=== PATIENT | female | born 1985 | race Caucasian/White ===

== ENCOUNTER 2016-10-06 00:16 | Emergency (ER) | payer MEDICAID, OTHER, SELFPAY ==
[~2016-10-06] VITALS: Ht 167.6 cm; Wt 65.8 kg
[~2016-10-06 00:16] MED LIST: ACET50TA PO; AMOX875T; BUTR5DIS2 TD; CEPH2CAP PO; CIPR250S PO; CIPR500T89 PO; CYCL5TAB PO; DOCU10ELUD PO; FERR325T PO; GABA300C2 PO; GABA600T PO; KEFL500C7 PO; LYRI75CA PO; No Historical Meds; PERC5TAB6 PO; PERC5TAB8; PERCOCET PO; PRENTAB9 PO; PROA1AER INH; SENN8.6T5; TYLE500T78 PO; VENL37TA PO; VICO5TAB PO; VITMTA PO; XANA1TAB2 PO; macrobid PO
[2016-10-06] MEDS ORDERED: dexameTHASONE 20 MG/5 ML VIAL (J1100) IV ONE (00:45)
[2016-10-06] MEDS ORDERED: MORPHINE 4 MG/ML 1ML SYRINGE IV ONE (00:45)
[2016-10-06 01:39] VITALS: BP 133/62
== END 2016-10-06 01:40 | disposition home or self-care (01) ==
LOC: EDBD 00:16 → M ED 01:27
DX: T23.212A Burn of second degree of left thumb (nail), initial encounter (principal); X10.2XXA Contact with fats and cooking oils, initial encounter; Y92.090 Kitchen in other non-institutional residence as the place of occurrence of the external cause; Y93.G3 Activity, cooking and baking; Y99.9 Unspecified external cause status
CPT/HCPCS: 96374; 96375; 99282; J1100

== ENCOUNTER → 2017-10-17 | Outpatient (CLI) | payer OTHER ==
[2017-10-17 13:37] LABS: BASO # 0.1 10^3/uL (0.0-0.2); BASO % 0.7 % (0.0-1.0); EOS # 0.2 10^3/uL (0.0-0.50); EOS % 2.1 % (0.0-3.0); HEMOGLOBIN 14.2 g/dl (12.0-15.5); IMMATURE GRANULOCYTE % 0.3 % (0-3.0); LYMPH # 2.3 10^3/uL (1.5-4.5); LYMPH % 26.1 % (24.0-44.0); MEAN CORPUSCULAR HEMOGLOBIN 29.2 pg (27.0-33.0); MEAN CORPUSCULAR HGB CONC 33.8 g/dl (32.0-36.5); MEAN CORPUSCULAR VOLUME 86.4 fl (80.0-96.0); MONO # 0.6 10^3/uL (0.0-0.8); MONO % 6.6 % (0.0-5.0); NEUTROPHILS # 5.6 10^3/uL (1.8-7.7); NEUTROPHILS % 64.2 % (36.0-66.0); PLATELET COUNT, AUTOMATED 211 10^3/uL (150-450); RED BLOOD COUNT 4.86 10^6/uL (4.00-5.40); WHITE BLOOD COUNT 8.8 10^3/uL (4.0-10.0)
[2017-10-17 13:53] LABS: CONTROL LINE HCG INT CTR LINE PRESENT; HCG, SERUM QUALITATIVE NEGATIVE (NEGATIVE)
[2017-10-17 14:02] LABS: ALBUMIN 4.1 GM/DL (3.2-5.2); ALBUMIN/GLOBULIN RATIO 1.21 (1.00-1.93); ALKALINE PHOSPHATASE 71 U/L (45-117); ALT/SGPT 25 U/L (12-78); ANION GAP 4 MEQ/L (8-16); AST/SGOT 24 U/L (7-37); BILIRUBIN,TOTAL 0.4 MG/DL (0.2-1.0); BLOOD UREA NITROGEN 11 MG/DL (7-18); CALCIUM LEVEL 9.2 MG/DL (8.5-10.1); CARBON DIOXIDE LEVEL 28 MEQ/L (21-32); CHLORIDE LEVEL 108 MEQ/L (98-107); CREATININE FOR GFR 0.84 MG/DL (0.55-1.30); GLOMERULAR FILTRATION RATE > 60.0 (>60); GLUCOSE, FASTING 90 MG/DL (70-100); HCG, SERUM QUANTITATIVE < 1.0 MIU/ML; POTASSIUM SERUM 4.2 MEQ/L (3.5-5.1); SODIUM LEVEL 140 MEQ/L (136-145); TOTAL PROTEIN 7.5 GM/DL (6.4-8.2)
== END ==
LOC: M LAB 13:18
DX: R10.32 Left lower quadrant pain (principal); N91.0 Primary amenorrhea
CPT/HCPCS: 80053

== ENCOUNTER → 2017-10-29 | Outpatient (REF) | payer OTHER ==
[2017-11-05 08:06] LABS: AMPHETAMINE SCREEN, URINE Negative ng/mL (Cutoff=1000); BARBITURATES SCREEN, URINE Negative ng/mL (Cutoff=200); BENZODIAZEPINES, URINE SCREEN Negative ng/mL (Cutoff=200); CANNABINOID SCREEN, URINE Negative ng/mL (Cutoff=20); COCAINE SCREEN, URINE Negative ng/mL (Cutoff=300); CREATININE, URINE 200.4 mg/dL (20.0-300.0); FENTANYL URINE SCREEN Negative pg/mL (Cutoff=2000); METHADONE, URINE SCREEN Negative ng/mL (Cutoff=300); NALOXONE RESULT Positive (.); OPIATE SCREEN, URINE Negative ng/mL (Cutoff=300); OXYCODONE, SCREEN, URINE Negative ng/mL (Cutoff=100); PCP SCREEN, URINE Negative ng/mL (Cutoff=25); SPECIFIC GRAVITY, URINE 1.019 (.); URINE BUPRENORPHINE Positive (.); URINE BUPRENORPHINE Positive (Cutoff=10); URINE BUPRENORPHINE See Final Results ng/mL (Cutoff=10); URINE BUPRENORPHINE CONFIRM >1000 ng/mL (Cutoff=10); URINE NORBUPRENORPHINE Positive (.); URINE NORBUPRENORPHINE CONFIRM 28 ng/mL (Cutoff=10); pH, URINE 5.5 (4.5-8.9)
== END ==
LOC: M LAB REF 10:00
DX: F11.11 Opioid abuse, in remission (principal)
CPT/HCPCS: 80362

== ENCOUNTER → 2017-11-12 | Outpatient (REF) | payer OTHER, MEDICAID ==
[2017-11-20 10:16] LABS: AMPHETAMINE SCREEN, URINE Negative ng/mL (Cutoff=1000); BARBITURATES SCREEN, URINE Negative ng/mL (Cutoff=200); BENZODIAZEPINES, URINE SCREEN Negative ng/mL (Cutoff=200); CANNABINOID SCREEN, URINE Negative ng/mL (Cutoff=20); COCAINE SCREEN, URINE Negative ng/mL (Cutoff=300); CREATININE, URINE 221.8 mg/dL (20.0-300.0); FENTANYL URINE SCREEN Negative pg/mL (Cutoff=2000); METHADONE, URINE SCREEN Negative ng/mL (Cutoff=300); NALOXONE RESULT Positive (.); OPIATE SCREEN, URINE Negative ng/mL (Cutoff=300); OXYCODONE, SCREEN, URINE Negative ng/mL (Cutoff=100); PCP SCREEN, URINE Negative ng/mL (Cutoff=25); SPECIFIC GRAVITY, URINE 1.026 (.); URINE BUPRENORPHINE Positive (.); URINE BUPRENORPHINE Positive (Cutoff=10); URINE BUPRENORPHINE See Final Results ng/mL (Cutoff=10); URINE BUPRENORPHINE CONFIRM 122 ng/mL (Cutoff=10); URINE NORBUPRENORPHINE Positive (.); URINE NORBUPRENORPHINE CONFIRM 414 ng/mL (Cutoff=10); pH, URINE 5.9 (4.5-8.9)
== END ==
LOC: M LAB REF 09:13
DX: F11.11 Opioid abuse, in remission (principal)

== ENCOUNTER 2018-02-14 12:04 | Emergency (ER) | payer OTHER, MEDICAID ==
[2018-02-14 13:21] LABS: KETONE, URINE AUTO RFX TRACE mg/dL (NEGATIVE); LEUKOCYTE ESTERASE UR AUTO RFX 2+ (NEGATIVE); MUCUS, URINE RFX SMALL (NEGATIVE); NITRITE, URINE AUTO RFX POSITIVE (NEGATIVE); RBC, URINE AUTO RFX 2 /HPF (0-3); SQUAM EPITHELIAL CELL UR AURFX 7 /HPF (0-6); WBC, URINE AUTO RFX 43 /HPF (0-3)
[2018-02-14] MEDS: ONDANSETRON 4 MG ORAL DISINTEGRATING TAB (Q0162 PER 1MG) PO (13:57)
[2018-02-14] MEDS: NITROFURANTOIN (MACROBID) 100 MG CAP PO (14:00)
[2018-02-14] MEDS: MORPHINE 4 MG/ML 1ML VIAL/SYRINGE (J2270) IM (14:05)
== END 2018-02-14 15:34 | disposition home or self-care (01) ==
LOC: M ED 12:04
DX: O23.40 Unspecified infection of urinary tract in pregnancy, unspecified trimester (principal); O99.519 Diseases of the respiratory system complicating pregnancy, unspecified trimester; Z87.442 Personal history of urinary calculi; Z79.899 Other long term (current) drug therapy; Z88.5 Allergy status to narcotic agent; Z88.6 Allergy status to analgesic agent; Z88.2 Allergy status to sulfonamides; Z88.8 Allergy status to other drugs, medicaments and biological substances; Z91.040 Latex allergy status
CPT/HCPCS: J2270

== ENCOUNTER 2018-02-19 12:17 | Emergency (ER) | payer OTHER ==
[2018-02-19] MEDS: NS 1,000 ML IV (13:44)
[2018-02-19] MEDS: ONDANSETRON 4MG/2ML VIAL (J2405) IV (13:44)
[2018-02-19] MEDS: ACETAMINOPHEN TAB 650MG DOSE (2X325MG) PO (14:39)
== END 2018-02-19 16:45 | disposition home or self-care (01) ==
LOC: M ED 12:17
DX: O21.9 Vomiting of pregnancy, unspecified (principal); Z3A.10 10 weeks gestation of pregnancy; Z87.442 Personal history of urinary calculi; Z88.2 Allergy status to sulfonamides; Z88.5 Allergy status to narcotic agent; Z88.8 Allergy status to other drugs, medicaments and biological substances; Z91.040 Latex allergy status; Z87.891 Personal history of nicotine dependence
CPT/HCPCS: J2405

== ENCOUNTER 2018-03-01 10:22 | Emergency (ER) | payer OTHER | END 2018-03-01 11:02 | disposition home or self-care (01) | LOC: M ED 10:22 | DX: O21.0 Mild hyperemesis gravidarum (principal); Z3A.13 13 weeks gestation of pregnancy; Z87.442 Personal history of urinary calculi; O99.511 Diseases of the respiratory system complicating pregnancy, first trimester; O99.341 Other mental disorders complicating pregnancy, first trimester; Z87.891 Personal history of nicotine dependence; Z79.899 Other long term (current) drug therapy; Z88.5 Allergy status to narcotic agent; Z88.8 Allergy status to other drugs, medicaments and biological substances; Z88.6 Allergy status to analgesic agent; Z88.2 Allergy status to sulfonamides; Z91.040 Latex allergy status | CPT/HCPCS: 99282 ==

== ENCOUNTER → 2018-03-11 | Outpatient (CLI) | payer OTHER ==
[2018-03-11 17:47] LABS: BASO % 0.4 % (0.0-1.0); EOS # 0.2 10^3/uL (0.0-0.50); EOS % 1.6 % (0.0-3.0); HEMATOCRIT 37.9 % (36.0-47.0); HEMOGLOBIN 12.9 g/dl (12.0-15.5); IMMATURE GRANULOCYTE % 0.5 % (0-3.0); LYMPH # 1.7 10^3/uL (1.5-4.5); LYMPH % 18.6 % (24.0-44.0); MEAN CORPUSCULAR HEMOGLOBIN 29.6 pg (27.0-33.0); MEAN CORPUSCULAR VOLUME 86.9 fl (80.0-96.0); MONO # 0.6 10^3/uL (0.0-0.8); MONO % 6.1 % (0.0-5.0); NEUTROPHILS # 6.8 10^3/uL (1.8-7.7); NEUTROPHILS % 72.8 % (36.0-66.0); PLATELET COUNT, AUTOMATED 238 10^3/uL (150-450); RED BLOOD COUNT 4.36 10^6/uL (4.00-5.40); RED CELL DISTRIBUTION WIDTH 13.2 % (11.5-14.5); WHITE BLOOD COUNT 9.4 10^3/uL (4.0-10.0)
[2018-03-11 19:18] LABS: TOTAL PROTEIN,RANDOM URINE < 5.0 MG/DL (0.0-12.0)
[2018-03-11 19:36] LABS: ALT/SGPT 18 U/L (12-78); AST/SGOT 13 U/L (7-37); BILIRUBIN,TOTAL 0.2 MG/DL (0.2-1.0); CREATININE FOR GFR 0.64 MG/DL (0.55-1.30); GLOMERULAR FILTRATION RATE > 60.0 (>60); LDH LACTATE DEHYDROGENASE 156 U/L (84-246); URIC ACID 3.5 MG/DL (2.6-6.0)
[2018-03-11 23:50] LABS: CHLAMYDIA DNA AMPLIFICATION NEGATIVE (NEGATIVE); GC DNA AMPLIFICATION NEGATIVE (NEGATIVE)
[2018-03-13 09:55] LABS: RUBELLA IgG QUALITATIVE IMMUNE (IMMUNE)
[2018-03-13 10:14] LABS: HEPATITIS C VIRUS ABY INDEX 0.1 INDEX (<0.8)
[2018-03-13 11:06] LABS: HBsAg Prenatal NEGATIVE (NEGATIVE)
[2018-03-13 12:42] LABS: HIV 1&2 SCREEN CENTAUR NEGATIVE (NEGATIVE)
== END ==
LOC: M SMT 15:43
DX: Z34.80 Encounter for supervision of other normal pregnancy, unspecified trimester (principal); Z36.89 Encounter for other specified antenatal screening
CPT/HCPCS: 84460

== ENCOUNTER 2018-04-30 21:06 | Emergency (ER) | payer OTHER ==
[2018-04-30 22:34] LABS: KETONE, URINE AUTO RFX NEGATIVE (NEGATIVE); LEUKOCYTE ESTERASE UR AUTO RFX TRACE (NEGATIVE); MUCUS, URINE RFX SMALL (NEGATIVE); NITRITE, URINE AUTO RFX POSITIVE (NEGATIVE); RBC, URINE AUTO RFX 2 /HPF (0-3); SPECIFIC GRAVITY UR AUTO RFX 1.009 (1.002-1.035); SQUAM EPITHELIAL CELL UR AURFX 2 /HPF (0-6); WBC, URINE AUTO RFX 11 /HPF (0-3)
[2018-04-30] MEDS: ONDANSETRON 4MG/2ML VIAL (J2405) IV (22:55)
[2018-04-30] MEDS: NS 1,000 ML IV (22:55)
[2018-04-30] MEDS: MORPHINE 4 MG/ML 1ML VIAL/SYRINGE (J2270) IV (22:56)
[2018-04-30 23:13] LABS: BASO % 0.5 % (0.0-1.0); EOS # 0.2 10^3/uL (0.0-0.50); EOS % 2.9 % (0.0-3.0); HEMATOCRIT 35.3 % (36.0-47.0); HEMOGLOBIN 12.1 g/dl (12.0-15.5); IMMATURE GRANULOCYTE % 1.1 % (0-3.0); LYMPH % 24.8 % (24.0-44.0); MEAN CORPUSCULAR HEMOGLOBIN 30.1 pg (27.0-33.0); MEAN CORPUSCULAR HGB CONC 34.3 g/dl (32.0-36.5); MEAN CORPUSCULAR VOLUME 87.8 fl (80.0-96.0); MONO # 0.8 10^3/uL (0.0-0.8); MONO % 9.2 % (0.0-5.0); NEUTROPHILS # 5.1 10^3/uL (1.8-7.7); NEUTROPHILS % 61.5 % (36.0-66.0); PLATELET COUNT, AUTOMATED 218 10^3/uL (150-450); RED BLOOD COUNT 4.02 10^6/uL (4.00-5.40); RED CELL DISTRIBUTION WIDTH 13.7 % (11.5-14.5); WHITE BLOOD COUNT 8.2 10^3/uL (4.0-10.0)
[2018-04-30 23:37] LABS: ALBUMIN 3.1 GM/DL (3.2-5.2); ALBUMIN/GLOBULIN RATIO 0.91 (1.00-1.93); ALKALINE PHOSPHATASE 57 U/L (45-117); ALT/SGPT 14 U/L (12-78); ANION GAP 11 MEQ/L (8-16); AST/SGOT 14 U/L (7-37); BILIRUBIN,DIRECT 0.1 MG/DL (0.0-0.2); BILIRUBIN,TOTAL 0.3 MG/DL (0.2-1.0); BLOOD UREA NITROGEN 10 MG/DL (7-18); CALCIUM LEVEL 8.6 MG/DL (8.5-10.1); CARBON DIOXIDE LEVEL 23 MEQ/L (21-32); CHLORIDE LEVEL 106 MEQ/L (98-107); CREATININE FOR GFR 0.63 MG/DL (0.55-1.30); GLOMERULAR FILTRATION RATE > 60.0 (>60); GLUCOSE, FASTING 73 MG/DL (70-100); POTASSIUM SERUM 3.8 MEQ/L (3.5-5.1); SODIUM LEVEL 140 MEQ/L (136-145); TOTAL PROTEIN 6.5 GM/DL (6.4-8.2)
[2018-05-01] MEDS: MORPHINE 4 MG/ML 1ML VIAL/SYRINGE (J2270) IV (00:07)
[2018-05-01] MEDS: PHENAZOPYRIDINE 100 MG TAB PO (00:19)
[2018-05-01] MEDS: AUGMENTIN 500 MG TAB PO (00:19)
== END 2018-05-01 00:50 | disposition home or self-care (01) ==
LOC: M ED 05-01 00:50
DX: O23.42 Unspecified infection of urinary tract in pregnancy, second trimester (principal); Z3A.22 22 weeks gestation of pregnancy; Z87.442 Personal history of urinary calculi; O99.342 Other mental disorders complicating pregnancy, second trimester; Z90.5 Acquired absence of kidney; Z79.899 Other long term (current) drug therapy; Z88.5 Allergy status to narcotic agent; Z88.2 Allergy status to sulfonamides; Z88.6 Allergy status to analgesic agent; Z88.8 Allergy status to other drugs, medicaments and biological substances; Z91.040 Latex allergy status
CPT/HCPCS: J2270

== ENCOUNTER → 2018-05-05 | Outpatient (CLI) | payer OTHER | LOC: M WHC 13:40 | DX: Z34.82 Encounter for supervision of other normal pregnancy, second trimester (principal); Z3A.22 22 weeks gestation of pregnancy | CPT/HCPCS: 76811 ==

== ENCOUNTER → 2018-06-25 | Outpatient (CLI) | payer OTHER ==
[~2018-06-25] MED LIST changes: +AUGM500T34 PO; +BUPR8SUB; +BUPRENORP; +FERR1TAB8 PO; -FERR325T PO; -GABA600T PO; +GABA600T4 PO; +KEFL500C17 PO; -KEFL500C7 PO; +MACR100C43 PO; +ONDA8TAB8 PO; +OXYC1TAB23 PO; +PERC5TAB12 PO; -PERC5TAB6 PO; -PROA1AER INH; +PROAAER10 INH; +PROM25SU PR; +PROM25TA12 PR; +PYRI1TAB5 PO; +SUBO8MIS SL; +ZOFR4TAB14 PO
--- NOTE | 2018-06-26 04:56 | REP ---
Clinical: Anatomical evaluation. Comparison: 05/05/2018 . Findings: Examination demonstrates a single live intrauterine in oblique (head to maternal left) presentation. motion is identified by technologist. Placenta is noted anterior and grade there are grade 1 without evidence for placenta previa or abruption. Amniotic fluid volume is normal. Cervix measures 5.4 cm in length and appears closed. No evidence for nuchal cord. Gestational age by LMP 29 weeks 3 days with ELEUTERIO 09/07/2018 . Gestational age by current measurements 28 weeks 3 days with ELEUTERIO 09/14/2018 . FHR equals 143 beats per minute. Estimated weight 1230 grams ( 21st percentile). Amniotic fluid index: 14.1 cm (9.1 - 23.2) Umbilical cord SD ratio: 2.86 (2.50 - 3.50). Anatomical assessment demonstrates normal cranium, cavum, posterior fossa, facial features, lungs, diaphragm, stomach, three-vessel cord, kidneys/bladder and lower extremities. Impression: Single live intrauterine in transverse lie demonstrating appropriate interval growth. While no gross abnormalities are identified. Continued limited evaluation of the spine again noted due to positioning. Electronically Signed by Jair Fletcher MD 06/26/2018 04:47 A
== END ==
LOC: M RAD 13:00
PROVIDERS: ATTEND Specialist
DX: Z36.89 Encounter for other specified antenatal screening (principal); Z3A.28 28 weeks gestation of pregnancy

== ENCOUNTER → 2018-07-23 | Outpatient (CLI) | payer OTHER ==
--- NOTE | 2018-07-24 02:28 | REP ---
Clinical: Growth evaluation. Comparison: 06/25/2018 . Findings: Examination demonstrates a single live intrauterine in cephalic presentation. motion is identified by technologist. Placenta is noted anterior and grade grade zero without evidence for placenta previa or abruption. Amniotic fluid volume is normal. Cervix measures 3.8 cm in length and appears closed. No evidence for nuchal cord. Gestational age by LMP 33 weeks 3 days with ELEUTERIO 09/07/2018 . Gestational age by current measurements 32 weeks 2 days with ELEUTERIO 09/15/2018 . FHR equals 132 beats per minute. BPD 7.8 cm 31 weeks 3 days HC 29.6 cm 32 weeks 5-day AC 28.9 cm 32 weeks 6 days FL 6.4 cm 30 weeks 6 days HL 5.5 cm 31 weeks 5-day HC/AC ratio 1.0 through Estimated weight the 2033 grams ( 32nd percentile). Amniotic fluid index: 11.2 cm (8.2 - 24.6) Umbilical cord SD ratio: 2.10 (2.00 - 3.00). Impression: Single live intrauterine in cephalic presentation demonstrating appropriate interval growth. No gross abnormalities are identified. Electronically Signed by Jair Fletcher MD 07/24/2018 02:20 A
== END ==
LOC: M RAD 10:12
PROVIDERS: ATTEND Advanced Practice Midwife
DX: O09.293 Supervision of pregnancy with other poor reproductive or obstetric history, third trimester (principal); Z3A.33 33 weeks gestation of pregnancy

== ENCOUNTER → 2018-07-23 | Outpatient (CLI) | payer OTHER ==
[2018-07-23 13:01] LABS: HEMATOCRIT 34.8 % (36.0-47.0); HEMOGLOBIN 12.1 g/dl (12.0-15.5); MEAN CORPUSCULAR HEMOGLOBIN 30.3 pg (27.0-33.0); MEAN CORPUSCULAR HGB CONC 34.8 g/dl (32.0-36.5); PLATELET COUNT, AUTOMATED 208 10^3/uL (150-450); WHITE BLOOD COUNT 11.5 10^3/uL (4.0-10.0)
[2018-07-23 13:24] LABS: ALT/SGPT 9 U/L (12-78); BILIRUBIN,TOTAL 0.5 MG/DL (0.2-1.0); BLOOD UREA NITROGEN 8 MG/DL (7-18); CALCIUM LEVEL 8.6 MG/DL (8.5-10.1); CARBON DIOXIDE LEVEL 23 MEQ/L (21-32); CHLORIDE LEVEL 105 MEQ/L (98-107); CREATININE FOR GFR 0.64 MG/DL (0.55-1.30); GLOMERULAR FILTRATION RATE > 60.0 (>60); GLUCOSE CHALLENGE TEST 1 HOUR 132 MG/DL (LESS THAN 140); GLUCOSE, FASTING 132 MG/DL (70-100); POTASSIUM SERUM 3.8 MEQ/L (3.5-5.1); SODIUM LEVEL 137 MEQ/L (136-145); TOTAL PROTEIN 6.2 GM/DL (6.4-8.2)
== END ==
LOC: M LAB 11:02
PROVIDERS: ATTEND Advanced Practice Midwife
DX: O09.293 Supervision of pregnancy with other poor reproductive or obstetric history, third trimester (principal)

== ENCOUNTER → 2018-08-02 | Outpatient (CLI) | payer OTHER ==
[~2018-08-02] VITALS: Ht 167.6 cm; Wt 82.3 kg
[2018-08-02] VITALS (8 sets, daily range): BP systolic 121–144; BP diastolic 61–78
[~2018-08-02] MED LIST changes: +FIORICET TAB PO ONE; +MAPA500T2 PO; +OMEPRAZOLE 20 MG CAP PO ONE
[2018-08-02 11:59] LABS: BLOOD UREA NITROGEN 5 MG/DL (7-18); CALCIUM LEVEL 8.6 MG/DL (8.5-10.1); CARBON DIOXIDE LEVEL 23 MEQ/L (21-32); CHLORIDE LEVEL 107 MEQ/L (98-107); GLOMERULAR FILTRATION RATE > 60.0 (>60); GLUCOSE, FASTING 92 MG/DL (70-100); POTASSIUM SERUM 3.9 MEQ/L (3.5-5.1); SODIUM LEVEL 139 MEQ/L (136-145)
--- NOTE | 2018-08-02 13:20 | IPNPDOC ---
Text Note Date of Service The patient was seen on 08/02/18. NOTE Subjective: Patient is a 33-year-old female who is a who is 33 weeks 5 days gestation with an ELEUTERIO of 09/15/18 based off of her 1st trimester ultrasound. Her has been complicated by a history of gestational hypertension, history of preeclampsia, a right nephrectomy, history of IUFD due to cystic hygroma, history of opiate abuse-currently using suboxone daily, and a prior section. She presents today with complaints of headache, visual changes, and edema. She reports her symptoms started yesterday. She has tried tylenol without any improvement. Patient reports she knows something is going on and she feels like she did when she had preeclampsia in 2013. She reports she has been taking her BPs at home and takes it when she feels a heat del castillo in her body. States some of her pressures are in the 140-150 systolic and diastolics are in the 70's. Patient reports she did not eat anything this morning but had some soda to drink. She is requesting Zofran 8 mg. She reports it is only working if she takes 8 mg, which she is taking it twice per day. She reported her headache upon arrival to be an 8/10 and after 2 tabs of fioricet it is a 4/10 and tolerable per patient. Objective: VS: see below. Labs: see below. FHR 125, moderate variability, posi tive accelerations, no decelerations. Contractions: occasional. A+Ox3; Respiratory: regular rate; Abdomen: gravid and nontender to touch; bilateral lower extremities: generalized edema, no pitting edema present. Assessment: IUP at 33.5 weeks gestation; headache: Category I FHR tracing Plan: Reviewed all normal labs with patient. Reviewed no GHTN, preeclampsia, kidney issues, or electrolyte changes. Orthostatic pressures done on patient by nurse and are normal. Patient encouraged to get her 3 hr glucola test done as she failed her 1 hour test. Script sent for Esgic and Zofran. She has a follow- up appointment with Janee Alvarado CNM tomorrow. Patient encouraged to maintain OB appointments. Reviewed access to care, kick counts, labor signs, and danger signs to report. VS,Gee, I+O VS, Renzobone, I+O Laboratory Tests 08/02/18 11:28 Calcium Level 8.6 Item Value Date Time Sodium Level 139 MEQ/L 08/02/18 1128 Chloride Level 107 MEQ/L 08/02/18 1128 Potassium Level 3.9 MEQ/L 08/02/18 1128 Carbon Dioxide Level 23 MEQ/L 08/02/18 1128 Anion Gap 9 MEQ/L 08/02/18 1128 Blood Urea Nitrogen 5 MG/DL L 08/02/18 1128 Creatinine 0.60 MG/DL 08/02/18 1128 Glomerular Filtration Rate > 60.0 08/02/18 1128 Fasting Glucose 92 MG/DL 08/02/18 1128 Calcium Level 8.6 MG/DL 08/02/18 1128 Item Value Date Time White Blood Count 14.4 10^3/uL H 08/02/18 1427 Red Blood Count 4.05 10^6/uL 08/02/18 1427 Hemoglobin 12.3 g/dl 08/02/18 1427 Hematocrit 35.7 % L 08/02/18 1427 Mean Corpuscular Volume 88.1 fl 08/02/18 1427 Mean Corpuscular Hemoglobin 30.4 pg 08/02/18 1427 Mean Corpuscular Hemoglobin Concent 34.5 g/dl 08/02/18 1427 Red Cell Distribution Width 12.4 % 08/02/18 1427 Platelet Count 207 10^3/uL 08/02/18 1427 Item Value Date Time Creatinine 0.62 MG/DL 08/02/18 1427 Glomerular Filtration Rate > 60.0 08/02/18 1427 Uric Acid 3.3 MG/DL 08/02/18 1427 Total Bilirubin 0.3 MG/DL 08/02/18 1427 Aspartate Amino Transf (AST/SGOT) 15 U/L 08/02/18 1427 Alanine Aminotransferase (ALT/SGPT) 15 U/L 08/02/18 1427 Lactate Dehydrogenase 140 U/L 08/02/18 1427 Item Value Date Time Urine Random Creatinine 97.5 MG/DL 08/02/18 1415 Urine Random Total Protein 9.7 MG/DL 08/02/18 1415 Vital Signs Date Time Temp Pulse Resp B/P (MAP) Pulse Ox O2 Delivery O2 Flow Rate FiO2 08/02/18 11:12 82 18 121/76 (91) 08/02/18 09:05 98.6 Vital Signs Label Value Date Time Pulse 86 08/02/18 0915 Respiratory Rate 18 bpm 08/02/18 0915 Blood Pressure Assessment 128/70 (89) 08/02/18 0915 Source Automatic Cuff (NIBP) Vital Signs Label Value Date Time Pulse 82 08/02/18 1112 Respiratory Rate 18 bpm 08/02/18 1112 Blood Pressure Assessment 121/76 (91) 08/02/18 1112 Source Automatic Cuff (NIBP) Vital Signs Label Value Date Time Patient Temperature 99.1 degrees F 08/02/18 1352 Temperature Source Temporal 08/02/18 1352 Pulse 88 08/02/18 1352 Respiratory Rate 18 bpm 08/02/18 1352 Blood Pressure Assessment 144/63 (90) 08/02/18 1352 Source Automatic Cuff (NIBP) Vital Signs Label Value Date Time Patient Temperature 99.1 degrees F 08/02/18 1515 Temperature Source Temporal 08/02/18 1515 Pulse 94 08/02/18 1515 Respiratory Rate 18 bpm 08/02/18 1515 Blood Pressure Assessment 128/69 (88) 08/02/18 1515 Source Automatic Cuff (NIBP) DEVIN BURGOS CNM Aug 02, 2018 13:20
[2018-08-02 14:42] LABS: HEMATOCRIT 35.7 % (36.0-47.0); HEMOGLOBIN 12.3 g/dl (12.0-15.5); MEAN CORPUSCULAR HEMOGLOBIN 30.4 pg (27.0-33.0); MEAN CORPUSCULAR HGB CONC 34.5 g/dl (32.0-36.5); MEAN CORPUSCULAR VOLUME 88.1 fl (80.0-96.0); PLATELET COUNT, AUTOMATED 207 10^3/uL (150-450); RED BLOOD COUNT 4.05 10^6/uL (4.00-5.40); WHITE BLOOD COUNT 14.4 10^3/uL (4.0-10.0)
[2018-08-02 14:49] LABS: CREATININE,RANDOM URINE 97.5 MG/DL; TOTAL PROTEIN,RANDOM URINE 9.7 MG/DL (0.0-12.0)
[2018-08-02 15:01] LABS: ALT/SGPT 15 U/L (12-78); BILIRUBIN,TOTAL 0.3 MG/DL (0.2-1.0); CREATININE FOR GFR 0.62 MG/DL (0.55-1.30); GLOMERULAR FILTRATION RATE > 60.0 (>60); LDH LACTATE DEHYDROGENASE 140 U/L (84-246); URIC ACID 3.3 MG/DL (2.6-6.0)
== END ==
LOC: M LDO 08:45
PROVIDERS: ATTEND Advanced Practice Midwife
DX: O99.89 Other specified diseases and conditions complicating pregnancy, childbirth and the puerperium (principal); R51 Headache; O26.893 Other specified pregnancy related conditions, third trimester; H53.8 Other visual disturbances; O12.03 Gestational edema, third trimester; Z3A.33 33 weeks gestation of pregnancy

== ENCOUNTER → 2018-08-13 | Outpatient (CLI) | payer OTHER ==
[~2018-08-13] MED LIST changes: -FIORICET TAB PO ONE; -OMEPRAZOLE 20 MG CAP PO ONE
== END ==
LOC: M LAB 08:10
PROVIDERS: ATTEND Advanced Practice Midwife
DX: O09.293 Supervision of pregnancy with other poor reproductive or obstetric history, third trimester (principal)

== ENCOUNTER → 2018-08-14 | Outpatient (REF) | payer OTHER | LOC: M LAB REF 14:09 | PROVIDERS: ATTEND Advanced Practice Midwife | DX: O09.293 Supervision of pregnancy with other poor reproductive or obstetric history, third trimester (principal); Z3A.00 Weeks of gestation of pregnancy not specified ==

== ENCOUNTER → 2018-08-14 | Outpatient (REF) | payer OTHER | LOC: M LAB REF 14:00 | PROVIDERS: ATTEND Advanced Practice Midwife | DX: Z86.14 Personal history of Methicillin resistant Staphylococcus aureus infection (principal) ==

== ENCOUNTER → 2018-08-21 | Outpatient (REF) | payer OTHER, MEDICAID | LOC: M LAB REF 17:11 → EEVIPCON 17:11 | PROVIDERS: ATTEND Advanced Practice Midwife | DX: O09.293 Supervision of pregnancy with other poor reproductive or obstetric history, third trimester (principal); Z3A.00 Weeks of gestation of pregnancy not specified ==

== ENCOUNTER 2018-09-08 16:21 | Inpatient (IN) | payer OTHER, MEDICAID ==
[~2018-09-08] VITALS: Ht 167.6 cm; Wt 78.1 kg
[~2018-09-08 16:21] MED LIST changes: -ACET50TA PO; -DOCU10ELUD PO; +DOCU5LIQ PO; +MAPA500T17 PO; -PERCOCET PO
[2018-09-08] MEDS ORDERED: LACTATED RINGER'S 1000 ML IV STA (16:36)
[2018-09-08 16:39] VITALS: BP 122/81
[2018-09-08] MEDS ORDERED: ONDANSETRON 4MG/2ML VIAL (J2405) IV ONE (17:30)
[2018-09-08 17:56] VITALS: BP 132/79
[2018-09-08 18:09] LABS: HEMATOCRIT 35.1 % (36.0-47.0); MEAN CORPUSCULAR HEMOGLOBIN 28.4 pg (27.0-33.0); MEAN CORPUSCULAR HGB CONC 34.2 g/dl (32.0-36.5); MEAN CORPUSCULAR VOLUME 83.2 fl (80.0-96.0); PLATELET COUNT, AUTOMATED 224 10^3/uL (150-450); RED BLOOD COUNT 4.22 10^6/uL (4.00-5.40); WHITE BLOOD COUNT 10.4 10^3/uL (4.0-10.0)
[2018-09-08 18:24] LABS: ALT/SGPT 10 U/L (12-78); BILIRUBIN,TOTAL 0.6 MG/DL (0.2-1.0); GLOMERULAR FILTRATION RATE > 60.0 (>60); LDH LACTATE DEHYDROGENASE 147 U/L (84-246); URIC ACID 5.5 MG/DL (2.6-6.0)
[2018-09-08 18:28] LABS: AMPHETAMINES URINE REFLEX NEGATIVE (NEGATIVE); BARBITURATES URINE REFLEX NEGATIVE (NEGATIVE); BENZODIAZEPINES URINE REFLEX NEGATIVE (NEGATIVE); CANNABINOIDS URINE REFLEX NEGATIVE (NEGATIVE); COCAINE METABOLITE URINE REFLE NEGATIVE (NEGATIVE); METHADONE URINE REFLEX NEGATIVE (NEGATIVE); OPIATES URINE REFLEX NEGATIVE (NEGATIVE); PHENCYCLIDINE URINE REFLEX NEGATIVE (NEGATIVE)
[2018-09-08 18:59] LABS: TOTAL PROTEIN,RANDOM URINE 19.2 MG/DL (0.0-12.0)
--- NOTE | 2018-09-08 21:33 | NUR ---
L&D H&P HPI: 33 year old at 39+0 weeks estimated gestation. Expected date of confinement: 09/15/18. dated by a first TM US. Presents today for IOL. Denies vaginal bleeding, loss of fluid, or uterine contractions. Reports regular movement. Had a headache/visual disturbances and mildly elevated BP earlier today; now resolved. course c/b: 1. h/o LTCS x 1 (last delivery); h/o x 4 prior to LTCS. TOLAC. 2. h/o stillborn (cystic hygroma) 3. h/o opiate abuse. treated with Subutex 8mg daily labs: Blood type O+, antibody screen negative, rubella immune, VDRL nonreactive , hepatitis B surface antigen negative, HIV negative, hepatitis C antibody negative, GC/CT negative, aneuploidy/maternal serum screening: not done, 1 hour glucose challenge test: 132, 3 hour glucose tolerance test: 77,96,72,83. GBS negative Radiology/OB US: no anomalies or placental abnormalities detected. 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 LTCS x 1 (07/2013) for NRFHR. Social history: smoker, former drug abuse. No current illicit drug use. Family history: DM, HTN, heart disease. Objective Vitals: Normotensive - mild HTN, normal heart rate, afebrile Heart: Regular rate and rhythm. No murmurs, rubs or gallops. Lungs: Clear to auscultation bilaterally. No wheezes, crackles, rales or rhonchi. Abdomen: Uterine fundal height consistent with dates. No guarding or rebound tenderness. Extremities: No clubbing, cyanosis or edema. Normal deep tendon reflexes. Sterile vaginal exam: 1 cm, 50 %effacement, -3 station, cephalic, intact External monitoring: heart rate category 1 Tocodynamometer: contractions occurring intermittently Assessment/Plan 33 year old at 39+0 weeks gestation. Diagnosis: CHTN, h/o IUFD, TOLAC, 39+0 weeks EGA. Reassuring and maternal status. -Admit to labor and delivery with routine labs and orders -External monitoring and tocodynamometer -Pediatrics and anesthesia consultations as needed. -GBS prophylaxis with IV penicillin -IOL w/ Pitocin; will consider Cook balloon Dr. Gareth Snyder, DO, FACOG
[2018-09-08] MEDS: LR 1,000 ML IV SCH (21:44)
[2018-09-08] MEDS ORDERED: OXYTOCIN DRIP 30 UNITS in APPROPRIATE DILUENT 1 EA IV SCH (21:45)
[2018-09-09] VITALS (35 sets, daily range): BP systolic 102–149; BP diastolic 53–82
[2018-09-09] MEDS: LR 1,000 ML IV SCH (08:57)
[2018-09-09] MEDS ORDERED: FAMOTIDINE 20 MG TAB PO SCH (09:00)
[2018-09-09] MEDS ORDERED: BUPRENORPHINE/NALOXONE 8-2MG SUBLINGUAL TABLET(SUBOXONE) SL SCH (09:00)
[2018-09-09] MEDS ORDERED: ONDANSETRON 4 MG ORAL DISINTEGRATING TAB (Q0162 PER 1MG) PO PRN (09:15)
[2018-09-09] MEDS ORDERED: FENTANYL 2MCG/ML ROPIVACAINE 0.2% IN 0.9% NACL 100ML IVBAG As Ordered ONE (10:39)
[2018-09-09] MEDS ORDERED: ONDANSETRON 4MG/2ML VIAL (J2405) IV PRN ×3 (11:30→18:00)
[2018-09-09] MEDS ORDERED: LACTATED RINGER'S 1000 ML IV PRN (11:30)
[2018-09-09] MEDS ORDERED: ePHEDrine SULFATE 25 MG/5 ML(5MG/ML) SYRINGE IV PRN (11:30)
[2018-09-09] MEDS ORDERED: EPIDURAL COMMENT XX SCH (11:30)
[2018-09-09] MEDS ORDERED: diphenhydrAMINE INJ 50MG/ML VIAL (J1200) IV PRN (11:30)
[2018-09-09] MEDS ORDERED: REFRIGERATOR IV KEYS XX PRN (11:30)
[2018-09-09] MEDS ORDERED: FENTANYL/ROPIVACAINE/NACL BAG 100 ML EPIDURAL SCH (11:30)
[2018-09-09] MEDS ORDERED: EPIDURAL/PCA KEYS XX PRN (11:30)
[2018-09-09] MEDS ORDERED: NALOXONE INJ 0.4 MG/1 ML VIAL (J2310) IV PRN (11:30)
[2018-09-09] MEDS ORDERED: LACTATED RINGER'S 1000 ML IV STA (15:57)
[2018-09-09] MEDS ORDERED: BICITRA 30ML SOLN UDC PO ONE (16:00)
[2018-09-09] MEDS ORDERED: MORPHINE PRES-FREE INJ 10 MG/10 ML VIAL (J2274) As Ordered ONE (16:22)
[2018-09-09] MEDS ORDERED: OXYTOCIN INJ 10 UNITS/ML VIAL (J2590) As Ordered ONE ×2 (16:22→17:13)
[2018-09-09] MEDS ORDERED: BUPIVACAINE/DEXTROSE 0.75% 2 ML AMP As Ordered ONE (16:22)
[2018-09-09] MEDS ORDERED: LIDOCAINE 2% INJ 100 MG/5 ML SYRINGE As Ordered ONE (16:44)
[2018-09-09] MEDS ORDERED: FLUMAZENIL 0.5 MG/5 ML VIAL As Ordered ONE (16:59)
[2018-09-09] MEDS ORDERED: fentaNYL 100 MCG/2 ML INJECTION (J3010) As Ordered ONE ×4 (17:01→18:22)
[2018-09-09] MEDS ORDERED: MIDAZOLAM INJ 2 MG/2 ML VIAL (J2250) As Ordered ONE (17:03)
[2018-09-09] MEDS ORDERED: KETAMINE HCL 200 MG/20 ML VIAL As Ordered ONE (17:07)
[2018-09-09] MEDS ORDERED: OXYTOCIN DRIP 30 UNITS in APPROPRIATE DILUENT 1 EA IV SCH (17:35)
[2018-09-09] MEDS ORDERED: LR 1,000 ML IV SCH ×2 (17:35→18:00)
[2018-09-09] MEDS ORDERED: PERCOCET 5MG/325MG TAB PO PRN ×2 (17:45→18:00)
[2018-09-09] MEDS ORDERED: MEASLES,MUMPS,RUBELLA VACCINE INJ (MMR-II) (90707) SC SCH (17:45)
[2018-09-09] MEDS ORDERED: DOCUSATE SODIUM 100 MG CAP PO PRN (17:45)
[2018-09-09] MEDS ORDERED: RHOGAM 300 MCG (1500 IU) INJ (J2790) IM SCH (17:45)
[2018-09-09] MEDS ORDERED: fentaNYL 100 MCG/2 ML INJECTION (J3010) IV PRN (18:00)
[2018-09-09] MEDS ORDERED: MEPERIDINE INJ 25 MG/ML VIAL (J2175) IV PRN (18:00)
[2018-09-09] MEDS ORDERED: PERCOCET 5MG/325MG TAB As Ordered ONE (18:28)
[2018-09-09] MEDS ORDERED: OXYTOCIN 30 UNITS IN 0.9% NaCl 500ML IV BAG (J2590) As Ordered ONE (18:51)
[2018-09-09] MEDS ORDERED: MORPHINE 4 MG/ML 1ML VIAL/SYRINGE (J2270) As Ordered ONE (19:01)
[2018-09-09] MEDS: MORPHINE 4 MG/ML 1ML VIAL/SYRINGE (J2270) IV PRN (19:03)
[2018-09-09] MEDS: PERCOCET 5MG/325MG TAB PO PRN (23:02)
[2018-09-10 02:00] VITALS: BP 134/64
[2018-09-10] MEDS: MORPHINE 4 MG/ML 1ML VIAL/SYRINGE (J2270) IV PRN ×3 (02:37→18:45)
[2018-09-10] MEDS: PERCOCET 5MG/325MG TAB PO PRN ×4 (05:45→21:19)
[2018-09-10 06:00] VITALS: BP 142/61
[2018-09-10 08:06] LABS: HEMATOCRIT 30.7 % (36.0-47.0); HEMOGLOBIN 10.3 g/dl (12.0-15.5); MEAN CORPUSCULAR HEMOGLOBIN 28.4 pg (27.0-33.0); MEAN CORPUSCULAR HGB CONC 33.6 g/dl (32.0-36.5); MEAN CORPUSCULAR VOLUME 84.6 fl (80.0-96.0); PLATELET COUNT, AUTOMATED 177 10^3/uL (150-450); RED BLOOD COUNT 3.63 10^6/uL (4.00-5.40); WHITE BLOOD COUNT 16.6 10^3/uL (4.0-10.0)
[2018-09-10] MEDS: PRENATAL VITAMINS CHEWABLE TABLET PO SCH (08:23)
[2018-09-10] MEDS: IBUPROFEN 600 MG TAB PO PRN (08:24)
[2018-09-10 10:17] VITALS: BP 119/59
--- NOTE | 2018-09-10 12:54 | RO ---
DATE OF OPERATION: 09/09/2018 PREOPERATIVE DIAGNOSES: Term , failed induction, arrest of dilation. POSTOPERATIVE DIAGNOSES: Term , failed induction, arrest of dilation. PROCEDURE: Repeat low transverse section, bilateral tubal ligation. SURGEON: Travis Romano MD ANNEALING OPERATOR: Hilaria Alvarado CNM ANESTHESIA: Epidural. ESTIMATED BLOOD LOSS: 800 mL. URINE OUTPUT: 100 mL. FINDINGS: 3120 gram or 6-pound 14-ounce female , scores 8 and 9. Normal uterus, fallopian tubes, and ovaries. DESCRIPTION OF PROCEDURE: Operative summary: The patient taken to the operating room, where epidural anesthesia was found to be adequate. She was prepped and draped in sterile fashion in the supine position. A Gill catheter was already in place. A Pfannenstiel skin incision was made with the scalpel and carried through to the fascia. The fascia was nicked and extended. The fascia was dissected off the rectus muscles. The rectus muscles were divided. The peritoneal cavity was entered. A curvilinear incision was made in the lower uterine segment until clear fluid was noted. This was extended manually. The infant was delivered in the vertex position without difficulty. The cord was doubly clamped and cut. The was handed off to the awaiting nurses. The placenta was expressed. The uterus was exteriorized and cleared of clots and debris. The uterine incision was closed with 0 Vicryl in a running locked fashion. A second imbricating layer of 0 Vicryl was placed. The uterus was placed back in the abdominal cavity. Attention was turned to the fallopian tubes. The fallopian tubes were grasped with Rebeca clamps at their midportion. A window was created in the broad ligament. A free tie of 3-0 chromic was placed around a segment of tube on either side of the Rebeca clamp. Tube was then excised with Metzenbaum scissors. Sent to pathology bilaterally. Good hemostasis was noted. The peritoneum was closed with 2-0 Vicryl in a running fashion. The fascia was closed with 0 Vicryl in a running fashion. The deep layer was irrigated and closed with 4-0 Monocryl. Sponge, instrument, and needle counts were correct. Hilaria Alvarado CNM, assisted with all aspects of the procedure from beginning to end. She helped create all incisions of the abdominal wall and uterus. She helped with expulsion of the fetus and closure of all subsequent layers.
[2018-09-10 14:00] VITALS: BP 112/57
[2018-09-10 18:18] VITALS: BP 112/56
[2018-09-10 22:00] VITALS: BP 118/65
[2018-09-11 02:00] VITALS: BP 117/60
[2018-09-11] MEDS ORDERED: PERCOCET 5MG/325MG TAB PO ONE (03:00)
[2018-09-11] MEDS: IBUPROFEN 600 MG TAB PO PRN ×2 (04:02→10:47)
[2018-09-11 06:00] VITALS: BP 123/58
[2018-09-11] MEDS ORDERED: PERCOCET PO (07:34)
[2018-09-11] MEDS ORDERED: IBUP80TA PO (07:35)
[2018-09-11] MEDS: PERCOCET 5MG/325MG TAB PO PRN (08:28)
[2018-09-11] MEDS: PRENATAL VITAMINS CHEWABLE TABLET PO SCH (08:28)
[2018-09-11 10:00] VITALS: BP 111/53
== END 2018-09-11 12:50 | disposition home or self-care (01) | DRG 540 ==
LOC: M LDI 16:21 → M OBS 09-09 19:34
PROVIDERS: ADMIT Obstetrics & Gynecology; ATTEND Specialist
PROC: 3E033VJ Introduction of Other Hormone into Peripheral Vein, Percutaneous Approach (ICD-10-PCS; 2018-09-08)
PROC: 0UB70ZZ Excision of Bilateral Fallopian Tubes, Open Approach (ICD-10-PCS; 2018-09-09)
PROC: 10D00Z1 Extraction of Products of Conception, Low, Open Approach (ICD-10-PCS; principal; 2018-09-09 16:37)
DX: O10.02 Pre-existing essential hypertension complicating childbirth (principal); Z3A.39 39 weeks gestation of pregnancy; O34.211 Maternal care for low transverse scar from previous cesarean delivery; O62.0 Primary inadequate contractions; O66.41 Failed attempted vaginal birth after previous cesarean delivery; Z30.2 Encounter for sterilization; Z37.0 Single live birth

== ENCOUNTER 2018-11-24 15:31 | Emergency (ER) | payer MEDICAID, OTHER ==
[~2018-11-24] VITALS: Ht 167.6 cm; Wt 73.6 kg
[~2018-11-24 15:31] MED LIST changes: +IBUP80TA PO; +PERCOCET PO
[2018-11-24] MEDS ORDERED: BUPR8SUB (15:38)
[2018-11-24] MEDS ORDERED: AMPICILLIN SOD/SULBACTAM SOD 3 GM in D5W MINI-BAG PLUS 100 ML IV ONE (16:00)
[2018-11-24 16:46] LABS: BASO # 0.1 10^3/uL (0.0-0.2); BASO % 0.7 % (0.0-1.0); EOS # 0.5 10^3/uL (0.0-0.50); EOS % 6.2 % (0.0-3.0); HEMATOCRIT 33.6 % (36.0-47.0); LYMPH % 25.2 % (24.0-44.0); MEAN CORPUSCULAR HEMOGLOBIN 28.9 pg (27.0-33.0); MEAN CORPUSCULAR HGB CONC 32.7 g/dl (32.0-36.5); MEAN CORPUSCULAR VOLUME 88.4 fl (80.0-96.0); MONO # 0.9 10^3/uL (0.0-0.8); MONO % 11.7 % (0.0-5.0); NEUTROPHILS # 4.5 10^3/uL (1.8-7.7); PLATELET COUNT, AUTOMATED 211 10^3/uL (150-450)
[2018-11-24 17:06] LABS: BLOOD UREA NITROGEN 19 MG/DL (7-18); CALCIUM LEVEL 8.8 MG/DL (8.5-10.1); CARBON DIOXIDE LEVEL 27 MEQ/L (21-32); CHLORIDE LEVEL 110 MEQ/L (98-107); CREATININE FOR GFR 0.87 MG/DL (0.55-1.30); GLOMERULAR FILTRATION RATE > 60.0 (>60); GLUCOSE, FASTING 72 MG/DL (70-100); POTASSIUM SERUM 4.6 MEQ/L (3.5-5.1); SODIUM LEVEL 142 MEQ/L (136-145)
[2018-11-24 17:18] LABS: HCG, SERUM QUALITATIVE NEGATIVE (NEGATIVE)
[2018-11-24] MEDS ORDERED: AUGM875T28 PO (17:35)
[2018-11-24 17:50] VITALS: BP 107/50
[2018-11-24] MEDS ORDERED: FLUC150T PO (17:57)
== END 2018-11-24 18:00 | disposition home or self-care (01) ==
LOC: M ED 15:31
DX: K04.7 Periapical abscess without sinus (principal); R22.0 Localized swelling, mass and lump, head; R50.9 Fever, unspecified; M54.9 Dorsalgia, unspecified; J45.990 Exercise induced bronchospasm; Z88.2 Allergy status to sulfonamides; Z88.5 Allergy status to narcotic agent; Z88.8 Allergy status to other drugs, medicaments and biological substances; Z91.040 Latex allergy status; Z90.5 Acquired absence of kidney; Z79.891 Long term (current) use of opiate analgesic

== ENCOUNTER → 2021-01-16 | Outpatient (CLI) | payer OTHER ==
[~2021-01-16] MED LIST changes: +AUGM875T28 PO; +FLUC150T PO
[2021-01-16 13:48] LABS: BASO # 0.1 10^3/uL (0.0-0.2); BASO % 1.3 % (0.0-1.0); EOS # 0.2 10^3/uL (0.0-0.5); EOS % 2.8 % (0.0-3.0); HEMATOCRIT 38.9 % (36.0-47.0); HEMOGLOBIN 12.6 g/dl (12.0-15.5); LYMPH # 2.4 10^3/uL (1.5-5.0); LYMPH % 45.5 % (24.0-44.0); MEAN CORPUSCULAR HEMOGLOBIN 28.4 pg (27.0-33.0); MEAN CORPUSCULAR HGB CONC 32.4 g/dl (32.0-36.5); MEAN CORPUSCULAR VOLUME 87.8 fl (80.0-96.0); MONO # 0.5 10^3/uL (0.0-0.8); MONO % 9.8 % (2.0-8.0); NEUTROPHILS # 2.1 10^3/uL (1.5-8.5); NEUTROPHILS % 40.4 % (36.0-66.0); PLATELET COUNT, AUTOMATED 306 10^3/uL (150-450); RED BLOOD COUNT 4.43 10^6/uL (4.00-5.40); WHITE BLOOD COUNT 5.3 10^3/uL (4.0-10.0)
[2021-01-16 14:16] LABS: ALBUMIN 4.2 GM/DL (3.2-5.2); ALT/SGPT 21 U/L (12-78); BILIRUBIN,DIRECT < 0.1 MG/DL (0.0-0.2); BILIRUBIN,TOTAL 0.3 MG/DL (0.2-1.0); BLOOD UREA NITROGEN 13 MG/DL (7-18); CALCIUM LEVEL 9.2 MG/DL (8.5-10.1); CARBON DIOXIDE LEVEL 30 MEQ/L (21-32); CHLORIDE LEVEL 106 MEQ/L (98-107); CHOLESTEROL LEVEL 175 MG/DL (<200); CHOLESTEROL RISK RATIO 2.573 (<5); CREATININE FOR GFR 0.72 MG/DL (0.55-1.30); GLOMERULAR FILTRATION RATE > 60.0 (>60); GLUCOSE, FASTING 78 MG/DL (70-100); HDL CHOLESTEROL 68 MG/DL (>40); LDL CHOLESTEROL 93 MG/DL (<100); NON-HDL-C 107 MG/DL; PHOSPHORUS LEVEL 4.2 MG/DL (2.5-4.9); POTASSIUM SERUM 4.2 MEQ/L (3.5-5.1); SODIUM LEVEL 140 MEQ/L (136-145); TOTAL PROTEIN 7.6 GM/DL (6.4-8.2); TRIGLYCERIDES LEVEL 69 MG/DL (<150)
[2021-01-16 14:17] LABS: TOTAL 25(OH) VITAMIN D 16.8 NG/ML (30.0-100.0)
--- NOTE | 2021-01-16 14:31 | ECGEPIP ---
[facility] Test Date: 2021-01-16 Pat Name: AMY GARCIA Department: Room: - Gender: Female Circular Clerk: ANN : 1985 Requested By: Sultana MICHEL Order Number: [id number] Reading MD: Asia Ashley Measurements Intervals [place] Rate: 85 P: 71 DC: 160 QRS: 69 QRSD: 78 T: 41 QT: 372 QTc: 442 Interpretive Statements Normal sinus rhythm Anteroseptal infarct , age undetermined NON SPECIFIC INFERIOR STT CHANGES SIMILAR TO 04/23/17 Electronically Signed on 01-16-2021 14:31:01 EDT by Asia Ashley
[2021-01-16 17:23] LABS: HEMOGLOBIN A1c 5.2 %
== END ==
LOC: M LAB 12:02
PROVIDERS: ATTEND Registered Nurse
DX: F31.81 Bipolar II disorder (principal)

== ENCOUNTER 2021-04-28 16:05 | Emergency (ER) | payer OTHER ==
[~2021-04-28] VITALS: Ht 170.2 cm; Wt 64.5 kg
[2021-04-28 16:05] VITALS: BP 119/61
[2021-04-28] MEDS ORDERED: GABA800T4 (16:14)
[2021-04-28] MEDS ORDERED: LEVO50TA5 (16:14)
[2021-04-28] MEDS ORDERED: ACET-683 PO (16:14)
--- OUTSIDE RECORDS SUMMARY | 2021-04-28 16:19 | CCD ---
Author Author Leah Washington Organization [facility] Address Unknown Phone Unavailable Care Team Providers Care Fish Technologist Name Role Phone Nico Washington PCP Unavailable Allergies, Adverse Reactions, Alerts Allergy Substance Code C odeSystem Reaction Severity Critic ality Status Start Date tramadol [id number] RxNorm rash: hives Moderate Active latex r jassi: hives Moderate Active Sulfa (Sulfonamide Antibiotics) Group urticaria (hives) Moderate Active Medications Medication Medication Code Medication CodeSystem Start Date Stop Date Route Dose Status Fill Instructions Cymbalta 633188 RxNorm 2019-03-16 2019-04-15 oral 20 mg capsule,delayed release(DR/EC) completed for 30 day(s) Trileptal 649312 RxNorm 2017-06-03 2017-10-03 oral 300 mg tablet completed for 30 day(s) Trileptal 917615 RxNorm 2017-04-24 2017-05-24 oral 300 mg tablet completed for 30 day(s) Seroquel 813679 RxNorm 2017-06-11 2019-03-16 oral 25 mg tablet completed gabapentin 837739 RxNorm 2017-08-04 2020-03-20 oral 800 mg tablet completed gabapentin 078454 RxNorm 2017-06-03 2017-08-04 oral 600 mg tablet completed gabapentin 679321 RxNorm 2017-08-04 2017-08-04 oral 600 mg tablet completed Cymbalta 699066 RxNorm 2020-01-24 2020-02-23 oral 20 mg capsule,delayed release(DR/EC) completed for 30 day(s) Klonopin 746203 RxNorm 2017-04-24 2017-05-01 oral 0.5 mg tablet completed for 7 day(s) Cymbalta 642077 RxNorm 2019-12-23 2020-01-22 oral 20 mg capsule,delayed release(/EC) completed for 30 day(s) Klonopin 405443 RxNorm 2017-05-05 2017-05-12 oral 0.5 mg tablet completed for 7 day(s) Problems Problem Name Code CodeSy stem Alternate Code Alternate CodeSystem Start Date End Date Status Narrative Bipolar II disorder [id number] SNOMED-CT 2017-04-21 Active Obsessive-compulsive disorder, unspecified [id number] SNOMED-CT 2020-12-19 Active Attention-deficit hyperactivity disorde r, predominantly hyperactive type 9387210 SNOMED-CT 2015-10-11 Active Bipolar II disorder 53931728 SNOMED-CT 2017-04-21 Active Unspecified anxiety disorder SNOMED-CT 2015-10-11 Active Attention-deficit hyperactivity disorde r, predominantly hyperactive type 9978656 SNOMED-CT 2015-10-11 Active Obsessive-compulsive disorder 817174124 SNOMED-CT 2015-10-11 Active Depressive episode, unspecified SNOMED-CT 2015-10-06 Active Unspecified anxiety disorder SNOMED-CT 2015-10-11 Active Bipolar II disorder 69013194 SNOMED-CT 2017-04-21 Active Depressive episode, unspecified 04215806 SNOMED-CT 2015-10-06 Active Anxiety (finding) 87122048 SNOMED-CT 2015-10-11 Active Depressive episode, unspecified SNOMED-CT 2015-10-06 Active Anxiety (finding) 16887413 SNOMED-CT 2015-10-11 Active Unspecified anxiety disorder SNOMED-CT 2015-10-11 Active Obsessive-compulsive disorder 065371884 SNOMED-CT 2015-10-11 Active Unspecified anxiety disorder SNOMED-CT 2015-10-11 Active Depressive episode, unspecified 22486459 SNOMED-CT 2015-10-06 Active Depressive episode, unspecified 24860315 SNOMED-CT 2015-10-06 Active Attention-deficit hyperactivity disorde r, predominantly hyperactive type 3996992 SNOMED-CT 2015-10-11 Active Anxiety (finding) 79003721 SNOMED-CT 2015-10-11 Active Unspecified anxiety disorder SNOMED-CT 2015-10-11 Active Obsessive-compulsive disorder 706553578 SNOMED-CT 2015-10-11 Active Attention-deficit hyperactivity disorde r, predominantly hyperactive type 0618034 SNOMED-CT 2015-10-11 Active Obsessive-compulsive disorder 925268662 SNOMED-CT 2015-10-11 Active Anxiety (finding) 16141291 SNOMED-CT 2015-10-11 Active Anxiety (finding) 27581342 SNOMED-CT 2015-10-11 Active Obsessive-compulsive disorder 265089174 SNOMED-CT 2015-10-11 Active Attention-deficit hyperactivity disorde r, predominantly hyperactive type 8490398 SNOMED-CT 2015-10-11 Active Relevant diagnostic tests/laboratory data Narrative No Information Procedures Procedure Name Code Code System Target Site Date of Procedure Status Service Delivery Location Device Cod e Device Name Device UID Psychotherapy, 45 minutes with patient [id number] SNOMED-CT () 2015-11-[address], [id number] Psychotherapy, 45 minutes with patient [id number] SNOMED-CT () 2016-02-[address], [id number] Psychotherapy, 45 minutes with patient [id number] SNOMED-CT () 2016-02-[address], [id number] Psychotherapy, 45 minutes with patient [id number] SNOMED-CT () 2017-05-[address], [id number] Psychotherapy, 45 minutes with patient [id number] SNOMED-CT () 2017-08-[address], [id number] [id number] Psychotherapy, 45 minutes with patient [id number] SNOMED-CT () 2017-10-[address], [id number] Psychotherapy, 45 minutes with patient [id number] SNOMED-CT () 2021-02-[address], [id number] Psychotherapy, 45 minutes with patient [id number] SNOMED-CT () 2020-09-[address], [id number] [phone] Psychotherapy, 45 minutes with patient [id number] SNOMED-CT () 2020-09-[address], [id number] Psychotherapy, 45 minutes with patient [id number] SNOMED-CT () 2020-10-[address], [id number] [id number] Psychotherapy, 45 minutes with patient [id number] SNOMED-CT () 2020-10-[address], [id number] Psychotherapy, 45 minutes with patient [id number] SNOMED-CT () 2020-11-[address], [id number] Psychotherapy, 45 minutes with patient [id number] SNOMED-CT () 2020-12-[address], [id number] [id number] Psychotherapy, 45 minutes with patient [id number] SNOMED-CT () 2019-11-[address], [id number] Psychotherapy, 45 minutes with patient [id number] SNOMED-CT () 2019-11-[address], [id number] Psychotherapy, 45 minutes with patient [id number] SNOMED-CT () 2020-01-[address], [id number] Psychotherapy, 45 minutes with patient [id number] SNOMED-CT () 2020-02-[address], [id number] [id number] Psychotherapy, 45 minutes with patient [id number] SNOMED-CT () 2020-04-[address], [id number] [id number] Psychotherapy, 45 minutes with patient [id number] SNOMED-CT () 2020-09-[address], [id number] Psychotherapy, 45 minutes with patient [id number] SNOMED-CT () 2018-01-[address], [id number] Psychotherapy, 45 minutes with patient [id number] SNOMED-CT () 2018-06-[address], [id number] Psychotherapy, 45 minutes with patient [id number] SNOMED-CT () 2019-03-[address], [id number] [id number] Psychotherapy, 45 minutes with patient [id number] SNOMED-CT () 2019-07-[address], [id number] Psychotherapy, 45 minutes with patient [id number] SNOMED-CT () 2019-07-[address], [id number] [phone] Psychotherapy, 45 minutes with patient [id number] SNOMED-CT () 2019-10-[address], [id number] Initial Psychiatric Evaluation [id number] SNOMED-CT () 2015-10-[address], [id number] Initial Psychiatric Evaluation [id number] SNOMED-CT () 2017-04-[address], [id number] Initial Psychiatric Evaluation [id number] SNOMED-CT () 2020-12-[address], [id number] [id number] Health Monitoring / Risk Reduction Counseling - [facility] [id number] SNOMED-CT () 2017-04-[address], [id number] Health Monitoring / Risk Reduction Counseling - [facility] [id number] SNOMED-CT () 2020-12-[address], [id number] Est. Patient - E&M Intermediate [id number] SNOMED-CT () 2017-05-[address], [id number] [id number] Est. Patient - E&M Intermediate [id number] SNOMED-CT () 2017-06-[address], [id number] Est. Patient - E&M Intermediate [id number] SNOMED-CT () 2017-06-[address], [id number] [id number] Est. Patient - E&M Intermediate [id number] SNOMED-CT () 2019-03-[address], [id number] [id number] Est. Patient - E&M Brief [id number] SNOMED-CT () 2019-12-[address], [id number] [id number] Est. Patient - E&M Expanded [id number] SNOMED-CT () 2017-04-[address], [id number] [id number] Est. Patient - E&M Expanded [id number] SNOMED-CT () 2017-04-[address], [id number] [id number] Est. Patient - E&M Expanded [id number] SNOMED-CT () 2017-04-[address], [id number] [id number] Est. Patient - E&M Expanded [id number] SNOMED-CT () 2017-07-[address], [id number] [id number] Est. Patient - E&M Expanded [id number] SNOMED-CT () 2017-08-[address], [id number] [id number] Est. Patient - E&M Expanded [id number] SNOMED-CT () 2021-01-[address], [id number] [id number] Est. Patient - E&M Expanded [id number] SNOMED-CT () 2021-01-[address], [id number] [id number] Individual Psychotherapy [id number] SNOMED-CT () 2015-10-[address], [id number] [id number] Individual Psychotherapy [id number] SNOMED-CT () 2015-12-[address], [id number] [phone] Individual Psychotherapy [id number] SNOMED-CT () 2016-01-[address], [id number] [phone] Individual Psychotherapy [id number] SNOMED-CT () 2016-01-[address], [id number] [id number] Individual Psychotherapy [id number] SNOMED-CT () 2018-08-[address], [id number] [phone] Individual Psychotherapy [id number] SNOMED-CT () 2019-02-[address], 431930581 [id number] Individual Psychotherapy [id number] SNOMED-CT () 2020-03-[address], [id number] Individual Psychotherapy [id number] SNOMED-CT () 2020-10-[address], [id number] [id number] Individual Psychotherapy [id number] SNOMED-CT () 2021-01-[address], 388155626 [id number] Individual Psychotherapy [id number] SNOMED-CT () 2019-10-[address], [id number] [id number] Individual Psychotherapy [id number] SNOMED-CT () 2019-10-[address], [id number] [id number] Individual Psychotherapy [id number] SNOMED-CT () 2019-11-[address], [id number] [phone] Individual Psychotherapy [id number] SNOMED-CT () 2019-12-[address], [id number] [id number] Individual Psychotherapy [id number] SNOMED-CT () 2020-02-[address], [id number] [id number] Individual Psychotherapy [id number] SNOMED-CT () 2020-02-[address], 135255696 [id number] Individual Psychotherapy [id number] SNOMED-CT () 2015-11-[address], [id number] [phone] Individual Psychotherapy [id number] SNOMED-CT () 2016-02-[address], [id number] [id number] Individual Psychotherapy [id number] SNOMED-CT () 2016-02-[address], [id number] [id number] Individual Psychotherapy [id number] SNOMED-CT () 2017-05-[address], [id number] [id number] Individual Psychotherapy [id number] SNOMED-CT () 2017-08-[address], [id number] [id number] Individual Psychotherapy [id number] SNOMED-CT () 2017-10-[address], [id number] [id number] Individual Psychotherapy [id number] SNOMED-CT () 2021-02-[address], [id number] [id number] Individual Psychotherapy [id number] SNOMED-CT () 2020-09-[address], [id number] [id number] Individual Psychotherapy [id number] SNOMED-CT () 2020-09-[address], [id number] [phone] Individual Psychotherapy [id number] SNOMED-CT () 2020-10-[address], 836993565 [phone] Individual Psychotherapy [id number] SNOMED-CT () 2020-10-[address], [id number] Individual Psychotherapy [id number] SNOMED-CT () 2020-11-[address], 132402284 [phone] Individual Psychotherapy [id number] SNOMED-CT () 2020-12-[address], [id number] [phone] Individual Psychotherapy [id number] SNOMED-CT () 2019-11-[address], [id number] Individual Psychotherapy [id number] SNOMED-CT () 2019-11-[address], [id number] [id number] Individual Psychotherapy [id number] SNOMED-CT () 2020-01-[address], [id number] Individual Psychotherapy [id number] SNOMED-CT () 2020-02-[address], [id number] [id number] Individual Psychotherapy [id number] SNOMED-CT () 2020-04-[address], 914572038 [id number] Individual Psychotherapy [id number] SNOMED-CT () 2020-09-[address], 060174599 [id number] Individual Psychotherapy [id number] SNOMED-CT () 2018-01-[address], 091174279 [phone] Individual Psychotherapy [id number] SNOMED-CT () 2018-06-[address], 985893055 [id number] Individual Psychotherapy [id number] SNOMED-CT () 2019-03-[address], 322142816 [id number] Individual Psychotherapy [id number] SNOMED-CT () 2019-07-[address], [id number] [phone] Individual Psychotherapy [id number] SNOMED-CT () 2019-07-[address], [id number] [phone] Individual Psychotherapy [id number] SNOMED-CT () 2019-10-[address], [id number] [phone] Psychiatric Diagnostic Evaluation without medical serv ices [id number] SNOMED-CT () 2015-10-[address], [id number] [phone] Psychiatric Diagnostic Evaluation without medical serv ices [id number] SNOMED-CT () 2017-04-[address], [id number] [id number] Psychiatric Diagnostic Evaluation without medical serv ices [id number] SNOMED-CT () 2020-08-[address], [id number] SNOMED-CT () 2018-10-[address], [id number] [phone] SNOMED-CT () 2018-11-[address], [id number] SNOMED-CT () 2017-05-05 completed [facility] [address], [id number] [id number] SNOMED-CT () 2017-06-03 completed [facility] [address], [id number] [id number] SNOMED-CT () 2017-03-13 completed [facility] [address], [id number] SNOMED-CT () 2017-05-06 completed [facility] C [address], 397856559 [id number] SNOMED-CT () 2017-04-24 completed [facility] [address], [id number] SNOMED-CT () 2017-04-21 completed [facility] [address], [id number] [id number] SNOMED-CT () 2017-06-[address], 115673420 [id number] SNOMED-CT () 2017-04-[address], [id number] [id number] SNOMED-CT () 2017-04-23 completed [facility] [address], [id number] [id number] SNOMED-CT () 2017-05-06 completed [facility] [address], 977323094 [id number] SNOMED-CT () 2017-04-29 completed [facility] [address], [id number] SNOMED-CT () 2017-04-[address], [id number] [id number] SNOMED-CT () 2017-03-13 completed [facility] [address], 722152474 [id number] SNOMED-CT () 2017-10-31 completed [facility] [address], [id number] SNOMED-CT () 2015-10-03 completed [facility] [address], [id number] [id number] SNOMED-CT () 2017-04-24 completed [facility] [address], [id number] [id number] SNOMED-CT () 2017-05-06 completed [facility] [address], [id number] [phone] Encounters/Encounter Diagnoses Encounter Name Encounter Code Diagnosis Code Diagnosis Name Diagnosis CodeSystem Date of Diagnosis Service Delivery L ocation Telehealth Physchotherapy 30 Minutes with Patient 74033 [id number] Obsessive-compulsive disor sunil, unspecified SNOMED-CT 2021-02-06 [facility] [address] [place] [address], [id number] Vital Signs Code CodeSystem Vitals Date Value 8302-2 LO[facility] Height 2017-08-04 66 [in_i] 97807-6 [facility] BMI 2017-08-04 25.5 (lb/in2) 8462-4 [facility] Blood Press ure-Diastolic 2017-08-04 130 mm[HG] 8480-6 [facility] Blood Press ure-Systolic 2017-08-04 76 mm[HG] 79043-3 [facility] Weight 2017-08-04 158 [lb_av] Social History Element Description Description Start Date End Date Code CodeSystem AdditionalInfo SexAssignedAtBirth Female 1985 F AdministrativeGender Hospital Discharge Instructions * Reason For Referral Medical Equipment * FDA Assessments * Goals Section Goals Planned DateTime Learn to manage maladaptive behaviors an d negative feeling more effectively while reduce the intensity and duration of depression, anger, and anxiety symptoms. 2020-09-19
--- OUTSIDE RECORDS SUMMARY | 2021-04-28 16:19 | CCD ---
Author Organization Unknown Address [address] [place] [id number] Phone [phone] Care Team Providers Care Field Supervisor Name Role Phone Jenny Krzysztof Unavailable Unavailable Allergies Code Code System Name Reaction Severity Status Onset [id number] RxNorm Latex Active 08/19/2017 Nsaids (Non-steroidal Anti-inflammatory Drug) Active 08/19/2017 Tramadol Active 08/19/2017 Metoclopramide Hcl Active 0 09/02/2018 Notes: NSAIDS | TYLENOL WITH CODIENE | T ORIDAL - Reaction: only one kidney Medications Name Status Start Date Stop Date buprenorphine 8 mg-naloxone 2 mg subling ual film PLACE THREE FILMS UNDER THE TONGUE EVERY DAY MAXIMUM DAILY DOSE 3 FILMS Active Not available buprenorphine HCl [address] THREE TABLETS UNDER THE TONGUE EVERY DAY MAXIMUM DAILY DOSE THREE TABLETS Completed 11/07/2020 buspirone 5 mg tablet Active Not availa ble cephalexin 500 mg capsule Completed 2020 clindamycin HCl 150 mg capsule TAKE ONE CAPSULE BY MOUTH FOUR TIMES A DAY Active Not available Daily Vitamin Formula Active Not availa ble duloxetine 20 mg capsule,delayed release Completed 08/15/2020 fluconazole 150 mg tablet Completed 2020 gabapentin 800 mg tablet TAKE ONE TABLET BY MOUTH FOUR TIMES A DAY NEXT FILL 04/10/21 Active Not available guanfacine 1 mg tablet TAKE ONE TABLET BY MOUTH EVERY DAY Active Not available levothyroxine 50 mcg tablet TAKE ONE TABLET BY MOUTH EVERY DAY Active Not available Motrin Active Not available penicillin V potassium 250 mg tablet Completed 06/19/2020 penicillin V potassium 500 mg tablet Completed 08/15/2020 Tylenol Active Not available Notes: Pt reports taking Buspar Problems Name Status Onset Date Source 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 8 History Left Lower Quadrant Pain Active 10/17/2017 History Primary Amenorrhea Active 10/17/2017 History Dysuria Active 10/22/2017 History Headache Active 12/02/2017 History Low Back Pain Active 11/04/2018 History Joint Finding Active 11/04/2018 History Dental Caries on Smooth Surface Penetrating into Pulp Active 11/23/2018 History Injury of Wrist And/or Hand Active 11/16/2019 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 [facility] (Lab): [address], [place] 01/16/2021 CBC W/ Auto Diff Normal White Blood Count 5.3 10 4.0-10.0 10 [facility]: 0 [facility] Normal Red Blood Count 4.43 10 4.00-5.40 10 [facility]: 0 [facility] Normal Hemoglobin 12.6 g/dL 12.0-15.5 g/dL [facility]: 0 [facility] Normal Hematocrit 38.9 % 36.0-47.0 % [facility]: 0 [facility] Normal Mean Corpuscular Volume 87.8 fL 80.0 -96.0 fL [facility]: 0 [facility] Normal Mean Corpuscular Hemoglobin 28.4 pg 27.0-33.0 pg [facility]: 0 [facility] Normal Mean Corpuscular HGB Conc 32.4 g/dL 32.0-36.5 g/dL [facility]: 830 [facility] Normal Red Cell Distribution Width 12.9 % 1 1.5-14.5 % [facility]: 830 [facility] Normal Platelet Count, Automated 306 10 150 -450 10 [facility]: 0 [facility] Normal Neutrophils % 40.4 % 36.0-66.0 % [facility]: 830 [facility] High Lymph % 45.5 % 24.0-44.0 % [facility]: 830 [facility] High [place] % 9.8 % 2.0-8.0 % [facility]: 830 [facility] Normal Eos % 2.8 % 0.0-3.0 % [facility]: 830 [facility] High Baso % 1.3 % 0.0-1.0 % [facility]: 830 [facility] Normal Immature Granulocyte % 0.2 % 0-3.0 % [facility]: 830 [facility] Normal Nucleated Red Blood Cell % 0.0 % 0- 0 % [facility]: 830 [facility] Normal Neutrophils # 2.1 10 1.5-8.5 10 [facility]: 0 [facility] Normal Lymph # 2.4 10 1.5-5.0 10 [facility]: 830 [facility] Normal [place] # 0.5 10 0.0-0.8 10 [facility]: 830 [facility] Normal Eos # 0.2 10 0.0-0.5 10 [facility]: 830 [facility] Normal Baso # 0.1 10 0.0-0.2 10 [facility]: 0 [facility] 01/16/2021 CMP, Serum or Plasma Normal Glucose, Fastin g 78 mg/dL 70-100 mg/dL [facility]: 83 0 [facility] Normal Blood Urea Nitrogen 13 mg/dL 7-18 mg /dL [facility]: 0 [facility] Normal Creatinine for GFR 0.72 mg/dL 0.55-1 .30 mg/dL [facility]: 0 [facility] Normal Glomerular Filtration Rate > 60.0 >6 0 [facility]: 0 [facility] Normal Sodium Level 140 mEq/L 136-145 mEq/L [facility]: 0 [facility] Normal Potassium Serum 4.2 mEq/L 3.5-5.1 mE q/L [facility]: 0 [facility] Normal Chloride Level 106 mEq/L 98-107 mEq/ L [facility]: 830 [facility] Normal Carbon Dioxide Level 30 mEq/L 21-32 mEq/L [facility]: 830 [facility] Low Anion Gap 4 mEq/L 8-16 mEq/L [facility]: 830 [facility] Normal Calcium Level 9.2 mg/dL 8.5-10.1 mg/ dL Final [facility]: 830 [facility] Normal AST/SGOT 18 U/L 7-37 U/L [facility]: 830 [facility] Normal ALT/SGPT 21 U/L 12-78 U/L Final [facility]: 830 [facility] Normal Alkaline Phosphatase 62 U/L 45-117 U /L [facility]: 830 [facility] Normal Bilirubin,total 0.3 mg/dL 0.2-1.0 mg /dL [facility]: 830 [facility] Normal Total Protein 7.6 gm/dL 6.4-8.2 gm/d L [facility]: 830 [facility] Normal Albumin 4.2 gm/dL 3.2-5.2 gm/dL Jo l [facility]: 8[address] [facility] Normal Albumin/globulin Ratio 1.2 1.2-2. 2 [facility]: 830 [facility] 01/16/2021 Lipid Panel, Blood Normal Triglycerides Lev el 69 mg/dL <150 mg/dL [facility]: 83 0 [facility] Normal Cholesterol Level 175 mg/dL <200 mg/ dL [facility]: 830 [facility] Normal HDL Cholesterol 68 mg/dL >40 mg/dL F franklinl [facility]: 830 [facility] Normal LDL Cholesterol 93 mg/dL <100 mg/dL [facility]: 830 [facility] Normal Non-hdl-c 107 mg/dL [facility]: 830 [facility] Normal Cholesterol Risk Ratio 2.573 <5 Final [facility]: 0 [facility] 01/16/2021 Hepatic Function Panel, Serum Normal Bilirubin,direct < 0.1 mg/dL 0.0-0.2 mg/dL [facility] nter: 0 [facility] 01/16/2021 Renal Function Panel, Serum Normal Phosphor us Level 4.2 mg/dL 2.5-4.9 mg/dL Final [facility]: 83 0 [facility] 01/16/2021 TSH, Serum or Plasma High Thyroid Stimulating Hormone 4.420 uIU/mL 0.358-3.740 uIU/mL Final [facility] nter: 0 [facility] 01/16/2021 Vitamin D, 25-Hydroxy, Total, Serum Low Total 25(Oh) Vitamin D 16.8 NG/mL 30.0-100.0 NG/mL [facility] nter: [address] [place] [address] 01/16/2021 HbA1C (Hemoglobin a1C), Blood Normal Hemogl obin a1C 5.2 % [facility]: 0 [facility] Normal Estimated Average Glucose 103 mg/dL 60-110 mg/dL [facility]: 0 [facility] 01/02/2021 Drug of Abuse Panel, Urine No observation recorded. [facility] (Lab): [address], [place] 11/06/2020 Drug of Abuse Panel, Urine Urine No observation recorded. [facility] (Lab): [address], [place] 10/10/2020 Drug of Abuse Panel, Urine Urine No observation recorded. [facility] (Lab): [address], [place] 08/15/2020 Drug of Abuse Panel, Urine Urine No observation recorded. [facility] (Lab): [address], [place] 04/25/2020 Drug Screen, Urine Urine No observation recorde [facility]: [address] [place] [address] Past Encounters 03/27/2021 Nondependent Opioid Abuse in Remission; Low Back Pain Krzysztof Alvarado MD: [address] [place] [phone], Ph. 02/27/2021 Nondependent Opioid Abuse in Remission; Dental Caries on Smooth Surface Penetrating into Pulp Krzysztof Alvarado MD: [address] [place] [address], Ph. 01/30/2021 Goiter; Nondependent Opioid Abuse in Remission; Dental Caries on Smooth Surface Penetrating into Pulp Krzysztof Alvarado MD: [address] [place] [address], Ph. 01/02/2021 Nondependent Opioid Abuse in Remission; Acne Krzysztof Alvarado MD: [address] [place] [address], Ph. 12/04/2020 Nondependent Opioid Abuse in Remission Krzysztof Alvarado MD: [address] [place] [phone], Ph. 11/06/2020 Nondependent Opioid Abuse in Remission; Low Back Pain Krzysztof Alvarado MD: [address] [place] [phone], Ph. 10/10/2020 Nondependent Opioid Abuse in Remission; Low Back Pain Krzysztof Alvarado MD: [address] [place] [phone], Ph. 09/12/2020 Nondependent Opioid Abuse in Remission; Low Back Pain Krzysztof Alvarado MD: [address] [place] [phone], Ph. 08/15/2020 Nondependent Opioid Abuse in Remission Krzysztof Alvarado MD: [address] [place] [address], Ph. 07/18/2020 Nondependent Opioid Abuse in Remission Krzysztof Alvarado MD: [address] [place] [address], Ph. 06/19/2020 Low Back Pain; Nondependent Opioid Abuse in Remission; Goiter; Venereal Disease Screening; Dental Caries on Smooth Surface Penetrating into Pulp; Opioid Dependence in Remission Krzysztof Alvarado MD: [address] [place] [address], Ph. 2020 Opioid Dependence in Remission; Low Back Pain Krzysztof Alvarado MD: [address] [place] [address], Ph. 05/08/2020 Krzysztof Alvarado MD: [address] [place] [address], Ph. Social History Tobacco Smoking Status Former Smoker Vaccine List Notes: Pt declined covid vaccine. Plan of Care Reminders Provider Appointments None recorded. Lab None recorded. Referral None recorded. Procedures None recorded. Surgeries None recorded. Imaging None recorded. Vitals 03/27/2021 08:40AM MAT Height Weight BMI Blood Pressure 66 in 146 lbs 6 oz 23.6 kg/m2 145/83 mm[Hg] 02/27/2021 08:40AM TELEHEALTH 20 Height 66 in 01/30/2021 09:20AM MAT Height Weight BMI Blood Pressure 66 in 142 lbs 2 oz 22.9 kg/m2 134/82 mm[Hg] 01/02/2021 09:00AM MAT Height Weight BMI Blood Pressure 66 in 152 lbs 7 oz 24.6 kg/m2 125/77 mm[Hg] 12/04/2020 08:20AM TELEHEALTH 20 Height 66 in 11/06/2020 02:20PM MAT Height Weight BMI Blood Pressure 66 in 153 lbs 6 oz 24.8 kg/m2 141/84 mm[Hg] 10/10/2020 08:40AM MAT Height Weight BMI Blood Pressure 66 in 141 lbs 8 oz 22.8 kg/m2 149/80 mm[Hg] 09/12/2020 10:20AM TELEHEALTH 20 Height 66 in 08/15/2020 09:20AM MAT Height Weight BMI Blood Pressure 66 in 144 lbs 9.6 oz 23.3 kg/m2 (1) 155/81 m m[Hg] (2) 154/78 mm[Hg] 07/18/2020 09:40AM TELEHEALTH 20 Height 66 in 06/19/2020 09:00AM MAT Height Weight BMI Blood Pressure 66 in 138 lbs 22.3 kg/m2 152/92 mm[Hg] 2020 09:20AM MAT Height Weight BMI Blood Pressure 66 in 134 lbs 4 oz 21.7 kg/m2 133/83 mm[Hg] 03/08/2020 Height 66 in 02/08/2020 Height Weight BMI Blood Pressure 66 in 152 lbs 24.62 kg/m2 138/73 mm[Hg] 12/14/2019 Height Weight BMI Blood Pressure 66 in 152 lbs 3.2 oz 24.65 kg/m2 122/83 mm[Hg ] 11/23/2019 Height Weight BMI Blood Pressure 66 in 153 lbs 2.08 oz 24.81 kg/m2 124/74 mm[H g] 11/16/2019 Height Weight BMI 66 in 153 lbs 24.78 kg/m2 10/20/2019 Height Weight BMI Blood Pressure 66 in 150 lbs 4 oz 24.34 kg/m2 132/83 mm[Hg] 08/25/2019 Height Weight BMI Blood Pressure 66 in 168 lbs 12.8 oz 27.34 kg/m2 125/74 mm[H g] 07/28/2019 Height Weight BMI Blood Pressure 66 in 172 lbs 4 oz 27.90 kg/m2 145/78 mm[Hg] 06/30/2019 Height Weight BMI Blood Pressure 66 in 178 lbs 28.83 kg/m2 123/73 mm[Hg] 06/02/2019 Height Weight BMI Blood Pressure 66 in 178 lbs 28.83 kg/m2 130/82 mm[Hg] 05/05/2019 Height Weight BMI Blood Pressure 66 in 176 lbs 8 oz 28.59 kg/m2 140/87 mm[Hg] 04/07/2019 Height Weight BMI Blood Pressure 66 in 180 lbs 29.16 kg/m2 124/80 mm[Hg] 03/10/2019 Height Weight BMI Blood Pressure 66 in 189 lbs 30.62 kg/m2 129/85 mm[Hg] 02/10/2019 Height Blood Pressure 66 in 129/74 mm[Hg] 01/13/2019 Height Weight BMI Blood Pressure 66 in 168 lbs 27.21 kg/m2 117/33 mm[Hg] 12/16/2018 Height Weight BMI Blood Pressure 66 in 172 lbs 27.86 kg/m2 122/75 mm[Hg] 11/25/2018 Height Weight BMI Blood Pressure 66 in 168 lbs 6.08 oz 27.28 kg/m2 128/54 mm[H g] 11/04/2018 Height Weight BMI Blood Pressure 66 in 169 lbs 2.08 oz 27.40 kg/m2 133/65 mm[H g] 10/21/2018 Height Weight BMI Blood Pressure 66 in 172 lbs 27.86 kg/m2 123/46 mm[Hg] 09/23/2018 Height Weight BMI Blood Pressure 66 in 172 lbs 4 oz 27.90 kg/m2 137/77 mm[Hg] 09/02/2018 Height Weight BMI Blood Pressure 66 in 178 lbs 28.83 kg/m2 124/60 mm[Hg] 08/12/2018 Height Weight BMI Blood Pressure 66 in 179 lbs 6.08 oz 29.06 kg/m2 123/75 mm[H g] 07/22/2018 Height Weight BMI Blood Pressure 66 in 175 lbs 8 oz 28.43 kg/m2 114/67 mm[Hg] 07/01/2018 Height Weight BMI Blood Pressure 66 in 179 lbs 12.8 oz 29.13 kg/m2 119/71 mm[H g] 06/17/2018 Height Weight BMI Blood Pressure 66 in 184 lbs 4 oz 29.85 kg/m2 120/68 mm[Hg]"
--- OUTSIDE RECORDS SUMMARY | 2021-04-28 16:19 | CCD ---
Author Author Leah Washington Organization [facility] Address Unknown Phone Unavailable Care Team Providers Care Travel Occupational Therapist Name Role Phone Nico Washington PCP Unavailable Allergies, Adverse Reactions, Alerts Allergy Substance Code C odeSystem Reaction Severity Critic ality Status Start Date tramadol [id number] RxNorm rash: hives Moderate Active Sulfa (Sulfonamide Antibiotics) Group urticaria (hives) Moderate Active latex r jassi: hives Moderate Active Medications Medication Medication Code Medication CodeSystem Start Date Stop Date Route Dose Status Fill Instructions Seroquel 284576 RxNorm 2017-06-11 2019-03-16 oral 25 mg tablet completed gabapentin 983598 RxNorm 2017-08-04 2017-08-04 oral 600 mg tablet completed Klonopin 479995 RxNorm 2017-04-24 2017-05-01 oral 0.5 mg tablet completed for 7 day(s) Cymbalta 543594 RxNorm 2019-03-16 2019-04-15 oral 20 mg capsule,delayed release(DR/EC) completed for 30 day(s) Trileptal 476456 RxNorm 2017-06-03 2017-10-03 oral 300 mg tablet completed for 30 day(s) Cymbalta 316031 RxNorm 2020-01-24 2020-02-23 oral 20 mg capsule,delayed release(DR/EC) completed for 30 day(s) Trileptal 532975 RxNorm 2017-04-24 2017-05-24 oral 300 mg tablet completed for 30 day(s) gabapentin 113689 RxNorm 2017-08-04 2020-03-20 oral 800 mg tablet completed Klonopin 544074 RxNorm 2017-05-05 2017-05-12 oral 0.5 mg tablet completed for 7 day(s) Cymbalta 950061 RxNorm 2019-12-23 2020-01-22 oral 20 mg capsule,delayed release(DR/EC) completed for 30 day(s) gabapentin 145215 RxNorm 2017-06-03 2017-08-04 oral 600 mg tablet completed Problems Problem Name Code CodeSy stem Alternate Code Alternate CodeSystem Start Date End Date Status Narrative Anxiety (finding) 68928078 SNOMED-CT 2015-10-11 Active Anxiety (finding) 23409553 SNOMED-CT 2015-10-11 Active Bipolar II disorder 84474060 SNOMED-CT 2017-04-21 Active Depressive episode, unspecified 18674151 SNOMED-CT 2015-10-06 Active Obsessive-compulsive disorder 985972640 SNOMED-CT 2015-10-11 Active Bipolar II disorder 42507745 SNOMED-CT 2017-04-21 Active Unspecified anxiety disorder 468580396 SNOMED-CT 2015-10-11 Active Anxiety (finding) 54768030 SNOMED-CT 2015-10-11 Active Unspecified anxiety disorder SNOMED-CT 2015-10-11 Active Depressive episode, unspecified 02143069 SNOMED-CT 2015-10-06 Active Bipolar II disorder 17866838 SNOMED-CT 2017-04-21 Active Obsessive-compulsive disorder 303915007 SNOMED-CT 2015-10-11 Active Attention-deficit hyperactivity disorde r, predominantly hyperactive type 1425300 SNOMED-CT 2015-10-11 Active Obsessive-compulsive disorder 816829735 SNOMED-CT 2015-10-11 Active Attention-deficit hyperactivity disorde r, predominantly hyperactive type 0786665 SNOMED-CT 2015-10-11 Active Depressive episode, unspecified 67190473 SNOMED-CT 2015-10-06 Active Attention-deficit hyperactivity disorde r, predominantly hyperactive type 9378943 SNOMED-CT 2015-10-11 Active Depressive episode, unspecified 80068720 SNOMED-CT 2015-10-06 Active Unspecified anxiety disorder SNOMED-CT 2015-10-11 Active Obsessive-compulsive disorder, unspecified 871970500 SNOMED-CT 2020-12-19 Active Anxiety (finding) 36678259 SNOMED-CT 2015-10-11 Active Obsessive-compulsive disorder 871097225 SNOMED-CT 2015-10-11 Active Depressive episode, unspecified 93030949 SNOMED-CT 2015-10-06 Active Unspecified anxiety disorder 679650240 SNOMED-CT 2015-10-11 Active Anxiety (finding) 33198952 SNOMED-CT 2015-10-11 Active Obsessive-compulsive disorder 802373541 SNOMED-CT 2015-10-11 Active Attention-deficit hyperactivity disorde r, predominantly hyperactive type 3669816 SNOMED-CT 2015-10-11 Active Attention-deficit hyperactivity disorde r, predominantly hyperactive type 6757625 SNOMED-CT 2015-10-11 Active Unspecified anxiety disorder 527449456 SNOMED-CT 2015-10-11 Active Relevant diagnostic tests/laboratory data Narrative No Information Procedures Procedure Name Code Code System Target Site Date of Procedure Status Service Delivery Location Device Cod e Device Name Device UID Psychotherapy, 45 minutes with patient [id number] SNOMED-CT () 2015-11-[address], [id number] Psychotherapy, 45 minutes with patient [id number] SNOMED-CT () 2016-02-[address], [id number] Psychotherapy, 45 minutes with patient [id number] SNOMED-CT () 2016-02-[address], [id number] Psychotherapy, 45 minutes with patient [id number] SNOMED-CT () 2017-05-[address], [id number] [phone] Psychotherapy, 45 minutes with patient [id number] SNOMED-CT () 2017-08-[address], [id number] Psychotherapy, 45 minutes with patient [id number] SNOMED-CT () 2017-10-[address], [id number] [id number] Psychotherapy, 45 minutes with patient [id number] SNOMED-CT () 2021-02-[address], [id number] [id number] Psychotherapy, 45 minutes with patient [id number] SNOMED-CT () 2021-03-[address], [id number] [id number] Psychotherapy, 45 minutes with patient [id number] SNOMED-CT () 2021-04-[address], [id number] Psychotherapy, 45 minutes with patient [id number] SNOMED-CT () 2020-09-[address], [id number] Psychotherapy, 45 minutes with patient [id number] SNOMED-CT () 2020-09-[address], [id number] Psychotherapy, 45 minutes with patient [id number] SNOMED-CT () 2020-10-[address], [id number] Psychotherapy, 45 minutes with patient [id number] SNOMED-CT () 2020-10-[address], [id number] Psychotherapy, 45 minutes with patient [id number] SNOMED-CT () 2020-11-[address], [id number] Psychotherapy, 45 minutes with patient [id number] SNOMED-CT () 2020-12-[address], [id number] Psychotherapy, 45 minutes with patient [id number] SNOMED-CT () 2019-11-[address], [id number] Psychotherapy, 45 minutes with patient [id number] SNOMED-CT () 2019-11-[address], [id number] Psychotherapy, 45 minutes with patient [id number] SNOMED-CT () 2020-01-[address], [id number] Psychotherapy, 45 minutes with patient [id number] SNOMED-CT () 2020-02-[address], [id number] Psychotherapy, 45 minutes with patient [id number] SNOMED-CT () 2020-04-[address], [id number] Psychotherapy, 45 minutes with patient [id number] SNOMED-CT () 2020-09-[address], [id number] Psychotherapy, 45 minutes with patient [id number] SNOMED-CT () 2018-01-[address], [id number] Psychotherapy, 45 minutes with patient [id number] SNOMED-CT () 2018-06-[address], [id number] Psychotherapy, 45 minutes with patient [id number] SNOMED-CT () 2019-03-[address], [id number] Psychotherapy, 45 minutes with patient [id number] SNOMED-CT () 2019-07-[address], [id number] [id number] Psychotherapy, 45 minutes with patient [id number] SNOMED-CT () 2019-07-[address], [id number] Psychotherapy, 45 minutes with patient [id number] SNOMED-CT () 2019-10-[address], [id number] Initial Psychiatric Evaluation [id number] SNOMED-CT () 2015-10-[address], [id number] Initial Psychiatric Evaluation [id number] SNOMED-CT () 2017-04-[address], [id number] Initial Psychiatric Evaluation [id number] SNOMED-CT () 2020-12-[address], [id number] Health Monitoring / Risk Reduction Counseling - Interm ediate [id number] SNOMED-CT () 2017-04-[address], [id number] Health Monitoring / Risk Reduction Counseling - Interm ediate [id number] SNOMED-CT () 2020-12-[address], [id number] Est. Patient - E&M Intermediate [id number] SNOMED-CT () 2017-05-[address], [id number] [id number] Est. Patient - E&M Intermediate [id number] SNOMED-CT () 2017-06-[address], [id number] Est. Patient - E&M Intermediate [id number] SNOMED-CT () 2017-06-[address], [id number] [id number] Est. Patient - E&M Intermediate [id number] SNOMED-CT () 2019-03-[address], [id number] [id number] Est. Patient - E&M Brief [id number] SNOMED-CT () 2019-12-[address], [id number] [id number] Est. Patient - E&M Expanded [id number] SNOMED-CT () 2017-04-[address], [id number] Est. Patient - E&M Expanded [id number] SNOMED-CT () 2017-04-[address], [id number] [id number] Est. Patient - E&M Expanded [id number] SNOMED-CT () 2017-04-[address], [id number] Est. Patient - E&M Expanded [id number] SNOMED-CT () 2017-07-[address], [id number] Est. Patient - E&M Expanded [id number] SNOMED-CT () 2017-08-[address], [id number] Est. Patient - E&M Expanded [id number] SNOMED-CT () 2021-01-[address], [id number] Est. Patient - E&M Expanded [id number] SNOMED-CT () 2021-01-[address], [id number] [id number] Individual Psychotherapy [id number] SNOMED-CT () 2015-10-[address], [id number] [id number] Individual Psychotherapy [id number] SNOMED-CT () 2015-12-[address], [place], [id number] [id number] Individual Psychotherapy [id number] SNOMED-CT () 2016-01-[address], [id number] Individual Psychotherapy [id number] SNOMED-CT () 2016-01-[address], [id number] [id number] Individual Psychotherapy [id number] SNOMED-CT () 2018-08-[address], [id number] [id number] Individual Psychotherapy [id number] SNOMED-CT () 2019-02-[address], [id number] [phone] Individual Psychotherapy [id number] SNOMED-CT () 2020-03-[address], [id number] [id number] Individual Psychotherapy [id number] SNOMED-CT () 2020-10-[address], [id number] Individual Psychotherapy [id number] SNOMED-CT () 2021-01-[address], [id number] [id number] Individual Psychotherapy [id number] SNOMED-CT () 2021-03-[address], [id number] [phone] Individual Psychotherapy [id number] SNOMED-CT () 2019-10-[address], [id number] [id number] Individual Psychotherapy [id number] SNOMED-CT () 2019-10-[address], [id number] [phone] Individual Psychotherapy [id number] SNOMED-CT () 2019-11-[address], [id number] [phone] Individual Psychotherapy [id number] SNOMED-CT () 2019-12-[address], [id number] [id number] Individual Psychotherapy [id number] SNOMED-CT () 2020-02-[address], [id number] [id number] Individual Psychotherapy [id number] SNOMED-CT () 2020-02-[address], [id number] [id number] Individual Psychotherapy [id number] SNOMED-CT () 2015-11-[address], [id number] [id number] Individual Psychotherapy 69483228 SNOMED-CT () 2016-02-[address], 338872730 [id number] Individual Psychotherapy 57481465 SNOMED-CT () 2016-02-[address], 533450920 [id number] Individual Psychotherapy [id number] SNOMED-CT () 2017-05-[address], [id number] [id number] Individual Psychotherapy [id number] SNOMED-CT () 2017-08-[address], [id number] [id number] Individual Psychotherapy [id number] SNOMED-CT () 2017-10-[address], [id number] Individual Psychotherapy [id number] SNOMED-CT () 2021-02-[address], [id number] [phone] Individual Psychotherapy [id number] SNOMED-CT () 2021-03-[address], [id number] Individual Psychotherapy [id number] SNOMED-CT () 2021-04-[address], [id number] [id number] Individual Psychotherapy [id number] SNOMED-CT () 2020-09-[address], [id number] [id number] Individual Psychotherapy [id number] SNOMED-CT () 2020-09-[address], 556255090 [id number] Individual Psychotherapy [id number] SNOMED-CT () 2020-10-[address], [id number] [phone] Individual Psychotherapy [id number] SNOMED-CT () 2020-10-[address], [id number] [phone] Individual Psychotherapy [id number] SNOMED-CT () 2020-11-[address], [id number] [phone] Individual Psychotherapy [id number] SNOMED-CT () 2020-12-[address], [id number] [id number] Individual Psychotherapy [id number] SNOMED-CT () 2019-11-[address], [id number] Individual Psychotherapy [id number] SNOMED-CT () 2019-11-[address], [place], [address] [id number] Individual Psychotherapy [id number] SNOMED-CT () 2020-01-[address], [id number] [id number] Individual Psychotherapy [id number] SNOMED-CT () 2020-02-[address], [id number] [id number] Individual Psychotherapy [id number] SNOMED-CT () 2020-04-[address], 574812429 [id number] Individual Psychotherapy [id number] SNOMED-CT () 2020-09-[address], [id number] [id number] Individual Psychotherapy [id number] SNOMED-CT () 2018-01-[address], 265986042 [id number] Individual Psychotherapy [id number] SNOMED-CT () 2018-06-[address], 467446074 [id number] Individual Psychotherapy [id number] SNOMED-CT () 2019-03-[address], [id number] Individual Psychotherapy [id number] SNOMED-CT () 2019-07-[address], [id number] Individual Psychotherapy [id number] SNOMED-CT () 2019-07-[address], [id number] Individual Psychotherapy [id number] SNOMED-CT () 2019-10-[address], [id number] [id number] Psychiatric Diagnostic Evaluation without medical serv ices [id number] SNOMED-CT () 2015-10-[address], [id number] [phone] Psychiatric Diagnostic Evaluation without medical serv ices [id number] SNOMED-CT () 2017-04-[address], [id number] [phone] Psychiatric Diagnostic Evaluation without medical serv ices [id number] SNOMED-CT () 2020-08-[address], 866557039 [id number] SNOMED-CT () 2018-10-[address], [id number] SNOMED-CT () 2018-11-[address], [id number] [id number] SNOMED-CT () 2017-05-[address], [id number] SNOMED-CT () 2017-06-[address], 216476956 [id number] SNOMED-CT () 2017-03-[address], [id number] SNOMED-CT () 2017-05-[address], 976754037 [id number] SNOMED-CT () 2017-04-[address], 467686716 [id number] SNOMED-CT () 2017-04-[address], [id number] [id number] SNOMED-CT () 2017-06-[address], [id number] [id number] SNOMED-CT () 2017-04-[address], 559365930 [id number] SNOMED-CT () 2017-04-[address], 824379562 [id number] SNOMED-CT () 2017-05-[address], [id number] SNOMED-CT () 2017-04-[address], [id number] [id number] SNOMED-CT () 2017-04-[address], 514454157 [id number] SNOMED-CT () 2017-03-[address], [id number] [id number] SNOMED-CT () 2017-10-[address], 312305805 [id number] SNOMED-CT () 2015-10-[address], 817142543 [id number] SNOMED-CT () 2017-04-[address], 553038701 [id number] SNOMED-CT () 2017-05-[address], [id number] [id number] Encounters/Encounter Diagnoses Encounter Name Encounter Code Diagnosis Code Diagnosis Name Diagnosis CodeSystem Date of Diagnosis Service Delivery L ocation Telehealth Physchotherapy 30 Minutes with Patient 05962 [id number] Obsessive-compulsive disor sunil, unspecified SNOMED-CT 2021-04-11 [facility] [address] [place], [place] [address], [place], [id number] Vital Signs Code CodeSystem Vitals Date Value 8302-2 LOINC Height 2017-08-04 66 [in_i] 10718-0 LOINC BMI 2017-08-04 25.5 (lb/in2) 04197-6 LOINC Weight 2017-08-04 158 [lb_av] 8462-4 [facility] Blood Press ure-Diastolic 2017-08-04 130 mm[HG] 8480-6 [facility] Blood Press ure-Systolic 2017-08-04 76 mm[HG] Social History Element Description Description Start Date [...]
--- OUTSIDE RECORDS SUMMARY | 2021-04-28 16:19 | CCD ---
Author Organization Unknown Address [address] [place] [address] Phone [phone] Care Team Providers Care Press Assistant And Feeder Name Role Phone Jenny Krzysztof Unavailable Unavailable Allergies Code Code System Name Reaction Severity Status Onset 8763425 RxNorm Latex Active 08/19/2017 Nsaids (Non-steroidal Anti-inflammatory [...] mg tablet TAKE ONE TABLET BY MOUTH THREE TIMES A DAY Active Not available guanfacine 1 mg tablet [...] into Pulp Active 11/23/2018 History Injury of Upper Extremity Active 11/16/2019 Histor y Inflammatory Disorder of Breast Active 11/23/2019 History Goiter Active 06/19/2020 Procedures Notes: No known surgical history Results Lab Results Date Name Specimen Result Interpretation Description Value Range Status Address 01/30/2021 Drug of Abuse Panel, Urine Urine No observation recorded. [facility] (Lab): [address], [place] 01/16/2021 CBC W/ Auto Diff Normal White Blood Count 5.3 10 4.0-10.0 10 [facility]: [address] [place] [address] Normal Red Blood Count 4.43 10 4.00-5.40 10 [facility]: [address] [place] [address] Normal Hemoglobin 12.6 g/dL 12.0-15.5 g/dL [facility]: [address] [place] [address] Normal Hematocrit 38.9 % 36.0-47.0 % [facility]: [address] [place] [address] Normal Mean Corpuscular Volume 87.8 fL 80.0 -96.0 fL [facility]: [address] [place] [address] Normal Mean Corpuscular Hemoglobin 28.4 pg 27.0-33.0 pg [facility]: [address] [place] [address] Normal Mean Corpuscular HGB Conc 32.4 g/dL 32.0-36.5 g/dL [facility]: 0 [facility] Normal Red Cell Distribution Width 12.9 % 1 1.5-14.5 % [facility]: 0 [facility] Normal Platelet Count, Automated 306 10 150 -450 10 [facility]: 0 [facility] Normal Neutrophils % 40.4 % 36.0-66.0 % [facility]: 0 [facility] High Lymph % 45.5 % 24.0-44.0 % [facility]: [address] [facility] High [place] % 9.8 % 2.0-8.0 % [facility]: [address] [facility] Normal Eos % 2.8 % 0.0-3.0 % [facility]: [address] [facility] High Baso % 1.3 % 0.0-1.0 % [facility]: 0 [facility] Normal Immature Granulocyte % 0.2 % 0-3.0 % [facility]: [address] [facility] Normal Nucleated Red Blood Cell % 0.0 % 0- 0 % [facility]: [address] [facility] Normal Neutrophils # 2.1 10 1.5-8.5 10 [facility]: [address] [facility] Normal Lymph # 2.4 10 1.5-5.0 10 [facility]: [address] [facility] Normal [place] # 0.5 10 0.0-0.8 10 [facility]: 0 [facility] Normal Eos # 0.2 10 0.0-0.5 10 [facility]: [address] [facility] Normal Baso # 0.1 10 0.0-0.2 10 [facility]: 0 [facility] 01/16/2021 CMP, Serum or Plasma Normal Glucose, Fastin g 78 mg/dL 70-100 mg/dL [facility]: [address] [facility] Normal Blood Urea Nitrogen 13 mg/dL 7-18 mg /dL [facility]: 0 [facility] Normal Creatinine for GFR 0.72 mg/dL 0.55-1 .30 mg/dL [facility]: [address] [facility] Normal Glomerular Filtration Rate > 60.0 >6 0 [facility]: [address] [facility] Normal Sodium Level 140 mEq/L 136-145 mEq/L [facility]: 0 [facility] Normal Potassium Serum 4.2 mEq/L 3.5-5.1 mE q/L [facility]: 0 [facility] Normal Chloride Level 106 mEq/L 98-107 mEq/ L [facility]: [address] [facility] Normal Carbon Dioxide Level 30 mEq/L 21-32 mEq/L [facility]: [address] [facility] Low Anion Gap 4 mEq/L 8-16 mEq/L [facility]: [address] [facility] Normal Calcium Level 9.2 mg/dL 8.5-10.1 mg/ dL [facility]: [address] [facility] Normal AST/SGOT 18 U/L 7-37 U/L [facility]: [address] [facility] Normal ALT/SGPT 21 U/L 12-78 U/L [facility]: [address] [facility] Normal Alkaline Phosphatase 62 U/L 45-117 U /L [facility]: [address] [facility] Normal Bilirubin,total 0.3 mg/dL 0.2-1.0 mg /dL [facility]: [address] [facility] Normal Total Protein 7.6 gm/dL 6.4-8.2 gm/d L [facility]: [address] [facility] Normal Albumin 4.2 gm/dL 3.2-5.2 gm/dL Jo l [facility]: [address] [facility] Normal Albumin/globulin Ratio 1.2 1.2-2. 2 [facility]: [address] [facility] 01/16/2021 Lipid Panel, Blood Normal Triglycerides Lev el 69 mg/dL <150 mg/dL [facility]: [address] [facility] Normal Cholesterol Level 175 mg/dL <200 mg/ dL [facility]: [address] [facility] Normal HDL Cholesterol 68 mg/dL >40 mg/dL F inal [facility]: [address] [facility] Normal LDL Cholesterol 93 mg/dL <100 mg/dL [facility]: [address] [facility] Normal Non-hdl-c 107 mg/dL [facility]: [address] [facility] Normal Cholesterol Risk Ratio 2.573 <5 Final [facility]: 0 [facility] 01/16/2021 Hepatic Function Panel, Serum Normal Bilirubin,direct < 0.1 mg/dL 0.0-0.2 mg/dL [facility] nter: 0 [facility] 01/16/2021 Renal Function Panel, Serum Normal Phosphor us Level 4.2 mg/dL 2.5-4.9 mg/dL Final [facility]: [address] [facility] 01/16/2021 TSH, Serum or Plasma High Thyroid Stimulating Hormone 4.420 uIU/mL 0.358-3.740 uIU/mL Final [facility] nter: 0 [facility] 01/16/2021 Vitamin D, 25-Hydroxy, Total, Serum Low Total 25(Oh) Vitamin D 16.8 NG/mL 30.0-100.0 NG/mL [facility] nter: [address] [place] [address] 01/16/2021 HbA1C (Hemoglobin a1C), Blood Normal Hemogl obin a1C 5.2 % [facility]: [address] [facility] Normal Estimated Average Glucose 103 mg/dL 60-110 mg/dL [facility]: 0 [facility] 01/02/2021 Drug of Abuse Panel, Urine No observation recorded. [facility] (Lab): [address], [place] 11/06/2020 Drug of Abuse Panel, Urine Urine No observation recorded. [facility] (Lab): [address], [place] 10/10/2020 Drug of Abuse Panel, Urine Urine No observation recorded. [facility] (Lab): [address], [place] 08/15/2020 Drug of Abuse Panel, Urine Urine No observation recorded. [facility] (Lab): [address], [place] 04/25/2020 Drug Screen, Urine Urine No observation recorde [facility] Medical: [address] [place] [address] Past Encounters 02/27/2021 Nondependent Opioid Abuse in Remission; Dental Caries on Smooth Surface Penetrating into Pulp Krzysztof Alvarado MD: [address] [place] [phone], Ph. 01/30/2021 Goiter; Nondependent Opioid Abuse in Remission; Dental Caries on Smooth Surface Penetrating into Pulp Krzysztof Alvarado MD: [address] [place] [address], Ph. 01/02/2021 Nondependent Opioid Abuse in Remission; Acne Krzysztof Alvarado MD: [address] [place] [address], Ph. 12/04/2020 Nondependent Opioid Abuse in Remission Krzysztof Alvarado MD: [address] [place] [address], Ph. 11/06/2020 Nondependent Opioid Abuse in Remission; Low Back Pain Krzysztof Alvarado MD: [address] [place] [phone], Ph. 10/10/2020 Nondependent Opioid Abuse in Remission; Low Back Pain Krzysztof Alvarado MD: [address] [place] [phone], Ph. 09/12/2020 Nondependent Opioid Abuse in Remission; Low Back Pain Krzysztof Alvarado MD: [address] [place] [phone], Ph. 08/15/2020 Nondependent Opioid Abuse in Remission Krzysztof Alvarado MD: [address] [place] [phone], Ph. 07/18/2020 Nondependent Opioid Abuse in Remission Krzysztof Alvarado MD: [address] [place] [phone], Ph. 06/19/2020 Low Back Pain; Nondependent Opioid Abuse in Remission; Goiter; Venereal Disease Screening; Dental Caries on Smooth Surface Penetrating into Pulp; Opioid Dependence in Remission Krzysztof Alvarado MD: [address] [place] [phone], Ph. 2020 Opioid Dependence in Remission; Low Back Pain Krzysztof Alvarado MD: [address] [place] [phone], Ph. 05/08/2020 Krzysztof Alvarado MD: [address] [place] [address], Ph. Social History Tobacco Smoking Status Former Smoker Vaccine List Notes: Pt declined covid vaccine. Plan of Care Reminders Provider Appointments None recorded. Lab None recorded. Referral None recorded. Procedures None recorded. Surgeries None recorded. Imaging None recorded. Vitals 02/27/2021 08:40AM [facility] 20 Height 66 in [...]
--- OUTSIDE RECORDS SUMMARY | 2021-04-28 16:20 | CCD ---
Author Organization Unknown Address [address] [place] [address] Phone [phone] Care Team Providers Care Access Registrar Name Role Phone Jenny Krzysztof Unavailable Unavailable Allergies Code Code System Name Reaction Severity Status Onset [id number] RxNorm Latex Active 08/19/2017 Nsaids (Non- steroidal Anti-inflammatory Drug) Active 08/20/19 18 Tramadol Active 08/19/2017 Metoclopramide Hcl Active 09/02/2018 Notes: NSAIDS | TYLENOL WITH CODIENE [...] TABLETS Completed 11/07/2020 buspirone 5 mg tablet TAKE ONE TABLET BY MOUTH THREE TIMES A DAY MAXIMUM DAILY DOSE 3 Active Not available cephalexin 500 mg capsule Completed 2020 clindamycin HCl 150 mg capsule TAKE ONE CAPSULE BY MOUTH FOUR TIMES A DAY Active Not available Daily Vitamin Formula Active Not availa ble duloxetine 20 mg capsule,delayed release Completed 08/15/2020 fluconazole 150 mg tablet Completed 2020 gabapentin 800 mg tablet TAKE ONE TABLET BY MOUTH THREE TIMES A DAY Active Not available levothyroxine 50 mcg tablet Take 1 tablet every day by oral route. Active Not available Motrin Active Not available [...] Result Interpretation Description Value Range Status Address 01/16/2021 CBC W/ Auto Diff Normal White Blood Count 5.3 10 4.0-10.0 10 [facility]: [address] [place] [address] Normal Red Blood Count 4.43 10 4.00-5.40 10 [facility]: [address] [place] [address] Normal Hemoglobin 12.6 g/dL 12.0-15.5 g/dL [facility]: [address] [place] [address] Normal Hematocrit 38.9 % 36.0-47.0 % [facility]: [address] [place] [address] Normal Mean Corpuscular Volume 87.8 fL 80.0 -96.0 fL [facility]: [address] [place] [address] Normal Mean Corpuscular Hemoglobin 28.4 pg 27.0-33.0 pg [facility]: [address] [place] [address] Normal Mean Corpuscular HGB Conc 32.4 g/dL 32.0-36.5 g/dL [facility]: [address] [place] [address] Normal Red Cell Distribution Width 12.9 % 1 1.5-14.5 % [facility]: [address] [place] [address] Normal Platelet Count, Automated 306 10 150 -450 10 [facility]: 0 [facility] Normal Neutrophils % 40.4 % 36.0-66.0 % [facility]: 0 [facility] High Lymph % 45.5 % 24.0-44.0 % [facility]: [address] [facility] High [place] % 9.8 % 2.0-8.0 % [facility]: 0 [facility] Normal Eos % 2.8 % 0.0-3.0 % [facility]: [address] [place] [address] High Baso % 1.3 % 0.0-1.0 % [facility]: [address] [facility] Normal Immature Granulocyte % 0.2 % 0-3.0 % [facility]: [address] [facility] Normal Nucleated Red Blood Cell % 0.0 % 0- 0 % [facility]: [address] [facility] Normal Neutrophils # 2.1 10 1.5-8.5 10 [facility] [address] [facility] Normal Lymph # 2.4 10 1.5-5.0 10 [facility]: [address] [facility] Normal [place] # 0.5 10 0.0-0.8 10 [facility]: [address] [facility] Normal Eos # 0.2 10 0.0-0.5 10 [facility]: [address] [facility] Normal Baso # 0.1 10 0.0-0.2 10 [facility]: [address] [facility] 01/16/2021 CMP, Serum or Plasma Normal Glucose, Fastin g 78 mg/dL 70-100 mg/dL [facility]: [address] [facility] Normal Blood Urea Nitrogen 13 mg/dL 7-18 mg /dL [facility]: 0 [facility] Normal Creatinine for GFR 0.72 mg/dL 0.55-1 .30 mg/dL [facility]: [address] [facility] Normal Glomerular Filtration Rate > 60.0 >6 0 [facility]: [address] [facility] Normal Sodium Level 140 mEq/L 136-145 mEq/L [facility]: 0 [facility] Normal Potassium Serum 4.2 mEq/L 3.5-5.1 mE q/L [facility]: [address] [facility] Normal Chloride Level 106 mEq/L 98-107 mEq/ L [facility]: 0 [facility] Normal Carbon Dioxide Level 30 mEq/L 21-32 mEq/L [facility]: [address] [facility] Low Anion Gap 4 mEq/L 8-16 mEq/L [facility]: [address] [facility] Normal Calcium Level 9.2 mg/dL 8.5-10.1 mg/ dL [facility]: [address] [facility] Normal AST/SGOT 18 U/L 7-37 U/L [facility]: [address] [facility] Normal ALT/SGPT 21 U/L 12-78 U/L [facility]: [address] [facility] Normal Alkaline Phosphatase 62 U/L 45-117 U /L [facility]: [address] [facility] Normal Bilirubin,total 0.3 mg/dL 0.2-1.0 mg /dL [facility]: [address] [facility] Normal Total Protein 7.6 gm/dL 6.4-8.2 gm/d L [facility]: [address] [facility] Normal Albumin 4.2 gm/dL 3.2-5.2 gm/dL [facility]: [address] [facility] Normal Albumin/globulin Ratio 1.2 1.2-2. 2 [facility]: [address] [facility] 01/16/2021 Lipid Panel, Blood Normal Triglycerides Lev el 69 mg/dL <150 mg/dL [facility]: [address] [facility] Normal Cholesterol Level 175 mg/dL <200 mg/ dL [facility]: [address] [facility] Normal HDL Cholesterol 68 mg/dL >40 mg/dL [facility] [place] [facility]: [address] [facility] Normal LDL Cholesterol 93 mg/dL <100 mg/dL [facility]: [address] [facility] Normal Non-hdl-c 107 mg/dL [facility]: [address] [facility] Normal Cholesterol Risk Ratio 2.573 <5 [facility]: [address] [facility] 01/16/2021 Hepatic Function Panel, Serum Normal Bilirubin,direct < 0.1 mg/dL 0.0-0.2 mg/dL [facility] nter: [address] [facility] 01/16/2021 Renal Function Panel, Serum Normal Phosphor us Level 4.2 mg/dL 2.5-4.9 mg/dL [facility]: [address] [facility] 01/16/2021 TSH, Serum or Plasma High Thyroid Stimulating Hormone 4.420 uIU/mL 0.358-3.740 uIU/mL [facility] nter: [address] [facility] 01/16/2021 Vitamin D, 25-Hydroxy, Total, Serum Low Total 25(Oh) Vitamin D 16.8 NG/mL 30.0-100.0 NG/mL [facility] nter: [address] [facility] 01/16/2021 HbA1C (Hemoglobin a1C), Blood Normal Hemogl obin a1C 5.2 % [facility]: [address] [facility] Normal Estimated Average Glucose 103 mg/dL 60-110 mg/dL [facility]: [address] [facility] 01/02/2021 Drug of Abuse Panel, Urine No observation recorded. [facility] (Lab): [address], [place] 11/06/2020 Drug of Abuse Panel, Urine Urine No observation recorded. [facility] (Lab): [address], [place] 10/10/2020 Drug of Abuse Panel, Urine Urine No observation recorded. [facility] (Lab): [address], [place] 08/15/2020 Drug of Abuse Panel, Urine Urine No observation recorded. [facility] (Lab): [address], [place] 04/25/2020 Drug Screen, Urine Urine No observation recorde [facility] Medical: [address] [place] [address] Past Encounters 01/30/2021 Goiter; Nondependent Opioid Abuse in Remission; Dental Caries on Smooth Surface Penetrating into Pulp Krzysztof Alvarado MD: [address] [place] [phone], Ph. 01/02/2021 Nondependent Opioid Abuse in Remission; Acne Krzysztof Alvarado MD: [address] [place] [phone], Ph. 12/04/2020 Nondependent Opioid Abuse in Remission Krzysztof Alvarado MD: [address] [place] [phone], Ph. 11/06/2020 Nondependent Opioid Abuse in Remission; Low Back Pain Krzysztof Alvarado MD: [address] [place] [phone], Ph. 10/10/2020 Nondependent Opioid Abuse in Remission; Low Back Pain Krzysztof Alvarado MD: [address] [place] [phone], Ph. 09/12/2020 Nondependent Opioid Abuse in Remission; Low Back Pain Krzysztof Alvarado MD: [address] [place] [phone], Ph. 08/15/2020 Nondependent Opioid Abuse in Remission Krzysztof Alvarado MD: [address] [place] [phone], Ph. 07/18/2020 Nondependent Opioid Abuse in Remission Krzysztof Alvarado MD: [address] [place] [phone], Ph. 06/19/2020 Low Back Pain; Nondependent Opioid Abuse in Remission; Goiter; Venereal Disease Screening; Dental Caries on Smooth Surface Penetrating into Pulp; Opioid Dependence in Remission Krzysztof Alvarado MD: [address] [place] [phone], Ph. 2020 Opioid Dependence in Remission; Low Back Pain Krzysztof Alvarado MD: [address] [place] [phone], Ph. 05/08/2020 Krzysztof Alvarado MD: [address] [place] [phone], Ph. Social History Tobacco Smoking Status Former Smoker Vaccine List Notes: Pt declined covid vaccine. Plan of Care Reminders Provider Appointments None recorded. Lab None recorded. Referral None recorded. Procedures None recorded. Surgeries None recorded. Imaging None recorded. Vitals 01/30/2021 09:20AM MAT Height Weight BMI Blood [...]
--- OUTSIDE RECORDS SUMMARY | 2021-04-28 16:20 | CCD ---
Author Organization Unknown Address [address] [place] [id number] Phone [phone] Care Team Providers Care Project Management Advisor Name Role Phone Jenny Krzysztof Unavailable Unavailable Allergies Code Code System Name Reaction Severity Status Onset 9869323 RxNorm Latex Active 08/19/2017 Nsaids (Non- steroidal [...] White Blood Count 5.3 10 4.0-10.0 10 [facility]: [address] [place] [address] Normal Red Blood Count 4.43 10 4.00-5.40 10 [facility]: [address] [place] [address] Normal Hemoglobin 12.6 g/dL 12.0-15.5 g/dL [facility]: [address] [place] [address] Normal Hematocrit 38.9 % 36.0-47.0 % [facility]: [address] [place] [address] Normal Mean Corpuscular Volume 87.8 fL 80.0 -96.0 fL [facility]: [address] [place] [address] Normal Mean Corpuscular Hemoglobin 28.4 pg 27.0-33.0 pg [facility]: [address] [place] [address] Normal Mean Corpuscular HGB Conc 32.4 g/dL 32.0-36.5 g/dL [facility]: [address] [place] [address] Normal Red Cell Distribution Width 12.9 % 1 1.5-14.5 % [facility]: [address] [place] [address] Normal Platelet Count, Automated 306 10 150 -450 10 [facility]: 0 [facility] Normal Neutrophils % 40.4 % 36.0-66.0 % [facility]: 0 [facility] High Lymph % 45.5 % 24.0-44.0 % [facility]: 830 [facility] High [place] % 9.8 % 2.0-8.0 % [facility]: 0 [facility] Normal Eos % 2.8 % 0.0-3.0 % [facility]: [address] [place] [address] High Baso % 1.3 % 0.0-1.0 % [facility]: 830 [facility] Normal Immature Granulocyte % 0.2 % 0-3.0 % [facility]: 830 [facility] Normal Nucleated Red Blood Cell % 0.0 % 0- 0 % [facility]: 830 [facility] Normal Neutrophils # 2.1 10 1.5-8.5 10 [facility]: 830 [facility] Normal Lymph # 2.4 10 1.5-5.0 10 [facility]: 830 [facility] Normal [place] # 0.5 10 0.0-0.8 10 [facility]: 830 [facility] Normal Eos # 0.2 10 0.0-0.5 10 [facility]: 830 [facility] Normal Baso # 0.1 10 0.0-0.2 10 [facility]: 830 [facility] 01/16/2021 CMP, Serum or Plasma Normal Glucose, Fastin g 78 mg/dL 70-100 mg/dL [facility]: 83 0 [facility] Normal Blood Urea Nitrogen 13 mg/dL 7-18 mg /dL [facility]: 0 [facility] Normal Creatinine for GFR 0.72 mg/dL 0.55-1 .30 mg/dL [facility]: 8[address] [facility] Normal Glomerular Filtration Rate > 60.0 >6 0 [facility]: 8[address] [facility] Normal Sodium Level 140 mEq/L 136-145 mEq/L [facility]: 0 [facility] Normal Potassium Serum 4.2 mEq/L 3.5-5.1 mE q/L [facility]: 8[address] [facility] Normal Chloride Level 106 mEq/L 98-107 mEq/ L [facility]: 0 [facility] Normal Carbon Dioxide Level 30 mEq/L 21-32 mEq/L [facility]: [address] [facility] Low Anion Gap 4 mEq/L 8-16 mEq/L [facility]: 8[address] [facility] Normal Calcium Level 9.2 mg/dL 8.5-10.1 mg/ dL [facility]: 8[address] [facility] Normal AST/SGOT 18 U/L 7-37 U/L [facility]: 8[address] [facility] Normal ALT/SGPT 21 U/L 12-78 U/L [facility]: 8[address] [facility] Normal Alkaline Phosphatase 62 U/L 45-117 U /L [facility]: 8[address] [facility] Normal Bilirubin,total 0.3 mg/dL 0.2-1.0 mg /dL [facility]: 830 [facility] Normal Total Protein 7.6 gm/dL 6.4-8.2 gm/d L [facility]: 830 [facility] Normal Albumin 4.2 gm/dL 3.2-5.2 gm/dL [facility]: 830 [facility] Normal Albumin/globulin Ratio 1.2 1.2-2. 2 [facility]: 830 [facility] 01/16/2021 Lipid Panel, Blood Normal Triglycerides Lev el 69 mg/dL <150 mg/dL [facility]: 83 0 [facility] Normal Cholesterol Level 175 mg/dL <200 mg/ dL [facility]: 8[address] [facility] Normal HDL Cholesterol 68 mg/dL >40 mg/dL [facility]: 8[address] [facility] Normal LDL Cholesterol 93 mg/dL <100 mg/dL [facility]: 8[address] [facility] Normal Non-hdl-c 107 mg/dL [facility]: [address] [facility] Normal Cholesterol Risk Ratio 2.573 <5 [facility]: [address] [facility] 01/16/2021 Hepatic Function Panel, Serum Normal Bilirubin,direct < 0.1 mg/dL 0.0-0.2 mg/dL [facility] nter: 8[address] [facility] 01/16/2021 Renal Function Panel, Serum Normal Phosphor us Level 4.2 mg/dL 2.5-4.9 mg/dL [facility]: 83 0 [facility] 01/16/2021 TSH, Serum or Plasma High Thyroid Stimulating Hormone 4.420 uIU/mL 0.358-3.740 uIU/mL [facility] nter: 8[address] [facility] 01/16/2021 Vitamin D, 25-Hydroxy, Total, Serum Low Total 25(Oh) Vitamin D 16.8 NG/mL 30.0-100.0 NG/mL [facility] nter: 8[address] [facility] 01/16/2021 HbA1C (Hemoglobin a1C), Blood Normal Hemogl obin a1C 5.2 % [facility]: [address] [facility] Normal Estimated Average Glucose 103 mg/dL 60-110 mg/dL [facility]: 8[address] [facility] 01/02/2021 Drug of Abuse Panel, Urine No observation recorded. [facility] (Lab): [address], [place] 11/06/2020 Drug of Abuse Panel, Urine Urine No observation recorded. [facility] (Lab): [address], [place] 10/10/2020 Drug of Abuse Panel, Urine Urine No observation recorded. [facility] (Lab): [address], [place] 08/15/2020 Drug of Abuse Panel, Urine Urine No observation recorded. [facility] (Lab): [address], [place] 04/25/2020 Drug Screen, Urine Urine No observation recorde [facility]: [address] [place] [address] Past Encounters 01/30/2021 Goiter; Nondependent Opioid Abuse in Remission; Dental Caries on Smooth Surface Penetrating into Pulp Krzysztof Alvarado MD: [address] [place] [phone], Ph. 01/02/2021 Nondependent Opioid Abuse in Remission; Acne Krzysztof Alvarado MD: [address] [place] [phone], Ph. 12/04/2020 Nondependent Opioid Abuse in Remission Krzysztof Alvarado MD: [address] [place] [phone], Ph. 11/06/2020 Nondependent Opioid Abuse in Remission; Low Back Pain Krzysztof Alvarado MD: [address] [place] [phone], Ph. 10/10/2020 Nondependent Opioid Abuse in Remission; Low Back Pain Krzysztof Alvarado MD: [address] [place] [phone], Ph. 09/12/2020 Nondependent Opioid Abuse in Remission; Low Back Pain Krzysztof Alvarado MD: [address] [place] [phone], Ph. 08/15/2020 Nondependent Opioid Abuse in Remission Krzysztof Alvarado MD: [address] [place] [phone], Ph. 07/18/2020 Nondependent Opioid Abuse in Remission Krzysztof Alvarado MD: [address] [place] [phone], Ph. 06/19/2020 Low Back Pain; Nondependent Opioid Abuse in Remission; Goiter; Venereal Disease Screening; Dental Caries on Smooth Surface Penetrating into Pulp; Opioid Dependence in Remission Krzysztof Alvarado MD: [address] [place] [phone], Ph. 2020 Opioid Dependence in Remission; Low Back Pain Krzysztof Alvaraod MD: [address] [place] [phone], Ph. 05/08/2020 Krzysztof Alvarado MD: [address] [place] [phone], Ph. Social History Tobacco Smoking Status Former [...]
--- OUTSIDE RECORDS SUMMARY | 2021-04-28 16:21 | CCD ---
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 Name Role Phone Zion Alvarado MD Unavailable Unavailable Zion Alvarado MD Unavailable Unavailable Zion Alvarado MD Unavailable Unavailable Zion Alvarado MD Unavailable Unavailable Zion Alvarado MD Unavailable Unavailable Zion Alvarado MD Unavailable Unavailable Zion Alvarado MD Unavailable Unavailable Zion Alvarado MD Unavailable Unavailable Zion Alvarado MD Unavailable Unavailable Zion Alvarado MD Unavailable Unavailable Zion Alvarado MD Unavailable Unavailable Zion Alvarado MD Unavailable Unavailable Zion Alvarado MD Unavailable Unavailable Zion Alvarado MD Unavailable Unavailable Zion Alvarado MD Unavailable Unavailable Zion Alvarado MD Unavailable Unavailable Zion Alvarado MD Unavailable Unavailable Zion Alvarado MD Unavailable Unavailable Zion Alvarado MD Unavailable Unavailable Zion Alvarado MD Unavailable Unavailable Zion Alvarado MD Unavailable Unavailable Zion Alvarado MD Unavailable Unavailable Zion Alvarado MD Unavailable Unavailable Zion Alvarado MD Unavailable Unavailable Zion Alvarado MD Unavailable Unavailable Zion Alvarado MD Unavailable Unavailable Zion Alvarado MD Unavailable Unavailable Zion Alvarado MD Unavailable Unavailable Zion Alvarado MD Unavailable Unavailable Zion Alvarado MD Unavailable Unavailable Zion Alvarado MD Unavailable Unavailable Zion Alvarado MD Unavailable Unavailable Zion Alvarado MD Unavailable Unavailable Zion Alvarado MD Unavailable Unavailable Zion Alvarado MD Unavailable Unavailable Zion Alvarado MD Unavailable Unavailable Zion Alvarado MD Unavailable Unavailable Zion Alvarado MD Unavailable Unavailable Zion Alvarado MD Unavailable Unavailable Zion Alvarado MD Unavailable Unavailable Zion Alvarado MD Unavailable Unavailable Zion Alvarado MD Unavailable Unavailable Zion Alvarado MD Unavailable Unavailable Zion Alvarado MD Unavailable Unavailable Zion Alvarado MD Unavailable Unavailable Zion Alvarado MD Unavailable Unavailable Zion Alvarado MD Unavailable Unavailable Zion Alvarado MD Unavailable Unavailable Zion Alvarado MD Unavailable Unavailable Zion Alvarado MD Unavailable Unavailable Zion Alvarado MD Unavailable Unavailable Zion Alvarado MD Unavailable Unavailable Zion Alvarado MD Unavailable Unavailable Zion Alvarado MD Unavailable Unavailable Zion Alvarado MD Unavailable Unavailable Zion Alvarado MD Unavailable Unavailable Zion Alvarado MD Unavailable Unavailable Zoin Alvarado MD Unavailable Unavailable Zion Alvarado MD Unavailable Unavailable Zion Alvarado MD Unavailable Unavailable Zion Alvarado MD Unavailable Unavailable Zion Alvarado MD Unavailable Unavailable Zion Alvarado MD Unavailable Unavailable Zion Alvarado MD Unavailable Unavailable Zion Alvarado MD Unavailable Unavailable Zion Alvarado MD Unavailable Unavailable Zion Alvarado MD Unavailable Unavailable Zion Alvarado MD Unavailable Unavailable Zion Alvarado MD Unavailable Unavailable Zion Alvarado MD Unavailable Unavailable Zion Alvarado MD Unavailable Unavailable Zion Alvarado MD Unavailable Unavailable Zion Alvarado MD Unavailable Unavailable Zion Alvarado MD Unavailable Unavailable Zion Alvarado MD Unavailable Unavailable Zion Alvarado MD Unavailable Unavailable Zion Alvarado MD Unavailable Unavailable Zion Alvarado MD Unavailable Unavailable Zion Alvarado MD Unavailable Unavailable Zion Alvarado MD Unavailable Unavailable Zion Alvarado MD Unavailable Unavailable Zion Alvarado MD Unavailable Unavailable Zion Alvarado MD Unavailable Unavailable Zion Alvarado MD Unavailable Unavailable Zion Alvarado MD Unavailable Unavailable Zion Alvarado MD Unavailable Unavailable Zion Alvarado MD Unavailable Unavailable Zion Alvarado MD Unavailable Unavailable Zion Alvarado MD Unavailable Unavailable Zion Alvarado MD Unavailable Unavailable Zion Alvarado MD Unavailable Unavailable Zion Alvarado MD Unavailable Unavailable Zion Alvarado MD Unavailable Unavailable Zion Alvarado MD Unavailable Unavailable Zion Alvarado MD Unavailable Unavailable Zion Alvarado MD Unavailable Unavailable Zion Alvarado MD Unavailable Unavailable Zion Alvarado MD Unavailable Unavailable Zion Alvarado MD Unavailable Unavailable Zion Alvarado MD Unavailable Unavailable Zion Alvarado MD Unavailable Unavailable Zion Alvarado MD Unavailable Unavailable Zion Alvarado MD Unavailable Unavailable Zion Alvarado MD Unavailable Unavailable Zion Alvarado MD Unavailable Unavailable Zion Alvarado MD Unavailable Unavailable Zion Alvarado MD Unavailable Unavailable Zion Alvarado MD Unavailable Unavailable Zion Alvarado MD Unavailable Unavailable Zion Alvarado MD Unavailable Unavailable Zion Alvarado MD Unavailable Unavailable Zion Alvarado MD Unavailable Unavailable Zion Alvarado MD Unavailable Unavailable Zion Alvarado MD Unavailable Unavailable Zion Alvarado MD Unavailable Unavailable Zion Alvarado MD Unavailable Unavailable Zion Alvarado MD Unavailable Unavailable Zion Alvarado MD Unavailable Unavailable Zion Alvarado MD Unavailable Unavailable Zion Alvarado MD Unavailable Unavailable Zion Alvarado MD Unavailable Unavailable Zion Alvarado MD Unavailable Unavailable Zion Alvarado MD Unavailable Unavailable Zion Alvarado MD Unavailable Unavailable Zion Alvarado MD Unavailable Unavailable Zion Alvarado MD Unavailable Unavailable Zion Alvarado MD Unavailable Unavailable Zion Alvarado MD Unavailable Unavailable Zion Alvarado MD Unavailable Unavailable Zion Alvarado MD Unavailable Unavailable Zion Alvarado MD Unavailable Unavailable Zion Alvarado MD Unavailable Unavailable Zion Alvarado MD Unavailable Unavailable Zion Alvarado MD Unavailable Unavailable Zion Alvarado MD Unavailable Unavailable Zion Alvarado MD Unavailable Unavailable Zion Alvarado MD Unavailable Unavailable Zion Alvarado MD Unavailable Unavailable Alvarado, Zion Blankenship MD Unavailable Unavailable Alvarado, Zion Blankenship MD Unavailable Unavailable Alvarado, Zion Blankenship MD Unavailable Unavailable Alvarado, Zion Blankenship MD Unavailable Unavailable Alvarado, Zion Blankenship MD Unavailable Unavailable Alvarado, Zoin Blankenship MD Unavailable Unavailable Alvarado, D Krzysztof MD Unavailable Unavailable Alvarado, D Krzysztof MD Unavailable Unavailable Alvarado, Zion Blankenship MD Unavailable Unavailable Alvarado, Zion Blankenship MD Unavailable Unavailable Alvarado, Zion Blankenship MD Unavailable Unavailable Alvarado, Zion Blankenship MD Unavailable Unavailable Alvarado, Zion Blankenship MD Unavailable Unavailable Alvarado, Zion Blankenship MD Unavailable Unavailable Alvarado, Zion Blankenship MD Unavailable Unavailable Alvarado, Zion Blankenship MD Unavailable Unavailable Alvarado, Zion Blankenship MD Unavailable Unavailable Alvarado, Zion Blankenship MD Unavailable Unavailable Alvarado, Zion Blankenship MD Unavailable Unavailable Alvarado, Zion Blankenship MD Unavailable Unavailable Alvarado, Zion Blankenship MD Unavailable Unavailable Alvarado, Zion Blankenship MD Unavailable Unavailable Alvarado, Zion Blankenship MD Unavailable Unavailable Alvarado, Zion Blankenship MD Unavailable Unavailable Alvarado, Zion Blankenship MD Unavailable Unavailable Alvarado, Zion Blankenship MD Unavailable Unavailable Alvarado, Zion Blankenship MD Unavailable Unavailable Alvarado, Zion Blankenship MD Unavailable Unavailable Alvarado, Zion Blankenship MD Unavailable Unavailable Alvarado, Zion Blankenship MD Unavailable Unavailable Alvarado, Zion Blankenship MD Unavailable Unavailable Alvarado, Zion Blankenship MD Unavailable Unavailable Alvarado, Zion Blankenship MD Unavailable Unavailable Alvarado, Zion Blankenship MD Unavailable Unavailable Alvarado, Zion Blankenship MD Unavailable Unavailable Alvarado, Zion Blankenship MD Unavailable Unavailable Alvarado, Zion Blankenship MD Unavailable Unavailable Alvarado, Zion Blankenship MD Unavailable Unavailable Alvarado, Zion Blankenship MD Unavailable Unavailable Alvarado, Zion Blankenship MD Unavailable Unavailable Alvarado, Zion Blankenship MD Unavailable Unavailable Alvarado, Zion Blankenship MD Unavailable Unavailable Alvarado, Zion Blankenship MD Unavailable Unavailable Alvarado, Zion Blankenship MD Unavailable Unavailable Alvarado, Zion Blankenship MD Unavailable Unavailable Alvarado, Zion Blankenship MD Unavailable Unavailable Alvarado, Zion Blankenship MD Unavailable Unavailable Alvarado, Zion Blankenship MD Unavailable Unavailable Re-disclosure Warning The records that you are about to access may contain information from federally-assisted alcohol or drug abuse programs. If such information is present, then the following federally mandated warning applies: This information has been disclosed to you from records protected by federal confidentiality rules (42 CFR part 2). The federal rules prohibit you from making any further disclosure of this information unless further disclosure is expressly permitted by the written consent of the person to whom it pertains or as otherwise permitted by 42 CFR part 2. A general authorization for the release of medical or other information is NOT sufficient for this purpose. The Federal rules restrict any use of the information to criminally investigate or prosecute any alcohol or drug abuse patient.The records that you are about to access may contain highly sensitive health information, the redisclosure of which is protected by Article 27-F of the [facility] Public Health law. If you continue you may have access to information: Regarding HIV / AIDS; Provided by facilities licensed or operated by the [facility] Office of Mental Health; or Provided by the [facility] Office for People With Developmental Disabilities. If such information is present, then the following [facility] mandated warning applies: This information has been disclosed to you from confidential records which are protected by state law. State law prohibits you from making any further disclosure of this information without the specific written consent of the person to whom it pertains, or as otherwise permitted by law. Any unauthorized further disclosure in violation of state law may result in a fine or assisted sentence or both. A general authorization for the release of medical or other information is NOT sufficient authorization for further disc losure. Encounters Encounter Providers Location Date Indications Data Source(s ) Telehealth Physchotherapy 30 [facility] with [facility] 04/11/2021 12:00:00 AM EDT [facility] ([facility]) Krzysztof Alvarado MD: [address] [place] [address], Ph. Attender: Krzysztof Alvarado MD [facility] Medical 03/27/2021 12:00:00 AM EDT [facility] ([facility]) Krzysztof Alvarado MD: [address] [place] [address], Ph. Attender: Krzysztof Alvarado MD [facility] Medical 02/27/2021 12:00:00 AM EDT [facility] ([facility]) Krzysztof Alvarado MD: [address] [place] [address], Ph. Attender: Krzysztof Alvarado MD [facility] Medical 02/27/2021 12:00:00 AM EDT [facility] ([facility]) Telehealth Physchotherapy 30 Minutes with Patient [facility] 02/06/2021 12:00:00 AM EDT [facility] ([facility]) Krzysztof Alvarado MD: [address] [place] [address], Ph. Attender: Krzysztof Alvarado MD [facility] Medical 01/30/2021 12:00:00 AM EDT [facility] ([facility]) Krzysztof Alvarado MD: [address] [place] [address], Ph. Attender: Krzysztof Alvarado MD [facility] Medical 01/30/2021 12:00:00 AM EDT [facility] ([facility]) Krzysztof Alvarado MD: [address] [place] [address], Ph. Attender: Krzysztof Alvarado MD [facility] Medical 01/30/2021 12:00:00 AM EDT [facility] ([facility]) Krzysztof Alvarado MD: [address] [place] [address], Ph. Attender: Krzysztof Alvarado MD [facility] Medical 01/30/2021 12:00:00 AM EDT [facility] ([facility]) Telehealth Physchotherapy 30 Minutes with Patient [facility] 01/16/2021 12:00:00 AM EDT [facility] ([facility]) Krzysztof Alvarado MD: [address] [place] [address], Ph. Attender: Krzysztof Alvarado MD [facility] Medical 01/02/2021 12:00:00 AM EDT [facility] ([facility]) Krzysztof Alvarado MD: [address] [place] [address], Ph. Attender: Krzysztof Alvarado MD [facility] Medical 01/02/2021 12:00:00 AM EDT [facility] ([facility]) Krzysztof Alvarado MD: [address] [place] [address], Ph. Attender: Krzysztof Alvarado MD [facility] Medical 01/02/2021 12:00:00 AM EDT [facility] ([facility]) Krzysztof Alvarado MD: [address] [place] [address], Ph. Attender: Krzysztof Alvarado MD [facility] 01/02/2021 12:00:00 AM EDT [facility] ([facility]) Krzysztof Alvarado MD: [address] [place] [address], Ph. Attender: Krzysztof Alvarado MD [facility] 01/02/2021 12:00:00 AM EDT [facility] ([facility]) [facility]billable [facility] 12/20/2020 12:00:00 AM EDT [facility]) Telehealth Physchotherapy 30 Minutes with Patient [facility] 12/06/2020 12:00:00 AM EDT [facility] ([facility]) Krzysztof Alvarado MD: [address] [place] [address], Ph. Attender: Krzysztof Alvarado MD [facility] Medical 12/04/2020 12:00:00 AM EDT [facility] ([facility]) Krzysztof Alvarado MD: [address] [place] [address], Ph. Attender: Krzysztof Alvarado MD [facility] Medical 12/04/2020 12:00:00 AM EDT [facility] ([facility]) Krzysztof Alvarado MD: [address] [place] [address], Ph. Attender: Krzysztof Alvarado MD [facility] Medical 12/04/2020 12:00:00 AM EDT [facility] ([facility]) Krzysztof Alvarado MD: [address] [place] [address], Ph. Attender: Krzysztof Alvarado MD [facility] 12/04/2020 12:00:00 AM EDT [facility] ([facility]) Krzysztof Alvarado MD: [address] [place] [address], Ph. Attender: Krzysztof Alvarado MD [facility] Medical 12/04/2020 12:00:00 AM EDT [facility] ([facility]) Krzysztof Alvarado MD: [address] [place] [address], Ph. Attender: Krzysztof Alvarado MD [facility] Medical 12/04/2020 12:00:00 AM EDT [facility] ([facility]) Krzysztof Alvarado MD: [address] [place] [address], Ph. Attender: Krzysztof Alvarado MD [facility] 11/06/2020 12:00:00 AM EDT [facility] ([facility]) Krzysztof Alvarado MD: [address] [place] [address], Ph. Attender: Krzysztof Alvarado MD [facility] 11/06/2020 12:00:00 AM EDT [facility] ([facility]) Krzysztof Alvarado MD: [address] [place] [address], Ph. Attender: Krzysztof Alvarado MD [facility] 11/06/2020 12:00:00 AM EDT [facility] ([facility]) Krzysztof Alvarado MD: [address] [place] [address], Ph. Attender: Krzysztof Alvarado MD [facility] 11/06/2020 12:00:00 AM EDT [facility] ([facility]) Krzysztof Alvarado MD: [address] [place] [address], Ph. Attender: Krzysztof Alvarado MD [facility] 11/06/2020 12:00:00 AM EDT [facility] ([facility]) Krzysztof Alvarado MD: [address] [place] [address], Ph. Attender: Krzysztof Alvarado MD [facility] 11/06/2020 12:00:00 AM EDT [facility] ([facility]) Krzysztof Alvarado MD: [address] [place] [address], Ph. Attender: Krzysztof Alvarado MD [facility] 11/06/2020 12:00:00 AM EDT [facility] ([facility]) Telehealth Physchotherapy 30 Minutes with Patient [facility] 10/31/2020 12:00:00 AM EDT [facility] ([facility]) Krzysztof Alvarado MD: [address] [place] [address], Ph. Attender: Krzysztof Alvarado MD [facility] 10/10/2020 12:00:00 AM EDT [facility] ([facility]) Krzysztof Alvarado MD: [address] [place] [address], Ph. Attender: Krzysztof Alvarado MD [facility] 10/10/2020 12:00:00 AM EDT [facility] ([facility]) Krzysztof Alvarado MD: [address] [place] [address], Ph. Attender: Krzysztof Alvarado MD [facility] 10/10/2020 12:00:00 AM EDT [facility] ([facility]) Krzysztof Alvarado MD: [address] [place] [address], Ph. Attender: Krzysztof Alvarado MD [facility] 10/10/2020 12:00:00 AM EDT [facility] ([facility]) Krzysztof Alvarado MD: [address] [place] [address], Ph. Attender: Krzysztof Alvarado MD [facility] 10/10/2020 12:00:00 AM EDT [facility] ([facility]) Krzysztof Alvarado MD: [address] [place] [address], Ph. Attender: Krzysztof Alvarado MD [facility] 10/10/2020 12:00:00 AM EDT [facility] ([facility]) Krzysztof Alvarado MD: [address] [place] [address], Ph. Attender: Krzysztof Alvarado MD [facility] 10/10/2020 12:00:00 AM EDT [facility] ([facility]) Krzysztof Alvarado MD: [address] [place] [address], Ph. Attender: Krzysztof Alvarado MD [facility] 10/10/2020 12:00:00 AM EDT [facility] ([facility]) Krzysztof Alvarado MD: [address] [place] [address], Ph. Attender: Krzysztof Alvarado MD [facility] 09/12/2020 12:00:00 AM EDT [facility] ([facility]) Krzysztof Alvarado MD: [address] [place] [address], Ph. Attender: Krzysztof Alvarado MD [facility] 09/12/2020 12:00:00 AM EDT [facility] ([facility]) Krzysztof Alvarado MD: [address] [place] [address], Ph. Attender: Krzysztof Alvarado MD [facility] 09/12/2020 12:00:00 AM EDT [facility] ([facility]) Krzysztof Alvarado MD: [address] [place] [address], Ph. Attender: Krzysztof Alvarado MD [facility] 09/12/2020 12:00:00 AM EDT [facility] ([facility]) Krzysztof Alvarado MD: [address] [place] [address], Ph. Attender: Krzysztof Alvarado MD [facility] 09/12/2020 12:00:00 AM EDT [facility] ([facility]) Krzysztof Alvarado MD: [address] [place] [address], Ph. Attender: Krzysztof Alvarado MD [facility] 09/12/2020 12:00:00 AM EDT [facility] ([facility]) Krzysztof Alvarado MD: [address] [place] [address], Ph. Attender: Krzysztof Alvarado MD [facility] 09/12/2020 12:00:00 AM EDT [facility] ([facility]) Krzysztof Alvarado MD: [address] [place] [address], Ph. Attender: Krzysztof Alvarado MD [facility] 09/12/2020 12:00:00 AM EDT [facility] ([facility]) Krzysztof Alvarado MD: [address] [place] [address], Ph. Attender: Krzysztof Alvarado MD [facility] 09/12/2020 12:00:00 AM EDT [facility] ([facility]) Krzysztof Alvarado MD: [address] [place] [address], Ph. Attender: Krzysztof Alvarado MD [facility] 08/15/2020 12:00:00 AM EST [facility] ([facility]) Krzysztof Alvarado MD: [address] [place] [address], Ph. Attender: Krzysztof Alvarado MD [facility] 08/15/2020 12:00:00 AM EST [facility] ([facility]) Krzysztof Alvarado MD: [address] [place] [address], Ph. Attender: Krzysztof Alvarado MD [facility] 08/15/2020 12:00:00 AM EST [facility] ([facility]) Krzysztof Alvarado MD: [address] [place] [address], Ph. Attender: Krzysztof Alvarado MD [facility] 08/15/2020 12:00:00 AM EST [facility] ([facility]) Krzysztof Alvarado MD: [address] [place] [address], Ph. Attender: Krzysztof Alvarado MD [facility] 08/15/2020 12:00:00 AM EST [facility] ([facility]) Krzysztof Alvarado MD: [address] [place] [address], Ph. Attender: Krzysztof Alvarado MD [facility] 08/15/2020 12:00:00 AM EST [facility] ([facility]) Krzysztof Alvarado MD: [address] [place] [address], Ph. Attender: Krzysztof Alvarado MD [facility] 08/15/2020 12:00:00 AM EST [facility] ([facility]) Krzysztof Alvarado MD: [address] [place] [address], Ph. Attender: Krzysztof Alvarado MD [facility] 08/15/2020 12:00:00 AM EST [facility] ([facility]) Krzysztof Alvarado MD: [address] [place] [address], Ph. Attender: Krzysztof Alvarado MD [facility] 08/15/2020 12:00:00 AM EST [facility] ([facility]) Krzysztof Alvarado MD: [address] [place] [address], Ph. Attender: Krzysztof Alvarado MD [facility] 08/15/2020 12:00:00 AM EST [facility] ([facility]) Krzysztof Alvarado MD: [address] [place] [address], Ph. Attender: Krzysztof Alvarado MD [facility] 07/18/2020 12:00:00 AM EST [facility] ([facility]) Krzysztof Alvarado MD: [address] [place] [address], Ph. Attender: Krzysztof Alvarado MD [facility] 07/18/2020 12:00:00 AM EST [facility] ([facility]) Krzysztof Alvarado MD: [address] [place] [address], Ph. Attender: Krzysztof Alvarado MD [facility] 07/18/2020 12:00:00 AM EST [facility] ([facility]) Krzysztof Alvarado MD: [address] [place] [address], Ph. Attender: Krzysztof Alvarado MD [facility] 07/18/2020 12:00:00 AM EST [facility] ([facility]) Krzysztof Alvarado MD: [address] [place] [address], Ph. Attender: Krzysztof Alvarado MD [facility] 07/18/2020 12:00:00 AM EST [facility] ([facility]) Krzysztof Alvarado MD: [address] [place] [address], Ph. Attender: Krzysztof Alvarado MD [facility] 07/18/2020 12:00:00 AM EST [facility] ([facility]) Krzysztof Alvarado MD: [address] [place] [address], Ph. Attender: Krzysztof Alvarado MD [facility] 07/18/2020 12:00:00 AM EST [facility] ([facility]) Krzysztof Alvarado MD: [address] [place] [address], Ph. Attender: Krzysztof Alvarado MD [facility] 07/18/2020 12:00:00 AM EST [facility] ([facility]) Krzysztof Alvarado MD: [address] [place] [address], Ph. Attender: Krzysztof Alvarado MD [facility] 07/18/2020 12:00:00 AM EST [facility] ([facility]) Krzysztof Alvarado MD: [address] [place] [address], Ph. Attender: Krzysztof Alvarado MD [facility] Medical 07/18/2020 12:00:00 AM EST [facility] ([facility]) Krzysztof Alvarado MD: [address] [place] [address], Ph. Attender: Krzysztof Alvarado MD [facility] Medical 07/18/2020 12:00:00 AM EST [facility] ([facility]) Krzysztof Alvarado, MD: [address] [place] [address], Ph. Attender: Krzysztof Alvarado MD [facility] Medical 06/19/2020 12:00:00 AM EST [facility] ([facility]) Krzysztof Alvarado MD: [address] [place] [address], Ph. Attender: Krzysztof Alvaraod MD [facility] Medical 06/19/2020 12:00:00 AM EST [facility] ([facility]) Krzysztof Alvarado MD: [address] [place] [address], Ph. Attender: Krzysztof Alvarado MD [facility] Medical 06/19/2020 12:00:00 AM EST [facility] ([facility]) Krzysztof Alvarado MD: [address] [place] [address], Ph. Attender: Krzysztof Alvarado MD [facility] Medical 06/19/2020 12:00:00 AM EST [facility] ([facility]) Krzysztof Alvarado MD: [address] [place] [address], Ph. Attender: Krzysztof Alvarado MD [facility] Medical 06/19/2020 12:00:00 AM EST [facility] ([facility]) Krzysztof Alvarado MD: [address] [place] [address], Ph. Attender: Krzysztof Alvarado MD [facility] Medical 06/19/2020 12:00:00 AM EST [facility] ([facility]) Krzysztof Alvarado MD: [address] [place] [address], Ph. Attender: Krzysztof Alvarado MD [facility] Medical 06/19/2020 12:00:00 AM EST [facility] ([facility]) Krzysztof Alvarado MD: [address] [place] [address], Ph. Attender: Krzysztof Alvarado MD [facility] Medical 06/19/2020 12:00:00 AM EST [facility] ([facility]) Krzysztof Alvarado MD: [address] [place] [address], Ph. Attender: Krzysztof Alvarado MD [facility] Medical 06/19/2020 12:00:00 AM EST [facility] ([facility]) Krzysztof Alvarado MD: [address] [place] [address], Ph. Attender: Krzysztof Alvarado MD [facility] Medical 06/19/2020 12:00:00 AM EST [facility] ([facility]) Krzysztof Alvarado MD: [address] [place] [address], Ph. Attender: Krzysztof Alvarado MD [facility] Medical 06/19/2020 12:00:00 AM EST [facility] ([facility]) Krzysztof Alvarado MD: [address] [place] [address], Ph. Attender: Krzysztof Alvarado MD [facility] Medical 06/19/2020 12:00:00 AM EST [facility] ([facility]) Krzysztof Alvarado MD: [address] [place] [address], Ph. Attender: Krzysztof Alvarado MD [facility] Medical 2020 12:00:00 AM EST [facility] ([facility]) Krzysztof Alvarado MD: [address] [place] [address], Ph. Attender: Krzysztof Alvarado MD [facility] Medical 2020 12:00:00 AM EST [facility] ([facility]) Krzysztof Alvarado MD: [address] [place] [address], Ph. Attender: Krzysztof Alvarado MD [facility] Medical 2020 12:00:00 AM EST [facility] ([facility]) Krzysztof Alvarado MD: [address] [place] [address], Ph. Attender: Krzysztof Alvarado MD [facility] Medical 2020 12:00:00 AM EST [facility] ([facility]) Krzysztof Alvarado MD: [address] [place] [address], Ph. Attender: Krzysztof Alvarado MD [facility] Medical 2020 12:00:00 AM EST [facility] ([facility]) Krzysztof Alvarado MD: [address] [place] [address], Ph. Attender: Krzysztof Alvarado MD [facility] Medical 2020 12:00:00 AM EST [facility] ([facility]) Krzysztof Alvarado MD: [address] [place] [address], Ph. Attender: Krzysztof Alvarado MD [facility] Medical 2020 12:00:00 AM EST [facility] ([facility]) Krzysztof Alvarado MD: [address] [place] [address], Ph. Attender: Krzysztof Alvarado MD [facility] Medical 2020 12:00:00 AM EST [facility] ([facility]) Krzysztof Alvarado MD: [address] [place] [address], Ph. Attender: Krzysztof Alvarado MD [facility] Medical 2020 12:00:00 AM EST [facility] ([facility]) Krzysztof Alvarado MD: [address] [place] [address], Ph. Attender: Krzysztof Alvarado MD [facility] Medical 2020 12:00:00 AM EST [facility] ([facility]) Krzysztof Alvarado MD: [address] [place] [address], Ph. Attender: Krzysztof Alvarado MD [facility] Medical 2020 12:00:00 AM EST [facility] ([facility]) Krzysztof Alvarado MD: [address] [place] [address], Ph. Attender: Krzysztof Alvarado MD [facility] Medical 2020 12:00:00 AM EST [facility] ([facility]) Krzysztof Alvarado MD: [address] [place] [address], Ph. Attender: Krzysztof Alvarado MD [facility] Medical 2020 12:00:00 AM EST [facility] ([facility]) Krzysztof Alvarado MD: [address] [place] [address], Ph. Attender: Krzysztof Alvarado MD [facility] Medical 05/08/2020 12:00:00 AM EST [facility] ([facility]) Krzysztof Alvarado MD: [address] [place] [address], Ph. Attender: Krzysztof Alvarado MD [facility] Medical 05/08/2020 12:00:00 AM EST [facility] ([facility]) Krzysztof Alvarado MD: [address] [place] [address], Ph. Attender: Krzysztof Alvarado MD [facility] Medical 05/08/2020 12:00:00 AM EST [facility] ([facility]) Krzysztof Alvarado MD: [address] [place] [address], Ph. Attender: Krzysztof Alvarado MD [facility] Medical 05/08/2020 12:00:00 AM EST [facility] ([facility]) Krzysztof Alvarado MD: [address] [place] [address], Ph. Attender: Krzysztof Alvarado MD [facility] Medical 05/08/2020 12:00:00 AM EST [facility] ([facility]) Krzysztof Alvarado MD: [address] [place] [address], Ph. Attender: Krzysztof Alvarado MD [facility] Medical 05/08/2020 12:00:00 AM EST [facility] ([facility]) Krzysztof Alvarado MD: [address] [place] [address], Ph. Attender: Krzysztof Alvarado MD [facility] Medical 05/08/2020 12:00:00 AM EST [facility] ([facility]) Krzysztof Alvarado MD: [address] [place] [address], Ph. Attender: Krzysztof Alvarado MD [facility] Medical 05/08/2020 12:00:00 AM EST [facility] ([facility]) Krzysztof Alvarado MD: [address] [place] [address], Ph. Attender: Krzysztof Alvarado MD [facility] Medical 05/08/2020 12:00:00 AM EST [facility] ([facility]) Krzysztof Alvarado MD: [address] [place] [address], Ph. Attender: Krzysztof Alvarado MD [facility] Medical 05/08/2020 12:00:00 AM EST [facility] ([facility]) Krzysztof Alvarado MD: [address] [place] [address], Ph. Attender: Krzysztof Alvarado MD [facility] Medical 05/08/2020 12:00:00 AM EST [facility] ([facility]) Krzysztof Alvarado MD: [address] [place] [address], Ph. Attender: Krzysztof Alvarado MD [facility] Medical 05/08/2020 12:00:00 AM EST [facility] ([facility]) Krzysztof Alvarado MD: [address] [place] [address], Ph. Attender: Krzysztof Alvarado MD [facility] Medical 05/08/2020 12:00:00 AM EST [facility] ([facility]) Krzysztof Alvarado MD: [address] [place] [address], Ph. Attender: Krzysztof Alvarado MD [facility] Medical 05/08/2020 12:00:00 AM EST [facility] ([facility]) Outpatient Attender: Krzysztof Alvarado MD 04/10/2020 04:25:01 PM EDT [facility] Outpatient Attender: Krzysztof Alvarado MD 04/03/2020 12:15:02 PM EDT [facility] Outpatient Attender: Krzysztof Alvarado MD 04/03/2020 11:23:01 AM EDT [facility] Outpatient Attender: Krzysztof Alvarado MD 03/07/2020 07:53:00 AM EDT [facility] Medications Medication Brand Name Start Date Product Form Dose Route Admi nistrative Instructions Pharmacy Instructions Status Indications Reaction Description Data Source(s) gabapentin 800 MG Oral Tablet GABAPENTIN 04/07/2021 12:00:00 AM EDT ta blet 90 TAKE ONE TABLET BY MOUTH THREE TIMES A DAY TAKE ONE TABLET BY MOUTH THREE TIMES A DAY SOLD: 04/09/2021 [facility] 150 mg 04/03/2021 12:00:00 AM EDT capsule 28 TAKE ONE CAPSULE BY MOUTH FOUR TIMES A DAY TAKE ONE CAPSULE BY MOUTH FOUR TIMES A DAY SOLD: 04/09/2021 [facility] 8-2 mg 03/27/2021 12:00:00 AM EDT film [address] THREE FILMS UNDER THE TONGUE EVERY DAY MAXIMUM DAILY DOSE = [address] THREE FILMS UNDER THE TONGUE EVERY DAY MAXIMUM DAILY DOSE = 3 FILMS SOLD: 03/27/2021 [facility] gabapentin 800 MG Oral Tablet GABAPENTIN 03/13/2021 12:00:00 AM EDT t ablet 120 TAKE ONE TABLET BY MOUTH FOUR TIMES A DAY NEXT FILL TAKE ONE TABLET BY MOUTH FOUR TIMES A DAY NEXT FILL 04/10/21 SOLD: 03/13/2021 [facility] gabapentin 800 MG Oral Tablet GABAPENTIN 03/03/2021 12:00:00 AM EDT ta blet 45 TAKE ONE TABLET BY MOUTH THREE TIMES A DAY TAKE ONE TABLET BY MOUTH THREE TIMES A DAY SOLD: 03/04/2021 [facility] 8-2 mg 02/27/2021 12:00:00 AM EDT film [address] THREE FILMS UNDER THE TONGUE EVERY DAY MAXIMUM DAILY DOSE = [address] THREE FILMS UNDER THE TONGUE EVERY DAY MAXIMUM DAILY DOSE = 3 FILMS SOLD: 02/27/2021 [facility] buspirone hydrochloride 5 MG Oral Tablet BUSPIRONE HCL 02/08/2021 12:00:00 AM EDT tablet 90 TAKE ONE TABLET BY MOUTH THR EE TIMES A DAY TAKE ONE TABLET BY MOUTH THREE TIMES A DAY SOLD: 02/21/2021 [facility] 1 mg 01/31/2021 12:00:00 AM EDT tablet 30 TAKE ONE TABLET BY MOUTH EVERY DAY TAKE ONE TABLET BY MOUTH EVERY DAY SOLD: 02/04/2021 [facility] Clindamycin 150 MG Oral Capsule CLINDAMYCIN HCL 01/30/2021 12:00 :00 AM EDT capsule 28 TAKE ONE CAPSULE BY MOUTH FOUR T IMES A DAY TAKE ONE CAPSULE BY MOUTH FOUR TIMES A DAY SOLD: 01/30/2021 [facility] 50 mcg 01/30/2021 12:00:00 AM EDT tablet 30 TAKE ONE TABLET BY MOUTH EVERY DAY TAKE ONE TABLET BY MOUTH EVERY DAY SOLD: 01/30/2021 [facility] 8-2 mg 01/30/2021 12:00:00 AM EDT film [address] THREE FILMS UNDER THE TONGUE EVERY DAY MAXIMUM DAILY DOSE = THREE FIL[address] THREE FILMS UNDER THE TONGUE EVERY DAY MAXIMUM DAILY DOSE = THREE FILMS SOLD: 01/30/2021 [facility] buspirone hydrochloride 5 MG Oral Tablet BUSPIRONE HCL 01/17/2021 12:00:00 AM EDT tablet 90 TAKE ONE TABLET BY MOUTH THREE TIMES A DAY MAXIMUM DAILY DOSE = 3 TAKE ONE TABLET BY MOUTH THREE TIMES A DAY MAXIMUM JAGJIT LY DOSE = 3 SOLD: 01/24/2021 [facility] Clindamycin 150 MG Oral Capsule CLINDAMYCIN HCL 01/08/2021 12:00 :00 AM EDT capsule 28 TAKE ONE CAPSULE BY MOUTH FOUR T IMES A DAY TAKE ONE CAPSULE BY MOUTH FOUR TIMES A DAY SOLD: 01/08/2021 [facility] 8-2 mg 01/02/2021 12:00:00 AM EDT film [address] THREE FILMS UNDER THE TONGUE EVERY DAY MAXIMUM DAILY DOSE = [address] THREE FILMS UNDER THE TONGUE EVERY DAY MAXIMUM DAILY DOSE = 3 FILMS SOLD: 01/02/2021 [facility] 8-2 mg 12/04/2020 12:00:00 AM EDT film [address] THREE FILMS UNDER THE TONGUE EVERY DAY MAXIMUM DAILY DOSE = 3 PLACE THREE FILMS UNDER THE TONGUE EVERY DAY MAXIMUM DAILY DOSE = 3 SOLD: 12/04/2020 [facility] gabapentin 800 MG Oral Tablet GABAPENTIN 12/04/2020 12:00:00 AM EDT ta blet 90 TAKE ONE TABLET BY MOUTH THREE TIMES A DAY TAKE ONE TABLET BY MOUTH THREE TIMES A DAY SOLD: 12/04/2020 [facility] 8-2 mg 11/14/2020 12:00:00 AM EDT film [address] THREE FILMS UNDER THE TONGUE EVERY DAY MAXIMUM DAILY DOSE = [address] THREE FILMS UNDER THE TONGUE EVERY DAY MAXIMUM DAILY DOSE = 3 FILMS SOLD: 11/14/2020 [facility] gabapentin 800 MG Oral Tablet GABAPENTIN 11/06/2020 12:00:00 AM EDT ta blet 90 TAKE ONE TABLET BY MOUTH THREE TIMES A DAY TAKE ONE TABLET BY MOUTH THREE TIMES A DAY SOLD: 01/07/2021 [facility] 8-2 mg 11/06/2020 12:00:00 AM EDT film [address]ACE ONE FILM UNDER THE TONGUE EVERY DAY MAXIMUM DAILY DOSE = [address] ONE FILM UNDER THE TONGUE EVERY DA Y MAXIMUM DAILY DOSE = 1 FILM SOLD: 11/07/2020 [facility] gabapentin 800 MG Oral Tablet GABAPENTIN 11/06/2020 12:00:00 AM EDT ta blet 90 TAKE ONE TABLET BY MOUTH THREE TIMES A DAY TAKE ONE TABLET BY MOUTH THREE TIMES A DAY SOLD: 11/06/2020 [facility] gabapentin 800 MG Oral Tablet GABAPENTIN 10/10/2020 12:00:00 AM EDT ta blet 90 TAKE ONE TABLET BY MOUTH THREE TIMES A DAY TAKE ONE TABLET BY MOUTH THREE TIMES A DAY SOLD: 02/04/2021 [facility] Clindamycin 150 MG Oral Capsule CLINDAMYCIN HCL 09/20/2020 12:00 :00 AM EDT capsule 56 TAKE ONE CAPSULE BY MOUTH FOUR T IMES A DAY TAKE ONE CAPSULE BY MOUTH FOUR TIMES A DAY SOLD: 09/20/2020 [facility] 8 mg 09/12/2020 12:00:00 AM EDT tablet, sublingual 90 [address] THREE TABLETS UNDER THE TONGUE EVERY DAY MAXIMUM DAILY DOSE = [address] THREE TABLETS UNDER THE TONGUE EVERY DAY MAXIMUM DAILY DOSE = 3 TABLETS SOLD: 09/12/2020 [facility] gabapentin 800 MG Oral Tablet GABAPENTIN 09/12/2020 12:00:00 AM EDT ta blet 90 TAKE ONE TABLET BY MOUTH THREE TIMES A DAY TAKE ONE TABLET BY MOUTH THREE TIMES A DAY SOLD: 09/12/2020 [facility] 8 mg 08/15/2020 12:00:00 AM EST tablet, sublingual 90 PLACE 3 TABLETS UNDER THE TONGUE ONCE DAILY MAXIMUM DAILY DOSE = [address] 3 TABLETS UNDER THE TONGUE ONCE DAILY MAXIMUM DAILY DOSE = 3 TABLETS SOLD: 08/15/2020 [facility] 8 mg 07/18/2020 12:00:00 AM EST tablet, sublingual [address] THREE TABLETS UNDER THE TONGUE EVERY DAY MAXIMUM DAILY DOSE = [address] THREE TABLETS UNDER THE TONGUE EVERY DAY MAXIMUM DAILY DOSE = 3 TABLETS SOLD: 07/18/2020 [facility] gabapentin 800 MG Oral Tablet GABAPENTIN 06/27/2020 12:00:00 AM EST ta blet 90 TAKE ONE TABLET BY MOUTH THREE TIMES A DAY TAKE ONE TABLET BY MOUTH THREE TIMES A DAY SOLD: 08/21/2020 [facility] gabapentin 800 MG Oral Tablet GABAPENTIN 06/27/2020 12:00:00 AM EST ta blet 90 TAKE ONE TABLET BY MOUTH THREE TIMES A DAY TAKE ONE TABLET BY MOUTH THREE TIMES A DAY SOLD: 07/24/2020 [facility] gabapentin 800 MG Oral Tablet GABAPENTIN 06/27/2020 12:00:00 AM EST ta blet 90 TAKE ONE TABLET BY MOUTH THREE TIMES A DAY TAKE ONE TABLET BY MOUTH THREE TIMES A DAY SOLD: 06/27/2020 [facility] Clindamycin 150 MG Oral Capsule CLINDAMYCIN HCL 06/19/2020 12:00 :00 AM EST capsule 28 TAKE ONE CAPSULE BY MOUTH FOUR T IMES A DAY TAKE ONE CAPSULE BY MOUTH FOUR TIMES A DAY SOLD: 08/15/2020 [facility] Clindamycin 150 MG Oral Capsule CLINDAMYCIN HCL 06/19/2020 12:00 :00 AM EST capsule 28 TAKE ONE CAPSULE BY MOUTH FOUR T IMES A DAY TAKE ONE CAPSULE BY MOUTH FOUR TIMES A DAY SOLD: 06/19/2020 [facility] 8 mg 06/19/2020 12:00:00 AM EST tablet, sublingual [address] THREE TABLETS UNDER THE TONGUE EVERY DAY MAXIMUM DAILY DOSE = [address] THREE TABLETS UNDER THE TONGUE EVERY DAY MAXIMUM DAILY DOSE = 3 TABLETS SOLD: 06/19/2020 [facility] 8 mg 06/12/2020 12:00:00 AM EST tablet, sublingual 21 PLACE THREE TABLETS UNDER THE TONGUE EVERY DAY MAXIMUM DAILY DOSE = THREE TABLE[address] PL[address] THREE TABLETS UNDER THE TONGUE EVERY DAY MAXIMUM DAILY DOSE = THREE TABLETS SOLD: 06/12/2020 [facility] 500 mg 05/30/2020 12:00:00 AM EST tablet 42 TAKE ONE TABLET BY MOUTH EVERY 8 HOURS TAKE ONE TABLET BY MOUTH EVERY 8 HOURS SOLD: 06/04/2020 [facility] 8 mg 2020 12:00:00 AM EST tablet, sublingual [address] THREE TABLETS UNDER THE TONGUE EVERY DAY MAXIMUM DAILY DOSE = [address] THREE TABLETS UNDER THE TONGUE EVERY DAY MAXIMUM DAILY DOSE = 3 TABLETS SOLD: 2020 [facility] 8 mg 05/08/2020 12:00:00 AM EST tablet, sublingual [address] THREE TABLETS UNDER THE TONGUE EVERY DAY MAXIMUM DAILY DOSE = [address] THREE TABLETS UNDER THE TONGUE EVERY DAY MAXIMUM DAILY DOSE = 3 TABLETS SOLD: 05/09/2020 [facility] 8 mg 05/03/2020 12:00:00 AM EST tablet, sublingual [address] THREE TABLETS UNDER THE TONGUE EVERY DAY MAXIMUM DAILY DOSE = 3 PLACE THREE TABLETS UNDER THE TONGUE EVERY DAY MAXIMUM DAILY DOSE = 3 SOLD: 05/03/2020 [facility] 8 mg 04/04/2020 12:00:00 AM EDT tablet, sublingual [address] THREE TABLETS UNDER THE TONGUE EVERY DAY MAXIMUM DAILY DOSE = [address] THREE TABLETS UNDER THE TONGUE EVERY DAY MAXIMUM DAILY DOSE = 3 TABLETS SOLD: 04/04/2020 [facility] gabapentin 800 MG Oral Tablet GABAPENTIN 03/08/2020 12:00:00 AM EDT ta blet 90 TAKE ONE TABLET BY MOUTH THREE TIMES A DAY TAKE ONE TABLET BY MOUTH THREE TIMES A DAY SOLD: 04/04/2020 [facility] gabapentin 800 MG Oral Tablet GABAPENTIN 03/08/2020 12:00:00 AM EDT ta blet 90 TAKE ONE TABLET BY MOUTH THREE TIMES A DAY TAKE ONE TABLET BY MOUTH THREE TIMES A DAY SOLD: 03/08/2020 [facility] 8 mg 03/08/2020 12:00:00 AM EDT tablet, sublingual [address] PLACE ONE TABLET UNDER THE TONGUE THREE TIMES A DAY MAXIMUM DAILY DOSE = THREE TABLETS PL[address] ONE TABLET UNDER THE TONGUE THREE TIMES A DAY MAXIMUM DAILY DOSE = THREE TABLETS SOLD: 03/08/2020 [facility] gabapentin 800 MG Oral Tablet GABAPENTIN 02/08/2020 12:00:00 AM EDT ta blet 90 TAKE ONE TABLET BY MOUTH THREE TIMES A DAY TAKE ONE TABLET BY MOUTH THREE TIMES A DAY SOLD: 05/03/2020 [facility] gabapentin 800 MG Oral Tablet GABAPENTIN 12/14/2019 12:00:00 AM EDT ta blet 90 TAKE ONE TABLET BY MOUTH THREE TIMES A DAY TAKE ONE TABLET BY MOUTH THREE TIMES A DAY SOLD: 06/04/2020 [facility] gabapentin 800 MG Oral Tablet gabapentin 08/04/2017 12:00:00 AM EST 800 mg oral completed gabapentin [facility]) gabapentin 800 MG Oral Tablet gabapentin 08/04/2017 12:00:00 AM EST 800 mg oral [facility] gabapentin 800 MG Oral Tablet gabapentin 08/04/2017 12:00:00 AM EST 800 mg oral completed gabapentin [employer] ([facility]) gabapentin 800 MG Oral Tablet gabapentin 08/04/2017 12:00:00 AM EST 800 mg oral completed gabapentin [employer] ([facility]) gabapentin 800 MG Oral Tablet gabapentin 08/04/2017 12:00:00 AM EST 800 mg oral completed [facility] gabapentin 800 MG Oral Tablet gabapentin 08/04/2017 12:00:00 AM EST 800 mg oral completed [facility] Penicillin V Potassium 500 MG Oral Tablet penicillin V potassium 500 mg tablet penicillin V potassium 500 mg tablet c ompleted penicillin V potassium 500 MG Oral Tablet [facility] ([facility]) Fluconazole 150 MG Oral Tablet fluconazole 150 mg tabl et fluconazole 150 mg tablet completed fluconazole 150 MG Oral Tablet [facility] ([facility]) Cephalexin 500 MG Oral Capsule cephalexin 500 mg capsu le cephalexin 500 mg capsule completed cephalexin 500 MG Oral Capsule [facility] ([facility]) Buprenorphine 8 MG Sublingual Tablet bup renorphine HCl [address] THREE TABLETS UNDER THE TONGUE EVERY DAY MAXIMUM DAILY DOSE THREE TABLETS buprenorphine HCl [address] THREE TABLETS UNDER THE TONGUE EVERY DAY MAXIMUM DAILY DOSE THREE TABLETS completed buprenorphine 8 MG Sublingual Tablet [facility] ([facility]) Penicillin V Potassium 250 MG Oral Tablet penicillin V potassium 250 mg tablet penicillin V potassium 250 mg tablet c ompleted penicillin V potassium 250 MG Oral Tablet [facility] ([facility]) duloxetine 20 MG Delayed Release Oral Ca psule duloxetine 20 mg capsule,delayed release duloxetine 20 mg capsule,delayed release completed duloxetine 20 MG Delayed Release Oral Capsule [facility]) Fluconazole 150 MG Oral Tablet fluconazole 150 mg tabl et fluconazole 150 mg tablet completed fluconazole 150 MG Oral Tablet [facility] ([facility]) Buprenorphine 8 MG Sublingual Tablet bup renorphine HCl [address] THREE TABLETS UNDER THE TONGUE EVERY DAY MAXIMUM DAILY DOSE THREE TABLETS buprenorphine HCl [address] THREE TABLETS UNDER THE TONGUE EVERY DAY MAXIMUM DAILY DOSE THREE TABLETS completed buprenorphine 8 MG Sublingual Tablet [facility] ([facility]) Penicillin V Potassium 250 MG Oral Tablet penicillin V potassium 250 mg tablet penicillin V potassium 250 mg tablet c ompleted penicillin V potassium 250 MG Oral Tablet [facility] ([facility]) duloxetine 20 MG Delayed Release Oral Ca psule duloxetine 20 mg capsule,delayed release duloxetine 20 mg capsule,delayed release completed duloxetine 20 MG Delayed Release Oral Capsule [facility]) Clindamycin 150 MG Oral Capsule clindamy terry HCl 150 mg capsule TAKE ONE CAPSULE BY MOUTH FOUR TIMES A DAY clindamycin HCl 150 mg capsule TAKE ONE CAPSULE BY MOUTH FOUR TIMES A DAY completed clindamycin 150 MG Oral Capsule [facility] ([facility]) Buprenorphine 8 MG Sublingual Tablet bup renorphine HCl [address] THREE TABLETS UNDER THE TONGUE EVERY DAY MAXIMUM DAILY DOSE THREE TABLETS buprenorphine HCl [address] THREE TABLETS UNDER THE TONGUE EVERY DAY MAXIMUM DAILY DOSE THREE TABLETS completed buprenorphine 8 MG Sublingual Tablet [facility] ([facility]) Penicillin V Potassium 500 MG Oral Tablet penicillin V potassium 500 mg tablet penicillin V potassium 500 mg tablet c ompleted penicillin V potassium 500 MG Oral Tablet [facility] ([facility]) duloxetine 20 MG Delayed Release Oral Ca psule duloxetine 20 mg capsule,delayed release duloxetine 20 mg capsule,delayed release completed duloxetine 20 MG Delayed Release Oral Capsule [facility] ([facility]) Cephalexin 500 MG Oral Capsule cephalexin 500 mg capsu le cephalexin 500 mg capsule completed cephalexin 500 MG Oral Capsule [facility] ([facility]) Penicillin V Potassium 500 MG Oral Tablet penicillin V potassium 500 mg tablet penicillin V potassium 500 mg tablet c ompleted penicillin V potassium 500 MG Oral Tablet [facility] ([facility]) Cephalexin 500 MG Oral Capsule cephalexin 500 mg capsu le cephalexin 500 mg capsule completed cephalexin 500 MG Oral Capsule [facility] ([facility]) Fluconazole 150 MG Oral Tablet fluconazole 150 mg tabl et fluconazole 150 mg tablet completed fluconazole 150 MG Oral Tablet [facility] ([facility]) duloxetine 20 MG Delayed Release Oral Ca psule duloxetine 20 mg capsule,delayed release duloxetine 20 mg capsule,delayed release completed duloxetine 20 MG Delayed Release Oral Capsule [facility] ([facility]) Penicillin V Potassium 500 MG Oral Tablet penicillin V potassium 500 mg tablet penicillin V potassium 500 mg tablet c ompleted penicillin V potassium 500 MG Oral Tablet [facility] [facility] duloxetine 20 MG Delayed Release Oral Ca psule duloxetine 20 mg capsule,delayed release duloxetine 20 mg capsule,delayed release completed duloxetine 20 MG Delayed Release Oral Capsule LAGUNA WOODS ([facility]) Penicillin V Potassium 250 MG Oral Tablet penicillin V potassium 250 mg tablet penicillin V potassium 250 mg tablet c ompleted penicillin V potassium 250 MG Oral Tablet MIGUEL ([facility]) Penicillin V Potassium 500 MG Oral Tablet penicillin V potassium 500 mg tablet penicillin V potassium 500 mg tablet c ompleted penicillin V potassium 500 MG Oral Tablet MIGUEL ([facility]) duloxetine 20 MG Delayed Release Oral Ca psule duloxetine 20 mg capsule,delayed release duloxetine 20 mg capsule,delayed release completed duloxetine 20 MG Delayed Release Oral Capsule [place] WOODS ([facility]) Cephalexin 500 MG Oral Capsule cephalexin 500 mg capsu le cephalexin 500 mg capsule completed cephalexin 500 MG Oral Capsule [place] WOODS ([facility]) duloxetine 20 MG Delayed Release Oral Ca psule duloxetine 20 mg capsule,delayed release duloxetine 20 mg capsule,delayed release completed duloxetine 20 MG Delayed Release Oral Capsule [place] WOODS ([facility]) Cephalexin 500 MG Oral Capsule cephalexin 500 mg capsu le cephalexin 500 mg capsule completed cephalexin 500 MG Oral Capsule [place] WOODS ([facility]) Penicillin V Potassium 500 MG Oral Tablet penicillin V potassium 500 mg tablet penicillin V potassium 500 mg tablet c ompleted penicillin V potassium 500 MG Oral Tablet [facility]NA WOODS ([facility]) Buprenorphine 8 MG Sublingual Tablet bup renorphine HCl [address] THREE TABLETS UNDER THE TONGUE EVERY DAY MAXIMUM DAILY DOSE THREE TABLETS buprenorphine HCl [address] THREE TABLETS UNDER THE TONGUE EVERY DAY MAXIMUM DAILY DOSE THREE TABLETS completed buprenorphine 8 MG Sublingual Tablet [facility]S ([facility]) Penicillin V Potassium 250 MG Oral Tablet penicillin V potassium 250 mg tablet penicillin V potassium 250 mg tablet c ompleted penicillin V potassium 250 MG Oral Tablet [place] [facility]ODS ([facility]) Penicillin V Potassium 250 MG Oral Tablet penicillin V potassium 250 mg tablet penicillin V potassium 250 mg tablet c ompleted penicillin V potassium 250 MG Oral Tablet [place] WOODS ([facility]) Fluconazole 150 MG Oral Tablet fluconazole 150 mg tabl et fluconazole 150 mg tablet completed fluconazole 150 MG Oral Tablet [facility]) Fluconazole 150 MG Oral Tablet fluconazole 150 mg tabl et fluconazole 150 mg tablet completed fluconazole 150 MG Oral Tablet [place] WOODS ([facility]) Penicillin V Potassium 250 MG Oral Tablet penicillin V potassium 250 mg tablet penicillin V potassium 250 mg tablet c ompleted penicillin V potassium 250 MG Oral Tablet [place]ODS ([facility]) Penicillin V Potassium 500 MG Oral Tablet penicillin V potassium 500 mg tablet penicillin V potassium 500 mg tablet c ompleted penicillin V potassium 500 MG Oral Tablet [place] WOODS ([facility]) Fluconazole 150 MG Oral Tablet fluconazole 150 mg tabl et fluconazole 150 mg tablet completed fluconazole 150 MG Oral Tablet [place]ODS ([facility]) Buprenorphine 8 MG Sublingual Tablet bup renorphine HCl [address] THREE TABLETS UNDER THE TONGUE EVERY DAY MAXIMUM DAILY DOSE THREE TABLETS buprenorphine HCl [address] THREE TABLETS UNDER THE TONGUE EVERY DAY MAXIMUM DAILY DOSE THREE TABLETS completed buprenorphine 8 MG Sublingual Tablet MIGUEL ([facility]) Penicillin V Potassium 250 MG Oral Tablet penicillin V potassium 250 mg tablet penicillin V potassium 250 mg tablet c ompleted penicillin V potassium 250 MG Oral Tablet MIGUEL ([facility]) duloxetine 20 MG Delayed Release Oral Ca psule duloxetine 20 mg capsule,delayed release duloxetine 20 mg capsule,delayed release completed duloxetine 20 MG Delayed Release Oral Capsule [place]NA WOODS ([facility]) Cephalexin 500 MG Oral Capsule cephalexin 500 mg capsu le cephalexin 500 mg capsule completed cephalexin 500 MG Oral Capsule [place] WOODS ([facility]) Cephalexin 500 MG Oral Capsule cephalexin 500 mg capsu le cephalexin 500 mg capsule completed cephalexin 500 MG Oral Capsule [place] WOODS ([facility]) Penicillin V Potassium 500 MG Oral Tablet penicillin V potassium 500 mg tablet penicillin V potassium 500 mg tablet c ompleted penicillin V potassium 500 MG Oral Tablet [place] WOODS ([facility]) Clindamycin 150 MG Oral Capsule clindamy terry HCl 150 mg capsule TAKE ONE CAPSULE BY MOUTH FOUR TIMES A DAY clindamycin HCl 150 mg capsule TAKE ONE CAPSULE BY MOUTH FOUR TIMES A DAY completed clindamycin 150 MG Oral Capsule [place] WOODS ([facility]) Penicillin V Potassium 250 MG Oral Tablet penicillin V potassium 250 mg tablet penicillin V potassium 250 mg tablet c ompleted penicillin V potassium 250 MG Oral Tablet [place] ([facility]) Buprenorphine 8 MG Sublingual Tablet bup renorphine HCl [address] THREE TABLETS UNDER THE TONGUE EVERY DAY MAXIMUM DAILY DOSE THREE TABLETS buprenorphine HCl [address] THREE TABLETS UNDER THE TONGUE EVERY DAY MAXIMUM DAILY DOSE THREE TABLETS completed buprenorphine 8 MG Sublingual Tablet [place]NA WOODS ([facility]) Fluconazole 150 MG Oral Tablet fluconazole 150 mg tabl et fluconazole 150 mg tablet completed fluconazole 150 MG Oral Tablet [place]S ([facility]) Penicillin V Potassium 250 MG Oral Tablet penicillin V potassium 250 mg tablet penicillin V potassium 250 mg tablet c ompleted penicillin V potassium 250 MG Oral Tablet MIGUEL ([facility]) Penicillin V Potassium 250 MG Oral Tablet penicillin V potassium 250 mg tablet penicillin V potassium 250 mg tablet c ompleted penicillin V potassium 250 MG Oral Tablet MIGUEL ([facility]) Cephalexin 500 MG Oral Capsule cephalexin 500 mg capsu le cephalexin 500 mg capsule completed cephalexin 500 MG Oral Capsule MIGUEL ([facility]) duloxetine 20 MG Delayed Release Oral Ca psule duloxetine 20 mg capsule,delayed release duloxetine 20 mg capsule,delayed release completed duloxetine 20 MG Delayed Release Oral Capsule MIGUEL ([facility]) Cephalexin 500 MG Oral Capsule cephalexin 500 mg capsu le cephalexin 500 mg capsule completed cephalexin 500 MG Oral Capsule [place] WOODS ([facility]) Penicillin V Potassium 500 MG Oral Tablet penicillin V potassium 500 mg tablet penicillin V potassium 500 mg tablet c ompleted penicillin V potassium 500 MG Oral Tablet MIGUEL ([facility]) Fluconazole 150 MG Oral Tablet fluconazole 150 mg tabl et fluconazole 150 mg tablet completed fluconazole 150 MG Oral Tablet [place] WOODS ([facility]) Clindamycin 150 MG Oral Capsule clindamycin HCl 150 mg capsule clindamycin HCl 150 mg capsule completed clindam ycin 150 MG Oral Capsule [place]NA WOODS ([facility]) Fluconazole 150 MG Oral Tablet fluconazole 150 mg tabl et fluconazole 150 mg tablet completed fluconazole 150 MG Oral Tablet [place]ODS ([facility]) Penicillin V Potassium 500 MG Oral Tablet penicillin V potassium 500 mg tablet penicillin V potassium 500 mg tablet c ompleted penicillin V potassium 500 MG Oral Tablet [place] WOODS ([facility]) duloxetine 20 MG Delayed Release Oral Ca psule duloxetine 20 mg capsule,delayed release duloxetine 20 mg capsule,delayed release completed duloxetine 20 MG Delayed Release Oral Capsule [place] WOODS ([facility]) Cephalexin 500 MG Oral Capsule cephalexin 500 mg capsu le cephalexin 500 mg capsule completed cephalexin 500 MG Oral Capsule [place] WOODS ([facility]) Penicillin V Potassium 250 MG Oral Tablet penicillin V potassium 250 mg tablet penicillin V potassium 250 mg tablet c ompleted penicillin V potassium 250 MG Oral Tablet MIGUEL ([facility]) Fluconazole 150 MG Oral Tablet fluconazole 150 mg tabl et fluconazole 150 mg tablet completed fluconazole 150 MG Oral Tablet MIGUEL ([facility]) Penicillin V Potassium 250 MG Oral Tablet penicillin V potassium 250 mg tablet penicillin V potassium 250 mg tablet c ompleted penicillin V potassium 250 MG Oral Tablet MIGUEL ([facility]) Insurance Providers Payer name Policy type / Coverage type Policy ID Covered republican ID Covered republican's relationship to wright Policy Wright Plan Information [facility] [id number] Spouse [id number] Medicaid S [id number] S [id number] Managed Care Artemio P [id number] S [id number] ARTEMIO [id number] SP [id number] Medicaid S [id number] S [id number] ARTEMIO [id number] SP [id number] Medicaid S [id number] Medicaid S [id number] S [id number] Self Pay P UNAVAILABLE S UNAVAILA BLE SELF PAY ONLY [id number] SP [id number] MEDICAID [id number] SP [id number] SELF PAY ONLY [id number] SP [id number] [facility] [id number] P [id number] [facility] [id number] SP [id number] [facility] [id number] [facility] CLAIM[facility] ALEJANDRO-O/P [id number] MEDICAID [id number] SP [id number] SELF PAY UNAVAILABLE SP [place] [id number] S [id number] ARTEMIO [id number] SP [id number] [place] [id number] S [id number] Managed Care Artemio P [id number] S [id number] Medicaid S [id number] S [id number] Problems, Conditions, and Diagnoses Code Display Name Description Problem Type Effective Dates Data Source(s) 959762590 Obsessive-compulsive disorder, unspecifi ed Obsessive-compulsive disorder, unspecified Condition 12/19/2020 12:00:00 AM EDT [facility] ( [facility]) [id number] Obsessive-compulsive disorder, unspecifi ed Obsessive-compulsive disorder, unspecified Condition 12/19/2020 12:00:00 AM EDT [facility] ( [facility]) [id number] Obsessive-compulsive disorder, unspecifi ed Obsessive-compulsive disorder, unspecified Condition 12/19/2020 12:00:00 AM EDT [place] ( [facility]) [id number] Obsessive-compulsive disorder, unspecifi ed Obsessive-compulsive disorder, unspecified Condition 12/19/2020 12:00:00 AM EDT [place] ( [facility]) [id number] Goiter Goiter Problem 06/19/2020 12:00:00 AM ES T MIGUEL ([facility]) [id number] Goiter Goiter Problem 06/19/2020 12:00:00 AM ES T MIGUEL ([facility]) [id number] Goiter Goiter Problem 06/19/2020 12:00:00 AM ES T MIGUEL ([facility]) [id number] Goiter Goiter Problem 06/19/2020 12:00:00 AM ES T MIGUEL ([facility]) [id number] Goiter Goiter Problem 06/19/2020 12:00:00 AM ES T MIGUEL ([facility]) [id number] Goiter Goiter Problem 06/19/2020 12:00:00 AM ES T MIGUEL ([facility]) [id number] Goiter Goiter Problem 06/19/2020 12:00:00 AM ES T MIGUEL ([facility]) [id number] Goiter Goiter Problem 06/19/2020 12:00:00 AM ES T MIGUEL ([facility]) [id number] Goiter Goiter Problem 06/19/2020 12:00:00 AM ES T MIGUEL ([facility]) [id number] Goiter Goiter Problem 06/19/2020 12:00:00 AM ES T MIGUEL ([facility]) [id number] Goiter Goiter Problem 06/19/2020 12:00:00 AM ES T MIGUEL ([facility]) [id number] Goiter Goiter Problem 06/19/2020 12:00:00 AM ES T MIGUEL ([facility]) Surgeries/Procedures Procedure Description Date Indications Data Source(s) Individual psychotherapy (regime/therapy) 04/11/2021 1 2:00:00 AM EDT [facility] ([facility]) Individual psychotherapy (regime/therapy) 04/11/2021 1 2:00:00 AM EDT [facility] ([facility]) Individual psychotherapy (regime/therapy) 03/28/2021 1 2:00:00 AM EDT [facility] ([facility]) Individual psychotherapy (regime/therapy) 03/28/2021 1 2:00:00 AM EDT [facility] ([facility]) Individual psychotherapy (regime/therapy) 03/21/2021 1 2:00:00 AM EDT [facility] ([facility]) Individual psychotherapy (regime/therapy) 02/06/2021 1 2:00:00 AM EDT [facility] ([facility]) Individual psychotherapy (regime/therapy) 02/06/2021 1 2:00:00 AM EDT [facility] ([facility]) Individual psychotherapy (regime/therapy) 02/06/2021 1 2:00:00 AM EDT [facility] ([facility]) Individual psychotherapy (regime/therapy) 02/06/2021 1 2:00:00 AM EDT [facility] ([facility]) Evaluation AND/OR management - established patient (procedur e) 01/31/2021 12:00:00 AM EDT [facility] ([facility]) Evaluation AND/OR management - established patient (procedur e) 01/31/2021 12:00:00 AM EDT [facility] ([facility]) Individual psychotherapy (regime/therapy) 01/16/2021 1 2:00:00 AM EDT [facility] ([facility]) Evaluation AND/OR management - established patient (procedur e) 01/16/2021 12:00:00 AM EDT [facility] ([facility]) Individual psychotherapy (regime/therapy) 01/16/2021 1 2:00:00 AM EDT [facility] ([facility]) Evaluation AND/OR management - established patient (procedur e) 01/16/2021 12:00:00 AM EDT [facility] ([facility]) Individual psychotherapy (regime/therapy) 01/16/2021 1 2:00:00 AM EDT [facility] ([facility]) Evaluation AND/OR management - established patient (procedur e) 01/16/2021 12:00:00 AM EDT [facility]) Education about risk reduction technique (procedure) 12/20/2020 12:00:00 AM EDT [facility] [facility] Education about risk reduction technique (procedure) 12/20/2020 12:00:00 AM EDT [employer] [facility] Education about risk reduction technique (procedure) 12/20/2020 12:00:00 AM EDT [employer] ([facility]) Education about risk reduction technique (procedure) 12/20/2020 12:00:[facility] Individual psychotherapy (regime/therapy) 12/06/2020 1 2:00:00 AM EDT [facility] ([facility]) Individual psychotherapy (regime/therapy) 12/06/2020 1 2:00:00 AM EDT [facility] ([facility]) Individual psychotherapy (regime/therapy) 12/06/2020 1 2:00:00 AM EDT [facility] ([facility]) Individual psychotherapy (regime/therapy) 12/06/2020 1 2:00:00 AM EDT [facility] ([facility]) Individual psychotherapy (regime/therapy) 12/06/2020 1 2:00:00 AM EDT [facility] ([facility]) Individual psychotherapy (regime/therapy) 12/06/2020 1 2:00:00 AM EDT [facility] ([facility]) Individual psychotherapy (regime/therapy) 12/06/2020 1 2:00:00 AM [facility]) Individual psychotherapy (regime/therapy) 12/06/2020 1 2:00:00 AM EDT [facility] ([facility]) Individual psychotherapy (regime/therapy) 12/06/2020 1 2:00:00 AM EDT [facility] ([facility]) Individual psychotherapy (regime/therapy) 12/06/2020 1 2:00:00 AM EDT [facility] ([facility]) Initial psychiatric evaluation (procedure) 12/04/2020 12:00:00 AM EDT [facility] ([facility]) Initial psychiatric evaluation (procedure) 12/04/2020 12:00:00 AM EDT [facility] ([facility]) Initial psychiatric evaluation (procedure) 12/04/2020 12:00:00 AM EDT [facility] ([facility]) Initial psychiatric evaluation (procedure) 12/04/2020 12:00:00 AM EDT [facility] ([facility]) Initial psychiatric evaluation (procedure) 12/04/2020 12:00:00 AM EDT [facility] ([facility]) Individual psychotherapy (regime/therapy) 11/07/2020 1 2:00:00 AM EDT [facility] ([facility]) Individual psychotherapy (regime/therapy) 11/07/2020 1 2:00:00 AM EDT [facility] ([facility]) Individual psychotherapy (regime/therapy) 11/07/2020 1 2:00:00 AM EDT [facility] ([facility]) Individual psychotherapy (regime/therapy) 11/07/2020 1 2:00:00 AM EDT [facility] ([facility]) Individual psychotherapy (regime/therapy) 11/07/2020 1 2:00:00 AM EDT [facility] ([facility]) Individual psychotherapy (regime/therapy) 11/07/2020 1 2:00:00 AM EDT [facility] ([facility]) Individual psychotherapy (regime/therapy) 11/07/2020 1 2:00:00 AM EDT [facility] ([facility]) Individual psychotherapy (regime/therapy) 11/07/2020 1 2:00:00 AM EDT [facility] ([facility]) Individual psychotherapy (regime/therapy) 11/07/2020 1 2:00:00 AM EDT [facility] ([facility]) Individual psychotherapy (regime/therapy) 11/07/2020 1 2:00:00 AM EDT [facility] ([facility]) Individual psychotherapy (regime/therapy) 10/31/2020 1 2:00:00 AM EDT [facility] ([facility]) Individual psychotherapy (regime/therapy) 10/31/2020 1 2:00:00 AM EDT [employer] ([facility]) Individual psychotherapy (regime/therapy) 10/31/2020 1 2:00:00 AM EDT [employer] ([facility]) Individual psychotherapy (regime/therapy) 10/31/2020 1 2:00:00 AM EDT [employer] ([facility]) Individual psychotherapy (regime/therapy) 10/31/2020 1 2:00:00 AM EDT [employer] ([facility]) Individual psychotherapy (regime/therapy) 10/31/2020 1 2:00:00 AM EDT [employer] ([facility]) Individual psychotherapy (regime/therapy) 10/31/2020 1 2:00:00 AM EDT [employer] ([facility]) Individual psychotherapy (regime/therapy) 10/31/2020 1 2:00:00 AM EDT [employer] ([facility]) Individual psychotherapy (regime/therapy) 10/31/2020 1 2:00:00 AM EDT [employer] ([facility]) Individual psychotherapy (regime/therapy) 10/31/2020 1 2:00:00 AM EDT [employer] ([facility]) Individual psychotherapy (regime/therapy) 10/31/2020 1 2:00:00 AM EDT [employer] ([facility]) Individual psychotherapy (regime/therapy) 10/31/2020 1 2:00:00 AM EDT [employer] ([facility]) Individual psychotherapy (regime/therapy) 10/10/2020 1 2:00:00 AM EDT [employer] ([facility]) Individual psychotherapy (regime/therapy) 10/10/2020 1 2:00:00 AM EDT [employer] ([facility]) Individual psychotherapy (regime/therapy) 10/10/2020 1 2:00:00 AM EDT [employer] ([facility]) Individual psychotherapy (regime/therapy) 10/10/2020 1 2:00:00 AM EDT [employer] ([facility]) Individual psychotherapy (regime/therapy) 10/10/2020 1 2:00:00 AM EDT [employer] ([facility]) Individual psychotherapy (regime/therapy) 10/10/2020 1 2:00:00 AM EDT [employer] ([facility]) Individual psychotherapy (regime/therapy) 10/10/2020 1 2:00:00 AM EDT [employer] ([facility]) Individual psychotherapy (regime/therapy) 10/10/2020 1 2:00:00 AM EDT [employer] ([facility]) Individual psychotherapy (regime/therapy) 10/10/2020 1 2:00:00 AM EDT [employer] ([facility]) Individual psychotherapy (regime/therapy) 10/10/2020 1 2:00:00 AM EDT [employer] ([facility]) Individual psychotherapy (regime/therapy) 10/10/2020 1 2:00:00 AM EDT [employer] ([facility]) Individual psychotherapy (regime/therapy) 10/10/2020 1 2:00:00 AM EDT [employer] ([facility]) Individual psychotherapy (regime/therapy) 10/03/2020 1 2:00:00 AM EDT [employer] ([facility]) Individual psychotherapy (regime/therapy) 10/03/2020 1 2:00:00 AM EDT [employer] ([facility]) Individual psychotherapy (regime/therapy) 10/03/2020 1 2:00:00 AM EDT [employer] ([facility]) Individual psychotherapy (regime/therapy) 10/03/2020 1 2:00:00 AM EDT [employer] ([facility]) Individual psychotherapy (regime/therapy) 10/03/2020 1 2:00:00 AM EDT [employer] ([facility]) Individual psychotherapy (regime/therapy) 10/03/2020 1 2:00:00 AM EDT [employer] ([facility]) Individual psychotherapy (regime/therapy) 09/19/2020 1 2:00:00 AM EDT [employer] ([facility]) Individual psychotherapy (regime/therapy) 09/19/2020 1 2:00:00 AM EDT [employer] ([facility]) Individual psychotherapy (regime/therapy) 09/19/2020 1 2:00:00 AM EDT [employer] ([facility]) Individual psychotherapy (regime/therapy) 09/19/2020 1 2:00:00 AM EDT [employer] ([facility]) Individual psychotherapy (regime/therapy) 09/19/2020 1 2:00:00 AM EDT [employer] ([facility]) Individual psychotherapy (regime/therapy) 09/19/2020 1 2:00:00 AM EDT [employer] ([facility]) Individual psychotherapy (regime/therapy) 09/19/2020 1 2:00:00 AM EDT [employer] ([facility]) Individual psychotherapy (regime/therapy) 09/19/2020 1 2:00:00 AM EDT [employer] ([facility]) Individual psychotherapy (regime/therapy) 09/19/2020 1 2:00:00 AM EDT [employer] ([facility]) Individual psychotherapy (regime/therapy) 09/19/2020 1 2:00:00 AM [facility]) Individual psychotherapy (regime/therapy) 09/19/2020 1 2:00:00 AM EDT [employer] ([facility]) Individual psychotherapy (regime/therapy) 09/19/2020 1 2:00:00 AM EDT [employer] ([facility]) Individual psychotherapy (regime/therapy) 09/12/2020 1 2:00:00 AM [facility] ([facility]) Individual psychotherapy (regime/therapy) 09/12/2020 1 2:00:00 AM EDT [employer] ([facility]) Individual psychotherapy (regime/therapy) 09/12/2020 1 2:00:00 AM EDT [employer] ([facility]) Individual psychotherapy (regime/therapy) 09/12/2020 1 2:00:00 AM EDT [employer] ([facility]) Individual psychotherapy (regime/therapy) 09/12/2020 1 2:00:00 AM EDT [employer] ([facility]) Individual psychotherapy (regime/therapy) 09/12/2020 1 2:00:00 AM EDT [employer] ([facility]) Individual psychotherapy (regime/therapy) 09/12/2020 1 2:00:00 AM EDT [employer] ([facility]) Individual psychotherapy (regime/therapy) 09/12/2020 1 2:00:00 AM EDT [employer] ([facility]) Individual psychotherapy (regime/therapy) 09/12/2020 1 2:00:00 AM EDT [employer] ([facility]) Individual psychotherapy (regime/therapy) 09/12/2020 1 2:00:00 AM EDT [employer] ([facility]) Individual psychotherapy (regime/therapy) 09/12/2020 1 2:00:00 AM EDT [employer] ([facility]) Individual psychotherapy (regime/therapy) 09/12/2020 1 2:00:00 AM EDT [employer] ([facility]) Individual psychotherapy (regime/therapy) 09/04/2020 1 2:00:00 AM EDT [employer] ([facility]) Individual psychotherapy (regime/therapy) 09/04/2020 1 2:00:00 AM EDT [employer] ([facility]) Individual psychotherapy (regime/therapy) 09/04/2020 1 2:00:00 AM EDT [employer] ([facility]) Individual psychotherapy (regime/therapy) 09/04/2020 1 2:00:00 AM EDT [employer] ([facility]) Individual psychotherapy (regime/therapy) 09/04/2020 1 2:00:00 AM EDT [employer] ([facility]) Individual psychotherapy (regime/therapy) 09/04/2020 1 2:00:00 AM EDT [employer] ([facility]) Individual psychotherapy (regime/therapy) 09/04/2020 1 2:00:00 AM EDT [employer] ([facility]) Individual psychotherapy (regime/therapy) 09/04/2020 1 2:00:00 AM EDT [employer] ([facility]) Individual psychotherapy (regime/therapy) 09/04/2020 1 2:00:00 AM EDT [employer] ([facility]) Individual psychotherapy (regime/therapy) 09/04/2020 1 2:00:00 AM EDT [employer] ([facility]) Individual psychotherapy (regime/therapy) 09/04/2020 1 2:00:00 AM EDT [employer] ([facility]) Individual psychotherapy (regime/therapy) 09/04/2020 1 2:00:00 AM EDT [employer] ([facility]) Diagnostic psychiatric interview (procedure) 1 12:00:00 AM EST [employer] ([facility]) Diagnostic psychiatric interview (procedure) 1 12:00:00 AM EST [employer] ([facility]) Diagnostic psychiatric interview (procedure) 1 12:00:00 AM EST [employer] ([facility]) Diagnostic psychiatric interview (procedure) 1 12:00:00 AM EST [employer] ([facility]) Diagnostic psychiatric interview (procedure) 1 12:00:00 AM EST [employer] ([facility]) Diagnostic psychiatric interview (procedure) 1 12:00:00 AM EST [employer] ([facility]) Individual psychotherapy (regime/therapy) 04/28/2020 1 2:00:00 AM EST [employer] ([facility]) Individual psychotherapy (regime/therapy) 04/28/2020 1 2:00:00 AM EST [employer] ([facility]) Individual psychotherapy (regime/therapy) 04/28/2020 1 2:00:00 AM EST [employer] ([facility]) Individual psychotherapy (regime/therapy) 04/28/2020 1 2:00:00 AM EST [employer] ([facility]) Individual psychotherapy (regime/therapy) 04/28/2020 1 2:00:00 AM EST [employer] ([facility]) Individual psychotherapy (regime/therapy) 04/28/2020 1 2:00:00 AM EST [employer] ([facility]) Individual psychotherapy (regime/therapy) 04/28/2020 1 2:00:00 AM EST [employer] ([facility]) Individual psychotherapy (regime/therapy) 04/28/2020 1 2:00:00 AM EST [employer] ([facility]) Individual psychotherapy (regime/therapy) 04/28/2020 1 2:00:00 AM EST [employer] ([facility]) Individual psychotherapy (regime/therapy) 04/28/2020 1 2[facility] Individual psychotherapy (regime/therapy) 04/28/2020 1 2:00:00 AM EST [facility] ([facility]) Individual psychotherapy (regime/therapy) 04/28/2020 1 2:00:00 AM EST [facility] ([facility]) Individual psychotherapy (regime/therapy) 03/20/2020 1 2:00:00 AM EDT [facility] ([facility]) Individual psychotherapy (regime/therapy) 03/20/2020 1 2:00:00 AM EDT [facility] ([facility]) Individual psychotherapy (regime/therapy) 03/20/2020 1 2:00:00 AM EDT [facility] ([facility]) Individual psychotherapy (regime/therapy) 03/20/2020 1 2:00:00 AM EDT [facility] ([facility]) Individual psychotherapy (regime/therapy) 03/20/2020 1 2:00:00 AM EDT [facility] ([facility]) Individual psychotherapy (regime/therapy) 03/20/2020 1 2:00:00 AM EDT [facility] ([facility]) Results ID Date Data Source [id number] 01/30/2021 12:00:00 AM EDT [facility]) Name Value Range Interpretation Code Description Data Jo rce(s) Supporting Document(s) ID Date Data Source [id number] 01/30/2021 12:00:00 AM EDT [facility]) Name Value Range Interpretation Code Description Data Jo rce(s) Supporting Document(s) ID Date Data Source [id number] 01/16/2021 12:21:00 PM EDT [facility]) Name Value Range Interpretation Code Description Data Jo rce(s) Supporting Document(s) Hemoglobin A1c/Hemoglobin.total in Blood 5.2 % Hemoglobin a1C [facility] ([facility]) estimated average glucose 103 mg/dL 60-110 Estimated Average Glucose [facility]) ID Date Data Source [id number] 01/16/2021 12:21:00 PM EDT [facility]) Name Value Range Interpretation Code Description Data Jo rce(s) Supporting Document(s) total 25(oh) vitamin D 16.8 NG/mL 30.0-100.0 Below low normal T otal 25(Oh) Vitamin D [facility]) ID Date Data Source [id number] 01/16/2021 12:21:00 PM EDT [facility]) Name Value Range Interpretation Code Description Data Jo rce(s) Supporting Document(s) thyroid stimulating hormone 4.420 uIU/mL 0.358-3.740 Above high no rmal Thyroid Stimulating Hormone [facility]) ID Date Data Source [id number] 01/16/2021 12:21:00 PM EDT [facility]) Name Value Range Interpretation Code Description Data Jo rce(s) Supporting Document(s) phosphorus level 4.2 mg/dL 2.5-4.9 Phosphorus Level AT [facility]) ID Date Data Source [id number] 01/16/2021 12:21:00 PM EDT [facility]) Name Value Range Interpretation Code Description Data Jo rce(s) Supporting Document(s) bilirubin,direct < 0.1 0.0-0.2 Bilirubin,direct AT [facility]) ID Date Data Source [id number] 01/16/2021 12:21:00 PM EDT [facility]) Name Value Range Interpretation Code Description Data Jo rce(s) Supporting Document(s) triglycerides level 69 mg/dL <150 Triglycerides [place] [facility] ([facility]) cholesterol level 175 mg/dL <200 Cholesterol Level [facility] ([facility]) non-HDL-C 107 mg/dL Non-hdl-c [facility] ([facility]) HDL cholesterol 68 mg/dL >40 HDL Cholesterol AT[facility] ([facility]) Cholesterol in LDL [Mass/volume] in Serum or Plasma 93 mg/dL <1 00 LDL Cholesterol [facility] ([facility]) cholesterol risk ratio <5 Cholesterol R isk Ratio [facility] ([facility]) ID Date Data Source [id number] 01/16/2021 12:21:00 PM EDT [place] ([facility]) Name Value Range Interpretation Code Description Data Jo rce(s) Supporting Document(s) blood urea nitrogen 13 mg/dL 7-18 Blood Urea Nitro gen [facility] ([facility]) glucose, fasting 78 mg/dL 70-100 Glucose, Fasting AT [facility] ([facility]) creatinine for GFR 0.72 mg/dL 0.55-1.30 Creatinine for GF R [facility] ([facility]) glomerular filtration rate > 60.0 >60 Glomerula r Filtration Rate [facility] ([facility]) sodium level 140 mEq/L 136-145 Sodium Level [facility] ([facility]) potassium serum 4.2 mEq/L 3.5-5.1 Potassium Serum [facility] ([facility]) chloride level 106 mEq/L 98-107 Chloride Level [facility] ([facility]) carbon dioxide level 30 mEq/L 21-32 Carbon Dioxide Level [facility] ([facility]) anion gap 4 mEq/L 8-16 Below low normal Anion Gap [facility] ( [facility]) calcium level 9.2 mg/dL 8.5-10.1 Calcium Level [facility] ( [facility]) ALT/SGPT 21 U/L 12-78 ALT/SGPT [facility] ([facility]) bilirubin,total 0.3 mg/dL 0.2-1.0 Bilirubin,total [facility] ([facility]) alkaline phosphatase 62 U/L 45-117 Alkaline Phosph atase [facility] ([facility]) AST/SGOT 18 U/L 7-37 AST/SGOT [facility] ([facility]) albumin 4.2 gm/dL 3.2-5.2 Albumin [facility] ([facility]) total protein 7.6 gm/dL 6.4-8.2 Total Protein [facility] ( [facility]) albumin/globulin ratio 1.2-2.2 Albumin/globu claudia Ratio [facility] ([facility]) ID Date Data Source [id number] 01/16/2021 12:21:00 PM EDT [facility] ([facility]) Name Value Range Interpretation Code Description Data Jo rce(s) Supporting Document(s) white blood count 5.3 10 4.0-10.0 White Blood Count [facility] ([facility]) red blood count 4.43 10 4.00-5.40 Red Blood Count [facility] ([facility]) hemoglobin 12.6 g/dL 12.0-15.5 Hemoglobin [facility] ([facility]) mean corpuscular hemoglobin 28.4 pg 27.0-33.0 Mean Cor puscular Hemoglobin [facility] ([facility]) hematocrit 38.9 % 36.0-47.0 Hematocrit [facility] ([facility]) mean corpuscular HGB conc 32.4 g/dL 32.0-36.5 Mean Corpu scular HGB Conc [facility] ([facility]) mean corpuscular volume 87.8 fL 80.0-96.0 Mean Corpusc ular Volume [facility] ([facility]) neutrophils % 40.4 % 36.0-66.0 Neutrophils % [facility] ( [facility]) platelet count, automated 306 10 150-450 Platelet C ount, Automated [facility] ([facility]) red cell distribution width 12.9 % 11.5-14.5 Red Cell Distribution Width [facility] ([facility]) lymph % 45.5 % 24.0-44.0 Above high normal Lymph % [facility] ([facility]) mono % 9.8 % 2.0-8.0 Above high normal [place] % [facility] ([facility]) eos % 2.8 % 0.0-3.0 Eos % [facility] ([facility]) baso % 1.3 % 0.0-1.0 Above high normal Baso % [facility] ([facility]) immature granulocyte % 0.2 % 0-3.0 Immature Gran ulocyte % [facility] ([facility]) mono # 0.5 10 0.0-0.8 [place] # [facility] ([facility]) lymph # 2.4 10 1.5-5.0 Lymph # [facility] ([facility]) neutrophils # 2.1 10 1.5-8.5 Neutrophils # [facility] ( [facility]) nucleated red blood cell % 0.0 % 0-0 Nucleated Red Blood Cell % [facility] ([facility]) baso # 0.1 10 0.0-0.2 Baso # [facility] ([facility]) eos # 0.2 10 0.0-0.5 Eos # [facility] ([facility]) ID Date Data Source [id number] 01/16/2021 12:21:00 PM EDT [place] ([facility]) Name Value Range Interpretation Code Description Data Jo rce(s) Supporting Document(s) Hemoglobin A1c/Hemoglobin.total in Blood 5.2 % Hemoglobin a1C [place] ([facility]) estimated average glucose 103 mg/dL 60-110 Estimated Average Glucose [place] ([facility]) ID Date Data Source [id number] 01/16/2021 12:21:00 PM EDT [place] ([facility]) Name Value Range Interpretation Code Description Data Jo rce(s) Supporting Document(s) total 25(oh) vitamin D 16.8 NG/mL 30.0-100.0 Below low normal T otal 25(Oh) Vitamin D [place] ([facility]) ID Date Data Source [id number] 01/16/2021 12:21:00 PM EDT [place] ([facility]) Name Value Range Interpretation Code Description Data Jo rce(s) Supporting Document(s) thyroid stimulating hormone 4.420 uIU/mL 0.358-3.740 Above high no rmal Thyroid Stimulating Hormone [facility]) ID Date Data Source [id number] 01/16/2021 12:21:00 PM EDT [facility] ([facility]) Name Value Range Interpretation Code Description Data Jo rce(s) Supporting Document(s) phosphorus level 4.2 mg/dL 2.5-4.9 Phosphorus Level AT [facility] ([facility]) ID Date Data Source [id number] 01/16/2021 12:21:00 PM EDT [facility]) Name Value Range Interpretation Code Description Data Jo rce(s) Supporting Document(s) bilirubin,direct < 0.1 0.0-0.2 Bilirubin,direct AT [facility]) ID Date Data Source [id number] 01/16/2021 12:21:00 PM EDT [facility]) Name Value Range Interpretation Code Description Data Jo rce(s) Supporting Document(s) triglycerides level 69 mg/dL <150 Triglycerides [place] [facility] ([facility]) cholesterol level 175 mg/dL <200 Cholesterol Level [facility] ([facility]) non-HDL-C 107 mg/dL Non-hdl-c [facility] ([facility]) Cholesterol in LDL [Mass/volume] in Serum or Plasma 93 mg/dL <1 00 LDL Cholesterol [facility] ([facility]) cholesterol risk ratio <5 Cholesterol R isk Ratio [facility] ([facility]) HDL cholesterol 68 mg/dL >40 [facility] ID Date Data Source [id number] 01/16/2021 12:21:00 PM EDT [facility]) Name Value Range Interpretation Code Description Data Jo rce(s) Supporting Document(s) blood urea nitrogen 13 mg/dL 7-18 Blood Urea Nitro gen [facility] ([facility]) creatinine for GFR 0.72 mg/dL 0.55-1.30 Creatinine for GF R [facility] ([facility]) glucose, fasting 78 mg/dL 70-100 Glucose, Fasting AT [facility]) chloride level 106 mEq/L 98-107 Chloride Level [facility] ([facility]) sodium level 140 mEq/L 136-145 Sodium Level [facility] ([facility]) potassium serum 4.2 mEq/L 3.5-5.1 Potassium Serum [facility] ([facility]) glomerular filtration rate > 60.0 >60 Glomerula r Filtration Rate [facility] ([facility]) anion gap 4 mEq/L 8-16 Below low normal Anion Gap [facility] ( [facility]) carbon dioxide level 30 mEq/L 21-32 Carbon Dioxide Level [facility] ([facility]) calcium level 9.2 mg/dL 8.5-10.1 Calcium Level [facility] ( [facility]) AST/SGOT 18 U/L 7-37 AST/SGOT [facility] ([facility]) bilirubin,total 0.3 mg/dL 0.2-1.0 Bilirubin,total ATHE NA ([facility]) ALT/SGPT 21 U/L 12-78 ALT/SGPT [facility] ([facility]) alkaline phosphatase 62 U/L 45-117 Alkaline Phosph atase [facility] ([facility]) albumin 4.2 gm/dL 3.2-5.2 Albumin [facility] ([facility]) total protein 7.6 gm/dL 6.4-8.2 Total Protein [facility] ( [facility]) albumin/globulin ratio 1.2-2.2 Albumin/globu claudia Ratio [facility] ([facility]) ID Date Data Source [id number] 01/16/2021 12:21:00 PM EDT [facility] ([facility]) Name Value Range Interpretation Code Description Data Jo rce(s) Supporting Document(s) red blood count 4.43 10 4.00-5.40 Red Blood Count ATHE NA ([facility]) white blood count 5.3 10 4.0-10.0 White Blood Count [facility] ([facility]) hematocrit 38.9 % 36.0-47.0 Hematocrit [facility] ([facility]) hemoglobin 12.6 g/dL 12.0-15.5 Hemoglobin [facility] ([facility]) mean corpuscular volume 87.8 fL 80.0-96.0 Mean Corpusc ular Volume [facility] ([facility]) mean corpuscular hemoglobin 28.4 pg 27.0-33.0 Mean Cor puscular Hemoglobin [facility] ([facility]) mean corpuscular HGB conc 32.4 g/dL 32.0-36.5 Mean Corpu scular HGB Conc [facility] ([facility]) red cell distribution width 12.9 % 11.5-14.5 Red Cell Distribution Width [facility] ([facility]) neutrophils % 40.4 % 36.0-66.0 Neutrophils % [facility] ( [facility]) platelet count, automated 306 10 150-450 Platelet C ount, Automated [facility] ([facility]) lymph % 45.5 % 24.0-44.0 Above high normal Lymph % [facility] ([facility]) mono % 9.8 % 2.0-8.0 Above high normal [place] % [facility] ([facility]) immature granulocyte % 0.2 % 0-3.0 Immature Gran ulocyte % [facility] ([facility]) baso % 1.3 % 0.0-1.0 Above high normal Baso % [facility] ([facility]) eos % 2.8 % 0.0-3.0 Eos % [facility] ([facility]) lymph # 2.4 10 1.5-5.0 Lymph # [facility] ([facility]) nucleated red blood cell % 0.0 % 0-0 Nucleated Red Blood Cell % [facility] ([facility]) neutrophils # 2.1 10 1.5-8.5 Neutrophils # [facility] ( [facility]) baso # 0.1 10 0.0-0.2 Baso # [facility] ([facility]) eos # 0.2 10 0.0-0.5 Eos # [facility] ([facility]) mono # 0.5 10 0.0-0.8 [place] # [facility] ([facility]) ID Date Data Source [id number] 01/16/2021 12:21:00 PM EDT [facility] ([facility]) Name Value Range Interpretation Code Description Data Jo rce(s) Supporting Document(s) estimated average glucose 103 mg/dL 60-110 Estimated Average Glucose [place] ([facility]) Hemoglobin A1c/Hemoglobin.total in Blood 5.2 % Hemoglobin a1C [place] ([facility]) ID Date Data Source [id number] 01/16/2021 12:21:00 PM EDT [place] ([facility]) Name Value Range Interpretation Code Description Data Jo rce(s) Supporting Document(s) total 25(oh) vitamin D 16.8 NG/mL 30.0-100.0 Below low normal T otal 25(Oh) Vitamin D [place] ([facility]) ID Date Data Source [id number] 01/16/2021 12:21:00 PM EDT [place] ([facility]) Name Value Range Interpretation Code Description Data Jo rce(s) Supporting Document(s) thyroid stimulating hormone 4.420 uIU/mL 0.358-3.740 Above high no rmal Thyroid Stimulating Hormone [place] ([facility]) ID Date Data Source [id number] 01/16/2021 12:21:00 PM EDT [place] ([facility]) Name Value Range Interpretation Code Description Data Jo rce(s) Supporting Document(s) phosphorus level 4.2 mg/dL 2.5-4.9 Phosphorus Level AT [facility]) ID Date Data Source [id number] 01/16/2021 12:21:00 PM EDT [place] ([facility]) Name Value Range Interpretation Code Description Data Jo rce(s) Supporting Document(s) bilirubin,direct < 0.1 0.0-0.2 Bilirubin,direct AT [facility]) ID Date Data Source [id number] 01/16/2021 12:21:00 PM EDT [place] ([facility]) Name Value Range Interpretation Code Description Data Jo rce(s) Supporting Document(s) cholesterol level 175 mg/dL <200 Cholesterol Level [place] ([facility]) triglycerides level 69 mg/dL <150 Triglycerides [place] ([facility]) HDL cholesterol 68 mg/dL >40 HDL Cholesterol AT[facility] ([facility]) non-HDL-C 107 mg/dL Non-hdl-c [place] ([facility]) Cholesterol in LDL [Mass/volume] in Serum or Plasma 93 mg/dL <1 00 LDL Cholesterol [place] ([facility]) cholesterol risk ratio <5 Cholesterol R isk Ratio [place] ([facility]) ID Date Data Source [id number] 01/16/2021 12:21:00 PM EDT [facility]) Name Value Range Interpretation Code Description Data Jo rce(s) Supporting Document(s) blood urea nitrogen 13 mg/dL 7-18 Blood Urea Nitro gen [place] ([facility]) glucose, fasting 78 mg/dL 70-100 Glucose, Fasting AT [facility] ([facility]) glomerular filtration rate > 60.0 >60 Glomerula r Filtration Rate [place] ([facility]) creatinine for GFR 0.72 mg/dL 0.55-1.30 Creatinine for GF R [place] ([facility]) chloride level 106 mEq/L 98-107 Chloride Level [place] ([facility]) sodium level 140 mEq/L 136-145 Sodium Level [facility] ([facility]) potassium serum 4.2 mEq/L 3.5-5.1 Potassium Serum [facility] ([facility]) anion gap 4 mEq/L 8-16 Below low normal Anion Gap [place] ( [facility]) carbon dioxide level 30 mEq/L 21-32 Carbon Dioxide Level [place] ([facility]) calcium level 9.2 mg/dL 8.5-10.1 Calcium Level [place] ( [facility]) AST/SGOT 18 U/L 7-37 AST/SGOT [place] ([facility]) alkaline phosphatase 62 U/L 45-117 Alkaline Phosph atase [place] ([facility]) ALT/SGPT 21 U/L 12-78 ALT/SGPT [place] ([facility]) bilirubin,total 0.3 mg/dL 0.2-1.0 Bilirubin,total [facility] ([facility]) albumin 4.2 gm/dL 3.2-5.2 Albumin [place] ([facility]) total protein 7.6 gm/dL 6.4-8.2 Total Protein [place] ( [facility]) albumin/globulin ratio 1.2-2.2 Albumin/globu claudia Ratio [place] ([facility]) ID Date Data Source [id number] 01/16/2021 12:21:00 PM EDT [place] ([facility]) Name Value Range Interpretation Code Description Data Jo rce(s) Supporting Document(s) red blood count 4.43 10 4.00-5.40 Red Blood Count [facility] ([facility]) white blood count 5.3 10 4.0-10.0 White Blood Count [place] ([facility]) hemoglobin 12.6 g/dL 12.0-15.5 Hemoglobin [place] ([facility]) hematocrit 38.9 % 36.0-47.0 Hematocrit [place] ([facility]) mean corpuscular hemoglobin 28.4 pg 27.0-33.0 Mean Cor puscular Hemoglobin [facility] ([facility]) mean corpuscular volume 87.8 fL 80.0-96.0 Mean Corpusc ular Volume [place] ([facility]) mean corpuscular HGB conc 32.4 g/dL 32.0-36.5 Mean Corpu scular HGB Conc [place] ([facility]) red cell distribution width 12.9 % 11.5-14.5 Red Cell Distribution Width [place] ([facility]) lymph % 45.5 % 24.0-44.0 Above high normal Lymph % [place] ([facility]) neutrophils % 40.4 % 36.0-66.0 Neutrophils % [place] ( [facility]) platelet count, automated 306 10 150-450 Platelet C ount, Automated [place] ([facility]) mono % 9.8 % 2.0-8.0 Above high normal [place] % [facility] ([facility]) baso % 1.3 % 0.0-1.0 Above high normal Baso % [facility] ([facility]) eos % 2.8 % 0.0-3.0 Eos % [facility] ([facility]) immature granulocyte % 0.2 % 0-3.0 Immature Gran ulocyte % [place] ([facility]) nucleated red blood cell % 0.0 % 0-0 Nucleated Red Blood Cell % [facility] ([facility]) neutrophils # 2.1 10 1.5-8.5 Neutrophils # [place] ( [facility]) mono # 0.5 10 0.0-0.8 [place] # [facility] ([facility]) eos # 0.2 10 0.0-0.5 Eos # [facility] ([facility]) lymph # 2.4 10 1.5-5.0 Lymph # [facility] ([facility]) baso # 0.1 10 0.0-0.2 Baso # [facility] ([facility]) ID Date Data Source [id number] 01/16/2021 12:21:00 PM EDT [place] ([facility]) Name Value Range Interpretation Code Description Data Jo rce(s) Supporting Document(s) Hemoglobin A1c/Hemoglobin.total in Blood 5.2 % Hemoglobin a1C [place] ([facility]) estimated average glucose 103 mg/dL 60-110 Estimated Average Glucose [place] ([facility]) ID Date Data Source [id number] 01/16/2021 12:21:00 PM EDT [facility]) Name Value Range Interpretation Code Description Data Jo rce(s) Supporting Document(s) total 25(oh) vitamin D 16.8 NG/mL 30.0-100.0 Below low normal T otal 25(Oh) Vitamin D [facility]) ID Date Data Source [id number] 01/16/2021 12:21:00 PM EDT [facility]) Name Value Range Interpretation Code Description Data Jo rce(s) Supporting Document(s) thyroid stimulating hormone 4.420 uIU/mL 0.358-3.740 Above high no rmal Thyroid Stimulating Hormone [facility]) ID Date Data Source [id number] 01/16/2021 12:21:00 PM EDT [facility]) Name Value Range Interpretation Code Description Data Jo rce(s) Supporting Document(s) phosphorus level 4.2 mg/dL 2.5-4.9 Phosphorus Level AT [facility]) ID Date Data Source [id number] 01/16/2021 12:21:00 PM EDT [facility]) Name Value Range Interpretation Code Description Data Jo rce(s) Supporting Document(s) bilirubin,direct < 0.1 0.0-0.2 Bilirubin,direct AT [facility]) ID Date Data Source [id number] 01/16/2021 12:21:00 PM EDT [facility]) Name Value Range Interpretation Code Description Data Jo rce(s) Supporting Document(s) triglycerides level 69 mg/dL <150 Triglycerides [place] ([facility]) HDL cholesterol 68 mg/dL >40 [facility] level 175 mg/dL <200 Cholesterol Level [place] ([facility]) Cholesterol in LDL [Mass/volume] in Serum or Plasma 93 mg/dL <1 00 LDL Cholesterol [place] ([facility]) non-HDL-C 107 mg/dL Non-hdl-c [place] ([facility]) cholesterol risk ratio <5 Cholesterol R isk Ratio [place] ([facility]) ID Date Data Source [id number] 01/16/2021 12:21:00 PM EDT [place] ([facility]) Name Value Range Interpretation Code Description Data Jo rce(s) Supporting Document(s) blood urea nitrogen 13 mg/dL 7-18 Blood Urea Nitro gen [place] ([facility]) glucose, fasting 78 mg/dL 70-100 Glucose, Fasting AT [facility] ([facility]) sodium level 140 mEq/L 136-145 Sodium Level [place] (No [facility]) glomerular filtration rate > 60.0 >60 Glomerula r Filtration Rate [place] ([facility]) creatinine for GFR 0.72 mg/dL 0.55-1.30 Creatinine for GF R [place] ([facility]) chloride level 106 mEq/L 98-107 Chloride Level [place] ([facility]) potassium serum 4.2 mEq/L 3.5-5.1 Potassium Serum [facility] ([facility]) anion gap 4 mEq/L 8-16 Below low normal Anion Gap [place] ( [facility]) carbon dioxide level 30 mEq/L 21-32 Carbon Dioxide Level [place] ([facility]) calcium level 9.2 mg/dL 8.5-10.1 Calcium Level [place] ( [facility]) alkaline phosphatase 62 U/L 45-117 Alkaline Phosph atase [place] ([facility]) AST/SGOT 18 U/L 7-37 AST/SGOT [place] ([facility]) ALT/SGPT 21 U/L 12-78 ALT/SGPT [place] ([facility]) albumin 4.2 gm/dL 3.2-5.2 Albumin [place] ([facility]) bilirubin,total 0.3 mg/dL 0.2-1.0 Bilirubin,total [facility]HE NA ([facility]) total protein 7.6 gm/dL 6.4-8.2 Total Protein [place] ( [facility]) albumin/globulin ratio 1.2-2.2 Albumin/globu claudia Ratio [place] ([facility]) ID Date Data Source [id number] 01/16/2021 12:21:00 PM EDT [place] ([facility]) Name Value Range Interpretation Code Description Data Jo rce(s) Supporting Document(s) white blood count 5.3 10 4.0-10.0 White Blood Count [place] ([facility]) red blood count 4.43 10 4.00-5.40 Red Blood Count [facility] ([facility]) hemoglobin 12.6 g/dL 12.0-15.5 Hemoglobin [place] ([facility]) mean corpuscular hemoglobin 28.4 pg 27.0-33.0 Mean Cor puscular Hemoglobin [place] ([facility]) hematocrit 38.9 % 36.0-47.0 Hematocrit [facility] ([facility]) mean corpuscular volume 87.8 fL 80.0-96.0 Mean Corpusc ular Volume [place] ([facility]) red cell distribution width 12.9 % 11.5-14.5 Red Cell Distribution Width [place] ([facility]) mean corpuscular HGB conc 32.4 g/dL 32.0-36.5 Mean Corpu scular HGB Conc [place] ([facility]) platelet count, automated 306 10 150-450 Platelet C ount, Automated [place] ([facility]) neutrophils % 40.4 % 36.0-66.0 Neutrophils % [place] ( [facility]) mono % 9.8 % 2.0-8.0 Above high normal [place] % [facility] ([facility]) lymph % 45.5 % 24.0-44.0 Above high normal Lymph % [facility] ([facility]) eos % 2.8 % 0.0-3.0 Eos % [facility] ([facility]) nucleated red blood cell % 0.0 % 0-0 Nucleated Red Blood Cell % [facility] ([facility]) immature granulocyte % 0.2 % 0-3.0 Immature Gran ulocyte % [facility] ([facility]) baso % 1.3 % 0.0-1.0 Above high normal Baso % [facility] ([facility]) lymph # 2.4 10 1.5-5.0 Lymph # [place] ([facility]) neutrophils # 2.1 10 1.5-8.5 Neutrophils # [place] ( [facility]) mono # 0.5 10 0.0-0.8 [place] # [facility] ([facility]) baso # 0.1 10 0.0-0.2 Baso # [facility] ([facility]) eos # 0.2 10 0.0-0.5 Eos # [place] ([facility]) ID Date Data Source [id number] 01/02/2021 12:00:00 AM EDT [facility]) Name Value Range Interpretation Code Description Data Jo rce(s) Supporting Document(s) ID Date Data Source [id number] 01/02/2021 12:00:00 AM EDT [facility]) Name Value Range Interpretation Code Description Data Jo rce(s) Supporting Document(s) ID Date Data Source [id number] 01/02/2021 12:00:00 AM EDT [facility]) Name Value Range Interpretation Code Description Data Jo rce(s) Supporting Document(s) ID Date Data Source [id number] 01/02/2021 12:00:00 AM EDT [facility]) Name Value Range Interpretation Code Description Data Jo rce(s) Supporting Document(s) ID Date Data Source [id number] 11/06/2020 12:00:00 AM EDT [facility]) Name Value Range Interpretation Code Description Data Jo rce(s) Supporting Document(s) ID Date Data Source [id number] 11/06/2020 12:00:00 AM EDT [facility]) Name Value Range Interpretation Code Description Data Jo rce(s) Supporting Document(s) ID Date Data Source [id number] 11/06/2020 12:00:00 AM EDT [facility]) Name Value Range Interpretation Code Description Data Jo rce(s) Supporting Document(s) ID Date Data Source [id number] 11/06/2020 12:00:00 AM EDT [facility]) Name Value Range Interpretation Code Description Data Jo rce(s) Supporting Document(s) ID Date Data Source [id number] 11/06/2020 12:00:00 AM EDT [facility]) Name Value Range Interpretation Code Description Data Jo rce(s) Supporting Document(s) ID Date Data Source [id number] 11/06/2020 12:00:00 AM EDT [facility]) Name Value Range Interpretation Code Description Data Jo rce(s) Supporting Document(s) ID Date Data Source [id number] 10/10/2020 12:00:00 AM EDT [facility]) Name Value Range Interpretation Code Description Data Jo rce(s) Supporting Document(s) ID Date Data Source [id number] 10/10/2020 12:00:00 AM EDT [facility]) Name Value Range Interpretation Code Description Data Jo rce(s) Supporting Document(s) ID Date Data Source [id number] 10/10/2020 [facility] Interpretation Code Description Data Jo rce(s) Supporting Document(s) ID Date Data Source [id number] 10/10/2020 12:00[facility]00 [facility] Name Value Range Interpretation Code Description Data Jo rce(s) Supporting Document(s) ID Date Data Source [id number] 10/10/2020 12:00[facility]00 [facility] Name Value Range Interpretation Code Description Data Jo rce(s) Supporting Document(s) ID Date Data Source [id number] 10/10/2020 12:00:00 [facility] Name Value Range Interpretation Code Description Data Jo rce(s) Supporting Document(s) ID Date Data Source [id number] 10/10/2020 12:00[facility]00 [facility] Name Value Range Interpretation Code Description Data Jo rce(s) Supporting Document(s) ID Date Data Source [id number] 08/15/2020 12:00:00 AM EST [facility]) Name Value Range Interpretation Code Description Data Jo rce(s) Supporting Document(s) ID Date Data Source [id number] 08/15/2020 12:00:00 AM EST [facility]) Name Value Range Interpretation Code Description Data Jo rce(s) Supporting Document(s) ID Date Data Source [id number] 08/15/2020 12:00:00 AM EST [place]) Name Value Range Interpretation Code Description Data Jo rce(s) Supporting Document(s) ID Date Data Source [id number] 08/15/2020 12:00:00 AM EST [place] ([facility]) Name Value Range Interpretation Code Description Data Jo rce(s) Supporting Document(s) ID Date Data Source [id number] 08/15/2020 12:00:00 AM EST [place] ([facility]) Name Value Range Interpretation Code Description Data Jo rce(s) Supporting Document(s) ID Date Data Source [id number] 08/15/2020 12:00:00 AM EST [place] ([facility]) Name Value Range Interpretation Code Description Data Jo rce(s) Supporting Document(s) ID Date Data Source [id number] 08/15/2020 12:00:00 AM EST [place] ([facility]) Name Value Range Interpretation Code Description Data Jo rce(s) Supporting Document(s) ID Date Data Source [id number] 08/15/2020 12:00:00 AM EST [place] [facility]) Name Value Range Interpretation Code Description Data Jo rce(s) Supporting Document(s) ID Date Data Source [id number] 08/15/2020 12:00:00 AM EST [place] ([facility]) Name Value Range Interpretation Code Description Data Jo rce(s) Supporting Document(s) ID Date Data Source [id number] 04/25/2020 02:17:00 PM EST [facility]) Name Value Range Interpretation Code Description Data Jo rce(s) Supporting Document(s) ID Date Data Source [id number] 04/25/2020 02:17:00 PM EST [place] ([facility]) Name Value Range Interpretation Code Description Data Jo rce(s) Supporting Document(s) ID Date Data Source [id number] 04/25/2020 02:17:00 PM EST [place] ([facility]) Name Value Range Interpretation Code Description Data Jo rce(s) Supporting Document(s) ID Date Data Source [id number] 04/25/2020 02:17:00 PM EST [facility]) Name Value Range Interpretation Code Description Data Jo rce(s) Supporting Document(s) ID Date Data Source [id number] 04/25/2020 02:17:00 PM EST [facility]) Name Value Range Interpretation Code Description Data Jo rce(s) Supporting Document(s) ID Date Data Source [id number] 04/25/2020 02:17:00 PM EST [facility]) Name Value Range Interpretation Code Description Data Jo rce(s) Supporting Document(s) ID Date Data Source [id number] 04/25/2020 02:17:00 PM EST [place] ([facility]) Name Value Range Interpretation Code Description Data Jo rce(s) Supporting Document(s) ID Date Data Source [id number] 04/25/2020 02:17:00 PM EST [facility]) Name Value Range Interpretation Code Description Data Jo rce(s) Supporting Document(s) ID Date Data Source [id number] 04/25/2020 02:17:00 PM EST [facility]) Name Value Range Interpretation Code Description Data Jo rce(s) Supporting Document(s) ID Date Data Source [id number] 04/25/2020 02:17:00 PM EST [place] ([facility]) Name Value Range Interpretation Code Description Data Jo rce(s) Supporting Document(s) ID Date Data Source [id number] 04/25/2020 02:17:00 PM EST [place] ([facility]) Name Value Range Interpretation Code Description Data Jo rce(s) Supporting Document(s) ID Date Data Source [id number] 04/25/2020 02:17:00 PM EST [facility] ([facility]) Name Value Range Interpretation Code Description Data Jo rce(s) Supporting Document(s) ID Date Data Source [id number] 04/25/2020 02:17:00 PM EST [place] ([facility]) Name Value Range Interpretation Code Description Data Jo rce(s) Supporting Document(s) ID Date Data Source [id number] 04/25/2020 02:17:00 PM EST [facility]) Name Value Range Interpretation Code Description Data Jo rce(s) Supporting Document(s) Procedure Social History No Information Vital Signs ID Date Data Source [id number] Name Value Range Interpretation Code Description Data Source(s) Body height 66 [in_i] 66 [in_i] [facility] ([facility]) Systolic blood pressure 145 mm[Hg] 145 mm[Hg] A [facility] ([facility]) Body mass index (BMI) [Ratio] 23.6 kg/m2 23.6 k g/m2 [facility] ([facility]) Diastolic blood pressure 83 mm[Hg] 83 mm[Hg] [facility] ([facility]) Body weight 2342 [oz_av] 2342 [oz_av] [facility] ([facility]) Body height 66 [in_i] 66 [in_i] [facility] ([facility]) Body height 66 [in_i] 66 [in_i] [facility] ([facility]) Diastolic blood pressure 82 mm[Hg] 82 mm[Hg] [facility] ([facility]) Body height 66 [in_i] 66 [in_i] [facility] ([facility]) Body mass index (BMI) [Ratio] 22.9 kg/m2 22.9 k g/m2 [facility] ([facility]) Systolic blood pressure 134 mm[Hg] 134 mm[facility]Hg] [facility] Body weight 2274 [oz_av] 2274 [oz_av] [facility] ([facility]) Diastolic blood pressure 82 mm[Hg] 82 mm[Hg] [facility] ([facility]) Body height 66 [in_i] 66 [in_i] [facility] ([facility]) Body mass index (BMI) [Ratio] 22.9 kg/m2 22.9 k g/m2 [facility] ([facility]) Systolic blood pressure 134 mm[Hg] 134 mm[Hg] [facility] Body weight 2274 [oz_av] 2274 [oz_av] [facility] ([facility]) Diastolic blood pressure 82 mm[Hg] 82 mm[Hg] [facility] ([facility]) Body height 66 [in_i] 66 [in_i] [facility] ([facility]) Body mass index (BMI) [Ratio] 22.9 kg/m2 22.9 k g/m2 [facility] ([facility]) Systolic blood pressure 134 mm[Hg] 134 mm[Hg] A [facility] ([facility]) Body weight 2274 [oz_av] 2274 [oz_av] [facility] ([facility]) Diastolic blood pressure 82 mm[Hg] 82 mm[Hg] [facility] ([facility]) Body height 66 [in_i] 66 [in_i] [facility] ([facility]) Body mass index (BMI) [Ratio] 22.9 kg/m2 22.9 k g/m2 [facility] ([facility]) Systolic blood pressure 134 mm[Hg] 134 mm[Hg] A [facility] ([facility]) Body weight 2274 [oz_av] 2274 [oz_av] [facility] ([facility]) Diastolic blood pressure 77 mm[Hg] 77 mm[Hg] [facility] ([facility]) Body mass index (BMI) [Ratio] 24.6 kg/m2 24.6 k g/m2 [facility] ([facility]) Systolic blood pressure 125 mm[Hg] 125 mm[Hg] [facility] Body weight 2439 [oz_av] 2439 [oz_av] [facility] ([facility]) Body height 66 [in_i] 66 [in_i] [facility] ([facility]) Diastolic blood pressure 77 mm[Hg] 77 mm[Hg] [facility] ([facility]) Body height 66 [in_i] 66 [in_i] [facility] ([facility]) Body mass index (BMI) [Ratio] 24.6 kg/m2 24.6 k g/m2 [facility] ([facility]) Systolic blood pressure 125 mm[Hg] 125 mm[Hg] A [facility] ([facility]) Body weight 2439 [oz_av] 2439 [oz_av] [facility] ([facility]) Diastolic blood pressure 77 mm[Hg] 77 mm[Hg] [facility] ([facility]) Body height 66 [in_i] 66 [in_i] [facility] ([facility]) Body mass index (BMI) [Ratio] 24.6 kg/m2 24.6 k g/m2 [facility] ([facility]) Systolic blood pressure 125 mm[Hg] 125 mm[Hg] A [facility] ([facility]) Body weight 2439 [oz_av] 2439 [oz_av] [facility] ([facility]) Diastolic blood pressure 77 mm[Hg] 77 mm[Hg] [facility] ([facility]) Body height 66 [in_i] 66 [in_i] [facility] ([facility]) Body mass index (BMI) [Ratio] 24.6 kg/m2 24.6 k g/m2 [facility] ([facility]) Systolic blood pressure 125 mm[Hg] 125 mm[Hg] A THENA ([facility]) Body weight 2439 [oz_av] 2439 [oz_av] [facility] ([facility]) Diastolic blood pressure 77 mm[Hg] 77 mm[Hg] [facility] ([facility]) Body height 66 [in_i] 66 [in_i] [facility] ([facility]) Body mass index (BMI) [Ratio] 24.6 kg/m2 24.6 k g/m2 MIGUEL ([facility]) Systolic blood pressure 125 mm[Hg] 125 mm[Hg] A THENA ([facility]) Body weight 2439 [oz_av] 2439 [oz_av] MIGUEL ([facility]) Body height 66 [in_i] 66 [in_i] MIGUEL ([facility]) Body height 66 [in_i] 66 [in_i] MIGUEL ([facility]) Body height 66 [in_i] 66 [in_i] MIGUEL ([facility]) Body height 66 [in_i] 66 [in_i] MIGUEL ([facility]) Body height 66 [in_i] 66 [in_i] MIGUEL ([facility]) Body height 66 [in_i] 66 [in_i] MIGUEL ([facility]) Diastolic blood pressure 84 mm[Hg] 84 mm[Hg] MIGUEL ([facility]) Body weight 2454 [oz_av] 2454 [oz_av] MIGUEL ([facility]) Body height 66 [in_i] 66 [in_i] MIGUEL ([facility]) Body mass index (BMI) [Ratio] 24.8 kg/m2 24.8 k g/m2 MIGUEL ([facility]) Systolic blood pressure 141 mm[Hg] 141 mm[Hg] A THENA ([facility]) Diastolic blood pressure 84 mm[Hg] 84 mm[Hg] MIGUEL ([facility]) Body height 66 [in_i] 66 [in_i] MIGUEL ([facility]) Body mass index (BMI) [Ratio] 24.8 kg/m2 24.8 k g/m2 MIGUEL ([facility]) Systolic blood pressure 141 mm[Hg] 141 mm[Hg] [facility] Body weight 2454 [oz_av] 2454 [oz_av] MIGUEL ([facility]) Diastolic blood pressure 84 mm[Hg] 84 mm[Hg] MIGUEL ([facility]) Body height 66 [in_i] 66 [in_i] MIGUEL ([facility]) Body mass index (BMI) [Ratio] 24.8 kg/m2 24.8 k g/m2 MIGUEL ([facility]) Systolic blood pressure 141 mm[Hg] 141 mm[Hg] [facility] Body weight 2454 [oz_av] 2454 [oz_av] MIGUEL ([facility]) Systolic blood pressure 141 mm[Hg] 141 mm[Hg] [facility] Body weight 2454 [oz_av] 2454 [oz_av] MIGUEL ([facility]) Body mass index (BMI) [Ratio] 24.8 kg/m2 24.8 k g/m2 MIGUEL ([facility]) Diastolic blood pressure 84 mm[Hg] 84 mm[Hg] MIGUEL ([facility]) Body height 66 [in_i] 66 [in_i] MIGUEL ([facility]) Diastolic blood pressure 84 mm[Hg] 84 mm[Hg] MIGUEL ([facility]) Body height 66 [in_i] 66 [in_i] MIGUEL ([facility]) Body mass index (BMI) [Ratio] 24.8 kg/m2 24.8 k g/m2 MIGUEL ([facility]) Systolic blood pressure 141 mm[Hg] 141 mm[Hg] A THENA ([facility]) Body weight 2454 [oz_av] 2454 [oz_av] IMGUEL ([facility]) Diastolic blood pressure 84 mm[Hg] 84 mm[Hg] MIGUEL ([facility]) Body height 66 [in_i] 66 [in_i] MIGUEL ([facility]) Body mass index (BMI) [Ratio] 24.8 kg/m2 24.8 k g/m2 MIGUEL ([facility]) Systolic blood pressure 141 mm[Hg] 141 mm[Hg] A THENA ([facility]) Body weight 2454 [oz_av] 2454 [oz_av] MIGUEL ([facility]) Diastolic blood pressure 84 mm[Hg] 84 mm[Hg] MIGUEL ([facility]) Body height 66 [in_i] 66 [in_i] MIGUEL ([facility]) Body mass index (BMI) [Ratio] 24.8 kg/m2 24.8 k g/m2 MIGUEL ([facility]) Systolic blood pressure 141 mm[Hg] 141 mm[Hg] A THENA ([facility]) Body weight 2454 [oz_av] 2454 [oz_av] MIGUEL ([facility]) Diastolic blood pressure 80 mm[Hg] 80 mm[Hg] MIGUEL ([facility]) Body height 66 [in_i] 66 [in_i] MIGUEL ([facility]) Body mass index (BMI) [Ratio] 22.8 kg/m2 22.8 k g/m2 MIGUEL ([facility]) Systolic blood pressure 149 mm[Hg] 149 mm[Hg] A THENA ([facility]) Body weight 2264 [oz_av] 2264 [oz_av] MIGUEL ([facility]) Body height 66 [in_i] 66 [in_i] MIGUEL ([facility]) Diastolic blood pressure 80 mm[Hg] 80 mm[Hg] MIGUEL ([facility]) Body mass index (BMI) [Ratio] 22.8 kg/m2 22.8 k g/m2 MIGUEL ([facility]) Systolic blood pressure 149 mm[Hg] 149 mm[Hg] A THENA ([facility]) Body weight 2264 [oz_av] 2264 [oz_av] MIGUEL ([facility]) Diastolic blood pressure 80 mm[Hg] 80 mm[Hg] MIGUEL ([facility]) Body height 66 [in_i] 66 [in_i] MIGUEL ([facility]) Body mass index (BMI) [Ratio] 22.8 kg/m2 22.8 k g/m2 MIGUEL ([facility]) Systolic blood pressure 149 mm[Hg] 149 mm[Hg] A THENA ([facility]) Body weight 2264 [oz_av] 2264 [oz_av] MIGUEL ([facility]) Diastolic blood pressure 80 mm[Hg] 80 mm[Hg] MIGUEL ([facility]) Body height 66 [in_i] 66 [in_i] MIGUEL ([facility]) Body mass index (BMI) [Ratio] 22.8 kg/m2 22.8 k g/m2 MIGUEL ([facility]) Systolic blood pressure 149 mm[Hg] 149 mm[Hg] [facility] Body weight 2264 [oz_av] 2264 [oz_av] MIGUEL ([facility]) Diastolic blood pressure 80 mm[Hg] 80 mm[Hg] MIGUEL ([facility]) Body height 66 [in_i] 66 [in_i] MIGUEL ([facility]) Body mass index (BMI) [Ratio] 22.8 kg/m2 22.8 k g/m2 MIGUEL ([facility]) Systolic blood pressure 149 mm[Hg] 149 mm[Hg] [facility] Body weight 2264 [oz_av] 2264 [oz_av] MIGUEL ([facility]) Body mass index (BMI) [Ratio] 22.8 kg/m2 22.8 k g/m2 MIGUEL ([facility]) Systolic blood pressure 149 mm[Hg] 149 mm[Hg] A THENA ([facility]) Body weight 2264 [oz_av] 2264 [oz_av] MIGUEL ([facility]) Diastolic blood pressure 80 mm[Hg] 80 mm[Hg] MIGUEL ([facility]) Body height 66 [in_i] 66 [in_i] MIGUEL ([facility]) Body weight 2264 [oz_av] 2264 [oz_av] MIGUEL ([facility]) Systolic blood pressure 149 mm[Hg] 149 mm[Hg] A THENA ([facility]) Diastolic blood pressure 80 mm[Hg] 80 mm[Hg] MIGUEL ([facility]) Body height 66 [in_i] 66 [in_i] MIGUEL ([facility]) Body mass index (BMI) [Ratio] 22.8 kg/m2 22.8 k g/m2 MIGUEL ([facility]) Diastolic blood pressure 80 mm[Hg] 80 mm[Hg] MIGUEL ([facility]) Body height 66 [in_i] 66 [in_i] MIGUEL ([facility]) Body mass index (BMI) [Ratio] 22.8 kg/m2 22.8 k g/m2 MIGUEL ([facility]) Systolic blood pressure 149 mm[Hg] 149 mm[Hg] A THENA ([facility]) Body weight 2264 [oz_av] 2264 [oz_av] MIGUEL ([facility]) Body height 66 [in_i] 66 [in_i] MIGUEL ([facility]) Body height 66 [in_i] 66 [in_i] MIGUEL ([facility]) Body height 66 [in_i] 66 [in_i] MIGUEL ([facility]) Body height 66 [in_i] 66 [in_i] MIGUEL ([facility]) Body height 66 [in_i] 66 [in_i] MIGUEL ([facility]) Body height 66 [in_i] 66 [in_i] MIGUEL ([facility]) Body height 66 [in_i] 66 [in_i] MIGUEL ([facility]) Body height 66 [in_i] 66 [in_i] MIGUEL ([facility]) Body height 66 [in_i] 66 [in_i] MIGUEL ([facility]) Diastolic blood pressure 78 mm[Hg] 78 mm[Hg] MIGUEL ([facility]) Diastolic blood pressure 81 mm[Hg] 81 mm[Hg] MIGUEL ([facility]) Body height 66 [in_i] 66 [in_i] MIGUEL ([facility]) Body mass index (BMI) [Ratio] 23.3 kg/m2 23.3 k g/m2 MIGUEL ([facility]) Systolic blood pressure 154 mm[Hg] 154 mm[Hg] A THENA ([facility]) Systolic blood pressure 155 mm[Hg] 155 mm[Hg] [facility] Body weight 2313.6 [oz_av] 2313.6 [oz_av] ATHEN A ([facility]) Diastolic blood pressure 78 mm[Hg] 78 mm[Hg] MIGUEL ([facility]) Diastolic blood pressure 81 mm[Hg] 81 mm[Hg] MIGUEL ([facility]) Body height 66 [in_i] 66 [in_i] MIGUEL ([facility]) Body mass index (BMI) [Ratio] 23.3 kg/m2 23.3 k g/m2 MIGUEL ([facility]) Systolic blood pressure 154 mm[Hg] 154 mm[Hg] [facility]) Systolic blood pressure 155 mm[Hg] 155 mm[Hg] [facility]) Body weight 2313.6 [oz_av] 2313.6 [oz_av] ATHEN A ([facility]) Diastolic blood pressure 78 mm[Hg] 78 mm[Hg] MIGUEL ([facility]) Diastolic blood pressure 81 mm[Hg] 81 mm[Hg] MIGUEL ([facility]) Body height 66 [in_i] 66 [in_i] MIGUEL ([facility]) Body mass index (BMI) [Ratio] 23.3 kg/m2 23.3 k g/m2 MIGUEL ([facility]) Systolic blood pressure 154 mm[Hg] 154 mm[Hg] A THENA ([facility]) Systolic blood pressure 155 mm[Hg] 155 mm[Hg] A THENA ([facility]) Body weight 2313.6 [oz_av] 2313.6 [oz_av] ATHEN A ([facility]) Diastolic blood pressure 78 mm[Hg] 78 mm[Hg] MIGUEL ([facility]) Diastolic blood pressure 81 mm[Hg] 81 mm[Hg] MIGUEL ([facility]) Body height 66 [in_i] 66 [in_i] MIGUEL ([facility]) Body mass index (BMI) [Ratio] 23.3 kg/m2 23.3 k g/m2 MIGUEL ([facility]) Systolic blood pressure 154 mm[Hg] 154 mm[Hg] A THENA ([facility]) Systolic blood pressure 155 mm[Hg] 155 mm[Hg] A THENA ([facility]) Body weight 2313.6 [oz_av] 2313.6 [oz_av] ATHEN A ([facility]) Diastolic blood pressure 78 mm[Hg] 78 mm[Hg] MIGUEL ([facility]) Diastolic blood pressure 81 mm[Hg] 81 mm[Hg] MIGUEL ([facility]) Body height 66 [in_i] 66 [in_i] MIGUEL ([facility]) Body mass index (BMI) [Ratio] 23.3 kg/m2 23.3 k g/m2 MIGUEL ([facility]) Systolic blood pressure 154 mm[Hg] 154 mm[Hg] [facility]) Systolic blood pressure 155 mm[Hg] 155 mm[Hg] A [facility] ([facility]) Body weight 2313.6 [oz_av] 2313.6 [oz_av] ATHEN A ([facility]) Diastolic blood pressure 78 mm[Hg] 78 mm[Hg] MIGUEL ([facility]) Diastolic blood pressure 81 mm[Hg] 81 mm[Hg] MIGUEL ([facility]) Body height 66 [in_i] 66 [in_i] MIGUEL ([facility]) Body mass index (BMI) [Ratio] 23.3 kg/m2 23.3 k g/m2 MIGUEL ([facility]) Systolic blood pressure 154 mm[Hg] 154 mm[Hg] A THENA ([facility]) Systolic blood pressure 155 mm[Hg] 155 mm[Hg] A THENA ([facility]) Body weight 2313.6 [oz_av] 2313.6 [oz_av] ATHEN A ([facility]) Diastolic blood pressure 78 mm[Hg] 78 mm[Hg] MIGUEL ([facility]) Systolic blood pressure 154 mm[Hg] 154 mm[Hg] A THENA ([facility]) Systolic blood pressure 155 mm[Hg] 155 mm[Hg] A THENA ([facility]) Body weight 2313.6 [oz_av] 2313.6 [oz_av] ATHEN A ([facility]) Diastolic blood pressure 81 mm[Hg] 81 mm[Hg] MIGUEL ([facility]) Body height 66 [in_i] 66 [in_i] MIGUEL ([facility]) Body mass index (BMI) [Ratio] 23.3 kg/m2 23.3 k g/m2 MIGUEL ([facility]) Diastolic blood pressure 78 mm[Hg] 78 mm[Hg] MIGUEL ([facility]) Diastolic blood pressure 81 mm[Hg] 81 mm[Hg] MIGUEL ([facility]) Body weight 2313.6 [oz_av] 2313.6 [oz_av] ATHEN A ([facility]) Body height 66 [in_i] 66 [in_i] MIGUEL ([facility]) Body mass index (BMI) [Ratio] 23.3 kg/m2 23.3 k g/m2 MIGUEL ([facility]) Systolic blood pressure 154 mm[Hg] 154 mm[Hg] [facility]) Systolic blood pressure 155 mm[Hg] 155 mm[Hg] A THENA ([facility]) Diastolic blood pressure 78 mm[Hg] 78 mm[Hg] MIGUEL ([facility]) Diastolic blood pressure 81 mm[Hg] 81 mm[Hg] MIGUEL ([facility]) Body height 66 [in_i] 66 [in_i] MIGUEL ([facility]) Body mass index (BMI) [Ratio] 23.3 kg/m2 23.3 k g/m2 MIGUEL ([facility]) Systolic blood pressure 154 mm[Hg] 154 mm[Hg] A THENA ([facility]) Systolic blood pressure 155 mm[Hg] 155 mm[Hg] A THENA ([facility]) Body weight 2313.6 [oz_av] 2313.6 [oz_av] ATHEN A ([facility]) Diastolic blood pressure 78 mm[Hg] 78 mm[Hg] MIGUEL ([facility]) Diastolic blood pressure 81 mm[Hg] 81 mm[Hg] MIGUEL ([facility]) Body height 66 [in_i] 66 [in_i] MIGUEL ([facility]) Body mass index (BMI) [Ratio] 23.3 kg/m2 23.3 k g/m2 MIGUEL ([facility]) Systolic blood pressure 154 mm[Hg] 154 mm[Hg] A THENA ([facility]) Systolic blood pressure 155 mm[Hg] 155 mm[Hg] A THENA ([facility]) Body weight 2313.6 [oz_av] 2313.6 [oz_av] ATHEN A ([facility]) Body height 66 [in_i] 66 [in_i] MIGUEL ([facility]) Body height 66 [in_i] 66 [in_i] MIGUEL ([facility]) Body height 66 [in_i] 66 [in_i] MIGUEL ([facility]) Body height 66 [in_i] 66 [in_i] MIGUEL ([facility]) Body height 66 [in_i] 66 [in_i] MIGUEL ([facility]) Body height 66 [in_i] 66 [in_i] MIGUEL ([facility]) Body height 66 [in_i] 66 [in_i] MIGUEL ([facility]) Body height 66 [in_i] 66 [in_i] MIGUEL ([facility]) Body height 66 [in_i] 66 [in_i] MIGUEL ([facility]) Body height 66 [in_i] 66 [in_i] MIGUEL ([facility]) Body height 66 [in_i] 66 [in_i] MIGUEL ([facility]) Diastolic blood pressure 92 mm[Hg] 92 mm[Hg] MIGUEL ([facility]) Body height 66 [in_i] 66 [in_i] MIGUEL ([facility]) Body mass index (BMI) [Ratio] 22.3 kg/m2 22.3 k g/m2 MIGUEL ([facility]) Systolic blood pressure 152 mm[Hg] 152 mm[Hg] A THENA ([facility]) Diastolic blood pressure 92 mm[Hg] 92 mm[Hg] MIGUEL ([facility]) Body height 66 [in_i] 66 [in_i] MIGUEL ([facility]) Body mass index (BMI) [Ratio] 22.3 kg/m2 22.3 k g/m2 MIGUEL ([facility]) Systolic blood pressure 152 mm[Hg] 152 mm[Hg] [facility] ([facility]) Body weight 2208 [oz_av] 2208 [oz_av] MIGUEL ([facility]) Diastolic blood pressure 92 mm[Hg] 92 mm[Hg] MIGUEL ([facility]) Body height 66 [in_i] 66 [in_i] MIGUEL ([facility]) Body weight 2208 [oz_av] 2208 [oz_av] MIGUEL ([facility]) Body mass index (BMI) [Ratio] 22.3 kg/m2 22.3 k g/m2 MIGUEL ([facility]) Systolic blood pressure 152 mm[Hg] 152 mm[Hg] [facility] Body weight 2208 [oz_av] 2208 [oz_av] MIGUEL ([facility]) Body height 66 [in_i] 66 [in_i] MIGUEL ([facility]) Diastolic blood pressure 92 mm[Hg] 92 mm[Hg] MIGUEL ([facility]) Body mass index (BMI) [Ratio] 22.3 kg/m2 22.3 k g/m2 MIGUEL ([facility]) Systolic blood pressure 152 mm[Hg] 152 mm[Hg] A THENA ([facility]) Body weight 2208 [oz_av] 2208 [oz_av] MIGUEL ([facility]) Diastolic blood pressure 92 mm[Hg] 92 mm[Hg] MIGUEL ([facility]) Body height 66 [in_i] 66 [in_i] MIGUEL ([facility]) Body mass index (BMI) [Ratio] 22.3 kg/m2 22.3 k g/m2 MIGUEL ([facility]) Systolic blood pressure 152 mm[Hg] 152 mm[Hg] [facility] ([facility]) Body weight 2208 [oz_av] 2208 [oz_av] MIGUEL ([facility]) Diastolic blood pressure 92 mm[Hg] 92 mm[Hg] MIGUEL ([facility]) Body height 66 [in_i] 66 [in_i] MIGUEL ([facility]) Body mass index (BMI) [Ratio] 22.3 kg/m2 22.3 k g/m2 MIGUEL ([facility]) Systolic blood pressure 152 mm[Hg] 152 mm[Hg] [facility] ([facility]) Body weight 2208 [oz_av] 2208 [oz_av] MIGUEL ([facility]) Body height 66 [in_i] 66 [in_i] MIGUEL ([facility]) Body mass index (BMI) [Ratio] 22.3 kg/m2 22.3 k g/m2 MIGUEL ([facility]) Systolic blood pressure 152 mm[Hg] 152 mm[Hg] [facility] ([facility]) Body weight 2208 [oz_av] 2208 [oz_av] MIGUEL ([facility]) Diastolic blood pressure 92 mm[Hg] 92 mm[Hg] MIGUEL ([facility]) Diastolic blood pressure 92 mm[Hg] 92 mm[Hg] MIGUEL ([facility]) Body height 66 [in_i] 66 [in_i] MIGUEL ([facility]) Body mass index (BMI) [Ratio] 22.3 kg/m2 22.3 k g/m2 MIGUEL ([facility]) Systolic blood pressure 152 mm[Hg] 152 mm[Hg] [facility] ([facility]) Body weight 2208 [oz_av] 2208 [oz_av] MIGUEL ([facility]) Diastolic blood pressure 92 mm[Hg] 92 mm[Hg] MIGUEL ([facility]) Body height 66 [in_i] 66 [in_i] MIGUEL ([facility]) Body mass index (BMI) [Ratio] 22.3 kg/m2 22.3 k g/m2 MIGUEL ([facility]) Systolic blood pressure 152 mm[Hg] 152 mm[Hg] [facility] ([facility]) Body weight 2208 [oz_av] 2208 [oz_av] MIGUEL ([facility]) Diastolic blood pressure 92 mm[Hg] 92 mm[Hg] MIGUEL ([facility]) Systolic blood pressure 152 mm[Hg] 152 mm[Hg] [facility] ([facility]) Body height 66 [in_i] 66 [in_i] MIGUEL ([facility]) Body mass index (BMI) [Ratio] 22.3 kg/m2 22.3 k g/m2 MIGUEL ([facility]) Body weight 2208 [oz_av] 2208 [oz_av] MIGUEL ([facility]) Diastolic blood pressure 92 mm[Hg] 92 mm[Hg] MIGUEL ([facility]) Body height 66 [in_i] 66 [in_i] MIGUEL ([facility]) Diastolic blood pressure 92 mm[Hg] 92 mm[Hg] MIGUEL ([facility]) Body height 66 [in_i] 66 [in_i] MIGUEL ([facility]) Body mass index (BMI) [Ratio] 22.3 kg/m2 22.3 k g/m2 MIGUEL ([facility]) Systolic blood pressure 152 mm[Hg] 152 mm[Hg] [facility] ([facility]) Body weight 2208 [oz_av] 2208 [oz_av] MIGUEL ([facility]) Body mass index (BMI) [Ratio] 22.3 kg/m2 22.3 k g/m2 MIGUEL ([facility]) Systolic blood pressure 152 mm[Hg] 152 mm[Hg] [facility] Body weight 2208 [oz_av] 2208 [oz_av] MIGUEL ([facility]) Diastolic blood pressure 83 mm[Hg] 83 mm[Hg] MIGUEL ([facility]) Body height 66 [in_i] 66 [in_i] MIGUEL ([facility]) Body mass index (BMI) [Ratio] 21.7 kg/m2 21.7 k g/m2 MIGUEL ([facility]) Systolic blood pressure 133 mm[Hg] 133 mm[Hg] [facility] ([facility]) Body weight 2148 [oz_av] 2148 [oz_av] MIGUEL ([facility]) Diastolic blood pressure 83 mm[Hg] 83 mm[Hg] MIGUEL ([facility]) Body height 66 [in_i] 66 [in_i] MIGUEL ([facility]) Body mass index (BMI) [Ratio] 21.7 kg/m2 21.7 k g/m2 MIGUEL ([facility]) Systolic blood pressure 133 mm[Hg] 133 mm[Hg] [facility] Diastolic blood pressure 83 mm[Hg] 83 mm[Hg] MIGUEL ([facility]) Body height 66 [in_i] 66 [in_i] MIGUEL ([facility]) Body mass index (BMI) [Ratio] 21.7 kg/m2 21.7 k g/m2 MIGUEL ([facility]) Systolic blood pressure 133 mm[Hg] 133 mm[Hg] [facility] ([facility]) Body weight 2148 [oz_av] 2148 [oz_av] MIGUEL ([facility]) Body weight 2148 [oz_av] 2148 [oz_av] MIGUEL ([facility]) Diastolic blood pressure 83 mm[Hg] 83 mm[Hg] MIGUEL ([facility]) Body height 66 [in_i] 66 [in_i] MIGUEL ([facility]) Body mass index (BMI) [Ratio] 21.7 kg/m2 21.7 k g/m2 MIGUEL ([facility]) Systolic blood pressure 133 mm[Hg] 133 mm[Hg] [facility] Body weight 2148 [oz_av] 2148 [oz_av] MIGUEL ([facility]) Diastolic blood pressure 83 mm[Hg] 83 mm[Hg] MIGUEL ([facility]) Body height 66 [in_i] 66 [in_i] MIGUEL ([facility]) Body mass index (BMI) [Ratio] 21.7 kg/m2 21.7 k g/m2 MIGUEL ([facility]) Systolic blood pressure 133 mm[Hg] 133 mm[Hg] [facility] ([facility]) Body weight 2148 [oz_av] 2148 [oz_av] MIGUEL ([facility]) Diastolic blood pressure 83 mm[Hg] 83 mm[Hg] MIGUEL ([facility]) Body height 66 [in_i] 66 [in_i] MIGUEL ([facility]) Body mass index (BMI) [Ratio] 21.7 kg/m2 21.7 k g/m2 MIGUEL ([facility]) Systolic blood pressure 133 mm[Hg] 133 mm[Hg] A [facility] ([facility]) Body weight 2148 [oz_av] 2148 [oz_av] MIGUEL ([facility]) Diastolic blood pressure 83 mm[Hg] 83 mm[Hg] MIGUEL ([facility]) Body height 66 [in_i] 66 [in_i] MIGUEL ([facility]) Body mass index (BMI) [Ratio] 21.7 kg/m2 21.7 k g/m2 MIGUEL ([facility]) Systolic blood pressure 133 mm[Hg] 133 mm[Hg] A [facility] ([facility]) Body weight 2148 [oz_av] 2148 [oz_av] MIGUEL ([facility]) Body weight 2148 [oz_av] 2148 [oz_av] MIGUEL ([facility]) Diastolic blood pressure 83 mm[Hg] 83 mm[Hg] MIGUEL ([facility]) Body height 66 [in_i] 66 [in_i] MIGUEL ([facility]) Body mass index (BMI) [Ratio] 21.7 kg/m2 21.7 k g/m2 MIGUEL ([facility]) Systolic blood pressure 133 mm[Hg] 133 mm[Hg] A THE[facility] ([facility]) Body mass index (BMI) [Ratio] 21.7 kg/m2 21.7 k g/m2 MIGUEL ([facility]) Systolic blood pressure 133 mm[Hg] 133 mm[Hg] A THE[facility] ([facility]) Body weight 2148 [oz_av] 2148 [oz_av] [facility] [facility]) Diastolic blood pressure 83 mm[Hg] 83 mm[Hg] [facility] ([facility]) Body height 66 [in_i] 66 [in_i] [facility] ([facility]) Diastolic blood pressure 83 mm[Hg] 83 mm[Hg] [facility] ([facility]) Body height 66 [in_i] 66 [in_i] [facility] ([facility]) Body mass index (BMI) [Ratio] 21.7 kg/m2 21.7 k g/m2 [facility] ([facility]) Systolic blood pressure 133 mm[Hg] 133 mm[Hg] A [facility] ([facility]) Body weight 2148 [oz_av] 2148 [oz_av] [facility] ([facility]) Body height 66 [in_i] 66 [in_i] [facility] ([facility]) Diastolic blood pressure 83 mm[Hg] 83 mm[Hg] [facility] ([facility]) Systolic blood pressure 133 mm[Hg] 133 mm[Hg] A [facility] ([facility]) Body mass index (BMI) [Ratio] 21.7 kg/m2 21.7 k g/m2 [facility] ([facility]) Body weight 2148 [oz_av] 2148 [oz_av] [facility] ([facility]) Diastolic blood pressure 83 mm[Hg] 83 mm[Hg] [facility] ([facility]) Body height 66 [in_i] 66 [in_i] [facility] ([facility]) Body mass index (BMI) [Ratio] 21.7 kg/m2 21.7 k g/m2 [facility] ([facility]) Systolic blood pressure 133 mm[Hg] 133 mm[Hg] A [facility] ([facility]) Body weight 2148 [oz_av] 2148 [oz_av] [facility] ([facility]) Diastolic blood pressure 83 mm[Hg] 83 mm[Hg] [facility] ([facility]) Body height 66 [in_i] 66 [in_i] [facility] ([facility]) Body mass index (BMI) [Ratio] 21.7 kg/m2 21.7 k g/m2 [facility] ([facility]) Systolic blood pressure 133 mm[Hg] 133 mm[Hg] A [facility] ([facility]) Body weight 2148 [oz_av] 2148 [oz_av] [facility] ([facility]) Body height 66 [in_i] 66 [in_i] [facility] ([facility]) Body height 66 [in_i] 66 [in_i] [facility] ([facility]) Body height 66 [in_i] 66 [in_i] [facility] ([facility]) Body height 66 [in_i] 66 [in_i] [facility] ([facility]) Body height 66 [in_i] 66 [in_i] [facility] ([facility]) Body height 66 [in_i] 66 [in_i] [facility] ([facility]) Body height 66 [in_i] 66 [in_i] [facility] ([facility]) Body height 66 [in_i] 66 [in_i] [facility] ([facility]) Body height 66 [in_i] 66 [in_i] [facility] ([facility]) Body height 66 [in_i] 66 [in_i] [facility] ([facility]) Body height 66 [in_i] 66 [in_i] [facility] ([facility]) Patient Treatment Plan of Care Planned Activity Planned Date Details Description Data Source (s) gabapentin 800 MG Oral Tablet 08/04/2017 12:00:00 AM EST [employer] ([facility]) gabapentin 800 MG Oral Tablet 08/04/2017 12:00:00 AM EST [employer] ([facility]) gabapentin 800 MG Oral Tablet 08/04/2017 12:00:00 AM EST [employer] ([facility]) gabapentin 800 MG Oral Tablet 08/04/2017 12:00:00 AM EST [employer] ([facility]) gabapentin 800 MG Oral Tablet 08/04/2017 12:00:00 AM EST [employer] ([facility]) gabapentin 800 MG Oral Tablet 08/04/2017 12:00:00 AM EST [employer] ([facility]) Penicillin V Potassium 500 MG Oral Tablet [facility] ([facility]) Penicillin V Potassium 250 MG Oral Tablet [facility] ([facility]) Fluconazole 150 MG Oral Tablet [facility] ([facility]) duloxetine 20 MG Delayed Release Oral Capsule [facility] ([facility]) Cephalexin 500 MG Oral Capsule [facility] ([facility]) Buprenorphine 8 MG Sublingual Tablet [facility] ([facility]) Penicillin V Potassium 500 MG Oral Tablet [facility] ([facility]) Penicillin V Potassium 250 MG Oral Tablet [facility] ([facility]) Fluconazole 150 MG Oral Tablet [facility] ([facility]) duloxetine 20 MG Delayed Release Oral Capsule [facility] ([facility]) Cephalexin 500 MG Oral Capsule [facility] ([facility]) Buprenorphine 8 MG Sublingual Tablet [facility] ([facility]) Penicillin V Potassium 500 MG Oral Tablet [facility] ([facility]) Penicillin V Potassium 250 MG Oral Tablet [facility] ([facility]) Fluconazole 150 MG Oral Tablet [facility] ([facility]) duloxetine 20 MG Delayed Release Oral Capsule [facility] ([facility]) Cephalexin 500 MG Oral Capsule [facility] ([facility]) Buprenorphine 8 MG Sublingual Tablet [facility] ([facility]) Penicillin V Potassium 500 MG Oral Tablet [facility] ([facility]) Penicillin V Potassium 250 MG Oral Tablet [facility] ([facility]) Fluconazole 150 MG Oral Tablet [facility] ([facility]) duloxetine 20 MG Delayed Release Oral Capsule [facility] ([facility]) Cephalexin 500 MG Oral Capsule [facility] ([facility]) Buprenorphine 8 MG Sublingual Tablet [facility] ([facility]) Penicillin V Potassium 500 MG Oral Tablet [facility] ([facility]) Penicillin V Potassium 250 MG Oral Tablet [facility] ([facility]) Fluconazole 150 MG Oral Tablet [facility] ([facility]) duloxetine 20 MG Delayed Release Oral Capsule [facility] ([facility]) Cephalexin 500 MG Oral Capsule [facility] ([facility]) Penicillin V Potassium 500 MG Oral Tablet [facility] ([facility]) Penicillin V Potassium 250 MG Oral Tablet [facility] ([facility]) Fluconazole 150 MG Oral Tablet [facility] ([facility]) duloxetine 20 MG Delayed Release Oral Capsule [facility] ([facility]) Cephalexin 500 MG Oral Capsule [facility] ([facility]) Penicillin V Potassium 250 MG Oral Tablet [facility] ([facility]) Penicillin V Potassium 250 MG Oral Tablet [facility] ([facility]) Penicillin V Potassium 500 MG Oral Tablet [facility] ([facility]) Penicillin V Potassium 250 MG Oral Tablet [facility] ([facility]) Fluconazole 150 MG Oral Tablet [facility] ([facility]) duloxetine 20 MG Delayed Release Oral Capsule [facility] ([facility]) Clindamycin 150 MG Oral Capsule [facility] ([facility]) Cephalexin 500 MG Oral Capsule [facility] ([facility]) Buprenorphine 8 MG Sublingual Tablet [facility] ([facility]) Penicillin V Potassium 500 MG Oral Tablet [facility] ([facility]) Penicillin V Potassium 250 MG Oral Tablet [facility] ([facility]) Fluconazole 150 MG Oral Tablet [facility] ([facility]) duloxetine 20 MG Delayed Release Oral Capsule [facility] ([facility]) Clindamycin 150 MG Oral Capsule [facility] ([facility]) Cephalexin 500 MG Oral Capsule [facility] ([facility]) Buprenorphine 8 MG Sublingual Tablet [facility] ([facility]) Penicillin V Potassium 500 MG Oral Tablet [facility] ([facility]) Penicillin V Potassium 250 MG Oral Tablet [facility] ([facility]) Fluconazole 150 MG Oral Tablet [facility] ([facility]) duloxetine 20 MG Delayed Release Oral Capsule [facility] ([facility]) Cephalexin 500 MG Oral Capsule [facility] ([facility]) Penicillin V Potassium 500 MG Oral Tablet [facility] ([facility]) Penicillin V Potassium 250 MG Oral Tablet [facility] ([facility]) Fluconazole 150 MG Oral Tablet [facility] ([facility]) duloxetine 20 MG Delayed Release Oral Capsule [facility] ([facility]) Clindamycin 150 MG Oral Capsule [facility] ([facility]) Cephalexin 500 MG Oral Capsule [facility] ([facility])
--- OUTSIDE RECORDS SUMMARY | 2021-04-28 17:19 | CCD ---
Author Author [facility] Organization [facility] Address Unknown Phone Unavailable Care Team Providers Care Fire Investigation Lieutenant Name Role Phone Zion Alvarado MD Unavailable [...] Unavailable Zion Alvarado MD Unavailable Unavailable Zion Alvaraod MD Unavailable Unavailable Zion Alvarado MD Unavailable [...] Zion Alvarado MD Unavailable Unavailable Alvarado, Zion Blankensihp MD Unavailable Unavailable Alvarado, Zion Blankenship MD Unavailable Unavailable Alvarado, Zion Blankenship MD Unavailable Unavailable Alvarado, Zion Blankenship MD Unavailable Unavailable Alvarado, Zion Blankenship MD Unavailable Unavailable Alvarado, Zion Blankenship MD Unavailable Unavailable Alvarado, D Krzysztof [...] is protected by Article 27-F of the [facility] Public Health law. If you continue you may have access to information: Regarding HIV / AIDS; Provided by facilities licensed or operated by the [facility] Office of Mental Health; or Provided by the [facility] Office for People With Developmental Disabilities. If such information is present, then the following [facility] mandated warning applies: This information has [...] law may result in a fine or longterm sentence or both. A general authorization for the release of medical or other information is NOT sufficient authorization for further disc losure. Encounters Encounter Providers Location Date Indications Data Source(s ) Telehealth Physchotherapy 30 Minutes with Patient [facility] 04/11/2021 12:00:00 AM EDT [facility]) Krzysztof Alvarado MD: [address] [place] [address], Ph. Attender: Krzysztof Alvarado MD [facility] 03/27/2021 12:00:00 AM EDT [facility] ([facility]) Krzysztof Alvarado MD: [address] [place] [address], Ph. Attender: Krzysztof Alvarado MD [facility] 02/27/2021 12:00:00 AM EDT [facility] ([facility]) Krzysztof Alvarado MD: [address] [place] [address], Ph. Attender: Krzysztof Alvarado MD [facility] 02/27/2021 12:00:00 AM EDT [facility] ([facility]) Telehealth Physchotherapy 30 Minutes with Patient [facility] 02/06/2021 12:00:00 AM EDT [facility] ([facility]) Krzysztof Alvarado MD: [address] [place] [address], Ph. Attender: Krzysztof Alvarado MD [facility] 01/30/2021 12:00:00 AM EDT [facility] ([facility]) Krzysztof Alvarado MD: [address] [place] [address], Ph. Attender: Krzysztof Alvarado MD [facility] 01/30/2021 12:00:00 AM EDT [facility] ([facility]) Krzysztof Alvarado MD: [address] [place] [address], Ph. Attender: Krzysztof Alvarado MD [facility] 01/30/2021 12:00:00 AM EDT [facility] ([facility]) Krzysztof Alvarado MD: [address] [place] [address], Ph. Attender: Krzysztof Alvarado MD [facility] 01/30/2021 12:00:00 AM EDT [facility] ([facility]) Telehealth Physchotherapy 30 Minutes with Patient [facility] 01/16/2021 12:00:00 AM EDT [facility] ([facility]) Krzysztof Alvarado MD: [address] [place] [address], Ph. Attender: Krzysztof Alvarado MD [facility] 01/02/2021 12:00:00 AM EDT [facility] ([facility]) Krzysztof Alvarado MD: [address] [place] [address], Ph. Attender: Krzysztof Alvarado MD [facility] 01/02/2021 12:00:00 AM EDT [facility] ([facility]) Krzysztof Alvarado MD: [address] [place] [address], Ph. Attender: Krzysztof Alvarado MD [facility] 01/02/2021 12:00:00 AM EDT [facility] ([facility]) Krzysztof Alvarado MD: [address] [place] [address], Ph. Attender: Krzysztof Alvarado MD [facility] 01/02/2021 12:00:00 AM EDT [facility] ([facility]) Krzysztof Alvarado MD: [address] [place] [address], Ph. Attender: Krzysztof Alvarado MD [facility] 01/02/2021 12:00:00 AM EDT [facility] ([facility]) non-billable [facility] 12/20/2020 12:00:00 AM EDT [facility] Telehealth Physchotherapy 30 Minutes with Patient [facility] 12/06/2020 12:00:00 AM EDT [facility] ([facility]) Krzysztof Alvarado MD: [address] [place] [address], Ph. Attender: Krzysztof Alvarado MD [facility] 12/04/2020 12:00:00 AM EDT [facility] ([facility]) Krzysztof Alvarado MD: [address] [place] [address], Ph. Attender: Krzysztof Alvarado MD [facility] 12/04/2020 12:00:00 AM EDT [facility] ([facility]) Krzysztof Alvarado MD: [address] [place] [address], Ph. Attender: Krzysztof Alvarado MD [facility] 12/04/2020 12:00:00 AM EDT [facility] ([facility]) Krzysztof Alvarado MD: [address] [place] [address], Ph. Attender: Krzysztof Alvarado MD [facility] 12/04/2020 12:00:00 AM EDT [facility] ([facility]) Krzysztof Alvarado MD: [address] [place] [address], Ph. Attender: Krzysztof Alvarado MD [facility] 12/04/2020 12:00:00 AM EDT [facility] ([facility]) Krzysztof Alvarado MD: [address] [place] [address], Ph. Attender: Krzysztof Alvarado MD [facility] 12/04/2020 12:00:00 AM EDT [facility] ([facility]) Krzysztof Alvarado MD: [address] [place] [address], Ph. Attender: Krzysztof Alvarado MD [facility] 11/06/2020 12:00:00 AM EDT [facility] ([facility]) Krzysztof Alvarado MD: [address] [place] [address], Ph. Attender: Krzysztof Alvarado MD [facility] 11/06/2020 12:00:00 AM EDT [facility] ([facility]) Krzysztof Alvarado MD: [address] [place] [address], Ph. Attender: Krzysztof Alvarado MD [facility] 11/06/2020 12:00:00 AM EDT [facility] ([facility]) Krzysztof Alvarado MD: [address] [place] [address], Ph. Attender: Krzysztof Alvarado MD [facility] 11/06/2020 12:00:00 AM EDT [facility] ([facility]) Krzysztof Alvarado MD: [address] [place] [address], Ph. Attender: Krzysztof Alvarado MD [facility] 11/06/2020 12:00:00 AM EDT [facility] ([facility]) Krzysztof Alvarado MD: [address] [place] [address], Ph. Attender: Krzysztof Alvarado MD [facility] 11/06/2020 12:00:00 AM EDT [facility] ([facility]) Krzysztof Alvarado MD: [address] [place] [address], Ph. Attender: Krzysztof Alvarado MD [facility] 11/06/2020 12:00:00 AM EDT [facility] ([facility]) Telehealth Physchotherapy 30 Minutes with Patient [facility] 10/31/2020 12:00:00 AM EDT [facility] ([facility]) Krzysztof Alvarado MD: [address] [place] [address], Ph. Attender: Krzysztof Alvarado MD [facility] 10/10/2020 12:00:00 AM EDT [facility] ([facility]) Krzysztof Alvarado MD: [address] [place] [address], Ph. Attender: Krzysztof Alvarado MD [facility] 10/10/2020 12:00:00 AM EDT [facility] ([facility]) Krzysztof Alvarado MD: [address] [place] [address], Ph. Attender: Krzysztof Alvarado MD [facility] 10/10/2020 12:00:00 AM EDT [facility] ([facility]) Krzysztof Alvarado MD: [address] [place] [address], Ph. Attender: Krzysztof Alvarado MD [facility] 10/10/2020 12:00:00 AM EDT [facility] ([facility]) Krzysztof Alvarado MD: [address] [place] [address], Ph. Attender: Krzysztof Alvarado MD [facility] 10/10/2020 12:00:00 AM EDT [facility] ([facility]) Krzysztof Alvarado MD: [address] [place] [address], Ph. Attender: Krzysztof Alvarado MD [facility] 10/10/2020 12:00:00 AM EDT [facility] ([facility]) Krzysztof Alvarado MD: [address] [place] [address], Ph. Attender: Krzysztof Alvarado MD [facility] 10/10/2020 12:00:00 AM EDT [facility] ([facility]) Krzysztof Alvarado MD: [address] [place] [address], Ph. Attender: Krzysztof Alvarado MD [facility] 10/10/2020 12:00:00 AM EDT [facility] ([facility]) Krzysztof Alvarado MD: [address] [place] [address], Ph. Attender: Krzysztof Alvarado MD [facility] 09/12/2020 12:00:00 AM EDT [facility] ([facility]) Krzysztof Alvarado MD: [address] [place] [address], Ph. Attender: Krzysztof Alvarado MD [facility] 09/12/2020 12:00:00 AM EDT [facility] ([facility]) Krzysztof Alvarado MD: [address] [place] [address], Ph. Attender: Krzysztof Alvarado MD [facility] 09/12/2020 12:00:00 AM EDT [facility] ([facility]) Krzysztof Alvarado MD: [address] [place] [address], Ph. Attender: Krzysztof Alvarado MD [facility] 09/12/2020 12:00:00 AM EDT [facility] ([facility]) Krzysztof Alvarado MD: [address] [place] [address], Ph. Attender: Krzysztof Alvarado MD [facility] 09/12/2020 12:00:00 AM EDT [facility] ([facility]) Krzysztof Alvarado MD: [address] [place] [address], Ph. Attender: Krzysztof Alvarado MD [facility] 09/12/2020 12:00:00 AM EDT [facility] ([facility]) Krzysztof Alvarado MD: [address] [place] [address], Ph. Attender: Krzysztof Alvarado MD [facility] 09/12/2020 12:00:00 AM EDT [facility] ([facility]) Krzysztof Alvarado MD: [address] [place] [address], Ph. Attender: Krzysztof Alvarado MD [facility] 09/12/2020 12:00:00 AM EDT [facility] ([facility]) Krzysztof Alvarado MD: [address] [place] [address], Ph. Attender: Krzysztof Alvarado MD [facility] 09/12/2020 12:00:00 AM EDT [facility] ([facility]) Krzysztof Alvarado MD: [address] [place] [address], Ph. Attender: Krzysztof Alvarado MD [facility] 08/15/2020 12:00:00 AM EST [facility] ([facility]) Krzysztof Alvarado MD: [address] [place] [address], Ph. Attender: Krzysztof Alvarado MD [facility] 08/15/2020 12:00:00 AM EST [facility] ([facility]) Krzysztof Alvarado MD: [address] [place] [address], Ph. Attender: Krzysztof Alvarado MD [facility] 08/15/2020 12:00:00 AM EST [facility] ([facility]) Krzysztof Alvarado MD: [address] [place] [address], Ph. Attender: Krzysztof Alvarado MD [facility] 08/15/2020 12:00:00 AM EST [facility] ([facility]) Krzysztof Alvarado MD: [address] [place] [address], Ph. Attender: Krzysztof Alvarado MD [facility] 08/15/2020 12:00:00 AM EST [facility] ([facility]) Krzysztof Alvarado MD: [address] [place] [address] 504, Ph. Attender: Krzysztof Alvarado MD [facility] 08/15/2020 12:00:00 AM EST [facility] ([facility]) Krzysztof Alvarado MD: [address] [place] [address], Ph. Attender: Krzysztof Alvarado MD [facility] 08/15/2020 12:00:00 AM EST [facility] ([facility]) Krzysztof Alvarado MD: [address] [place] [address], Ph. Attender: Krzysztof Alvarado MD [facility] 08/15/2020 12:00:00 AM EST [facility] ([facility]) Krzysztof Alvarado MD: [address] [place] [address], Ph. Attender: Krzysztof Alvarado MD [facility] 08/15/2020 12:00:00 AM EST [facility] ([facility]) Krzysztof Alvarado MD: [address] [place] [address], Ph. Attender: Krzysztof Alvarado MD [facility] 08/15/2020 12:00:00 AM EST [facility] ([facility]) Krzysztof Alvarado MD: [address] [place] [address], Ph. Attender: Krzysztof Alvarado MD [facility] 07/18/2020 12:00:00 AM EST [facility] ([facility]) Krzysztof Alvarado MD: [address] [place] [address], Ph. Attender: Krzysztof Alvarado MD [facility] 07/18/2020 12:00:00 AM EST [facility] ([facility]) Krzysztof Alvarado MD: [address] [place] [address] 504, Ph. Attender: Krzysztof Alvarado MD [facility] 07/18/2020 12:00:00 AM EST [facility] ([facility]) Krzysztof Alvarado MD: [address] [place] [address], Ph. Attender: Krzysztof Alvarado MD [facility] 07/18/2020 12:00:00 AM EST [facility] ([facility]) Krzysztof Alvarado MD: [address] [place] [address], Ph. Attender: Krzysztof Alvarado MD [facility] 07/18/2020 12:00:00 AM EST [facility] ([facility]) Krzysztof Alvarado MD: [address] [place] [address], Ph. Attender: Krzysztof Alvarado MD [facility] 07/18/2020 12:00:00 AM EST [facility] ([facility]) Krzysztof Alvarado MD: [address] [place] [address], Ph. Attender: Krzysztof Alvarado MD [facility] 07/18/2020 12:00:00 AM EST [facility] ([facility]) Krzysztof Alvarado MD: [address] [place] [address] 504, Ph. Attender: Krzysztof Alvarado MD [facility] 07/18/2020 12:00:00 AM EST [facility] ([facility]) Krzysztof Alvarado MD: [address] [place] [address], Ph. Attender: Krzysztof Alvarado MD [facility] 07/18/2020 12:00:00 AM EST [facility] ([facility]) Krzysztof Alvarado MD: [address] [place] [address] 504, Ph. Attender: Krzysztof Alvarado MD [facility] 07/18/2020 12:00:00 AM EST [facility] ([facility]) Krzysztof Alvarado MD: [address] [place] [address] 504, Ph. Attender: Krzysztof Alvarado MD [facility] 07/18/2020 12:00:00 AM EST [facility] ([facility]) Krzysztof Alvarado, MD: [address] [place] [address], Ph. Attender: Krzysztof Alvarado MD [facility] 06/19/2020 12:00:00 AM EST [facility] ([facility]) Krzysztof Alvarado MD: [address] [place] [address], Ph. Attender: Krzysztof Alvarado MD [facility] 06/19/2020 12:00:00 AM EST [facility] ([facility]) Krzysztof Alvarado MD: [address] [place] [address], Ph. Attender: Krzysztof Alvarado MD [facility] 06/19/2020 12:00:00 AM EST [facility] ([facility]) Krzysztof Alvarado MD: [address] [place] [address], Ph. Attender: Krzysztof Alvarado MD [facility] 06/19/2020 12:00:00 AM EST [facility] ([facility]) Krzysztof Alvarado MD: [address] [place] [address], Ph. Attender: Krzysztof Alvarado MD [facility] 06/19/2020 12:00:00 AM EST [facility] ([facility]) Krzysztof Alvarado MD: [address] [place] [address], Ph. Attender: Krzysztof Alvarado MD [facility] 06/19/2020 12:00:00 AM EST [facility] ([facility]) Krzysztof Alvarado MD: [address] [place] [address] 504, Ph. Attender: Krzysztof Alvarado MD [facility] 06/19/2020 12:00:00 AM EST [facility] ([facility]) Krzysztof Alvarado MD: [address] [place] [address] 504, Ph. Attender: Krzysztof Alvarado MD [facility] 06/19/2020 12:00:00 AM EST [facility] ([facility]) Krzysztof Alvarado MD: [address] [place] [address], Ph. Attender: Krzysztof Alvarado MD [facility] 06/19/2020 12:00:00 AM EST [facility] ([facility]) Krzysztof Alvarado MD: [address] [place] [address], Ph. Attender: Krzysztof Alvarado MD [facility] 06/19/2020 12:00:00 AM EST [facility] ([facility]) Krzysztof Alvarado MD: [address] [place] [address], Ph. Attender: Krzysztof Alvarado MD [facility] 06/19/2020 12:00:00 AM EST [facility] ([facility]) Krzysztof Alvarado MD: [address] [place] [address], Ph. Attender: Krzysztof Alvarado MD [facility] 06/19/2020 12:00:00 AM EST [facility] ([facility]) Krzysztof Alvarado MD: [address] [place] [address], Ph. Attender: Krzysztof Alvarado MD [facility] 2020 12:00:00 AM EST [facility] ([facility]) Krzysztof Alvarado MD: [address] [place] [address], Ph. Attender: Krzysztof Alvarado MD [facility] 2020 12:00:00 AM EST [facility] ([facility]) Krzysztof Alvarado MD: [address] [place] [address], Ph. Attender: Krzysztof Alvarado MD [facility] 2020 12:00:00 AM EST [facility] ([facility]) Krzysztof Alvarado MD: [address] [place] [address] 504, Ph. Attender: Krzysztof Alvarado MD [facility] 2020 12:00:00 AM EST [facility] ([facility]) Krzysztof Alvarado MD: [address] [place] [address], Ph. Attender: Krzysztof Alvarado MD [facility] 2020 12:00:00 AM EST [facility] ([facility]) Krzysztof Alvarado MD: [address] [place] [address], Ph. Attender: Krzysztof Alvarado MD [facility] 2020 12:00:00 AM EST [facility] ([facility]) Krzysztof Alvarado MD: [address] [place] [address] 504, Ph. Attender: Krzysztof Alvarado MD [facility] 2020 12:00:00 AM EST [facility] ([facility]) Krzysztof Alvarado MD: [address] [place] [address], Ph. Attender: Krzysztof Alvarado MD [facility] 2020 12:00:00 AM EST [facility] ([facility]) Krzysztof Alvarado MD: [address] [place] [address], Ph. Attender: Krzysztof Alvarado MD [facility] 2020 12:00:00 AM EST [facility] ([facility]) Krzysztof Alvarado MD: [address] [place] [address] 504, Ph. Attender: Krzysztof Alvarado MD [facility] 2020 12:00:00 AM EST [facility] ([facility]) Krzysztof Alvarado MD: [address] [place] [address], Ph. Attender: Krzysztof Alvarado MD [facility] 2020 12:00:00 AM EST [facility] ([facility]) Krzysztof Alvarado MD: [address] [place] [address] 504, Ph. Attender: Krzysztof Alvarado MD [facility] 2020 12:00:00 AM EST [facility] ([facility]) Krzysztof Alvaardo MD: [address] [place] [address]1 504, Ph. Attender: Krzysztof Alvarado MD [facility] 2020 12:00:00 AM EST [facility] ([facility]) Krzysztof Alvarado MD: [address] [place] [address] 504, Ph. Attender: Krzysztof Alvarado MD [facility] 05/08/2020 12:00:00 AM EST [facility] ([facility]) Krzysztof Alvarado MD: [address] [place] [address], Ph. Attender: Krzysztof Alvarado MD [facility] 05/08/2020 12:00:00 AM EST [facility] ([facility]) Krzysztof Alvarado MD: [address] [place] [address], Ph. Attender: Krzysztof Alvarado MD [facility] 05/08/2020 12:00:00 AM EST [facility] ([facility]) Krzysztof Alvarado MD: [address] [place] [address], Ph. Attender: Krzysztof Alvarado MD [facility] 05/08/2020 12:00:00 AM EST [facility] ([facility]) Krzysztof Alvarado MD: [address] [place] [address], Ph. Attender: Krzysztof Alvarado MD [facility] 05/08/2020 12:00:00 AM EST [facility] ([facility]) Krzysztof Alvarado MD: [address] [place] [address], Ph. Attender: Krzysztof Alvarado MD [facility] 05/08/2020 12:00:00 AM EST [facility] ([facility]) Krzysztof Alvarado MD: [address] [place] [address], Ph. Attender: Krzysztof Alvarado MD [facility] 05/08/2020 12:00:00 AM EST [facility] ([facility]) Krzysztof Alvarado MD: [address] [place] [address], Ph. Attender: Krzysztof Alvarado MD [facility] 05/08/2020 12:00:00 AM EST [facility] ([facility]) Krzysztof Alvarado MD: [address] [place] [address], Ph. Attender: Krzysztof Alvarado MD [facility] 05/08/2020 12:00:00 AM EST [facility] ([facility]) Krzysztof Alvarado MD: [address] [place] [address], Ph. Attender: Krzysztof Alvarado MD [facility] 05/08/2020 12:00:00 AM EST [facility] ([facility]) Krzysztof Alvarado MD: [address] [place] [address], Ph. Attender: Krzysztof Alvarado MD [facility] 05/08/2020 12:00:00 AM EST [facility] ([facility]) Krzysztof Alvarado MD: [address] [place] [address], Ph. Attender: Krzysztof Alvarado MD [facility] 05/08/2020 12:00:00 AM EST [facility] ([facility]) Krzysztof Alvarado MD: [address] [place] [phone], Ph. Attender: Krzysztof Alvarado MD [facility] Medical 05/08/2020 12:00:00 AM EST [facility] ([facility]) Krzysztof Alvarado MD: [address] [place] [id number], Ph. Attender: Krzysztof Alvarado MD [facility] Medical 05/08/2020 12:00:00 AM EST [facility] ([facility]) Outpatient Attender: Krzysztof Alvarado MD 04/10/2020 04:25:01 PM EDT [facility] Outpatient Attender: Krzysztof Alvarado MD 04/03/2020 12:15:02 PM EDT [facility] Outpatient Attender: Krzysztof Alvarado MD 04/03/2020 11:23:01 AM EDT [facility] Outpatient Attender: Krzysztof Alvarado MD 03/07/2020 07:53:00 AM EDT [facility] Medications Medication Brand Name [...] AM EST 800 mg oral completed gabapentin [facility]) gabapentin 800 MG Oral Tablet gabapentin 08/04/2017 12:00:00 AM EST 800 mg oral [facility] gabapentin 800 MG Oral Tablet gabapentin 08/04/2017 12:00:00 AM EST 800 mg oral completed gabapentin [facility] ([facility]) gabapentin 800 MG Oral Tablet gabapentin 08/04/2017 12:00:00 AM EST 800 mg oral completed gabapentin [facility] ([facility]) gabapentin 800 MG Oral Tablet gabapentin 08/04/2017 12:00:00 AM EST 800 mg oral completed [facility] gabapentin 800 MG Oral Tablet gabapentin 08/04/2017 12:00:00 AM EST 800 mg oral completed [facility] Penicillin V Potassium 500 MG Oral Tablet penicillin V potassium 500 mg tablet penicillin V potassium 500 mg tablet c ompleted penicillin V potassium 500 MG Oral Tablet [place] ([facility]) Fluconazole 150 MG Oral Tablet fluconazole 150 mg tabl et fluconazole 150 mg tablet completed fluconazole 150 MG Oral Tablet [place] ([facility]) Cephalexin 500 MG Oral Capsule cephalexin 500 mg capsu le cephalexin 500 mg capsule completed cephalexin 500 MG Oral Capsule [place] ([facility]) Buprenorphine 8 MG Sublingual Tablet bup renorphine HCl [address] THREE TABLETS UNDER THE TONGUE EVERY DAY MAXIMUM DAILY DOSE THREE TABLETS buprenorphine HCl [address] THREE TABLETS UNDER THE TONGUE EVERY DAY MAXIMUM DAILY DOSE THREE TABLETS completed buprenorphine 8 MG Sublingual Tablet [place] ([facility]) Penicillin V Potassium 250 MG Oral Tablet penicillin V potassium 250 mg tablet penicillin V potassium 250 mg tablet c ompleted penicillin V potassium 250 MG Oral Tablet [place] ([facility]) duloxetine 20 MG Delayed Release Oral Ca psule duloxetine 20 mg capsule,delayed release duloxetine 20 mg capsule,delayed release completed duloxetine 20 MG Delayed Release Oral Capsule [facility]) Fluconazole 150 MG Oral Tablet fluconazole 150 mg tabl et fluconazole 150 mg tablet completed fluconazole 150 MG Oral Tablet [place] ([facility]) Buprenorphine 8 MG Sublingual Tablet bup renorphine HCl [address] THREE TABLETS UNDER THE TONGUE EVERY DAY MAXIMUM DAILY DOSE THREE TABLETS buprenorphine HCl [address] THREE TABLETS UNDER THE TONGUE EVERY DAY MAXIMUM DAILY DOSE THREE TABLETS completed buprenorphine 8 MG Sublingual Tablet [place] ([facility]) Penicillin V Potassium 250 MG Oral Tablet penicillin V potassium 250 mg tablet penicillin V potassium 250 mg tablet c ompleted penicillin V potassium 250 MG Oral Tablet [place] ([facility]) duloxetine 20 MG Delayed Release Oral Ca psule duloxetine 20 mg capsule,delayed release duloxetine 20 mg capsule,delayed release completed duloxetine 20 MG Delayed Release Oral Capsule [facility]) Clindamycin 150 MG Oral Capsule clindamy terry HCl 150 mg capsule TAKE ONE CAPSULE BY MOUTH FOUR TIMES A DAY clindamycin HCl 150 mg capsule TAKE ONE CAPSULE BY MOUTH FOUR TIMES A DAY completed clindamycin 150 MG Oral Capsule [place] ([facility]) Buprenorphine 8 MG Sublingual Tablet bup renorphine HCl [address] THREE TABLETS UNDER THE TONGUE EVERY DAY MAXIMUM DAILY DOSE THREE TABLETS buprenorphine HCl [address] THREE TABLETS UNDER THE TONGUE EVERY DAY MAXIMUM DAILY DOSE THREE TABLETS completed buprenorphine 8 MG Sublingual Tablet [place] ([facility]) Penicillin V Potassium 500 MG Oral Tablet penicillin V potassium 500 mg tablet penicillin V potassium 500 mg tablet c ompleted penicillin V potassium 500 MG Oral Tablet [place] ([facility]) duloxetine 20 MG Delayed Release Oral Ca psule duloxetine 20 mg capsule,delayed release duloxetine 20 mg capsule,delayed release completed duloxetine 20 MG Delayed Release Oral Capsule [place] ([facility]) Cephalexin 500 MG Oral Capsule cephalexin 500 mg capsu le cephalexin 500 mg capsule completed cephalexin 500 MG Oral Capsule [place] ([facility]) Penicillin V Potassium 500 MG Oral Tablet penicillin V potassium 500 mg tablet penicillin V potassium 500 mg tablet c ompleted penicillin V potassium 500 MG Oral Tablet [place] ([facility]) Cephalexin 500 MG Oral Capsule cephalexin 500 mg capsu le cephalexin 500 mg capsule completed cephalexin 500 MG Oral Capsule [place] ([facility]) Fluconazole 150 MG Oral Tablet fluconazole 150 mg tabl et fluconazole 150 mg tablet completed fluconazole 150 MG Oral Tablet [place] ([facility]) duloxetine 20 MG Delayed Release Oral Ca psule duloxetine 20 mg capsule,delayed release duloxetine 20 mg capsule,delayed release completed duloxetine 20 MG Delayed Release Oral Capsule [place] ([facility]) Penicillin V Potassium 500 MG Oral Tablet penicillin V potassium 500 mg tablet penicillin V potassium 500 mg tablet c ompleted penicillin V potassium 500 MG Oral Tablet [place] ([facility]) duloxetine 20 MG Delayed Release Oral Ca psule duloxetine 20 mg capsule,delayed release duloxetine 20 mg capsule,delayed release completed duloxetine 20 MG Delayed Release Oral Capsule [place] ([facility]) Penicillin V Potassium 250 MG Oral Tablet penicillin V potassium 250 mg tablet penicillin V potassium 250 mg tablet c ompleted penicillin V potassium 250 MG Oral Tablet [place] ([facility]) Penicillin V Potassium 500 MG Oral Tablet penicillin V potassium 500 mg tablet penicillin V potassium 500 mg tablet c ompleted penicillin V potassium 500 MG Oral Tablet [place] ([facility]) duloxetine 20 MG Delayed Release Oral Ca psule duloxetine 20 mg capsule,delayed release duloxetine 20 mg capsule,delayed release completed duloxetine 20 MG Delayed Release Oral Capsule [place] ([facility]) Cephalexin 500 MG Oral Capsule cephalexin 500 mg capsu le cephalexin 500 mg capsule completed cephalexin 500 MG Oral Capsule [place] ([facility]) duloxetine 20 MG Delayed Release Oral Ca psule duloxetine 20 mg capsule,delayed release duloxetine 20 mg capsule,delayed release completed duloxetine 20 MG Delayed Release Oral Capsule [place] ([facility]) Cephalexin 500 MG Oral Capsule cephalexin 500 mg capsu le cephalexin 500 mg capsule completed cephalexin 500 MG Oral Capsule [place] ([facility]) Penicillin V Potassium 500 MG Oral Tablet penicillin V potassium 500 mg tablet penicillin V potassium 500 mg tablet c ompleted penicillin V potassium 500 MG Oral Tablet [place] ([facility]) Buprenorphine 8 MG Sublingual Tablet bup renorphine HCl [address] THREE TABLETS UNDER THE TONGUE EVERY DAY MAXIMUM DAILY DOSE THREE TABLETS buprenorphine HCl [address] THREE TABLETS UNDER THE TONGUE EVERY DAY MAXIMUM DAILY DOSE THREE TABLETS completed buprenorphine 8 MG Sublingual Tablet [place] ([facility]) Penicillin V Potassium 250 MG Oral Tablet penicillin V potassium 250 mg tablet penicillin V potassium 250 mg tablet c ompleted penicillin V potassium 250 MG Oral Tablet [place] ([facility]) Penicillin V Potassium 250 MG Oral Tablet penicillin V potassium 250 mg tablet penicillin V potassium 250 mg tablet c ompleted penicillin V potassium 250 MG Oral Tablet [place] ([facility]) Fluconazole 150 MG Oral Tablet fluconazole 150 mg tabl et fluconazole 150 mg tablet completed fluconazole 150 MG Oral Tablet [facility]) Fluconazole 150 MG Oral Tablet fluconazole 150 mg tabl et fluconazole 150 mg tablet completed fluconazole 150 MG Oral Tablet [place] ([facility]) Penicillin V Potassium 250 MG Oral Tablet penicillin V potassium 250 mg tablet penicillin V potassium 250 mg tablet c ompleted penicillin V potassium 250 MG Oral Tablet [place] ([facility]) Penicillin V Potassium 500 MG Oral Tablet penicillin V potassium 500 mg tablet penicillin V potassium 500 mg tablet c ompleted penicillin V potassium 500 MG Oral Tablet [place] ([facility]) Fluconazole 150 MG Oral Tablet fluconazole 150 mg tabl et fluconazole 150 mg tablet completed fluconazole 150 MG Oral Tablet [place] ([facility]) Buprenorphine 8 MG Sublingual Tablet bup renorphine HCl [address] THREE TABLETS UNDER THE TONGUE EVERY DAY MAXIMUM DAILY DOSE THREE TABLETS buprenorphine HCl [address] THREE TABLETS UNDER THE TONGUE EVERY DAY MAXIMUM DAILY DOSE THREE TABLETS completed buprenorphine 8 MG Sublingual Tablet [place] ([facility]) Penicillin V Potassium 250 MG Oral Tablet penicillin V potassium 250 mg tablet penicillin V potassium 250 mg tablet c ompleted penicillin V potassium 250 MG Oral Tablet [place] ([facility]) duloxetine 20 MG Delayed Release Oral Ca psule duloxetine 20 mg capsule,delayed release duloxetine 20 mg capsule,delayed release completed duloxetine 20 MG Delayed Release Oral Capsule [place] ([facility]) Cephalexin 500 MG Oral Capsule cephalexin 500 mg capsu le cephalexin 500 mg capsule completed cephalexin 500 MG Oral Capsule [place] ([facility]) Cephalexin 500 MG Oral Capsule cephalexin 500 mg capsu le cephalexin 500 mg capsule completed cephalexin 500 MG Oral Capsule [place] ([facility]) Penicillin V Potassium 500 MG Oral Tablet penicillin V potassium 500 mg tablet penicillin V potassium 500 mg tablet c ompleted penicillin V potassium 500 MG Oral Tablet [place] ([facility]) Clindamycin 150 MG Oral Capsule clindamy terry HCl 150 mg capsule TAKE ONE CAPSULE BY MOUTH FOUR TIMES A DAY clindamycin HCl 150 mg capsule TAKE ONE CAPSULE BY MOUTH FOUR TIMES A DAY completed clindamycin 150 MG Oral Capsule [place] ([facility]) Penicillin V Potassium 250 MG Oral Tablet penicillin V potassium 250 mg tablet penicillin V potassium 250 mg tablet c ompleted penicillin V potassium 250 MG Oral Tablet [place] ([facility]) Buprenorphine 8 MG Sublingual Tablet bup renorphine HCl [address] THREE TABLETS UNDER THE TONGUE EVERY DAY MAXIMUM DAILY DOSE THREE TABLETS buprenorphine HCl [address] THREE TABLETS UNDER THE TONGUE EVERY DAY MAXIMUM DAILY DOSE THREE TABLETS completed buprenorphine 8 MG Sublingual Tablet [place] ([facility]) Fluconazole 150 MG Oral Tablet fluconazole 150 mg tabl et fluconazole 150 mg tablet completed fluconazole 150 MG Oral Tablet [place] ([facility]) Penicillin V Potassium 250 MG Oral Tablet penicillin V potassium 250 mg tablet penicillin V potassium 250 mg tablet c ompleted penicillin V potassium 250 MG Oral Tablet [place] ([facility]) Penicillin V Potassium 250 MG Oral Tablet penicillin V potassium 250 mg tablet penicillin V potassium 250 mg tablet c ompleted penicillin V potassium 250 MG Oral Tablet [place] ([facility]) Cephalexin 500 MG Oral Capsule cephalexin 500 mg capsu le cephalexin 500 mg capsule completed cephalexin 500 MG Oral Capsule [place] ([facility]) duloxetine 20 MG Delayed Release Oral Ca psule duloxetine 20 mg capsule,delayed release duloxetine 20 mg capsule,delayed release completed duloxetine 20 MG Delayed Release Oral Capsule [place] ([facility]) Cephalexin 500 MG Oral Capsule cephalexin 500 mg capsu le cephalexin 500 mg capsule completed cephalexin 500 MG Oral Capsule [place] ([facility]) Penicillin V Potassium 500 MG Oral Tablet penicillin V potassium 500 mg tablet penicillin V potassium 500 mg tablet c ompleted penicillin V potassium 500 MG Oral Tablet [place] ([facility]) Fluconazole 150 MG Oral Tablet fluconazole 150 mg tabl et fluconazole 150 mg tablet completed fluconazole 150 MG Oral Tablet [place] ([facility]) Clindamycin 150 MG Oral Capsule clindamycin HCl 150 mg capsule clindamycin HCl 150 mg capsule completed clindam ycin 150 MG Oral Capsule [place] ([facility]) Fluconazole 150 MG Oral Tablet fluconazole 150 mg tabl et fluconazole 150 mg tablet completed fluconazole 150 MG Oral Tablet [place] ([facility]) Penicillin V Potassium 500 MG Oral Tablet penicillin V potassium 500 mg tablet penicillin V potassium 500 mg tablet c ompleted penicillin V potassium 500 MG Oral Tablet [place] ([facility]) duloxetine 20 MG Delayed Release Oral Ca psule duloxetine 20 mg capsule,delayed release duloxetine 20 mg capsule,delayed release completed duloxetine 20 MG Delayed Release Oral Capsule [place] ([facility]) Cephalexin 500 MG Oral Capsule cephalexin 500 mg capsu le cephalexin 500 mg capsule completed cephalexin 500 MG Oral Capsule [place] ([facility]) Penicillin V Potassium 250 MG Oral Tablet penicillin V potassium 250 mg tablet penicillin V potassium 250 mg tablet c ompleted penicillin V potassium 250 MG Oral Tablet [place] ([facility]) Fluconazole 150 MG Oral Tablet fluconazole 150 mg tabl et fluconazole 150 mg tablet completed fluconazole 150 MG Oral Tablet [place] ([facility]) Penicillin V Potassium 250 MG Oral Tablet penicillin V potassium 250 mg tablet penicillin V potassium 250 mg tablet c ompleted penicillin V potassium 250 MG Oral Tablet [place] [facility] Insurance Providers Payer name Policy type / Coverage type Policy ID Covered green party ID Covered green party's relationship to wright Policy Wright Plan Information [facility] [id number] Spouse [id number] Medicaid S [id number] S [id number] Managed Care [place] P [id number] S [id number] ARTEMIO [id number] SP [id number] Medicaid S [id number] ARTEMIO [id number] SP [id number] Medicaid S [id number] Medicaid S [id number] S [id number] Self Pay P UNAVAILABLE S UNAVAILA BLE SELF PAY ONLY [id number] SP [id number] MEDICAID [id number] SP [id number] SELF PAY ONLY [id number] SP [id number] [facility] [id number] P [id number] FOR[facility]LY [facility] [id number] SP [id number] [facility] [id number] [facility] CLAIMS ALEJANDRO-O/P [id number] MEDICAID [id number] SP [id number] SELF PAY UNAVAILABLE SP [place] [id number] S [id number] ARTEM[facility] [id number] SP [id number] [place] [id number] S [id number] Managed Care Art[place] P [id number] S [id number] Medicaid S [id number] Problems, Conditions, and Diagnoses Code Display Name Description Problem Type Effective Dates Data Source(s) 999775224 Obsessive-compulsive disorder, unspecifi ed Obsessive-compulsive disorder, unspecified Condition 12/19/2020 12:00:00 AM EDT [facility] [id number] Obsessive-compulsive disorder, unspecifi ed Obsessive-compulsive disorder, unspecified Condition 12/19/2020 12:00:00 AM EDT [facility] ( [facility]) [id number] Obsessive-compulsive disorder, unspecifi ed Obsessive-compulsive disorder, unspecified Condition 12/19/2020 12:00:00 AM EDT [place] ( [facility]) [id number] Obsessive-compulsive disorder, unspecifi ed Obsessive-compulsive disorder, unspecified Condition 12/19/2020 12:00:00 AM EDT [place] ( [facility]) [id number] Goiter Goiter Problem 06/19/2020 12:00:00 AM ES T [place] ([facility]) [id number] Goiter Goiter Problem 06/19/2020 12:00:00 AM ES T [place] ([facility]) [id number] Goiter Goiter Problem 06/19/2020 12:00:00 AM ES T [place] ([facility]) [id number] Goiter Goiter Problem 06/19/2020 12:00:00 AM ES T [place] ([facility]) [id number] Goiter Goiter Problem 06/19/2020 12:00:00 AM ES T [place] ([facility]) [id number] Goiter Goiter Problem 06/19/2020 12:00:00 AM ES T [place] ([facility]) [id number] Goiter Goiter Problem 06/19/2020 12:00:00 AM ES T [place] ([facility]) [id number] Goiter Goiter Problem 06/19/2020 12:00:00 AM ES T [place] ([facility]) [id number] Goiter Goiter Problem 06/19/2020 12:00:00 AM ES T [place] ([facility]) [id number] Goiter Goiter Problem 06/19/2020 12:00:00 AM ES T [place] ([facility]) [id number] Goiter Goiter Problem 06/19/2020 12:00:00 AM ES T [place] ([facility]) [id number] Goiter Goiter Problem 06/19/2020 12:00:00 AM ES T [place] ([facility]) Surgeries/Procedures Procedure Description Date Indications Data Source(s) Individual psychotherapy (regime/therapy) 04/11/2021 1 2:00:00 AM EDT [place] ([facility]) Individual psychotherapy (regime/therapy) 04/11/2021 1 2:00:00 AM EDT [facility] ([facility]) Individual psychotherapy (regime/therapy) 03/28/2021 1 2:00:00 AM EDT [facility] ([facility]) Individual psychotherapy (regime/therapy) 03/28/2021 1 2:00:00 AM EDT [facility] ([facility]) Individual psychotherapy (regime/therapy) 03/21/2021 1 2:00:00 AM EDT [facility] ([facility]) Individual psychotherapy (regime/therapy) 02/06/2021 1 2:00:00 AM EDT [facility] ([facility]) Individual psychotherapy (regime/therapy) 02/06/2021 1 2:00:00 AM EDT [facility] ([facility]) Individual psychotherapy (regime/therapy) 02/06/2021 1 2:00:00 AM EDT [facility] ([facility]) Individual psychotherapy (regime/therapy) 02/06/2021 1 2:00:00 AM EDT [facility] ([facility]) Evaluation AND/OR management - established patient (procedur e) 01/31/2021 12:00:00 AM EDT [facility] ([facility] Evaluation AND/OR management - established patient (procedur e) 01/31/2021 12:00:00 AM EDT [facility] ([facility]) Individual psychotherapy (regime/therapy) 01/16/2021 1 2:00:00 AM EDT [facility] ([facility]) Evaluation AND/OR management - established patient (procedur e) 01/16/2021 12:00:00 AM EDT [facility] ([facility] Individual psychotherapy (regime/therapy) 01/16/2021 1 2:00:00 AM EDT [facility] ([facility]) Evaluation AND/OR management - established patient (procedur e) 01/16/2021 12:00:00 AM EDT [facility] ([facility]) Individual psychotherapy (regime/therapy) 01/16/2021 1 2:00:00 AM EDT [facility] ([facility]) Evaluation AND/OR management - established patient (procedur e) 01/16/2021 12:00:00 AM EDT [facility] Education about risk reduction technique (procedure) 12/20/2020 12:00:00 AM EDT [facility] Education about risk reduction technique (procedure) 12/20/2020 12:00:00 AM EDT [facility] Education about risk reduction technique (procedure) 12/20/2020 12:00:00 AM EDT [facility] ([facility]) Education about risk reduction technique (procedure) 12/20/2020 12:[facility] Individual psychotherapy (regime/therapy) 12/06/2020 1 2:00:00 AM EDT [facility] ([facility]) Individual psychotherapy (regime/therapy) 12/06/2020 1 2:00:00 AM EDT [facility] ([facility]) Individual psychotherapy (regime/therapy) 12/06/2020 1 2:00:00 AM EDT [facility] ([facility]) Individual psychotherapy (regime/therapy) 12/06/2020 1 2:00:00 AM EDT [facility] ([facility]) Individual psychotherapy (regime/therapy) 12/06/2020 1 2:00:00 AM EDT [facility] ([facility]) Individual psychotherapy (regime/therapy) 12/06/2020 1 2:00:00 AM EDT [facility] ([facility]) Individual psychotherapy (regime/therapy) 12/06/2020 1 2:00:00 AM [facility]) Individual psychotherapy (regime/therapy) 12/06/2020 1 2:00:00 AM EDT [facility] ([facility]) Individual psychotherapy (regime/therapy) 12/06/2020 1 2:00:00 AM EDT [facility] ([facility]) Individual psychotherapy (regime/therapy) 12/06/2020 1 2:00:00 AM EDT [facility] ([facility]) Initial psychiatric evaluation (procedure) 12/04/2020 12:00:00 AM EDT [facility] ([facility]) Initial psychiatric evaluation (procedure) 12/04/2020 12:00:00 AM EDT [facility] ([facility]) Initial psychiatric evaluation (procedure) 12/04/2020 12:00:00 AM EDT [facility] ([facility]) Initial psychiatric evaluation (procedure) 12/04/2020 12:00:00 AM EDT [facility] ([facility]) Initial psychiatric evaluation (procedure) 12/04/2020 12:00:00 AM EDT [facility] ([facility]) Individual psychotherapy (regime/therapy) 11/07/2020 1 2:00:00 AM EDT [facility] ([facility]) Individual psychotherapy (regime/therapy) 11/07/2020 1 2:00:00 AM EDT [facility] ([facility]) Individual psychotherapy (regime/therapy) 11/07/2020 1 2:00:00 AM EDT [facility] ([facility]) Individual psychotherapy (regime/therapy) 11/07/2020 1 2:00:00 AM EDT [facility] ([facility]) Individual psychotherapy (regime/therapy) 11/07/2020 1 2:00:00 AM EDT [facility] ([facility]) Individual psychotherapy (regime/therapy) 11/07/2020 1 2:00:00 AM EDT [facility] ([facility]) Individual psychotherapy (regime/therapy) 11/07/2020 1 2:00:00 AM EDT [facility] ([facility]) Individual psychotherapy (regime/therapy) 11/07/2020 1 2:00:00 AM EDT [facility] ([facility]) Individual psychotherapy (regime/therapy) 11/07/2020 1 2:00:00 AM EDT [facility] ([facility]) Individual psychotherapy (regime/therapy) 11/07/2020 1 2:00:00 AM EDT [facility] ([facility]) Individual psychotherapy (regime/therapy) 10/31/2020 1 2:00:00 AM EDT [facility] ([facility]) Individual psychotherapy (regime/therapy) 10/31/2020 1 2:00:00 AM EDT [facility] ([facility]) Individual psychotherapy (regime/therapy) 10/31/2020 1 2:00:00 AM EDT [employer] ([facility]) Individual psychotherapy (regime/therapy) 10/31/2020 1 2:00:00 AM EDT [employer] ([facility]) Individual psychotherapy (regime/therapy) 10/31/2020 1 2:00:00 AM EDT [facility] ([facility]) Individual psychotherapy (regime/therapy) 10/31/2020 1 2:00:00 AM EDT [facility] ([facility]) Individual psychotherapy (regime/therapy) 10/31/2020 1 2:00:00 AM EDT [facility] ([facility]) Individual psychotherapy (regime/therapy) 10/31/2020 1 2:00:00 AM EDT [employer] ([facility]) Individual psychotherapy (regime/therapy) 10/31/2020 1 2:00:00 AM EDT [facility] ([facility]) Individual psychotherapy (regime/therapy) 10/31/2020 1 2:00:00 AM EDT [facility] ([facility]) Individual psychotherapy (regime/therapy) 10/31/2020 1 2:00:00 AM EDT [facility] ([facility]) Individual psychotherapy (regime/therapy) 10/31/2020 1 2:00:00 AM EDT [facility] ([facility]) Individual psychotherapy (regime/therapy) 10/10/2020 1 2:00:00 AM EDT [facility] ([facility]) Individual psychotherapy (regime/therapy) 10/10/2020 1 2:00:00 AM EDT [facility] ([facility]) Individual psychotherapy (regime/therapy) 10/10/2020 1 2:00:00 AM EDT [facility] ([facility]) Individual psychotherapy (regime/therapy) 10/10/2020 1 2:00:00 AM EDT [facility] ([facility]) Individual psychotherapy (regime/therapy) 10/10/2020 1 2:00:00 AM EDT [facility] ([facility]) Individual psychotherapy (regime/therapy) 10/10/2020 1 2:00:00 AM EDT [facility] ([facility]) Individual psychotherapy (regime/therapy) 10/10/2020 1 2:00:00 AM EDT [facility] ([facility]) Individual psychotherapy (regime/therapy) 10/10/2020 1 2:00:00 AM EDT [facility] ([facility]) Individual psychotherapy (regime/therapy) 10/10/2020 1 2:00:00 AM EDT [facility] ([facility]) Individual psychotherapy (regime/therapy) 10/10/2020 1 2:00:00 AM EDT [facility] ([facility]) Individual psychotherapy (regime/therapy) 10/10/2020 1 2:00:00 AM EDT [facility] ([facility]) Individual psychotherapy (regime/therapy) 10/10/2020 1 2:00:00 AM EDT [facility] ([facility]) Individual psychotherapy (regime/therapy) 10/03/2020 1 2:00:00 AM EDT [facility] ([facility]) Individual psychotherapy (regime/therapy) 10/03/2020 1 2:00:00 AM EDT [facility] ([facility]) Individual psychotherapy (regime/therapy) 10/03/2020 1 2:00:00 AM EDT [facility] ([facility]) Individual psychotherapy (regime/therapy) 10/03/2020 1 2:00:00 AM EDT [facility] ([facility]) Individual psychotherapy (regime/therapy) 10/03/2020 1 2:00:00 AM EDT [facility] ([facility]) Individual psychotherapy (regime/therapy) 10/03/2020 1 2:00:00 AM EDT [facility] ([facility]) Individual psychotherapy (regime/therapy) 09/19/2020 1 2:00:00 AM EDT [facility] ([facility]) Individual psychotherapy (regime/therapy) 09/19/2020 1 2:00:00 AM EDT [facility] ([facility]) Individual psychotherapy (regime/therapy) 09/19/2020 1 2:00:00 AM EDT [facility] ([facility]) Individual psychotherapy (regime/therapy) 09/19/2020 1 2:00:00 AM EDT [facility] ([facility]) Individual psychotherapy (regime/therapy) 09/19/2020 1 2:00:00 AM EDT [facility] ([facility]) Individual psychotherapy (regime/therapy) 09/19/2020 1 2:00:00 AM EDT [facility] ([facility]) Individual psychotherapy (regime/therapy) 09/19/2020 1 2:00:00 AM EDT [facility] ([facility]) Individual psychotherapy (regime/therapy) 09/19/2020 1 2:00:00 AM EDT [facility] ([facility]) Individual psychotherapy (regime/therapy) 09/19/2020 1 2:00:00 AM EDT [facility] ([facility]) Individual psychotherapy (regime/therapy) 09/19/2020 1 2:00:00 AM [facility]) Individual psychotherapy (regime/therapy) 09/19/2020 1 2:00:00 AM EDT [facility] ([facility]) Individual psychotherapy (regime/therapy) 09/19/2020 1 2:00:00 AM EDT [facility] ([facility]) Individual psychotherapy (regime/therapy) 09/12/2020 1 2:00:00 AM [facility] Individual psychotherapy (regime/therapy) 09/12/2020 1 2:00:00 AM EDT [facility] ([facility]) Individual psychotherapy (regime/therapy) 09/12/2020 1 2:00:00 AM EDT [facility] ([facility]) Individual psychotherapy (regime/therapy) 09/12/2020 1 2:00:00 AM EDT [facility] ([facility]) Individual psychotherapy (regime/therapy) 09/12/2020 1 2:00:00 AM EDT [facility] ([facility]) Individual psychotherapy (regime/therapy) 09/12/2020 1 2:00:00 AM EDT [facility] ([facility]) Individual psychotherapy (regime/therapy) 09/12/2020 1 2:00:00 AM EDT [facility] ([facility]) Individual psychotherapy (regime/therapy) 09/12/2020 1 2:00:00 AM EDT [facility] ([facility]) Individual psychotherapy (regime/therapy) 09/12/2020 1 2:00:00 AM EDT [employer] ([facility]) Individual psychotherapy (regime/therapy) 09/12/2020 1 2:00:00 AM EDT [facility] ([facility]) Individual psychotherapy (regime/therapy) 09/12/2020 1 2:00:00 AM EDT [facility] ([facility]) Individual psychotherapy (regime/therapy) 09/12/2020 1 2:00:00 AM EDT [facility] ([facility]) Individual psychotherapy (regime/therapy) 09/04/2020 1 2:00:00 AM EDT [facility] ([facility]) Individual psychotherapy (regime/therapy) 09/04/2020 1 2:00:00 AM EDT [facility] ([facility]) Individual psychotherapy (regime/therapy) 09/04/2020 1 2:00:00 AM EDT [facility] ([facility]) Individual psychotherapy (regime/therapy) 09/04/2020 1 2:00:00 AM EDT [facility] ([facility]) Individual psychotherapy (regime/therapy) 09/04/2020 1 2:00:00 AM EDT [facility] ([facility]) Individual psychotherapy (regime/therapy) 09/04/2020 1 2:00:00 AM EDT [facility] ([facility]) Individual psychotherapy (regime/therapy) 09/04/2020 1 2:00:00 AM EDT [facility] ([facility]) Individual psychotherapy (regime/therapy) 09/04/2020 1 2:00:00 AM EDT [facility] ([facility]) Individual psychotherapy (regime/therapy) 09/04/2020 1 2:00:00 AM EDT [facility] ([facility]) Individual psychotherapy (regime/therapy) 09/04/2020 1 2:00:00 AM EDT [facility] ([facility]) Individual psychotherapy (regime/therapy) 09/04/2020 1 2:00:00 AM EDT [facility] ([facility]) Individual psychotherapy (regime/therapy) 09/04/2020 1 2:00:00 AM EDT [facility] ([facility]) Diagnostic psychiatric interview (procedure) 1 12:00:00 AM EST [employer] ([facility]) Diagnostic psychiatric interview (procedure) 1 12:00:00 AM EST [facility] ([facility]) Diagnostic psychiatric interview (procedure) 1 12:00:00 AM EST [facility] ([facility]) Diagnostic psychiatric interview (procedure) 1 12:00:00 AM EST [facility] ([facility]) Diagnostic psychiatric interview (procedure) 1 12:00:00 AM EST [facility] ([facility]) Diagnostic psychiatric interview (procedure) 1 12:00:00 AM EST [facility] ([facility]) Individual psychotherapy (regime/therapy) 04/28/2020 1 2:00:00 AM EST [facility] ([facility]) Individual psychotherapy (regime/therapy) 04/28/2020 1 2:00:00 AM EST [facility] ([facility]) Individual psychotherapy (regime/therapy) 04/28/2020 1 2:00:00 AM EST [facility] ([facility]) Individual psychotherapy (regime/therapy) 04/28/2020 1 2:00:00 AM EST [facility] ([facility]) Individual psychotherapy (regime/therapy) 04/28/2020 1 2:00:00 AM EST [facility] ([facility]) Individual psychotherapy (regime/therapy) 04/28/2020 1 2:00:00 AM EST [facility] ([facility]) Individual psychotherapy (regime/therapy) 04/28/2020 1 2:00:00 AM EST [facility] ([facility]) Individual psychotherapy (regime/therapy) 04/28/2020 1 2:00:00 AM EST [facility] ([facility]) Individual psychotherapy (regime/therapy) 04/28/2020 1 2:00:00 AM EST [facility] ([facility]) Individual psychotherapy (regime/therapy) 04/28/2020 1 2:00:00 AM EST [facility] ([facility]) Individual psychotherapy (regime/therapy) 04/28/2020 1 2:00:00 AM EST [facility] ([facility]) Individual psychotherapy (regime/therapy) 04/28/2020 1 2:00:00 AM EST [facility] ([facility]) Individual psychotherapy (regime/therapy) 03/20/2020 1 2:00:00 AM EDT [facility] ([facility]) Individual psychotherapy (regime/therapy) 03/20/2020 1 2:00:00 AM EDT [facility] ([facility]) Individual psychotherapy (regime/therapy) 03/20/2020 1 2:00:00 AM EDT [facility] ([facility]) Individual psychotherapy (regime/therapy) 03/20/2020 1 2:00:00 AM EDT [facility] ([facility]) Individual psychotherapy (regime/therapy) 03/20/2020 1 2:00:00 AM EDT [facility] ([facility]) Individual psychotherapy (regime/therapy) 03/20/2020 1 2:00:00 AM EDT [facility] ([facility]) Results ID Date Data Source [id number] 01/30/2021 12:00:00 AM EDT [facility]) Name Value Range Interpretation Code Description Data Jo rce(s) Supporting Document(s) ID Date Data Source [id number] 01/30/2021 12:00:00 AM EDT [facility]) Name Value Range Interpretation Code Description Data Jo rce(s) Supporting Document(s) ID Date Data Source [id number] 01/16/2021 12:21:00 PM EDT [facility]) Name Value Range Interpretation Code Description Data Jo rce(s) Supporting Document(s) Hemoglobin A1c/Hemoglobin.total in Blood 5.2 % Hemoglobin a1C [facility] ([facility]) estimated average glucose 103 mg/dL 60-110 Estimated Average Glucose [facility]) ID Date Data Source [id number] 01/16/2021 12:21:00 PM EDT [facility]) Name Value Range Interpretation Code Description Data Jo rce(s) Supporting Document(s) total 25(oh) vitamin D 16.8 NG/mL 30.0-100.0 Below low normal T otal 25(Oh) Vitamin D [facility]) ID Date Data Source [id number] 01/16/2021 12:21:00 PM EDT [facility]) Name Value Range Interpretation Code Description Data Jo rce(s) Supporting Document(s) thyroid stimulating hormone 4.420 uIU/mL 0.358-3.740 Above high no rmal Thyroid Stimulating Hormone [facility]) ID Date Data Source [id number] 01/16/2021 12:21:00 PM EDT [facility]) Name Value Range Interpretation Code Description Data Jo rce(s) Supporting Document(s) phosphorus level 4.2 mg/dL 2.5-4.9 Phosphorus Level AT [facility]) ID Date Data Source [id number] 01/16/2021 12:21:00 PM EDT [facility]) Name Value Range Interpretation Code Description Data Jo rce(s) Supporting Document(s) bilirubin,direct < 0.1 0.0-0.2 Bilirubin,direct AT [facility]) ID Date Data Source [id number] 01/16/2021 12:21:00 PM EDT [facility]) Name Value Range Interpretation Code Description Data Jo rce(s) Supporting Document(s) triglycerides level 69 mg/dL <150 Triglycerides [place] [facility] ([facility]) cholesterol level 175 mg/dL <200 Cholesterol Level [facility] ([facility]) non-HDL-C 107 mg/dL Non-hdl-c [facility] ([facility]) HDL cholesterol 68 mg/dL >40 HDL Cholesterol [facility] ([facility]) Cholesterol in LDL [Mass/volume] in Serum or Plasma 93 mg/dL <1 00 LDL Cholesterol [facility] ([facility]) cholesterol risk ratio <5 Cholesterol R isk Ratio [facility] ([facility]) ID Date Data Source [id number] 01/16/2021 12:21:00 PM EDT [place] ([facility]) Name Value Range Interpretation Code Description Data Jo rce(s) Supporting Document(s) blood urea nitrogen 13 mg/dL 7-18 Blood Urea Nitro gen [facility] ([facility]) glucose, fasting 78 mg/dL 70-100 Glucose, Fasting AT [facility] ([facility]) creatinine for GFR 0.72 mg/dL 0.55-1.30 Creatinine for GF R [facility] ([facility]) glomerular filtration rate > 60.0 >60 Glomerula r Filtration Rate [facility] ([facility]) sodium level 140 mEq/L 136-145 Sodium Level [facility] ([facility]) potassium serum 4.2 mEq/L 3.5-5.1 Potassium Serum [facility] ([facility]) chloride level 106 mEq/L 98-107 Chloride Level [facility] ([facility]) carbon dioxide level 30 mEq/L 21-32 Carbon Dioxide Level [facility] ([facility]) anion gap 4 mEq/L 8-16 Below low normal Anion Gap [facility] ( [facility]) calcium level 9.2 mg/dL 8.5-10.1 Calcium Level [facility] ( [facility]) ALT/SGPT 21 U/L 12-78 ALT/SGPT [facility] ([facility]) bilirubin,total 0.3 mg/dL 0.2-1.0 Bilirubin,total [facility] ([facility]) alkaline phosphatase 62 U/L 45-117 Alkaline Phosph atase [facility] ([facility]) AST/SGOT 18 U/L 7-37 AST/SGOT [facility] ([facility]) albumin 4.2 gm/dL 3.2-5.2 Albumin [facility] ([facility]) total protein 7.6 gm/dL 6.4-8.2 Total Protein [facility] ( [facility]) albumin/globulin ratio 1.2-2.2 Albumin/globu claudia Ratio [facility] ([facility]) ID Date Data Source [id number] 01/16/2021 12:21:00 PM EDT [facility] ([facility]) Name Value Range Interpretation Code Description Data Jo rce(s) Supporting Document(s) white blood count 5.3 10 4.0-10.0 White Blood Count [facility] ([facility]) red blood count 4.43 10 4.00-5.40 Red Blood Count [facility] ([facility]) hemoglobin 12.6 g/dL 12.0-15.5 Hemoglobin [facility] ([facility]) mean corpuscular hemoglobin 28.4 pg 27.0-33.0 Mean Cor puscular Hemoglobin [facility] ([facility]) hematocrit 38.9 % 36.0-47.0 Hematocrit [facility] ([facility]) mean corpuscular HGB conc 32.4 g/dL 32.0-36.5 Mean Corpu scular HGB Conc [facility] ([facility]) mean corpuscular volume 87.8 fL 80.0-96.0 Mean Corpusc ular Volume [facility] ([facility]) neutrophils % 40.4 % 36.0-66.0 Neutrophils % [facility] ( [facility]) platelet count, automated 306 10 150-450 Platelet C ount, Automated [facility] ([facility]) red cell distribution width 12.9 % 11.5-14.5 Red Cell Distribution Width [facility] ([facility]) lymph % 45.5 % 24.0-44.0 Above high normal Lymph % [facility] ([facility]) mono % 9.8 % 2.0-8.0 Above high normal [place] % [facility] ([facility]) eos % 2.8 % 0.0-3.0 Eos % [facility] ([facility]) baso % 1.3 % 0.0-1.0 Above high normal Baso % [facility] ([facility]) immature granulocyte % 0.2 % 0-3.0 Immature Gran ulocyte % [facility] ([facility]) mono # 0.5 10 0.0-0.8 [place] # [facility] ([facility]) lymph # 2.4 10 1.5-5.0 Lymph # [facility] ([facility]) neutrophils # 2.1 10 1.5-8.5 Neutrophils # [facility] ( [facility]) nucleated red blood cell % 0.0 % 0-0 Nucleated Red Blood Cell % [facility] ([facility]) baso # 0.1 10 0.0-0.2 Baso # [facility] ([facility]) eos # 0.2 10 0.0-0.5 Eos # [facility] ([facility]) ID Date Data Source [id number] 01/16/2021 12:21:00 PM EDT [place] ([facility]) Name Value Range Interpretation Code Description Data Jo rce(s) Supporting Document(s) Hemoglobin A1c/Hemoglobin.total in Blood 5.2 % Hemoglobin a1C [place] ([facility]) estimated average glucose 103 mg/dL 60-110 Estimated Average Glucose [place] ([facility]) ID Date Data Source [id number] 01/16/2021 12:21:00 PM EDT [place] ([facility]) Name Value Range Interpretation Code Description Data Jo rce(s) Supporting Document(s) total 25(oh) vitamin D 16.8 NG/mL 30.0-100.0 Below low normal T otal 25(Oh) Vitamin D [place] ([facility]) ID Date Data Source [id number] 01/16/2021 12:21:00 PM EDT [place] ([facility]) Name Value Range Interpretation Code Description Data Jo rce(s) Supporting Document(s) thyroid stimulating hormone 4.420 uIU/mL 0.358-3.740 Above high no rmal Thyroid Stimulating Hormone [facility]) ID Date Data Source [id number] 01/16/2021 12:21:00 PM EDT [facility] ([facility]) Name Value Range Interpretation Code Description Data Jo rce(s) Supporting Document(s) phosphorus level 4.2 mg/dL 2.5-4.9 Phosphorus Level AT [facility] ([facility]) ID Date Data Source [id number] 01/16/2021 12:21:00 PM EDT [facility]) Name Value Range Interpretation Code Description Data Jo rce(s) Supporting Document(s) bilirubin,direct < 0.1 0.0-0.2 Bilirubin,direct AT [facility]) ID Date Data Source [id number] 01/16/2021 12:21:00 PM EDT [facility]) Name Value Range Interpretation Code Description Data Jo rce(s) Supporting Document(s) triglycerides level 69 mg/dL <150 Triglycerides [place] [facility] ([facility]) cholesterol level 175 mg/dL <200 Cholesterol Level [facility] ([facility]) non-HDL-C 107 mg/dL Non-hdl-c [facility] ([facility]) Cholesterol in LDL [Mass/volume] in Serum or Plasma 93 mg/dL <1 00 LDL Cholesterol [facility] ([facility]) cholesterol risk ratio <5 Cholesterol R isk Ratio [facility] ([facility]) HDL cholesterol 68 mg/dL >40 [facility] ID Date Data Source [id number] 01/16/2021 12:21:00 PM EDT [facility]) Name Value Range Interpretation Code Description Data Jo rce(s) Supporting Document(s) blood urea nitrogen 13 mg/dL 7-18 Blood Urea Nitro gen [facility] ([facility]) creatinine for GFR 0.72 mg/dL 0.55-1.30 Creatinine for GF R [facility] ([facility]) glucose, fasting 78 mg/dL 70-100 Glucose, Fasting AT [facility]) chloride level 106 mEq/L 98-107 Chloride Level [facility] ([facility]) sodium level 140 mEq/L 136-145 Sodium Level [facility] ([facility]) potassium serum 4.2 mEq/L 3.5-5.1 Potassium Serum [facility] ([facility]) glomerular filtration rate > 60.0 >60 Glomerula r Filtration Rate [facility] ([facility]) anion gap 4 mEq/L 8-16 Below low normal Anion Gap [facility] ( [facility]) carbon dioxide level 30 mEq/L 21-32 Carbon Dioxide Level [facility] ([facility]) calcium level 9.2 mg/dL 8.5-10.1 Calcium Level [facility] ( [facility]) AST/SGOT 18 U/L 7-37 AST/SGOT [facility] ([facility]) bilirubin,total 0.3 mg/dL 0.2-1.0 Bilirubin,total ATHE NA ([facility]) ALT/SGPT 21 U/L 12-78 ALT/SGPT [facility] ([facility]) alkaline phosphatase 62 U/L 45-117 Alkaline Phosph atase [facility] ([facility]) albumin 4.2 gm/dL 3.2-5.2 Albumin [facility] ([facility]) total protein 7.6 gm/dL 6.4-8.2 Total Protein [facility] ( [facility]) albumin/globulin ratio 1.2-2.2 Albumin/globu claudia Ratio [facility] ([facility]) ID Date Data Source [id number] 01/16/2021 12:21:00 PM EDT [facility] ([facility]) Name Value Range Interpretation Code Description Data Jo rce(s) Supporting Document(s) red blood count 4.43 10 4.00-5.40 Red Blood Count [facility] NA ([facility]) white blood count 5.3 10 4.0-10.0 White Blood Count [facility] ([facility]) hematocrit 38.9 % 36.0-47.0 Hematocrit [facility] ([facility]) hemoglobin 12.6 g/dL 12.0-15.5 Hemoglobin [facility] ([facility]) mean corpuscular volume 87.8 fL 80.0-96.0 Mean Corpusc ular Volume [facility] ([facility]) mean corpuscular hemoglobin 28.4 pg 27.0-33.0 Mean Cor puscular Hemoglobin [facility] ([facility]) mean corpuscular HGB conc 32.4 g/dL 32.0-36.5 Mean Corpu scular HGB Conc [facility] ([facility]) red cell distribution width 12.9 % 11.5-14.5 Red Cell Distribution Width [facility] ([facility]) neutrophils % 40.4 % 36.0-66.0 Neutrophils % [facility] ( [facility]) platelet count, automated 306 10 150-450 Platelet C ount, Automated [facility] ([facility]) lymph % 45.5 % 24.0-44.0 Above high normal Lymph % [facility] ([facility]) mono % 9.8 % 2.0-8.0 Above high normal [place] % [facility] ([facility]) immature granulocyte % 0.2 % 0-3.0 Immature Gran ulocyte % [facility] ([facility]) baso % 1.3 % 0.0-1.0 Above high normal Baso % [facility] ([facility]) eos % 2.8 % 0.0-3.0 Eos % [facility] ([facility]) lymph # 2.4 10 1.5-5.0 Lymph # [facility] ([facility]) nucleated red blood cell % 0.0 % 0-0 Nucleated Red Blood Cell % [facility] ([facility]) neutrophils # 2.1 10 1.5-8.5 Neutrophils # [facility] ( [facility]) baso # 0.1 10 0.0-0.2 Baso # [facility] ([facility]) eos # 0.2 10 0.0-0.5 Eos # [facility] ([facility]) mono # 0.5 10 0.0-0.8 [place] # MIGUEL ([facility]) ID Date Data Source [id number] 01/16/2021 12:21:00 PM EDT MIGUEL ([facility]) Name Value Range Interpretation Code Description Data Jo rce(s) Supporting Document(s) estimated average glucose 103 mg/dL 60-110 Estimated Average Glucose [place] ([facility]) Hemoglobin A1c/Hemoglobin.total in Blood 5.2 % Hemoglobin a1C [place] ([facility]) ID Date Data Source [id number] 01/16/2021 12:21:00 PM EDT [place] ([facility]) Name Value Range Interpretation Code Description Data Jo rce(s) Supporting Document(s) total 25(oh) vitamin D 16.8 NG/mL 30.0-100.0 Below low normal T otal 25(Oh) Vitamin D [place] ([facility]) ID Date Data Source [id number] 01/16/2021 12:21:00 PM EDT [place] ([facility]) Name Value Range Interpretation Code Description Data Jo rce(s) Supporting Document(s) thyroid stimulating hormone 4.420 uIU/mL 0.358-3.740 Above high no rmal Thyroid Stimulating Hormone [place] ([facility]) ID Date Data Source [id number] 01/16/2021 12:21:00 PM EDT [place] ([facility]) Name Value Range Interpretation Code Description Data Jo rce(s) Supporting Document(s) phosphorus level 4.2 mg/dL 2.5-4.9 Phosphorus Level AT [facility]) ID Date Data Source [id number] 01/16/2021 12:21:00 PM EDT [place] ([facility]) Name Value Range Interpretation Code Description Data Jo rce(s) Supporting Document(s) bilirubin,direct < 0.1 0.0-0.2 Bilirubin,direct AT [facility]) ID Date Data Source [id number] 01/16/2021 12:21:00 PM EDT MIGUEL ([facility]) Name Value Range Interpretation Code Description Data Jo rce(s) Supporting Document(s) cholesterol level 175 mg/dL <200 Cholesterol Level MIG[place]EL ([facility]) triglycerides level 69 mg/dL <150 Triglycerides [place]EL ([facility]) HDL cholesterol 68 mg/dL >40 HDL Cholesterol [place] ([facility]) non-HDL-C 107 mg/dL Non-hdl-c [place] ([facility]) Cholesterol in LDL [Mass/volume] in Serum or Plasma 93 mg/dL <1 00 LDL Cholesterol [place] ([facility]) cholesterol risk ratio <5 Cholesterol R isk Ratio [place] ([facility]) ID Date Data Source [id number] 01/16/2021 12:21:00 PM EDT [facility]) Name Value Range Interpretation Code Description Data Jo rce(s) Supporting Document(s) blood urea nitrogen 13 mg/dL 7-18 Blood Urea Nitro gen MIGUEL ([facility]) glucose, fasting 78 mg/dL 70-100 Glucose, Fasting AT [facility] ([facility]) glomerular filtration rate > 60.0 >60 Glomerula r Filtration Rate MIG[place]EL ([facility]) creatinine for GFR 0.72 mg/dL 0.55-1.30 Creatinine for GF R [place] ([facility]) chloride level 106 mEq/L 98-107 Chloride Level [place] ([facility]) sodium level 140 mEq/L 136-145 Sodium Level MIGUEL ([facility]) potassium serum 4.2 mEq/L 3.5-5.1 Potassium Serum [place] ([facility]) anion gap 4 mEq/L 8-16 Below low normal Anion Gap MIG[place] ( [facility]) carbon dioxide level 30 mEq/L 21-32 Carbon Dioxide Level M[place] ([facility]) calcium level 9.2 mg/dL 8.5-10.1 Calcium Level [place] ( [facility]) AST/SGOT 18 U/L 7-37 AST/SGOT [place] ([facility]) alkaline phosphatase 62 U/L 45-117 Alkaline Phosph atase MIG[place]EL ([facility]) ALT/SGPT 21 U/L 12-78 ALT/SGPT [place] ([facility]) bilirubin,total 0.3 mg/dL 0.2-1.0 Bilirubin,total [place] ([facility]) albumin 4.2 gm/dL 3.2-5.2 Albumin [place] ([facility]) total protein 7.6 gm/dL 6.4-8.2 Total Protein [place] ( [facility]) albumin/globulin ratio 1.2-2.2 Albumin/globu claudia Ratio [place] ([facility]) ID Date Data Source [id number] 01/16/2021 12:21:00 PM EDT MIGU[place] ([facility]) Name Value Range Interpretation Code Description Data Jo rce(s) Supporting Document(s) red blood count 4.43 10 4.00-5.40 Red Blood Count [place] ([facility]) white blood count 5.3 10 4.0-10.0 White Blood Count [place] ([facility]) hemoglobin 12.6 g/dL 12.0-15.5 Hemoglobin [place] ([facility]) hematocrit 38.9 % 36.0-47.0 Hematocrit [place] ([facility]) mean corpuscular hemoglobin 28.4 pg 27.0-33.0 Mean Cor puscular Hemoglobin [place] ([facility]) mean corpuscular volume 87.8 fL 80.0-96.0 Mean Corpusc ular Volume [place]IG[place] ([facility]) mean corpuscular HGB conc 32.4 g/dL 32.0-36.5 Mean Corpu scular HGB Conc [place] ([facility]) red cell distribution width 12.9 % 11.5-14.5 Red Cell Distribution Width [place] ([facility]) lymph % 45.5 % 24.0-44.0 Above high normal Lymph % MIGUEL ([facility]) neutrophils % 40.4 % 36.0-66.0 Neutrophils % MIG[place] ( [facility]) platelet count, automated 306 10 150-450 Platelet C ount, Automated [place] ([facility]) mono % 9.8 % 2.0-8.0 Above high normal [place] % MIGUEL ([facility]) baso % 1.3 % 0.0-1.0 Above high normal Baso % [place] ([facility]) eos % 2.8 % 0.0-3.0 Eos % MIGUEL ([facility]) immature granulocyte % 0.2 % 0-3.0 Immature Gran ulocyte % [place] ([facility]) nucleated red blood cell % 0.0 % 0-0 Nucleated Red Blood Cell % MIGUEL ([facility]) neutrophils # 2.1 10 1.5-8.5 Neutrophils # [place]IG[place] ( [facility]) mono # 0.5 10 0.0-0.8 [place] # MIGUEL ([facility]) eos # 0.2 10 0.0-0.5 Eos # [place] ([facility]) lymph # 2.4 10 1.5-5.0 Lymph # [place] ([facility]) baso # 0.1 10 0.0-0.2 Bas[place] # [place] ([facility]) ID Date Data Source [id number] 01/16/2021 12:21:00 PM EDT [place] ([facility]) Name Value Range Interpretation Code Description Data Jo rce(s) Supporting Document(s) Hemoglobin A1c/Hemoglobin.total in Blood 5.2 % Hemoglobin a1C [place] ([facility]) estimated average glucose 103 mg/dL 60-110 Estimated Average Glucose [place] ([facility]) ID Date Data Source [id number] 01/16/2021 12:21:00 PM EDT [facility]) Name Value Range Interpretation Code Description Data Jo rce(s) Supporting Document(s) total 25(oh) vitamin D 16.8 NG/mL 30.0-100.0 Below low normal T otal 25(Oh) Vitamin D [facility]) ID Date Data Source [id number] 01/16/2021 12:21:00 PM EDT [facility]) Name Value Range Interpretation Code Description Data Jo rce(s) Supporting Document(s) thyroid stimulating hormone 4.420 uIU/mL 0.358-3.740 Above high no rmal Thyroid Stimulating Hormone [facility]) ID Date Data Source [id number] 01/16/2021 12:21:00 PM EDT [facility]) Name Value Range Interpretation Code Description Data Jo rce(s) Supporting Document(s) phosphorus level 4.2 mg/dL 2.5-4.9 Phosphorus Level AT [facility]) ID Date Data Source [id number] 01/16/2021 12:21:00 PM EDT [facility]) Name Value Range Interpretation Code Description Data Jo rce(s) Supporting Document(s) bilirubin,direct < 0.1 0.0-0.2 Bilirubin,direct AT [facility]) ID Date Data Source [id number] 01/16/2021 12:21:00 PM EDT [facility]) Name Value Range Interpretation Code Description Data Jo rce(s) Supporting Document(s) triglycerides level 69 mg/dL <150 Triglycerides [place] ([facility]) HDL cholesterol 68 mg/dL >40 [facility] cholesterol level 175 mg/dL <200 Cholesterol Level [place] ([facility]) Cholesterol in LDL [Mass/volume] in Serum or Plasma 93 mg/dL <1 00 LDL Cholesterol [place] ([facility]) non-HDL-C 107 mg/dL Non-hdl-c [place] ([facility]) cholesterol risk ratio <5 Cholesterol R isk Ratio [place] ([facility]) ID Date Data Source [id number] 01/16/2021 12:21:00 PM EDT [place] ([facility]) Name Value Range Interpretation Code Description Data Jo rce(s) Supporting Document(s) blood urea nitrogen 13 mg/dL 7-18 Blood Urea Nitro gen [place] ([facility]) glucose, fasting 78 mg/dL 70-100 Glucose, Fasting AT [facility] ([facility]) sodium level 140 mEq/L 136-145 Sodium Level MIGU[place] ([facility]) glomerular filtration rate > 60.0 >60 Glomerula r Filtration Rate [place] ([facility]) creatinine for GFR 0.72 mg/dL 0.55-1.30 Creatinine for GF R [place] ([facility]) chloride level 106 mEq/L 98-107 Chloride Level [place] ([facility]) potassium serum 4.2 mEq/L 3.5-5.1 Potassium Serum [place] ([facility]) anion gap 4 mEq/L 8-16 Below low normal Anion Gap [place] ( [facility]) carbon dioxide level 30 mEq/L 21-32 Carbon Dioxide Level [place] ([facility]) calcium level 9.2 mg/dL 8.5-10.1 Calcium Level [place] ( [facility]) alkaline phosphatase 62 U/L 45-117 Alkaline Phosph atase [place] ([facility]) AST/SGOT 18 U/L 7-37 AST/SGOT [place] ([facility]) ALT/SGPT 21 U/L 12-78 ALT/SGPT [place] ([facility]) albumin 4.2 gm/dL 3.2-5.2 Albumin [place] ([facility]) bilirubin,total 0.3 mg/dL 0.2-1.0 Bilirubin,total ATHE NA ([facility]) total protein 7.6 gm/dL 6.4-8.2 Total Protein [place] ( [facility]) albumin/globulin ratio 1.2-2.2 Albumin/globu claudia Ratio [place] ([facility]) ID Date Data Source [id number] 01/16/2021 12:21:00 PM EDT [place] ([facility]) Name Value Range Interpretation Code Description Data Jo rce(s) Supporting Document(s) white blood count 5.3 10 4.0-10.0 White Blood Count [place] ([facility]) red blood count 4.43 10 4.00-5.40 Red Blood Count [place] ([facility]) hemoglobin 12.6 g/dL 12.0-15.5 Hemoglobin [place] ([facility]) mean corpuscular hemoglobin 28.4 pg 27.0-33.0 Mean Cor puscular Hemoglobin [place] ([facility]) hematocrit 38.9 % 36.0-47.0 Hematocrit [place] ([facility]) mean corpuscular volume 87.8 fL 80.0-96.0 Mean Corpusc ular Volume [place]IG[place] ([facility]) red cell distribution width 12.9 % 11.5-14.5 Red Cell Distribution Width [place] ([facility]) mean corpuscular HGB conc 32.4 g/dL 32.0-36.5 Mean Corpu scular HGB Conc [place] ([facility]) platelet count, automated 306 10 150-450 Platelet C ount, Automated [place] ([facility]) neutrophils % 40.4 % 36.0-66.0 Neutrophils % [place] ( [facility]) mono % 9.8 % 2.0-8.0 Above high normal [place] % MIGUEL ([facility]) lymph % 45.5 % 24.0-44.0 Above high normal Lymph % [place] ([facility]) eos % 2.8 % 0.0-3.0 Eos % MIG[place] ([facility]) nucleated red blood cell % 0.0 % 0-0 Nucleated Red Blood Cell % [place] ([facility]) immature granulocyte % 0.2 % 0-3.0 Immature Gran ulocyte % [place] ([facility]) baso % 1.3 % 0.0-1.0 Above high normal Baso % [place] ([facility]) lymph # 2.4 10 1.5-5.0 Lymph # [place] ([facility]) neutrophils # 2.1 10 1.5-8.5 Neutrophils # MIGUEL ( [facility]) mono # 0.5 10 0.0-0.8 [place] # MIGUEL ([facility]) baso # 0.1 10 0.0-0.2 Baso # [place] ([facility]) eos # 0.2 10 0.0-0.5 Eos # [place] ([facility]) ID Date Data Source [id number] 01/02/2021 12:00:00 AM EDT [facility]) Name Value Range Interpretation Code Description Data Jo rce(s) Supporting Document(s) ID Date Data Source [id number] 01/02/2021 12:00:00 AM EDT [facility]) Name Value Range Interpretation Code Description Data Jo rce(s) Supporting Document(s) ID Date Data Source [id number] 01/02/2021 12:00:00 AM EDT [facility]) Name Value Range Interpretation Code Description Data Jo rce(s) Supporting Document(s) ID Date Data Source [id number] 01/02/2021 12:00:00 AM EDT [facility]) Name Value Range Interpretation Code Description Data Jo rce(s) Supporting Document(s) ID Date Data Source [id number] 11/06/2020 12:00:00 AM EDT [facility]) Name Value Range Interpretation Code Description Data Jo rce(s) Supporting Document(s) ID Date Data Source [id number] 11/06/2020 12:00:00 AM EDT [facility]) Name Value Range Interpretation Code Description Data Jo rce(s) Supporting Document(s) ID Date Data Source [id number] 11/06/2020 12:00:00 AM EDT [facility]) Name Value Range Interpretation Code Description Data Jo rce(s) Supporting Document(s) ID Date Data Source [id number] 11/06/2020 12:00:00 AM EDT [facility]) Name Value Range Interpretation Code Description Data Jo rce(s) Supporting Document(s) ID Date Data Source [id number] 11/06/2020 12:00:00 AM EDT [facility]) Name Value Range Interpretation Code Description Data Jo rce(s) Supporting Document(s) ID Date Data Source [id number] 11/06/2020 12:00:00 AM EDT [facility]) Name Value Range Interpretation Code Description Data Jo rce(s) Supporting Document(s) ID Date Data Source [id number] 10/10/2020 12:00:00 AM EDT [facility]) Name Value Range Interpretation Code Description Data Jo rce(s) Supporting Document(s) ID Date Data Source [id number] 10/10/2020 12:00:00 AM EDT [facility]) Name Value Range Interpretation Code Description Data Jo rce(s) Supporting Document(s) ID Date Data Source [id number] 10/10[facility]2020 [facility] Interpretation Code Description Data Jo rce(s) Supporting Document(s) ID Date Data Source [id number] 10/10/2020 12[facility]00[facility] Name Value Range Interpretation Code Description Data Jo rce(s) Supporting Document(s) ID Date Data Source [id number] 10/10/2020 12[facility]00[facility]00 [facility] Name Value Range Interpretation Code Description Data Jo rce(s) Supporting Document(s) ID Date Data Source [id number] 10/10/2020 12:00[facility]00 [facility] Name Value Range Interpretation Code Description Data Jo rce(s) Supporting Document(s) ID Date Data Source [id number] 10/10/2020 12[facility]00[facility]00 [facility] Name Value Range Interpretation Code Description Data Jo rce(s) Supporting Document(s) ID Date Data Source [id number] 08/15/2020 12:00:00 AM EST MIGUEL [facility]) Name Value Range Interpretation Code Description Data Jo rce(s) Supporting Document(s) ID Date Data Source [id number] 08/15/2020 12:00:00 AM EST MIG[place]EL [facility]) Name Value Range Interpretation Code Description Data Jo rce(s) Supporting Document(s) ID Date Data Source [id number] 08/15/2020 12:00:00 AM EST MIGUEL [facility]) Name Value Range Interpretation Code Description Data Jo rce(s) Supporting Document(s) ID Date Data Source [id number] 08/15/2020 12:00:00 AM EST [place]IG[place] ([facility]) Name Value Range Interpretation Code Description Data Jo rce(s) Supporting Document(s) ID Date Data Source [id number] 08/15/2020 12:00:00 AM EST [place] ([facility]) Name Value Range Interpretation Code Description Data Jo rce(s) Supporting Document(s) ID Date Data Source [id number] 08/15/2020 12:00:00 AM EST [place] ([facility]) Name Value Range Interpretation Code Description Data Jo rce(s) Supporting Document(s) ID Date Data Source [id number] 08/15/2020 12:00:00 AM EST [place] ([facility]) Name Value Range Interpretation Code Description Data Jo rce(s) Supporting Document(s) ID Date Data Source [id number] 08/15/2020 12:00:00 AM EST MIG[place]EL [facility]) Name Value Range Interpretation Code Description Data Jo rce(s) Supporting Document(s) ID Date Data Source [id number] 08/15/2020 12:00:00 AM EST [place] ([facility]) Name Value Range Interpretation Code Description Data Jo rce(s) Supporting Document(s) ID Date Data Source [id number] 04/25/2020 02:17:00 PM EST MIGUEL [facility]) Name Value Range Interpretation Code Description Data Jo rce(s) Supporting Document(s) ID Date Data Source [id number] 04/25/2020 02:17:00 PM EST [place]IG[place]EL ([facility]) Name Value Range Interpretation Code Description Data Jo rce(s) Supporting Document(s) ID Date Data Source [id number] 04/25/2020 02:17:00 PM EST [place]IG[place]EL ([facility]) Name Value Range Interpretation Code Description Data Jo rce(s) Supporting Document(s) ID Date Data Source [id number] 04/25/2020 02:17:00 PM EST MIG[place]EL [facility]) Name Value Range Interpretation Code Description Data Jo rce(s) Supporting Document(s) ID Date Data Source [id number] 04/25/2020 02:17:00 PM EST MIG[place]EL [facility]) Name Value Range Interpretation Code Description Data Jo rce(s) Supporting Document(s) ID Date Data Source [id number] 04/25/2020 02:17:00 PM EST MIGUEL [facility]) Name Value Range Interpretation Code Description Data Jo rce(s) Supporting Document(s) ID Date Data Source [id number] 04/25/2020 02:17:00 PM EST MIG[place]EL ([facility]) Name Value Range Interpretation Code Description Data Jo rce(s) Supporting Document(s) ID Date Data Source [id number] 04/25/2020 02:17:00 PM EST MIGUEL [facility]) Name Value Range Interpretation Code Description Data Jo rce(s) Supporting Document(s) ID Date Data Source [id number] 04/25/2020 02:17:00 PM EST MIGUEL [facility]) Name Value Range Interpretation Code Description Data Jo rce(s) Supporting Document(s) ID Date Data Source [id number] 04/25/2020 02:17:00 PM EST MIGUEL ([facility]) Name Value Range Interpretation Code Description Data Jo rce(s) Supporting Document(s) ID Date Data Source [id number] 04/25/2020 02:17:00 PM EST [place]IG[place]EL ([facility]) Name Value Range Interpretation Code Description Data Jo rce(s) Supporting Document(s) ID Date Data Source [id number] 04/25/2020 02:17:00 PM EST MIGUEL ([facility]) Name Value Range Interpretation Code Description Data Jo rce(s) Supporting Document(s) ID Date Data Source [id number] 04/25/2020 02:17:00 PM EST MIGUEL ([facility]) Name Value Range Interpretation Code Description Data Jo rce(s) Supporting Document(s) ID Date Data Source [id number] 04/25/2020 02:17:00 PM EST MIGUEL [facility]) Name Value Range Interpretation Code Description Data Jo rce(s) Supporting Document(s) Procedure Social History No Information Vital Signs ID Date Data Source [id number] Name Value Range Interpretation Code Description Data Source(s) Diastolic blood pressure 83 mm[Hg] 83 mm[Hg] MIGUEL ([facility]) Systolic blood pressure 145 mm[Hg] 145 mm[Hg] A THENA ([facility]) Body mass index (BMI) [Ratio] 23.6 kg/m2 23.6 k g/m2 MIGUEL ([facility]) Body height 66 [in_i] 66 [in_i] MIGUEL ([facility]) Body weight 2342 [oz_av] 2342 [oz_av] MIGUEL ([facility]) Body height 66 [in_i] 66 [in_i] MIGUEL ([facility]) Body height 66 [in_i] 66 [in_i] MIGUEL ([facility]) Diastolic blood pressure 82 mm[Hg] 82 mm[Hg] MIGUEL ([facility]) Body height 66 [in_i] 66 [in_i] MIGUEL ([facility]) Body mass index (BMI) [Ratio] 22.9 kg/m2 22.9 k g/m2 MIGUEL ([facility]) Systolic blood pressure 134 mm[Hg] 134 mm[Hg] [facility] Body weight 2274 [oz_av] 2274 [oz_av] MIGUEL ([facility]) Diastolic blood pressure 82 mm[Hg] 82 mm[Hg] MIGUEL ([facility]) Body height 66 [in_i] 66 [in_i] MIGUEL ([facility]) Body mass index (BMI) [Ratio] 22.9 kg/m2 22.9 k g/m2 MIGUEL ([facility]) Systolic blood pressure 134 mm[Hg] 134 mm[Hg] [facility] Body weight 2274 [oz_av] 2274 [oz_av] MIGUEL ([facility]) Diastolic blood pressure 82 mm[Hg] 82 mm[Hg] MIGUEL ([facility]) Body height 66 [in_i] 66 [in_i] MIGUEL ([facility]) Body mass index (BMI) [Ratio] 22.9 kg/m2 22.9 k g/m2 MIGUEL ([facility]) Systolic blood pressure 134 mm[Hg] 134 mm[Hg] A THENA ([facility]) Body weight 2274 [oz_av] 2274 [oz_av] MIGUEL ([facility]) Diastolic blood pressure 82 mm[Hg] 82 mm[Hg] MIGUEL ([facility]) Body height 66 [in_i] 66 [in_i] MIGUEL ([facility]) Body mass index (BMI) [Ratio] 22.9 kg/m2 22.9 k g/m2 MIGUEL ([facility]) Systolic blood pressure 134 mm[Hg] 134 mm[Hg] A THENA ([facility]) Body weight 2274 [oz_av] 2274 [oz_av] MIGUEL ([facility]) Body mass index (BMI) [Ratio] 24.6 kg/m2 24.6 k g/m2 MIGUEL ([facility]) Diastolic blood pressure 77 mm[Hg] 77 mm[Hg] MIGUEL ([facility]) Body height 66 [in_i] 66 [in_i] MIGUEL ([facility]) Systolic blood pressure 125 mm[Hg] 125 mm[Hg] [facility] Body weight 2439 [oz_av] 2439 [oz_av] MIGUEL ([facility]) Diastolic blood pressure 77 mm[Hg] 77 mm[Hg] MIGUEL ([facility]) Body height 66 [in_i] 66 [in_i] MIGUEL ([facility]) Body mass index (BMI) [Ratio] 24.6 kg/m2 24.6 k g/m2 MIGUEL ([facility]) Systolic blood pressure 125 mm[Hg] 125 mm[Hg] A THENA ([facility]) Body weight 2439 [oz_av] 2439 [oz_av] MIGUEL ([facility]) Diastolic blood pressure 77 mm[Hg] 77 mm[Hg] MIGUEL ([facility]) Body height 66 [in_i] 66 [in_i] MIGUEL ([facility]) Body mass index (BMI) [Ratio] 24.6 kg/m2 24.6 k g/m2 MIGUEL ([facility]) Systolic blood pressure 125 mm[Hg] 125 mm[Hg] A THENA ([facility]) Body weight 2439 [oz_av] 2439 [oz_av] MIGUEL ([facility]) Diastolic blood pressure 77 mm[Hg] 77 mm[Hg] MIGUEL ([facility]) Body height 66 [in_i] 66 [in_i] MIGUEL ([facility]) Body mass index (BMI) [Ratio] 24.6 kg/m2 24.6 k g/m2 MIGUEL ([facility]) Systolic blood pressure 125 mm[Hg] 125 mm[Hg] A THENA ([facility]) Body weight 2439 [oz_av] 2439 [oz_av] MIGUEL ([facility]) Diastolic blood pressure 77 mm[Hg] 77 mm[Hg] MIGUEL ([facility]) Body height 66 [in_i] 66 [in_i] MIGUEL ([facility]) Body mass index (BMI) [Ratio] 24.6 kg/m2 24.6 k g/m2 MIGUEL ([facility]) Systolic blood pressure 125 mm[Hg] 125 mm[Hg] A THENA ([facility]) Body weight 2439 [oz_av] 2439 [oz_av] MIGUEL ([facility]) Body height 66 [in_i] 66 [in_i] MIGUEL ([facility]) Body height 66 [in_i] 66 [in_i] MIGUEL ([facility]) Body height 66 [in_i] 66 [in_i] MIGUEL ([facility]) Body height 66 [in_i] 66 [in_i] MIGUEL ([facility]) Body height 66 [in_i] 66 [in_i] MIGUEL ([facility]) Body height 66 [in_i] 66 [in_i] MIGUEL ([facility]) Diastolic blood pressure 84 mm[Hg] 84 mm[Hg] MIGUEL ([facility]) Body weight 2454 [oz_av] 2454 [oz_av] MIGUEL ([facility]) Body height 66 [in_i] 66 [in_i] MIGUEL ([facility]) Body mass index (BMI) [Ratio] 24.8 kg/m2 24.8 k g/m2 MIGUEL ([facility]) Systolic blood pressure 141 mm[Hg] 141 mm[Hg] A THENA ([facility]) Diastolic blood pressure 84 mm[Hg] 84 mm[Hg] MIGUEL ([facility]) Body height 66 [in_i] 66 [in_i] MIGUEL ([facility]) Body mass index (BMI) [Ratio] 24.8 kg/m2 24.8 k g/m2 MIGUEL ([facility]) Systolic blood pressure 141 mm[Hg] 141 mm[Hg] A THENA ([facility]) Body weight 2454 [oz_av] 2454 [oz_av] MIGUEL ([facility]) Diastolic blood pressure 84 mm[Hg] 84 mm[Hg] MIGUEL ([facility]) Body height 66 [in_i] 66 [in_i] MIGUEL ([facility]) Body mass index (BMI) [Ratio] 24.8 kg/m2 24.8 k g/m2 MIGUEL ([facility]) Systolic blood pressure 141 mm[Hg] 141 mm[Hg] A THENA ([facility]) Body weight 2454 [oz_av] 2454 [oz_av] MIGUEL ([facility]) Body mass index (BMI) [Ratio] 24.8 kg/m2 24.8 k g/m2 MIGUEL ([facility]) Systolic blood pressure 141 mm[Hg] 141 mm[Hg] A THENA ([facility]) Diastolic blood pressure 84 mm[Hg] 84 mm[Hg] MIGUEL ([facility]) Body height 66 [in_i] 66 [in_i] MIGUEL ([facility]) Body weight 2454 [oz_av] 2454 [oz_av] MIGUEL ([facility]) Diastolic blood pressure 84 mm[Hg] 84 mm[Hg] MIGUEL ([facility]) Body height 66 [in_i] 66 [in_i] MIGUEL ([facility]) Body mass index (BMI) [Ratio] 24.8 kg/m2 24.8 k g/m2 MIGUEL ([facility]) Systolic blood pressure 141 mm[Hg] 141 mm[Hg] A THENA ([facility]) Body weight 2454 [oz_av] 2454 [oz_av] MIGUEL ([facility]) Diastolic blood pressure 84 mm[Hg] 84 mm[Hg] MIGUEL ([facility]) Body height 66 [in_i] 66 [in_i] MIGUEL ([facility]) Body mass index (BMI) [Ratio] 24.8 kg/m2 24.8 k g/m2 MIGUEL ([facility]) Systolic blood pressure 141 mm[Hg] 141 mm[Hg] A THENA ([facility]) Body weight 2454 [oz_av] 2454 [oz_av] MIGUEL ([facility]) Diastolic blood pressure 84 mm[Hg] 84 mm[Hg] MIGUEL ([facility]) Body height 66 [in_i] 66 [in_i] MIGUEL ([facility]) Body mass index (BMI) [Ratio] 24.8 kg/m2 24.8 k g/m2 MIGUEL ([facility]) Systolic blood pressure 141 mm[Hg] 141 mm[Hg] [facility] Body weight 2454 [oz_av] 2454 [oz_av] MIGUEL ([facility]) Body height 66 [in_i] 66 [in_i] MIGUEL ([facility]) Body mass index (BMI) [Ratio] 22.8 kg/m2 22.8 k g/m2 MIGUEL ([facility]) Systolic blood pressure 149 mm[Hg] 149 mm[Hg] [facility] Body weight 2264 [oz_av] 2264 [oz_av] MIGUEL ([facility]) Diastolic blood pressure 80 mm[Hg] 80 mm[Hg] MIGUEL ([facility]) Body mass index (BMI) [Ratio] 22.8 kg/m2 22.8 k g/m2 MIGUEL ([facility]) Systolic blood pressure 149 mm[Hg] 149 mm[Hg] A THENA ([facility]) Body weight 2264 [oz_av] 2264 [oz_av] MIGUEL ([facility]) Diastolic blood pressure 80 mm[Hg] 80 mm[Hg] MIGUEL ([facility]) Body height 66 [in_i] 66 [in_i] MIGUEL ([facility]) Diastolic blood pressure 80 mm[Hg] 80 mm[Hg] MIGUEL ([facility]) Body height 66 [in_i] 66 [in_i] MIGUEL ([facility]) Body mass index (BMI) [Ratio] 22.8 kg/m2 22.8 k g/m2 MIGUEL ([facility]) Systolic blood pressure 149 mm[Hg] 149 mm[Hg] [facility] Body weight 2264 [oz_av] 2264 [oz_av] MIGUEL ([facility]) Diastolic blood pressure 80 mm[Hg] 80 mm[Hg] MIGUEL ([facility]) Body height 66 [in_i] 66 [in_i] MIGUEL ([facility]) Body mass index (BMI) [Ratio] 22.8 kg/m2 22.8 k g/m2 MIGUEL ([facility]) Systolic blood pressure 149 mm[Hg] 149 mm[Hg] [facility]) Body weight 2264 [oz_av] 2264 [oz_av] MIGUEL ([facility]) Body mass index (BMI) [Ratio] 22.8 kg/m2 22.8 k g/m2 MIGUEL ([facility]) Systolic blood pressure 149 mm[Hg] 149 mm[Hg] A THENA ([facility]) Body weight 2264 [oz_av] 2264 [oz_av] MIGUEL ([facility]) Diastolic blood pressure 80 mm[Hg] 80 mm[Hg] MIGUEL ([facility]) Body height 66 [in_i] 66 [in_i] MIGUEL ([facility]) Diastolic blood pressure 80 mm[Hg] 80 mm[Hg] MIGUEL ([facility]) Body height 66 [in_i] 66 [in_i] MIGUEL ([facility]) Body mass index (BMI) [Ratio] 22.8 kg/m2 22.8 k g/m2 MIGUEL ([facility]) Systolic blood pressure 149 mm[Hg] 149 mm[Hg] A THENA ([facility]) Body weight 2264 [oz_av] 2264 [oz_av] MIGUEL ([facility]) Body weight 2264 [oz_av] 2264 [oz_av] MIGUEL ([facility]) Systolic blood pressure 149 mm[Hg] 149 mm[Hg] [facility]) Diastolic blood pressure 80 mm[Hg] 80 mm[Hg] MIGUEL ([facility]) Body height 66 [in_i] 66 [in_i] MIGUEL ([facility]) Body mass index (BMI) [Ratio] 22.8 kg/m2 22.8 k g/m2 MIGUEL ([facility]) Body weight 2264 [oz_av] 2264 [oz_av] MIGUEL ([facility]) Diastolic blood pressure 80 mm[Hg] 80 mm[Hg] MIGUEL ([facility]) Body height 66 [in_i] 66 [in_i] MIGUEL ([facility]) Body mass index (BMI) [Ratio] 22.8 kg/m2 22.8 k g/m2 MIGUEL ([facility]) Systolic blood pressure 149 mm[Hg] 149 mm[Hg] A THENA ([facility]) Body height 66 [in_i] 66 [in_i] MIGUEL ([facility]) Body height 66 [in_i] 66 [in_i] MIGUEL ([facility]) Body height 66 [in_i] 66 [in_i] MIGUEL ([facility]) Body height 66 [in_i] 66 [in_i] MIGUEL ([facility]) Body height 66 [in_i] 66 [in_i] MIGUEL ([facility]) Body height 66 [in_i] 66 [in_i] MIGUEL ([facility]) Body height 66 [in_i] 66 [in_i] MIGUEL ([facility]) Body height 66 [in_i] 66 [in_i] MIGUEL ([facility]) Body height 66 [in_i] 66 [in_i] MIGUEL ([facility]) Diastolic blood pressure 81 mm[Hg] 81 mm[Hg] MIGUEL ([facility]) Body height 66 [in_i] 66 [in_i] MIGUEL ([facility]) Body mass index (BMI) [Ratio] 23.3 kg/m2 23.3 k g/m2 MIGUEL ([facility]) Diastolic blood pressure 78 mm[Hg] 78 mm[Hg] MIGUEL ([facility]) Systolic blood pressure 154 mm[Hg] 154 mm[Hg] A THENA ([facility]) Systolic blood pressure 155 mm[Hg] 155 mm[Hg] A THENA ([facility]) Body weight 2313.6 [oz_av] 2313.6 [oz_av] ATHEN A ([facility]) Systolic blood pressure 155 mm[Hg] 155 mm[Hg] A THENA ([facility]) Systolic blood pressure 154 mm[Hg] 154 mm[Hg] A THENA ([facility]) Diastolic blood pressure 78 mm[Hg] 78 mm[Hg] MIGUEL ([facility]) Diastolic blood pressure 81 mm[Hg] 81 mm[Hg] MIGUEL ([facility]) Body weight 2313.6 [oz_av] 2313.6 [oz_av] ATHEN A ([facility]) Body height 66 [in_i] 66 [in_i] MIGUEL ([facility]) Body mass index (BMI) [Ratio] 23.3 kg/m2 23.3 k g/m2 MIGUEL ([facility]) Diastolic blood pressure 78 mm[Hg] 78 mm[Hg] MIGUEL ([facility]) Diastolic blood pressure 81 mm[Hg] 81 mm[Hg] MIGUEL ([facility]) Body height 66 [in_i] 66 [in_i] MIGUEL ([facility]) Body mass index (BMI) [Ratio] 23.3 kg/m2 23.3 k g/m2 MIGUEL ([facility]) Systolic blood pressure 154 mm[Hg] 154 mm[Hg] A THENA ([facility]) Systolic blood pressure 155 mm[Hg] 155 mm[Hg] A THENA ([facility]) Body weight 2313.6 [oz_av] 2313.6 [oz_av] ATHEN A ([facility]) Diastolic blood pressure 78 mm[Hg] 78 mm[Hg] MIGUEL ([facility]) Diastolic blood pressure 81 mm[Hg] 81 mm[Hg] MIGUEL ([facility]) Body height 66 [in_i] 66 [in_i] MIGUEL ([facility]) Body mass index (BMI) [Ratio] 23.3 kg/m2 23.3 k g/m2 MIGUEL ([facility]) Diastolic blood pressure 78 mm[Hg] 78 mm[Hg] MIGUEL ([facility]) Diastolic blood pressure 81 mm[Hg] 81 mm[Hg] MIGUEL ([facility]) Body height 66 [in_i] 66 [in_i] MIGUEL ([facility]) Body mass index (BMI) [Ratio] 23.3 kg/m2 23.3 k g/m2 MIGUEL ([facility]) Systolic blood pressure 154 mm[Hg] 154 mm[Hg] A THENA ([facility]) Systolic blood pressure 154 mm[Hg] 154 mm[Hg] A THENA ([facility]) Systolic blood pressure 155 mm[Hg] 155 mm[Hg] [facility] Body weight 2313.6 [oz_av] 2313.6 [oz_av] ATHEN A ([facility]) Systolic blood pressure 155 mm[Hg] 155 mm[Hg] [facility] Body weight 2313.6 [oz_av] 2313.6 [oz_av] ATHEN A ([facility]) Diastolic blood pressure 78 mm[Hg] 78 mm[Hg] MIGUEL ([facility]) Diastolic blood pressure 81 mm[Hg] 81 mm[Hg] MIGUEL ([facility]) Body height 66 [in_i] 66 [in_i] MIGUEL ([facility]) Body mass index (BMI) [Ratio] 23.3 kg/m2 23.3 k g/m2 MIGUEL ([facility]) Systolic blood pressure 154 mm[Hg] 154 mm[Hg] A THENA ([facility]) Systolic blood pressure 155 mm[Hg] 155 mm[Hg] A THENA ([facility]) Body weight 2313.6 [oz_av] 2313.6 [oz_av] ATHEN A ([facility]) Diastolic blood pressure 78 mm[Hg] 78 mm[Hg] MIGUEL ([facility]) Diastolic blood pressure 81 mm[Hg] 81 mm[Hg] MIGUEL ([facility]) Body height 66 [in_i] 66 [in_i] MIGUEL ([facility]) Body mass index (BMI) [Ratio] 23.3 kg/m2 23.3 k g/m2 MIGUEL ([facility]) Systolic blood pressure 154 mm[Hg] 154 mm[Hg] A THENA ([facility]) Systolic blood pressure 155 mm[Hg] 155 mm[Hg] A THENA ([facility]) Body weight 2313.6 [oz_av] 2313.6 [oz_av] ATHEN A ([facility]) Diastolic blood pressure 78 mm[Hg] 78 mm[Hg] MIGUEL ([facility]) Diastolic blood pressure 81 mm[Hg] 81 mm[Hg] MIGUEL ([facility]) Body height 66 [in_i] 66 [in_i] MIGUEL ([facility]) Body mass index (BMI) [Ratio] 23.3 kg/m2 23.3 k g/m2 MIGUEL ([facility]) Systolic blood pressure 154 mm[Hg] 154 mm[Hg] [facility] Body weight 2313.6 [oz_av] 2313.6 [oz_av] ATHEN A ([facility]) Systolic blood pressure 155 mm[Hg] 155 mm[Hg] A THENA ([facility]) Diastolic blood pressure 78 mm[Hg] 78 mm[Hg] MIGUEL ([facility]) Diastolic blood pressure 81 mm[Hg] 81 mm[Hg] MIGUEL ([facility]) Body height 66 [in_i] 66 [in_i] MIGUEL ([facility]) Body mass index (BMI) [Ratio] 23.3 kg/m2 23.3 k g/m2 MIGUEL ([facility]) Systolic blood pressure 154 mm[Hg] 154 mm[Hg] A THENA ([facility]) Systolic blood pressure 155 mm[Hg] 155 mm[Hg] A THENA ([facility]) Body weight 2313.6 [oz_av] 2313.6 [oz_av] ATHEN A ([facility]) Diastolic blood pressure 78 mm[Hg] 78 mm[Hg] MIGUEL ([facility]) Diastolic blood pressure 81 mm[Hg] 81 mm[Hg] MIGUEL ([facility]) Body height 66 [in_i] 66 [in_i] MIGUEL ([facility]) Body mass index (BMI) [Ratio] 23.3 kg/m2 23.3 k g/m2 MIGUEL ([facility]) Systolic blood pressure 154 mm[Hg] 154 mm[Hg] A THENA ([facility]) Systolic blood pressure 155 mm[Hg] 155 mm[Hg] A THENA ([facility]) Body weight 2313.6 [oz_av] 2313.6 [oz_av] ATHEN A ([facility]) Body height 66 [in_i] 66 [in_i] MIGUEL ([facility]) Body height 66 [in_i] 66 [in_i] MIGUEL ([facility]) Body height 66 [in_i] 66 [in_i] MIGUEL ([facility]) Body height 66 [in_i] 66 [in_i] MIGUEL ([facility]) Body height 66 [in_i] 66 [in_i] MIGUEL ([facility]) Body height 66 [in_i] 66 [in_i] MIGUEL ([facility]) Body height 66 [in_i] 66 [in_i] MIGUEL ([facility]) Body height 66 [in_i] 66 [in_i] MIGUEL ([facility]) Body height 66 [in_i] 66 [in_i] MIGUEL ([facility]) Body height 66 [in_i] 66 [in_i] MIGUEL ([facility]) Body height 66 [in_i] 66 [in_i] MIGUEL ([facility]) Diastolic blood pressure 92 mm[Hg] 92 mm[Hg] MIGUEL ([facility]) Body height 66 [in_i] 66 [in_i] MIGUEL ([facility]) Body mass index (BMI) [Ratio] 22.3 kg/m2 22.3 k g/m2 MIGUEL ([facility]) Diastolic blood pressure 92 mm[Hg] 92 mm[Hg] MIGUEL ([facility]) Body height 66 [in_i] 66 [in_i] MIGUEL ([facility]) Body mass index (BMI) [Ratio] 22.3 kg/m2 22.3 k g/m2 MIGUEL ([facility]) Systolic blood pressure 152 mm[Hg] 152 mm[Hg] [facility] Body weight 2208 [oz_av] 2208 [oz_av] MIGUEL ([facility]) Systolic blood pressure 152 mm[Hg] 152 mm[Hg] A THENA ([facility]) Body weight 2208 [oz_av] 2208 [oz_av] MIGUEL ([facility]) Diastolic blood pressure 92 mm[Hg] 92 mm[Hg] MIGUEL ([facility]) Body height 66 [in_i] 66 [in_i] MIGUEL ([facility]) Body mass index (BMI) [Ratio] 22.3 kg/m2 22.3 k g/m2 MIGUEL ([facility]) Systolic blood pressure 152 mm[Hg] 152 mm[Hg] [facility]) Body weight 2208 [oz_av] 2208 [oz_av] MIGUEL ([facility]) Diastolic blood pressure 92 mm[Hg] 92 mm[Hg] MIGUEL ([facility]) Body mass index (BMI) [Ratio] 22.3 kg/m2 22.3 k g/m2 MIGUEL ([facility]) Body weight 2208 [oz_av] 2208 [oz_av] MIGUEL ([facility]) Body height 66 [in_i] 66 [in_i] MIGUEL ([facility]) Systolic blood pressure 152 mm[Hg] 152 mm[Hg] [facility]) Diastolic blood pressure 92 mm[Hg] 92 mm[Hg] MIGUEL ([facility]) Body height 66 [in_i] 66 [in_i] MIGUEL ([facility]) Body mass index (BMI) [Ratio] 22.3 kg/m2 22.3 k g/m2 MIGUEL ([facility]) Systolic blood pressure 152 mm[Hg] 152 mm[Hg] A THENA ([facility]) Body weight 2208 [oz_av] 2208 [oz_av] MIGUEL ([facility]) Body height 66 [in_i] 66 [in_i] MIGUEL ([facility]) Body mass index (BMI) [Ratio] 22.3 kg/m2 22.3 k g/m2 MIGUEL ([facility]) Systolic blood pressure 152 mm[Hg] 152 mm[Hg] A [facility] ([facility]) Body weight 2208 [oz_av] 2208 [oz_av] MIGUEL ([facility]) Diastolic blood pressure 92 mm[Hg] 92 mm[Hg] MIGUEL ([facility]) Body height 66 [in_i] 66 [in_i] MIGUEL ([facility]) Body mass index (BMI) [Ratio] 22.3 kg/m2 22.3 k g/m2 MIGUEL ([facility]) Systolic blood pressure 152 mm[Hg] 152 mm[Hg] A [facility] ([facility]) Body weight 2208 [oz_av] 2208 [oz_av] MIGUEL ([facility]) Diastolic blood pressure 92 mm[Hg] 92 mm[Hg] MIGUEL ([facility]) Diastolic blood pressure 92 mm[Hg] 92 mm[Hg] MIGUEL ([facility]) Body height 66 [in_i] 66 [in_i] MIGUEL ([facility]) Body mass index (BMI) [Ratio] 22.3 kg/m2 22.3 k g/m2 MIGUEL ([facility]) Systolic blood pressure 152 mm[Hg] 152 mm[Hg] A THENA ([facility]) Body weight 2208 [oz_av] 2208 [oz_av] MIGUEL ([facility]) Diastolic blood pressure 92 mm[Hg] 92 mm[Hg] MIGUEL ([facility]) Body height 66 [in_i] 66 [in_i] MIGUEL ([facility]) Body mass index (BMI) [Ratio] 22.3 kg/m2 22.3 k g/m2 MIGUEL ([facility]) Systolic blood pressure 152 mm[Hg] 152 mm[Hg] [facility] Body weight 2208 [oz_av] 2208 [oz_av] MIGUEL ([facility]) Diastolic blood pressure 92 mm[Hg] 92 mm[Hg] MIGUEL ([facility]) Body height 66 [in_i] 66 [in_i] MIGUEL ([facility]) Systolic blood pressure 152 mm[Hg] 152 mm[Hg] A [facility] ([facility]) Body mass index (BMI) [Ratio] 22.3 kg/m2 22.3 k g/m2 MIGUEL ([facility]) Body weight 2208 [oz_av] 2208 [oz_av] MIGUEL ([facility]) Diastolic blood pressure 92 mm[Hg] 92 mm[Hg] MIGUEL ([facility]) Body height 66 [in_i] 66 [in_i] MIGUEL ([facility]) Body mass index (BMI) [Ratio] 22.3 kg/m2 22.3 k g/m2 MIGUEL ([facility]) Systolic blood pressure 152 mm[Hg] 152 mm[Hg] A [facility] ([facility]) Body weight 2208 [oz_av] 2208 [oz_av] MIGUEL ([facility]) Diastolic blood pressure 92 mm[Hg] 92 mm[Hg] MIGUEL ([facility]) Body height 66 [in_i] 66 [in_i] MIGUEL ([facility]) Body mass index (BMI) [Ratio] 22.3 kg/m2 22.3 k g/m2 MIGUEL ([facility]) Systolic blood pressure 152 mm[Hg] 152 mm[Hg] A [facility] ([facility]) Body weight 2208 [oz_av] 2208 [oz_av] MIGUEL ([facility]) Diastolic blood pressure 83 mm[Hg] 83 mm[Hg] MIGUEL ([facility]) Body height 66 [in_i] 66 [in_i] MIGUEL ([facility]) Body mass index (BMI) [Ratio] 21.7 kg/m2 21.7 k g/m2 MIGUEL ([facility]) Systolic blood pressure 133 mm[Hg] 133 mm[Hg] A [facility] ([facility]) Body weight 2148 [oz_av] 2148 [oz_av] MIGUEL ([facility]) Diastolic blood pressure 83 mm[Hg] 83 mm[Hg] MIGUEL ([facility]) Body height 66 [in_i] 66 [in_i] MIGUEL ([facility]) Body mass index (BMI) [Ratio] 21.7 kg/m2 21.7 k g/m2 MIGUEL ([facility]) Systolic blood pressure 133 mm[Hg] 133 mm[Hg] A [facility] ([facility]) Body weight 2148 [oz_av] 2148 [oz_av] MIGUEL ([facility]) Diastolic blood pressure 83 mm[Hg] 83 mm[Hg] MIGUEL ([facility]) Body height 66 [in_i] 66 [in_i] MIGUEL ([facility]) Body mass index (BMI) [Ratio] 21.7 kg/m2 21.7 k g/m2 MIGUEL ([facility]) Systolic blood pressure 133 mm[Hg] 133 mm[Hg] A THEN ([facility]) Body weight 2148 [oz_av] 2148 [oz_av] MIGUEL ([facility]) Diastolic blood pressure 83 mm[Hg] 83 mm[Hg] MIGUEL ([facility]) Body height 66 [in_i] 66 [in_i] MIGUEL ([facility]) Body mass index (BMI) [Ratio] 21.7 kg/m2 21.7 k g/m2 MIGUEL ([facility]) Systolic blood pressure 133 mm[Hg] 133 mm[Hg] A THENA ([facility]) Body weight 2148 [oz_av] 2148 [oz_av] MIGUEL ([facility]) Diastolic blood pressure 83 mm[Hg] 83 mm[Hg] MIGUEL ([facility]) Body height 66 [in_i] 66 [in_i] MIGUEL ([facility]) Body mass index (BMI) [Ratio] 21.7 kg/m2 21.7 k g/m2 MIGUEL ([facility]) Systolic blood pressure 133 mm[Hg] 133 mm[Hg] A [facility] ([facility]) Body weight 2148 [oz_av] 2148 [oz_av] MIGUEL ([facility]) Diastolic blood pressure 83 mm[Hg] 83 mm[Hg] MIGUEL ([facility]) Body height 66 [in_i] 66 [in_i] MIGUEL ([facility]) Body mass index (BMI) [Ratio] 21.7 kg/m2 21.7 k g/m2 MIGUEL ([facility]) Systolic blood pressure 133 mm[Hg] 133 mm[Hg] A [facility] ([facility]) Body weight 2148 [oz_av] 2148 [oz_av] MIGUEL ([facility]) Diastolic blood pressure 83 mm[Hg] 83 mm[Hg] MIGUEL ([facility]) Body height 66 [in_i] 66 [in_i] MIGUEL ([facility]) Body mass index (BMI) [Ratio] 21.7 kg/m2 21.7 k g/m2 MIGUEL ([facility]) Systolic blood pressure 133 mm[Hg] 133 mm[Hg] A [facility] ([facility]) Body weight 2148 [oz_av] 2148 [oz_av] MIGUEL ([facility]) Diastolic blood pressure 83 mm[Hg] 83 mm[Hg] MIGUEL ([facility]) Body height 66 [in_i] 66 [in_i] MIGUEL ([facility]) Body mass index (BMI) [Ratio] 21.7 kg/m2 21.7 k g/m2 MIGUEL ([facility]) Systolic blood pressure 133 mm[Hg] 133 mm[Hg] A THENA ([facility]) Body weight 2148 [oz_av] 2148 [oz_av] MIGUEL ([facility]) Body mass index (BMI) [Ratio] 21.7 kg/m2 21.7 k g/m2 MIGUEL ([facility]) Systolic blood pressure 133 mm[Hg] 133 mm[Hg] A THENA ([facility]) Body weight 2148 [oz_av] 2148 [oz_av] MIGUEL ([facility]) Diastolic blood pressure 83 mm[Hg] 83 mm[Hg] MIGUEL ([facility]) Body height 66 [in_i] 66 [in_i] MIGUEL ([facility]) Diastolic blood pressure 83 mm[Hg] 83 mm[Hg] MIGUEL ([facility]) Body height 66 [in_i] 66 [in_i] MIGUEL ([facility]) Body mass index (BMI) [Ratio] 21.7 kg/m2 21.7 k g/m2 MIGUEL ([facility]) Systolic blood pressure 133 mm[Hg] 133 mm[Hg] A [facility] ([facility]) Body weight 2148 [oz_av] 2148 [oz_av] MIGUEL ([facility]) Body height 66 [in_i] 66 [in_i] MIGUEL ([facility]) Diastolic blood pressure 83 mm[Hg] 83 mm[Hg] MIGUEL ([facility]) Systolic blood pressure 133 mm[Hg] 133 mm[Hg] A [facility] ([facility]) Body mass index (BMI) [Ratio] 21.7 kg/m2 21.7 k g/m2 MIGUEL ([facility]) Body weight 2148 [oz_av] 2148 [oz_av] MIGUEL ([facility]) Diastolic blood pressure 83 mm[Hg] 83 mm[Hg] MIGUEL ([facility]) Body height 66 [in_i] 66 [in_i] MIGUEL ([facility]) Body mass index (BMI) [Ratio] 21.7 kg/m2 21.7 k g/m2 MIGUEL ([facility]) Systolic blood pressure 133 mm[Hg] 133 mm[Hg] A [facility] ([facility]) Body weight 2148 [oz_av] 2148 [oz_av] MIGUEL ([facility]) Diastolic blood pressure 83 mm[Hg] 83 mm[Hg] MIGUEL ([facility]) Body height 66 [in_i] 66 [in_i] MIGUEL ([facility]) Body mass index (BMI) [Ratio] 21.7 kg/m2 21.7 k g/m2 MIGUEL ([facility]) Systolic blood pressure 133 mm[Hg] 133 mm[Hg] A [facility] ([facility]) Body weight 2148 [oz_av] 2148 [oz_av] MIGUEL ([facility]) Body height 66 [in_i] 66 [in_i] MIGUEL ([facility]) Body height 66 [in_i] 66 [in_i] MIGUEL ([facility]) Body height 66 [in_i] 66 [in_i] MIGUEL ([facility]) Body height 66 [in_i] 66 [in_i] MIGUEL ([facility]) Body height 66 [in_i] 66 [in_i] MIGUEL ([facility]) Body height 66 [in_i] 66 [in_i] MIGUEL ([facility]) Body height 66 [in_i] 66 [in_i] MIGUEL ([facility]) Body height 66 [in_i] 66 [in_i] MIGUEL ([facility]) Body height 66 [in_i] 66 [in_i] MIGUEL ([facility]) Body height 66 [in_i] 66 [in_i] MIGUEL ([facility]) Body height 66 [in_i] 66 [in_i] MIGUEL ([facility]) Patient Treatment Plan of Care Planned Activity Planned Date Details Description Data Source (s) gabapentin 800 MG Oral Tablet 08/04/2017 12:00:00 AM EST [employer] ([facility]) gabapentin 800 MG Oral Tablet 08/04/2017 12:00:00 AM EST [employer] ([facility]) gabapentin 800 MG Oral Tablet 08/04/2017 12:00:00 AM EST [employer] ([facility]) gabapentin 800 MG Oral Tablet 08/04/2017 12:00:00 AM EST [employer] ([facility]) gabapentin 800 MG Oral Tablet 08/04/2017 12:00:00 AM EST [employer] ([facility]) gabapentin 800 MG Oral Tablet 08/04/2017 12:00:00 AM EST [employer] ([facility]) Penicillin V Potassium 500 MG Oral Tablet MIGUEL ([facility]) Penicillin V Potassium 250 MG Oral Tablet MIGUEL ([facility]) Fluconazole 150 MG Oral Tablet MIGUEL ([facility]) duloxetine 20 MG Delayed Release Oral Capsule MIGUEL ([facility]) Cephalexin 500 MG Oral Capsule MIGUEL ([facility]) Buprenorphine 8 MG Sublingual Tablet MIGUEL ([facility]) Penicillin V Potassium 500 MG Oral Tablet MIGUEL ([facility]) Penicillin V Potassium 250 MG Oral Tablet MIGUEL ([facility]) Fluconazole 150 MG Oral Tablet MIGUEL ([facility]) duloxetine 20 MG Delayed Release Oral Capsule MIGUEL ([facility]) Cephalexin 500 MG Oral Capsule MIGUEL ([facility]) Buprenorphine 8 MG Sublingual Tablet MIGUEL ([facility]) Penicillin V Potassium 500 MG Oral Tablet MIGUEL ([facility]) Penicillin V Potassium 250 MG Oral Tablet MIGUEL ([facility]) Fluconazole 150 MG Oral Tablet MIGUEL ([facility]) duloxetine 20 MG Delayed Release Oral Capsule MIGUEL ([facility]) Cephalexin 500 MG Oral Capsule MIGUEL ([facility]) Buprenorphine 8 MG Sublingual Tablet MIUGEL ([facility]) Penicillin V Potassium 500 MG Oral Tablet MIGUEL ([facility]) Penicillin V Potassium 250 MG Oral Tablet MIGUEL ([facility]) Fluconazole 150 MG Oral Tablet MIGUEL ([facility]) duloxetine 20 MG Delayed Release Oral Capsule MIGUEL ([facility]) Cephalexin 500 MG Oral Capsule MIGUEL ([facility]) Buprenorphine 8 MG Sublingual Tablet MIGUEL ([facility]) Penicillin V Potassium 500 MG Oral Tablet MIGUEL ([facility]) Penicillin V Potassium 250 MG Oral Tablet MIGUEL ([facility]) Fluconazole 150 MG Oral Tablet MIGUEL ([facility]) duloxetine 20 MG Delayed Release Oral Capsule MIGUEL ([facility]) Cephalexin 500 MG Oral Capsule MIGUEL ([facility]) Penicillin V Potassium 500 MG Oral Tablet MIGUEL ([facility]) Penicillin V Potassium 250 MG Oral Tablet MIGUEL ([facility]) Fluconazole 150 MG Oral Tablet MIGUEL ([facility]) duloxetine 20 MG Delayed Release Oral Capsule MIGUEL ([facility]) Cephalexin 500 MG Oral Capsule MIGUEL ([facility]) Penicillin V Potassium 250 MG Oral Tablet MIGUEL ([facility]) Penicillin V Potassium 250 MG Oral Tablet MIGUEL ([facility]) Penicillin V Potassium 500 MG Oral Tablet MIGUEL ([facility]) Penicillin V Potassium 250 MG Oral Tablet MIGUEL ([facility]) Fluconazole 150 MG Oral Tablet MIGUEL ([facility]) duloxetine 20 MG Delayed Release Oral Capsule MIGUEL ([facility]) Clindamycin 150 MG Oral Capsule MIGUEL ([facility]) Cephalexin 500 MG Oral Capsule MIGUEL ([facility]) Buprenorphine 8 MG Sublingual Tablet MIGUEL ([facility]) Penicillin V Potassium 500 MG Oral Tablet MIGUEL ([facility]) Penicillin V Potassium 250 MG Oral Tablet MIGUEL ([facility]) Fluconazole 150 MG Oral Tablet MIGUEL ([facility]) duloxetine 20 MG Delayed Release Oral Capsule MIGUEL ([facility]) Clindamycin 150 MG Oral Capsule MIGUEL ([facility]) Cephalexin 500 MG Oral Capsule MIGUEL ([facility]) Buprenorphine 8 MG Sublingual Tablet MIGUEL ([facility]) Penicillin V Potassium 500 MG Oral Tablet MIGUEL ([facility]) Penicillin V Potassium 250 MG Oral Tablet MIGUEL ([facility]) Fluconazole 150 MG Oral Tablet MIGUEL ([facility]) duloxetine 20 MG Delayed Release Oral Capsule MIGUEL ([facility]) Cephalexin 500 MG Oral Capsule MIGUEL ([facility]) Penicillin V Potassium 500 MG Oral Tablet MIGUEL ([facility]) Penicillin V Potassium 250 MG Oral Tablet MIGUEL ([facility]) Fluconazole 150 MG Oral Tablet MIGUEL ([facility]) duloxetine 20 MG Delayed Release Oral Capsule MIGUEL ([facility]) Clindamycin 150 MG Oral Capsule MIGUEL ([facility]) Cephalexin 500 MG Oral Capsule MIGUEL ([facility])
[2021-04-28 17:47] LABS: RSV AMPLIFICATION NEGATIVE (NEGATIVE)
[2021-04-28] MEDS ORDERED: VENTAER INH (19:31)
== END 2021-04-28 21:07 | disposition home or self-care (01) ==
LOC: M ED 16:05
DX: U07.1 COVID-19 (principal); R51.9 Headache, unspecified; J45.909 Unspecified asthma, uncomplicated; Z87.442 Personal history of urinary calculi; M54.9 Dorsalgia, unspecified; F41.9 Anxiety disorder, unspecified; F17.200 Nicotine dependence, unspecified, uncomplicated; Z79.899 Other long term (current) drug therapy; Z88.2 Allergy status to sulfonamides; Z88.5 Allergy status to narcotic agent; Z88.8 Allergy status to other drugs, medicaments and biological substances; Z91.040 Latex allergy status

== ENCOUNTER 2021-04-30 09:33 | Outpatient (CLI) | payer OTHER ==
--- NOTE | 2021-04-28 20:41 | CR.PDOC ---
General Date of Consultation: Apr 28, 2021 Consultation REASON FOR CONSULTATION/CHIEF COMPLAINT: cough HISTORY OF PRESENT ILLNESS: 35 y F with a PMHx of asthma, R nephrectomy, renal stones, presented to ER with a 2 day hx of cough, shortness of breath and generalized malaise. Two of her children are COVID-19 positive. She is diagnosed with COVID-19 today in the ER. She is afebrile, and is saturating well at rest and ambulation on RA. She denies chest pain, palpitations, n/v/d, headache. She wishes to receive the monoclonal antibody infusion. She qualifies based on her history of asthma. She was explained risks and benefits. Particularly, risk of anaphylaxis was explained. Patient understood and verbalized the risk and benefits. ALLERGIES: Please see below. HOME MEDICATIONS: Please see below. PAST MEDICAL HISTORY: Asthma Solitary kidney renal stones PAST SURGICAL HISTORY: R nephrectomy 2006 Mutliple ureteral stents R knee surgery Appendectomy Tubal ligation FAMILY HISTORY: Mother and 2 sisters: hx of uterine cancer SOCIAL HISTORY: Uses nicotine vape denies alcohol use denies illicit drug use REVIEW OF SYSTEMS: 10 point ROS was conducted, relevant findings are noted in HPI. PHYSICAL EXAMINATION: VITAL SIGNS: please see below General: NAD, comfortable HEENT: PERRLA, EOMI, sclerae clear Neck: supple, normal ROM, no JVD Respiratory: lungs CTAB, no wheeze, no rales, no crackles CVS: RRR, normal S1, S2, no murmurs Abdo: soft, no masses, no hepatosplenomegaly, BS+, no rebound tenderness Extremities: no edema, pulses 2+ MSK: no joint deformities, normal ROM Neuro: no focal neuro deficits, moving all 4 extremities, CN2-12 intact. Strength 5/5 in all 4 extremities. No nystagmus. Psych: calm, cooperative, AAO x 3 LABORATORY DATA: Please see below. ASSESSMENT/PLAN: #COVID-19 positive: patient qualifies for monoclonal antibody infusion based on her history of asthma. Consent was obtained, and signed. Risks and benefits were explained, of which the patient verbalized understanding. I d/w pharmacy, currently casirivimab/imdevimab infusion is available with additional stock expected to arrive on 04/30/21. Patient will return to [facility] for infusion on 04/30/21. Allergies Coded Allergies: latex (Verified Allergy, Intermediate, Hives, 09/09/18) Sulfa (Sulfonamide Antibiotics) (Verified Allergy, Mild, Rash, 09/09/18) codeine (Verified Allergy, Mild, Rash, 09/09/18) tramadol (Verified Allergy, Mild, Rash, 09/09/18) metoclopramide (Verified Adverse Reaction, Intermediate, Anxiety, Panic, 09/09/18) Home Medications Scheduled Acetaminophen (Acetaminophen) 500 Mg Tablet, 2 TAB PO Q6H for fever for 15 Days, #60 (Reported) Amoxicillin/Potassium Clav (Augmentin 875-125 Tablet) 1 Each Tablet, 1 TAB PO BID for 7 Days, #14 Ibuprofen (Ibuprofen) 800 Mg Tab, 1 TAB PO TID for pain for 10 Days, #30 Scheduled PRN Albuterol Sulfate (Ventolin Hfa) 18 Gm Hfa.aer.ad, 2 PUFF INH Q4-6HP PRN for wheezing for 30 Days, #1 Miscellaneous Medications Buprenorphine HCl (Buprenorphine HCl) 8 Mg Tab.subl, (Reported) Gabapentin (Gabapentin) 800 Mg Tablet, (Reported) Levothyroxine Sodium (Levothyroxine Sodium) 50 Mcg Tablet, (Reported) JASMINE NARANJO MD Apr 28, 2021 20:40
[~2021-04-30] VITALS: Ht 170.2 cm; Wt 64.0 kg
[~2021-04-30 09:33] MED LIST changes: +ACET-683 PO; +ACETAMINOPHEN TAB 650MG DOSE (2X325MG) PO PRN; +ALBUTEROL 90 MCG/ACT 8GM HFA INHALER INH PRN; +ALBUTEROL SULFATE 2.5 MG/0.5 ML INH NEB SOLN INH PRN; +CASIRIVIMAB (REGN10933) 600 MG, IMDEVIMAB (REGN10987) 600 MG in NS 250 ML IV ONE; +CASIRIVIMAB/IMDEVIMAB 1,200 MG in NS 250 ML IV ONE; +EPINEPHrine INJ 1 MG/ML 1ML AMP IM PRN; +GABA800T4; +LEVO50TA5; +NS 1,000 ML IV SCH; +VENTAER INH; +diphenhydrAMINE 50MG/ML VIAL (J1200) IV PRN; +methylPREDNISolone 125MG 2ML VIAL IV PRN
[2021-04-30 10:06] VITALS: BP 143/83
[2021-04-30 10:36] VITALS: BP 118/63
[2021-04-30 11:06] VITALS: BP 109/66
[2021-04-30 12:06] VITALS: BP 119/68
== END 2021-04-30 12:06 | disposition home or self-care (01) ==
LOC: M OPCLI4PR 09:33
PROVIDERS: ATTEND Family Medicine
DX: U07.1 COVID-19 (principal); Z88.2 Allergy status to sulfonamides; Z88.8 Allergy status to other drugs, medicaments and biological substances; Z91.040 Latex allergy status; Z88.6 Allergy status to analgesic agent

== ENCOUNTER → 2022-07-01 | Outpatient (REF) | payer OTHER ==
[~2022-07-01] MED LIST changes: -ACETAMINOPHEN TAB 650MG DOSE (2X325MG) PO PRN; -ALBUTEROL 90 MCG/ACT 8GM HFA INHALER INH PRN; -ALBUTEROL SULFATE 2.5 MG/0.5 ML INH NEB SOLN INH PRN; -CASIRIVIMAB (REGN10933) 600 MG, IMDEVIMAB (REGN10987) 600 MG in NS 250 ML IV ONE; -CASIRIVIMAB/IMDEVIMAB 1,200 MG in NS 250 ML IV ONE; -EPINEPHrine INJ 1 MG/ML 1ML AMP IM PRN; -FLUC150T PO; +FLUC150T9 PO; -NS 1,000 ML IV SCH; -diphenhydrAMINE 50MG/ML VIAL (J1200) IV PRN; -methylPREDNISolone 125MG 2ML VIAL IV PRN
== END ==
LOC: M LAB REF 16:27
PROVIDERS: ATTEND Nurse Practitioner Family
DX: R30.0 Dysuria (principal)

== ENCOUNTER → 2022-08-05 | Outpatient (REF) | payer OTHER | LOC: M LAB REF 16:11 | PROVIDERS: ATTEND Family Medicine Addiction Medicine | DX: R31.0 Gross hematuria (principal) ==

== ENCOUNTER 2022-10-29 14:51 | Emergency (ER) | payer OTHER ==
[~2022-10-29] VITALS: Ht 182.9 cm; Wt 71.6 kg
[2022-10-29] MEDS ORDERED: KETOROLAC 30 MG/ML 1ML VIAL IV ONE (18:10)
[2022-10-29] MEDS ORDERED: CLINDAMYCIN 900 MG in IV 1 EA IV ONE (18:10)
[2022-10-29 18:35] LABS: BASO % 0.7 % (0.0-1.0); EOS # 0.2 10^3/uL (0.0-0.5); EOS % 2.8 % (0.0-3.0); HEMATOCRIT 33.2 % (36.0-47.0); HEMOGLOBIN 11.2 g/dl (12.0-15.5); LYMPH # 1.4 10^3/uL (1.5-5.0); LYMPH % 23.4 % (24.0-44.0); MEAN CORPUSCULAR HEMOGLOBIN 29.4 pg (27.0-33.0); MEAN CORPUSCULAR HGB CONC 33.7 g/dl (32.0-36.5); MEAN CORPUSCULAR VOLUME 87.1 fl (80.0-96.0); MONO # 0.7 10^3/uL (0.0-0.8); MONO % 12.1 % (2.0-8.0); NEUTROPHILS # 3.7 10^3/uL (1.5-8.5); NEUTROPHILS % 60.8 % (36.0-66.0); PLATELET COUNT, AUTOMATED 200 10^3/uL (150-450); RED BLOOD COUNT 3.81 10^6/uL (4.00-5.40); WHITE BLOOD COUNT 6.1 10^3/uL (4.0-10.0)
[2022-10-29] MEDS ORDERED: ISOVUE-370 76% 100ML VIAL As Ordered ONE (18:40)
[2022-10-29] MEDS ORDERED: CLEO300C2 PO (20:29)
[2022-10-29] MEDS ORDERED: IBUP-1022 PO (20:36)
[2022-10-29 20:38] VITALS: BP 129/75
== END 2022-10-29 20:39 | disposition home or self-care (01) ==
LOC: M ED 14:51
DX: K04.7 Periapical abscess without sinus (principal); Z79.899 Other long term (current) drug therapy; Z88.2 Allergy status to sulfonamides; Z88.5 Allergy status to narcotic agent; Z88.8 Allergy status to other drugs, medicaments and biological substances; Z91.040 Latex allergy status
CPT/HCPCS: 70487; 80047; 85025; 96365; 96366; 96375; 99284; J1885; Q9967; S0077

== ENCOUNTER 2023-06-22 11:32 | Emergency (ER) | payer OTHER ==
[~2023-06-22 11:32] MED LIST changes: +CLEO300C2 PO; +IBUP-1022 PO
[2023-06-22] MEDS ORDERED: LIDOCAINE 2% W/ EPINEPHRINE 1.7 ML DENTAL INJ SM ONE ×2 (13:45)
[2023-06-22 14:27] LABS: HEMATOCRIT 36.7 % (36.0-47.0); HEMOGLOBIN 11.8 g/dl (12.0-15.5); MEAN CORPUSCULAR HEMOGLOBIN 28.3 pg (27.0-33.0); MEAN CORPUSCULAR HGB CONC 32.2 g/dl (32.0-36.5); PLATELET COUNT, AUTOMATED 205 10^3/uL (150-450); RED BLOOD COUNT 4.17 10^6/uL (4.00-5.40); WHITE BLOOD COUNT 6.4 10^3/uL (4.0-10.0)
[2023-06-22] MEDS ORDERED: AMOX875T2 PO (14:36)
[2023-06-22] MEDS ORDERED: KETO10TAB PO (14:36)
[2023-06-22] MEDS ORDERED: ISOVUE-370 76% 100ML VIAL As Ordered ONE (14:42)
[2023-06-22 15:08] VITALS: BP 164/84; TEMP 96.3; O2SAT 100
[2023-06-22] MEDS ORDERED: BENZOCAINE 10% 9GM TUBE (ANBESOL) MT SCH (17:00)
== END 2023-06-22 15:10 | disposition home or self-care (01) ==
LOC: M ED 11:32
DX: K04.7 Periapical abscess without sinus (principal); F17.200 Nicotine dependence, unspecified, uncomplicated; Z88.2 Allergy status to sulfonamides; Z88.5 Allergy status to narcotic agent; Z88.6 Allergy status to analgesic agent; Z91.040 Latex allergy status; Z79.52 Long term (current) use of systemic steroids; Z79.2 Long term (current) use of antibiotics; Z79.1 Long term (current) use of non-steroidal anti-inflammatories (NSAID); Z79.891 Long term (current) use of opiate analgesic; Z79.899 Other long term (current) drug therapy
CPT/HCPCS: 36415; 64400; 70487; 85027; 99283; Q9967

== ENCOUNTER → 2023-07-07 | Outpatient (REF) | payer OTHER ==
[~2023-07-07] MED LIST changes: +AMOX875T2 PO; +KETO10TAB PO
[2023-07-07 18:28] LABS: APPEARANCE, URINE HAZY (CLEAR); BACTERIA, URINE AUTO 1+ (NEGATIVE); BILIRUBIN, URINE AUTO NEGATIVE (NEGATIVE); BLOOD, URINE BLOOD 1+ (NEGATIVE); COLOR, URINE YELLOW (YELLOW); GLUCOSE, URINE (UA) AUTO NEGATIVE (NEGATIVE); KETONE, URINE AUTO NEGATIVE (NEGATIVE); LEUKOCYTE ESTERASE, URINE AUTO NEGATIVE (NEGATIVE); MUCUS, URINE SMALL (NEGATIVE); NITRITE, URINE AUTO NEGATIVE (NEGATIVE); PROTEIN, URINE AUTO 1+ mg/dL (NEGATIVE); RBC, URINE AUTO 11 /HPF (0-3); SPECIFIC GRAVITY URINE AUTO 1.026 (1.002-1.035); SQUAMOUS EPITHELIAL CELL UR AU 13 /HPF (0-6); UROBILINOGEN, URINE AUTO 0.2 mg/dL (0.0-2.0); WBC, URINE AUTO 4 /HPF (0-3)
== END ==
LOC: M LAB REF 17:04
PROVIDERS: ATTEND Family Medicine Addiction Medicine
DX: R39.9 Unspecified symptoms and signs involving the genitourinary system (principal)

== ENCOUNTER → 2023-11-21 | Outpatient (REF) | payer OTHER ==
[~2023-11-21] MED LIST changes: +ONDA-284 PO; -ONDA8TAB8 PO
== END ==
LOC: M LAB REF 16:28
PROVIDERS: ATTEND Family Medicine Addiction Medicine
DX: R39.9 Unspecified symptoms and signs involving the genitourinary system (principal)

== ENCOUNTER → 2024-01-16 | Outpatient (REF) | payer OTHER ==
[2024-01-16 17:36] LABS: BASO # 0.1 10^3/uL (0.0-0.2); BASO % 1.2 % (0.0-1.0); EOS # 0.2 10^3/uL (0.0-0.5); EOS % 4.5 % (0.0-3.0); HEMATOCRIT 40.2 % (36.0-47.0); HEMOGLOBIN 12.9 g/dl (12.0-15.5); LYMPH # 1.8 10^3/uL (1.5-5.0); LYMPH % 35.6 % (24.0-44.0); MEAN CORPUSCULAR HEMOGLOBIN 28.5 pg (27.0-33.0); MEAN CORPUSCULAR HGB CONC 32.1 g/dl (32.0-36.5); MEAN CORPUSCULAR VOLUME 88.9 fl (80.0-96.0); MONO # 0.5 10^3/uL (0.0-0.8); MONO % 10.7 % (2.0-8.0); NEUTROPHILS # 2.4 10^3/uL (1.5-8.5); NEUTROPHILS % 47.8 % (36.0-66.0); PLATELET COUNT, AUTOMATED 226 10^3/uL (150-450); RED BLOOD COUNT 4.52 10^6/uL (4.00-5.40); WHITE BLOOD COUNT 5.1 10^3/uL (4.0-10.0)
[2024-01-16 17:55] LABS: ALBUMIN 3.9 G/DL (3.2-5.2); ALKALINE PHOSPHATASE 67 U/L (46-116); ALT/SGPT 11 U/L (7.0-40); AST/SGOT 11 U/L (<34); BILIRUBIN,TOTAL 0.2 MG/DL (0.3-1.2); BLOOD UREA NITROGEN 19 MG/DL (9-23); CALCIUM LEVEL 9.2 MG/DL (8.5-10.1); CARBON DIOXIDE LEVEL 28 MMOL/L (20-31); CHLORIDE LEVEL 107 MMOL/L (98-107); CREATININE FOR GFR 0.97 MG/DL (0.55-1.30); GLOMERULAR FILTRATION RATE > 60.0 (>60); GLUCOSE, FASTING 80 MG/DL (60-100); POTASSIUM SERUM 4.6 MMOL/L (3.5-5.1); SODIUM LEVEL 140 MMOL/L (136-145)
[2024-01-16 18:04] LABS: APPEARANCE, URINE CLOUDY (CLEAR); BACTERIA, URINE AUTO 1+ (NEGATIVE); BILIRUBIN, URINE AUTO NEGATIVE (NEGATIVE); BLOOD, URINE BLOOD 3+ (NEGATIVE); COLOR, URINE YELLOW (YELLOW); GLUCOSE, URINE (UA) AUTO NEGATIVE (NEGATIVE); KETONE, URINE AUTO NEGATIVE (NEGATIVE); LEUKOCYTE ESTERASE, URINE AUTO 3+ (NEGATIVE); MUCUS, URINE SMALL (NEGATIVE); NITRITE, URINE AUTO NEGATIVE (NEGATIVE); PROTEIN, URINE AUTO 1+ mg/dL (NEGATIVE); RBC, URINE AUTO 1 /HPF (0-3); SPECIFIC GRAVITY URINE AUTO 1.024 (1.002-1.035); SQUAMOUS EPITHELIAL CELL UR AU 27 /HPF (0-6); UROBILINOGEN, URINE AUTO 0.2 mg/dL (0.0-2.0); WBC, URINE AUTO 52 /HPF (0-3)
== END ==
LOC: M LAB REF 16:25
PROVIDERS: ATTEND Physician Assistant
DX: R30.0 Dysuria (principal)

== ENCOUNTER → 2024-02-17 | Outpatient (REF) | payer OTHER ==
[~2024-02-17] MED LIST changes: +GABA-1490 PO; +GABA-1635; -GABA600T4 PO; -GABA800T4
[2024-02-17 12:08] LABS: APPEARANCE, URINE HAZY (CLEAR); BACTERIA, URINE AUTO 1+ (NEGATIVE); BILIRUBIN, URINE AUTO NEGATIVE (NEGATIVE); BLOOD, URINE BLOOD 1+ (NEGATIVE); COLOR, URINE YELLOW (YELLOW); GLUCOSE, URINE (UA) AUTO NEGATIVE (NEGATIVE); KETONE, URINE AUTO NEGATIVE (NEGATIVE); LEUKOCYTE ESTERASE, URINE AUTO NEGATIVE (NEGATIVE); MUCUS, URINE SMALL (NEGATIVE); NITRITE, URINE AUTO NEGATIVE (NEGATIVE); PROTEIN, URINE AUTO NEGATIVE (NEGATIVE); RBC, URINE AUTO 10 /HPF (0-3); SPECIFIC GRAVITY URINE AUTO 1.017 (1.002-1.035); SQUAMOUS EPITHELIAL CELL UR AU 14 /HPF (0-6); UROBILINOGEN, URINE AUTO 0.2 mg/dL (0.0-2.0); WBC, URINE AUTO 1 /HPF (0-3)
== END ==
LOC: M LAB REF 11:34
PROVIDERS: ATTEND Family Medicine Addiction Medicine
DX: N39.0 Urinary tract infection, site not specified (principal)

== ENCOUNTER → 2024-06-14 | Outpatient (REF) | payer OTHER, MEDICAID | LOC: M LAB REF 16:14 | PROVIDERS: ATTEND Nurse Practitioner Family | DX: R30.0 Dysuria (principal) ==

== ENCOUNTER → 2024-10-26 | Outpatient (REF) | payer OTHER | LOC: M LAB REF 12:31 | PROVIDERS: ATTEND Family Medicine Addiction Medicine | DX: R30.0 Dysuria (principal) ==

== ENCOUNTER → 2025-01-12 | Outpatient (REF) | payer OTHER ==
[2025-01-12 13:42] LABS: APPEARANCE, URINE HAZY (CLEAR); BACTERIA, URINE AUTO NEGATIVE (NEGATIVE); BILIRUBIN, URINE AUTO NEGATIVE (NEGATIVE); BLOOD, URINE BLOOD 1+ (NEGATIVE); GLUCOSE, URINE (UA) AUTO NEGATIVE (NEGATIVE); KETONE, URINE AUTO NEGATIVE (NEGATIVE); LEUKOCYTE ESTERASE, URINE AUTO NEGATIVE (NEGATIVE); MUCUS, URINE SMALL (NEGATIVE); NITRITE, URINE AUTO NEGATIVE (NEGATIVE); PROTEIN, URINE AUTO NEGATIVE (NEGATIVE); RBC, URINE AUTO 13 /HPF (0-3); SPECIFIC GRAVITY URINE AUTO 1.020 (1.002-1.035); SQUAMOUS EPITHELIAL CELL UR AU 10 /HPF (0-6); UROBILINOGEN, URINE AUTO 0.2 mg/dL (0.0-2.0); WBC, URINE AUTO 3 /HPF (0-3)
== END ==
LOC: M SMT 12:50
PROVIDERS: ATTEND Nurse Practitioner Family
DX: N39.0 Urinary tract infection, site not specified (principal)

== ENCOUNTER → 2025-01-20 | Outpatient (CLI) | payer OTHER ==
[2025-01-20 14:21] LABS: CALCIUM LEVEL 9.1 MG/DL (8.5-10.1); CARBON DIOXIDE LEVEL 28.0 MMOL/L (20-31); CHLORIDE LEVEL 105.0 MMOL/L (98-107); CREATININE FOR GFR 0.91 MG/DL (0.55-1.30); GLOMERULAR FILTRATION RATE 82.8 (>60); POTASSIUM SERUM 4.4 MMOL/L (3.5-5.1); SODIUM LEVEL 141.0 MMOL/L (136-145)
== END ==
LOC: M LAB 12:48
PROVIDERS: ATTEND Nurse Practitioner Family
DX: R31.0 Gross hematuria (principal)

== ENCOUNTER → 2025-01-21 | Outpatient (CLI) | payer OTHER ==
[~2025-01-21] MED LIST changes: +ISOVUE-370 76% 100 ML VIAL ONE
== END ==
LOC: M PLAIMG 10:06
PROVIDERS: ATTEND Nurse Practitioner Family
DX: R31.0 Gross hematuria (principal); Z90.5 Acquired absence of kidney; K44.9 Diaphragmatic hernia without obstruction or gangrene
CPT/HCPCS: 74178; Q9967

== ENCOUNTER → 2025-03-16 | Outpatient (REF) | payer OTHER ==
[~2025-03-16] MED LIST changes: -IBUP-1022 PO; +IBUP600T42 PO; -ISOVUE-370 76% 100 ML VIAL ONE
[2025-03-16 14:43] LABS: APPEARANCE, URINE CLOUDY (CLEAR); BACTERIA, URINE AUTO 2+ (NEGATIVE); BILIRUBIN, URINE AUTO NEGATIVE (NEGATIVE); BLOOD, URINE BLOOD 3+ (NEGATIVE); GLUCOSE, URINE (UA) AUTO NEGATIVE (NEGATIVE); KETONE, URINE AUTO NEGATIVE (NEGATIVE); LEUKOCYTE ESTERASE, URINE AUTO 2+ (NEGATIVE); MUCUS, URINE SMALL (NEGATIVE); NITRITE, URINE AUTO NEGATIVE (NEGATIVE); PROTEIN, URINE AUTO NEGATIVE (NEGATIVE); RBC, URINE AUTO 60 /HPF (0-3); SPECIFIC GRAVITY URINE AUTO 1.020 (1.002-1.035); SQUAMOUS EPITHELIAL CELL UR AU 10 /HPF (0-6); UROBILINOGEN, URINE AUTO 0.2 mg/dL (0.0-2.0); WBC, URINE AUTO 69 /HPF (0-3); YEAST LIKE CELL URINE AUTO LARGE
== END ==
LOC: M LAB REF 14:05
PROVIDERS: ATTEND Family Medicine Addiction Medicine
DX: R39.9 Unspecified symptoms and signs involving the genitourinary system (principal)